=== PATIENT | female | born 1975 | race Hispanic/Latino ===

== ENCOUNTER 2016-11-16 13:58 | Observation (INO) | payer OTHER ==
[2016-11-16] VITALS (7 sets, daily range): BP systolic 92–155; BP diastolic 50–96
[~2016-11-16] VITALS: Ht 160 cm; Wt 98.3 kg
[~2016-11-16 13:58] MED LIST: ALBU8.5H2 IH; ASCO500T20 GT; ASP81TEC PO; ATR20T PO; BENZ200C25 PO; BUTA-234 PO; BUTA1CAP17 PO; BUTA1CAP39 PO; CALC-80 PO; CALC60OI3 TOP; CLCX200C PO; CLN150C PO; CLOB118S3 TOP; CLOB15CR2 TOP; CLOB15CR3 TP; CODE-54 PO; CPR500T PO; DIAZ5TAB PO; DICL75TA2 PO; DOCU100C37 PO; FERR-57 PO; FERR256T PO; FOLI0.4T2 PO; GABA-486 PO; HYDR-3816 PO; IBP600T1 PO; IBUP-1773 PO; IBUP-30 PO; IBUP200C92 PO; L.AC1CAP6 PO; LEVO500T69 PO; MECL-106 PO; MECL25TA56 PO; MELO-170 PO; MELO-198 PO; MELO7.5T PO; METF500T4 PO; METH4TAB PO; METO25TA PO; METR500T PO; MTF500T PO; MTP25TSR PO; NAPR-689 PO; NF-DICLOTA PO; NF-ESOM40C PO; ONDA-42 SL; ONDA8TAB6 PO; ONDA8TAB9 PO; ONDN4T PO; OXYC1TAB5 PO; PNT40TEC PO; PRM25T PO; PSYL1PAC10 PO; PYRI50TA10 PO; SERT100T8 PO; SERT25TA PO; SERT50TA9 PO; SIME80TA16 PO; TRAM-21 PO; TRAM50TA2 PO
[2016-11-16] MEDS ORDERED: FAMOTIDINE 20MG/2ML IV (PEPCID) ONE (13:59)
[2016-11-16] MEDS ORDERED: FAMOTIDINE 20MG/2ML IV (PEPCID) IV STA (14:06)
[2016-11-16] MEDS ORDERED: methylPREDNISolone 125 MG (Solu-MEDROL) VIAL IV STA (14:08)
--- NOTE | 2016-11-16 14:31 | ED General ---
General Chief Complaint: Allergic Reaction Stated Complaint: ALLERGIC REACTION Source of Information: Patient Exam Limitations: No Limitations History of Present Illness Time Seen by Provider: 13:59 Initial Comments Here with report of anaphylaxis. Apparently ate some cake while at work that had peanuts in it unbeknownst to her. She has severe allergic reaction to p.m. it's. 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 EMS was summoned and initiated IV access. They started normal saline 1 L bolus and Benadryl 50 mg IV as well as albuterol neb. Patient was improving after all the meds were given. Transported emergently to the ER. On arrival, patient still having some respiratory distress but states that it is much improved. No vomiting but does have some stomach upset. Does report feeling swelling. No hives noted. Patient does have nausea and did vomit after eating. Timing/Duration: 1/2 Hour Severity: Severe Associated Systoms: CoughNo Fever/Chills, Nausea/Vomiting Shortness of Air Allergies and Home Medications Allergies Coded Allergies: acetaminophen (Verified Allergy, Unknown, NAUSEA, 02/09/16) celecoxib (Verified Allergy, Unknown, DIARRHEA. WEIGHT GAIN, 02/09/16) meloxicam (Verified Allergy, Unknown, DIARRHEA, 02/09/16) methotrexate (Verified Allergy, Unknown, MOUTH BLISTERING, ITCHING, ) morphine (Verified Allergy, Unknown, NAUSEA, 02/09/16) oxycodone (Verified Allergy, Unknown, NAUSEA, 02/09/16) cephalexin (Unverified Adverse Reaction, Mild, SEVERE DIARRHEA, 04/24/14) codeine (Unverified Adverse Reaction, Mild, NAUSEA, 04/24/14) hydrocodone bit (Verified Adverse Reaction, Unknown, RASH, 04/24/14) Home Medications Butalbital/Aspirin/Caffeine 1 Each Capsule 1 CAP PO DAILY PRN PRN MIGRAINE ( Reported) Calcipotriene 60 Gm Oint...g. TOP DAILY PRN PRN PSORIASIS OF NAILS (Reported) Clobetasol Propionate 118 Ml Shampoo TOP DAILY (Reported) Clobetasol Propionate 15 Gm Cream..g. TOP DAILY PRN PRN PSORIASIS (Reported) Diclofenac Sodium 75 Mg Tablet.dr 75 MG PO BID PRN PRN JOINT PAIN (Reported) Docusate Sodium 100 Mg Capsule #40 100 MG PO BID PRN PRN CONSTIPATION Prescribed by: RENITA MUÑOZ on 02/20/16 0808 Esomeprazole Magnesium 40 Mg Cap 40 MG PO DAILY (Reported) Hydrocodone/Acetaminophen 1 Each Tablet #50 1-2 EA PO Q6H PRN PRN PAIN Prescribed by: RENITA MUÑOZ on 02/20/16 0808 Ibuprofen 600 Mg Tablet #60 600 MG PO Q6H PRN PRN PAIN Prescribed by: RENITA MUÑOZ on 02/20/16 0808 L.acidoph & Paracasei,B.lactis 1 Each Capsule 1 EACH PO DAILY (Reported) Metformin HCl 500 Mg Tablet 500 MG PO DAILY WITH SUPPER (Reported) Ondansetron 8 Mg Tab.rapdis #10 8 MG PO Q4H Prescribed by: AVIS SHORT on 05/21/16 1049 Sertraline HCl 50 Mg Tablet 50 MG PO DAILY (Reported) Simethicone 80 Mg Tab.chew #40 40 MG PO TID PRN PRN INDIGESTION Prescribed by: RENITA MUÑOZ on 02/20/16 0808 Constitutional: see HPINo chills, No fever EENTM: no symptoms reported Respiratory: no symptoms reported Cardiovascular: no symptoms reported Gastrointestinal: nausea vomiting Genitourinary: no symptoms reported Musculoskeletal: no symptoms reported Skin: no symptoms reported Psychiatric/Neurological: AnxietyDenies Weakness All Other Systems Reviewed Negative Unless Noted: Yes Past Evnxtdi-Tbqsqq-Qcvvbm Hx Patient Social History Alcohol Use: Denies Use Recreational Drug Use: No Smoking Status: Never a Smoker Recent Hopitalizations: No Immunizations Up To Date Tetanus Booster (TDap): More than 5yrs Date of Pneumonia Vaccine: Dec 18, 2014 Date of Influenza Vaccine: Jun 19, 2015 Seasonal Allergies Seasonal Allergies: No Surgeries HX Surgeries: Yes (BREAST REDUCTION, D & C, BARTHOLIN'S GLAND MARSUPIALIZATION x2) Surgeries: Breast, Gallbladder, Hysterectomy Respiratory Hx Respiratory Disorders: Yes (P.E. 2007--ONLY TOOK MEDS X 3 MONTHS-DC'D DUE TO BRUISING/BLEEDING) Respiratory Disorders: Pneumonia, Pulmonary Embolism Cardiovascular Hx Cardiac Disorders: No Neurological Hx Neurological Disorders: Yes Neurological Disorders: Headaches /Migraines Reproductive System Hx Reproductive Disorders: Yes (FIBROID) Sexually Transmitted Disease: No Female Reproductive Disorders: Menstrual Problems, Endometriosis, Ovarian Cyst Genitourinary Hx Genitourinary Disorders: No Gastrointestinal Hx Gastrointestinal Disorders: Yes Gastrointestinal Disorders: Diverticulosis, Hemorrhoids, Gall Bladder Disease Musculoskeletal Hx Musculoskeletal Disorders: Yes Musculoskeletal Disorders: Arthritis Endocrine Hx Endocrine Disorders: Yes Endocrine Disorders: Diabetes, Non-Insulin dep HEENT HX ENT Disorders: No Cancer Hx Cancer: No Psychosocial Hx Psychiatric Problems: Yes Behavioral Health Disorders: Anxiety, Suicide Attempts, Depression Integumentary HX Skin/Integumentary Disorder: Yes Skin/Integumentary Disorders: Psoriasis Blood Transfusions Hx Blood Disorders: No Adverse Reaction to a Blood Tr: No Family Medical History Significant Family History: Cancer Family Medial History: Cancer GRANDMOTHER Cancer of colon GRANDMOTHER UNCLE Chest pain 03 MOTHER Family history: Arthritis GRANDMOTHER AUNT Family history: Breast disease 03 MOTHER Family history: Hypertension 03 FATHER Headache 03 MOTHER Hypercholesterolemia 03 FATHER 03 MOTHER 09 BROTHER 09 SISTER GRANDMOTHER Malignant neoplasm of lung GRANDMOTHER No Family History of: Abdominal aortic aneurysm [place]'s disease Alcoholism Aphasia Cataract Congenital heart disease Congestive heart failure Cystic fibrosis Dementia Dysphagia Family history: Allergy Family history: Alzheimer's disease Family history: Asthma Family history: Cardiovascular disease Family history: Coronary thrombosis Family history: Diabetes mellitus Family history: Gastrointestinal disease Family history: Glaucoma Family history: Osteoporosis Family history: Thyroid disorder Hearing loss Heart disease Hereditary disease History of - anemia History of - disorder History of - respiratory disease History of drug abuse Human immunodeficiency virus (HIV) seropositivity Infertile Kidney disease Myocardial infarction Parkinson's disease Prostate cancer Psychotic disorder Seizure disorder Stroke Tuberculosis Visual impairment Physical Exam Vital Signs Capillary Refill : General Appearance: Anxious Mild Distress HEENT: PERRL/EOMI Pharynx Normal Neck: Non Tender Supple Respiratory: Lungs Clear Normal Breath Sounds Cardiovascular: Regular Rate, Rhythm No Murmur Gastrointestinal: Non Tender Soft Back: Normal Inspection No CVA Tenderness No Vertebral Tenderness Extremity: Non Tender No Calf Tenderness Neurologic/Psychiatric: Alert Oriented x3 Skin: Normal Color Warm/Dry Progress/Results/Core Measures Results/Orders My Orders Orders-NATALYA GORE MD Famotidine Injection (Pepcid Injection) (11/16/16 14:06) Methylprednisolone Sod Succ (Solu-Medrol (11/16/16 14:08) Cbc With Automated Diff (11/16/16 14:45) Comprehensive Metabolic Panel (11/16/16 14:45) Progress Note : Progress Note Seen and evaluated on arrival by EMS. O2 sat on 100 percent on nasal cannula. Albuterol neb ongoing. Patient did receive Solu-Medrol IM. I will do additional 62.5 mg IV as well as Pepcid 20 mg IV. Monitor patient. 1440: I did discuss the case with Dr. Verdugo. Patient is doing better but due to severity of reaction and the level of treatment required to reverse it, we both agree that observation overnight is indicated. I did discuss this with the patient and she agrees. We will continue Solu-Medrol and Pepcid IV. Benadryl as needed. Epinephrine as needed ordered. Admit to ICU, observation status. Remains improved. Departure Communication Time/Spoke to Admitting Phy: 14:40 Impression Impression: Primary Impression: Anaphylaxis due to peanuts Qualified Code: T78.01XA - Anaphylactic reaction due to peanuts, initial encounter Disposition: ADMITTED INPATIENT Condition: Stable Decision to Admit Reason: Admit from ER (General) Decision to Admit/Date: Nov 16, 2016 Time/Decision to Admit Time: 14:40 Departure-Patient Inst. Referrals: VINOD MITCHELL MD (PCP/Family) Primary Care Physician NATALYA GORE MD Nov 16, 2016 14:31
[2016-11-16 14:51] LABS: BASOPHILS # (AUTO) 0.1 10^3/uL (0.0-0.1); BASOPHILS % (AUTO) 0 % (0-10); EOSINOPHILS # (AUTO) 0.3 10^3/uL (0.0-0.3); EOSINOPHILS % (AUTO) 2 % (0-10); LYMPHOCYTES # (AUTO) 8.4 X 10^3 (1.0-4.0); LYMPHOCYTES % (AUTO) 37 % (12-44); MEAN CORPUSCULAR HEMOGLOBIN 25 PG (25-34); MEAN CORPUSCULAR HGB CONC 33 G/DL (32-36); MEAN CORPUSCULAR VOLUME 78 FL (80-99); MEAN PLATELET VOLUME 9.9 FL (7.4-10.4); MONOCYTES # (AUTO) 1.3 X 10^3 (0.0-1.0); MONOCYTES % (AUTO) 6 % (0-12); NEUTROPHILS # (AUTO) 12.5 X 10^3 (1.8-7.8); NEUTROPHILS % (AUTO) 55 % (42-75); PLATELET COUNT 533 10^3/uL (130-400); RED BLOOD COUNT 5.27 10^6/uL (4.35-5.85); RED CELL DISTRIBUTION WIDTH 14.6 % (10.0-14.5); WHITE BLOOD COUNT 22.6 10^3/uL (4.3-11.0)
[2016-11-16 15:04] LABS: ALANINE AMINOTRANSFERASE 17 U/L (0-55); ALBUMIN 4.2 G/DL (3.2-4.5); ANION GAP 14 MMOL/L (5-14); ASPARTATE AMINO TRANSFERASE 16 U/L (5-34); BILIRUBIN,TOTAL 0.2 MG/DL (0.1-1.0); BLOOD UREA NITROGEN 7 MG/DL (7-18); BUN/CREATININE RATIO 10; CALCIUM 8.7 MG/DL (8.5-10.1); CARBON DIOXIDE 22 MMOL/L (21-32); CHLORIDE 101 MMOL/L (98-107); GFR ESTIMATED > 60; GLUCOSE 112 MG/DL (70-105); POTASSIUM 3.4 MMOL/L (3.6-5.0); SODIUM 137 MMOL/L (135-145); TOTAL PROTEIN 7.2 G/DL (6.4-8.2)
[2016-11-16 15:05] LABS: BAND NEUTROPHILS 0 %; BASOPHILS % (MANUAL) 0 %; EOSINOPHILS % (MANUAL) 1 %; LYMPHOCYTES % (MANUAL) 43 %; NEUTROPHILS % (MANUAL) 54 %
[2016-11-16] MEDS ORDERED: METF500T8 PO (15:52)
[2016-11-16] MEDS ORDERED: ADAL40PE SC (15:52)
[2016-11-16] MEDS ORDERED: PSEU30TA35 PO (15:52)
[2016-11-16] MEDS ORDERED: BUTA1TAB9 PO (15:52)
[2016-11-16] MEDS ORDERED: PANT40TA3 PO (15:52)
--- OUTSIDE RECORDS SUMMARY | 2016-11-16 16:20 | XMS REPORT | Continuity of Care Document ---
Author Author [facility] Organization [facility] Address Unknown Phone Unavailable Care Team Providers Care Patent Law Specialist Name Role Phone PCP Unavailable Source Comments Some departments are not documenting in the electronic medical record. If you do not see the information that you expected, contact Release of Information in the Health Information Management department at [phone] for further assistance in locating additional records.[facility] Active Allergies and Adverse Reactions Allergen Noted Date Severity Reactions Comments Keflex 07/16/2016 Low UNKNOWN Levofloxacin 09/03/2016 Low DIARRHEA Methotrexate 07/16/2016 Low UNKNOWN Mobic 07/16/2016 Low DIARRHEA Morphine 2016 Low VOMITING Vicodin 07/16/2016 Low UNKNOWN Current Medications Prescription Sig. Disp. Refills Start End Date Status Date diclofenac sodium DR Take 75 mg by mouth twice Active (VOLTAREN) 75 mg tablet daily. Clobetasol 0.05 % sham Apply topically to Active affected area daily. traMADol (ULTRAM) 50 mg Take 50 mg by mouth at Active tablet bedtime daily. clobetasol (TEMOVATE) Apply to affected area Active 0.05 % topical cream twice daily. sertraline (ZOLOFT) 100 Take 100 mg by mouth Active mg tablet daily. butalbital/acetaminophen/ Take 1 Tab by mouth every Active caffeine(+) (FIORICET) 4 hours as needed for 50/325/40 mg tablet Headache. metFORMIN-XR(+) Take 500 mg by mouth Active (GLUCOPHAGE XR) 500 mg daily with dinner. tablet pantoprazole DR Take 40 mg by mouth Active (PROTONIX) 40 mg tablet daily. adalimumab(+) (HUMIRA Inject 40 mg under the 2 Each 6 09/22/19 Active PEN) 40 mg/0.8 mL skin every 14 days. 17 injection pen Active Problems Problem Noted Date Headache 09/03/2016 Anxiety 09/03/2016 Psoriatic arthritis 09/03/2016 Prediabetes 09/03/2016 Inflammatory arthritis 2016 Recurrent major depressive disorder, in full remission (HCC) 2016 Psoriasis of scalp 2016 Non morbid obesity due to excess calories 2016 Most Recent Encounters Date Type Specialty Providers Description 11/12/2016 Refill Allergy,Immunology and Tod Su MD Rheumatology 09/16/2016 Telephone Allergy,Immunology and Tod Su MD Prior Authorization Rheumatology 09/03/2016 Office Visit Allergy,Immunology and Tod Su MD Psoriatic arthritis Rheumatology Social History Tobacco Use Types Packs/Day Years Used Date Never Smoker Smokeless Tobacco: Never Used Alcohol Use Drinks/Week oz/Week Comments No Last Filed Vital Signs Vital Sign Reading Time Taken Blood Pressure 126/81 09/03/2016 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 Pulse 94 09/03/2016 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 Temperature 36.4 C (97.5 F) 09/03/2016 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 Respiratory Rate 18 09/03/2016 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 Height 1.524 m (5') 09/03/2016 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 Weight 96.888 kg (213 lb 9.6 oz) 09/03/2016 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 Body Mass Index 41.72 09/03/2016 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 Oxygen Saturation - - Plan of Care Date Type Specialty Providers Description 12/10/2016 Appointment Allergy,Immunology and Tod Su MD Rheumatology [address] [place] [address] [phone] (Fax) Health Maintenance Due Date Last Done Comments Physical (Comprehensive) 1981 Exam Pertussis Vaccine 1985 Tetanus Vaccine 1991 Cervical Cancer Screening 1995 Breast Cancer Screening 2014 Influenza Vaccine 05/20/2016 Results from Last 3 Months Not on file
[2016-11-16] MEDS ORDERED: OMEP40CA36 PO (16:26)
[2016-11-16] MEDS ORDERED: TRAM50TA2 PO (16:26)
[2016-11-16] MEDS ORDERED: ONDA4TAB11 SL (16:26)
[2016-11-16] MEDS ORDERED: EPINEPHrine INJECTION 1 MG/ML AMP IM PRN (16:30)
[2016-11-16] MEDS ORDERED: RT-epiNEPHrine (RACEMIC) 2.25% 0.5 ML VIAL INH PRN (16:30)
[2016-11-16] MEDS ORDERED: CATHETER FLUSH 10 ML SYR IV PRN (16:30)
[2016-11-16] MEDS ORDERED: diphenhydrAMINE 50 MG/ML INJ (BENADRYL) IV PRN (16:30)
[2016-11-16] MEDS ORDERED: RT-ALBUTEROL SULF 2.5 MG/3 ML PRE-MIX VIAL INH PRN (16:30)
[2016-11-16] MEDS: NS IV 1000 ML 1,000 ML IV SCH (17:11)
[2016-11-16] MEDS: methylPREDNISolone 125 MG (Solu-MEDROL) VIAL IV SCH (17:30)
[2016-11-16] MEDS: FAMOTIDINE 20MG/2ML IV (PEPCID) IV SCH (22:08)
[2016-11-17] MEDS: methylPREDNISolone 125 MG (Solu-MEDROL) VIAL IV SCH ×2 (00:33→06:19)
[2016-11-17] MEDS: NS IV 1000 ML 1,000 ML IV SCH (02:44)
[2016-11-17 05:14] LABS: BASOPHILS % (AUTO) 0 % (0-10); EOSINOPHILS % (AUTO) 0 % (0-10); LYMPHOCYTES % (AUTO) 8 % (12-44); MEAN CORPUSCULAR HEMOGLOBIN 25 PG (25-34); MEAN CORPUSCULAR HGB CONC 33 G/DL (32-36); MEAN CORPUSCULAR VOLUME 78 FL (80-99); MEAN PLATELET VOLUME 9.6 FL (7.4-10.4); MONOCYTES # (AUTO) 0.2 X 10^3 (0.0-1.0); MONOCYTES % (AUTO) 1 % (0-12); NEUTROPHILS % (AUTO) 91 % (42-75); PLATELET COUNT 458 10^3/uL (130-400); RED BLOOD COUNT 5.31 10^6/uL (4.35-5.85); RED CELL DISTRIBUTION WIDTH 14.6 % (10.0-14.5); WHITE BLOOD COUNT 24.3 10^3/uL (4.3-11.0)
[2016-11-17 05:32] LABS: ANION GAP 12 MMOL/L (5-14); BLOOD UREA NITROGEN 7 MG/DL (7-18); BUN/CREATININE RATIO 11; CALCIUM 8.9 MG/DL (8.5-10.1); CARBON DIOXIDE 17 MMOL/L (21-32); CHLORIDE 109 MMOL/L (98-107); CREATININE SERUM 0.62 MG/DL (0.60-1.30); GFR ESTIMATED > 60; GLUCOSE 149 MG/DL (70-105); MAGNESIUM 1.9 MG/DL (1.8-2.4); POTASSIUM 3.8 MMOL/L (3.6-5.0); SODIUM 138 MMOL/L (135-145)
[2016-11-17] MEDS ORDERED: KCL 20 MEQ TAB (K-DUR) PO SCH ×2 (06:00)
[2016-11-17] MEDS ORDERED: POTASSIUM CL 10MEQ/50ML IVPB 50 ML IV SCH ×2 (06:00)
[2016-11-17] MEDS ORDERED: MAGNESIUM 1 GM/100 ML IVPB 100 ML IV SCH ×2 (06:00)
[2016-11-17 07:23] VITALS: BP 129/82
[2016-11-17] MEDS: FAMOTIDINE 20MG/2ML IV (PEPCID) IV SCH (07:54)
--- NOTE | 2016-11-17 08:20 | Diagnostic Imaging Report ---
Portable upright radiograph of the chest. INDICATION: Anaphylaxis. FINDINGS: There is minimal atelectasis in the left lung base. The right lung is clear. The heart size is mildly enlarged. There is no effusion or pneumothorax. The mediastinum and caesar appear unremarkable. IMPRESSION: Minimal left basilar atelectasis. The cardiac size appears enlarged, which could be exaggerated by the portable AP technique. Dictated by: Dictated on workstation # [id number]
[2016-11-17 09:00] VITALS: BP 124/77
[2016-11-17 09:13] VITALS: BP 124/77
[2016-11-17] MEDS ORDERED: PRD20T PO (09:26)
--- NOTE | 2016-11-17 09:29 | Discharge Instructions ---
Discharge Inst-[facility] Discharge Medications New, Converted or Re-Newed RX: Transmitted to Pharmacy New Medications: Prednisone (Prednisone) 20 Mg Tab 20 MG PO DAILY #7 TAB Continued Medications: Adalimumab (Humira) 40 Mg/0.8 Ml Pen.ij.kit 40 MG SC EVERY 14 DAYS HAS NOT STARTED YET EA Butalb/Acetaminophen/Caffeine (Jjumtk-Jxdjuksu-Novu 50-325-40) 1 Each Tablet 1-2 TAB PO Q6H PRN MIGRAINE TAB Calcipotriene (Calcipotriene) 60 Gm Oint...g. TOP DAILY PRN PSORIASIS OF NAILS Clobetasol Propionate (Clobetasol Propionate) 118 Ml Shampoo TOP Sa Clobetasol Propionate (Clobetasol Propionate) 15 Gm Cream..g. TOP DAILY PRN PSORIASIS Diclofenac Sodium (Diclofenac Sodium) 75 Mg Tablet.dr 75 MG PO BID PRN JOINT PAIN TAB Omeprazole (Omeprazole) 40 Mg Capsule.dr 40 MG PO DAILY PRN INDIGESTION Ondansetron (Ondansetron Odt) 4 Mg Tab.rapdis 4 MG SL Q8H PRN NAUSEA/VOMITING Sertraline HCl (Sertraline HCl) 50 Mg Tablet 50 MG PO DAILY TAB Tramadol HCl (Tramadol HCl) 50 Mg Tablet 50 MG PO Q6H PRN PAIN Patient Instructions Goal/Follow Up Appt: Geetha will call with follow up appointment Patient Instructions: - Make sure to take your steroid until gone, call if you have any return of symptoms Return to The Hospital For: - Shortness of breath - Wheezing - Return of symptoms Activity & Diet Discharge Diet: Cardiac Diet Activity as Tolerated: Yes Copy Copies To 1: VINOD MITCHELL MD, HOLLY R MD Nov 17, 2016 09:29
--- NOTE | 2016-11-17 09:30 | Short Stay Summary ---
HPI History of Present Illness: 41 yo F was brought to ER from [facility] after eating cookies during lunch that had walnuts present. Patient states that within mins she was feeling her throat get tight and numb. She told a coworker who then notified Dr Anderson. Patient was given epi x2 and IM steroids. EMS was called and they gave her additional steroids in route. Patient states that she was unaware that she had ingested nuts. This AM she is feeling much better. She was able to sleep some over night. She denies any return of symptoms. Denies shortness of breath or chest pain. Source: patient, RN/MD Exam Limitations: no limitations Date seen by provider: Nov 17, 2016 Attending Physician Phuong Verdugo MD PCP Vinod Anderson MD Consult Date of Admission Nov 16, 2016 at 15:10 Home Medications Home Medications Reviewed patient Home Medication Reconciliation Form Allergies Coded Allergies: nut - unspecified (Verified Allergy, Severe, Anaphylaxis, 11/16/16) acetaminophen (Verified Allergy, Unknown, NAUSEA, 02/09/16) celecoxib (Verified Allergy, Unknown, DIARRHEA. WEIGHT GAIN, 02/09/16) meloxicam (Verified Allergy, Unknown, DIARRHEA, 02/09/16) methotrexate (Verified Allergy, Unknown, MOUTH BLISTERING, ITCHING, ) morphine (Verified Allergy, Unknown, NAUSEA, 02/09/16) oxycodone (Verified Allergy, Unknown, NAUSEA, 02/09/16) cephalexin (Unverified Adverse Reaction, Mild, SEVERE DIARRHEA, 04/24/14) codeine (Unverified Adverse Reaction, Mild, NAUSEA, 04/24/14) hydrocodone bit (Verified Adverse Reaction, Unknown, RASH, 04/24/14) WII-Uueorc-Lwhiqx Hx Patient Social History Alcohol Use: Rarely Uses Recreational Drug Use: No Smoking Status: Never a Smoker Recent Foreign Travel: No Contact w/other who traveled: No Recent Hopitalizations: No Recent Infectious Disease Expo: No Physical Abuse Screen: No Sexual Abuse: No Immunizations Up To Date Tetanus Booster (TDap): More than 5yrs Date of Pneumonia Vaccine: Jun 16, 2016 Date of Influenza Vaccine: Jun 16, 2016 Past Medical History PMHx: Depression Hyperlipidemia Fever of unknown origin 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 by one [employer], did not tolerate methotrexate, waiting for second opinion at [facility] Thrombocytosis History of PE thought to be due to OCP use PSurgHx: Cholecystectomy Breast reduction Marsupialization of [place]tholin gland cyst Family Medical History Significant Family History: Cancer Family History: Cancer GRANDMOTHER Cancer of colon GRANDMOTHER UNCLE Chest pain 03 MOTHER Family history: Arthritis GRANDMOTHER AUNT Family history: Breast disease 03 MOTHER Family history: Hypertension 03 FATHER Headache 03 MOTHER Hypercholesterolemia 03 FATHER 03 MOTHER 09 BROTHER 09 SISTER GRANDMOTHER Malignant neoplasm of lung GRANDMOTHER No Family History of: Abdominal aortic aneurysm [place]'s disease Alcoholism Aphasia Cataract Congenital heart disease Congestive heart failure Cystic fibrosis Dementia Dysphagia Family history: Allergy Family history: Alzheimer's disease Family history: Asthma Family history: Cardiovascular disease Family history: Coronary thrombosis Family history: Diabetes mellitus Family history: Gastrointestinal disease Family history: Glaucoma Family history: Osteoporosis Family history: Thyroid disorder Hearing loss Heart disease Hereditary disease History of - anemia History of - disorder History of - respiratory disease History of drug abuse Human immunodeficiency virus (HIV) seropositivity Infertile Kidney disease Myocardial infarction Parkinson's disease Prostate cancer Psychotic disorder Seizure disorder Stroke Tuberculosis Visual impairment Review of Systems ([facility]) Constitutional: no symptoms reportedNo chills, No malaise, No weakness EENTM: no symptoms reportedNo hoarseness, No mouth pain, No mouth swelling, No throat pain, No throat swelling Respiratory: no symptoms reportedNo cough, No dyspnea on exertion, No short of breath, No stridor, No wheezing Cardiovascular: no symptoms reportedNo chest pain, No edema, No palpitations Gastrointestinal: abdominal pain (RUQ, She thinks that it is from vomiting)No heartburn, nauseaNo vomiting Genitourinary: no symptoms reported Musculoskeletal: no symptoms reported Skin: no symptoms reportedNo rash Psychiatric/Neurological: No Symptoms Reported Reviewed Test Results Reviewed Test Results Lab Laboratory Tests Test 11/17/16 05:07 Range/Units Anion Gap 12 5-14 MMOL/L BUN/Creatinine Ratio 11 Basophils # (Auto) 0.0 0.0-0.1 10^3/uL Basophils (%) (Auto) 0 0-10 % Blood Urea Nitrogen 7 7-18 MG/DL Calcium Level 8.9 8.5-10.1 MG/DL Carbon Dioxide Level 17 L 21-32 MMOL/L Chloride Level 109 H 98-107 MMOL/L Creatinine 0.62 0.60-1.30 MG/DL Eosinophils # (Auto) 0.0 0.0-0.3 10^3/uL Eosinophils (%) (Auto) 0 0-10 % Estimat Glomerular Filtration Rate > 60 Glucose Level 149 H 70-105 MG/DL Hematocrit 41 35-52 % Hemoglobin 13.4 11.5-16.0 G/DL Lymphocytes # (Auto) 2.0 1.0-4.0 X 10^3 Lymphocytes (%) (Auto) 8 L 12-44 % Magnesium Level 1.9 1.8-2.4 MG/DL Mean Corpuscular Hemoglobin 25 25-34 PG Mean Corpuscular Hemoglobin Concent 33 32-36 G/DL Mean Corpuscular Volume 78 L 80-99 FL Mean Platelet Volume 9.6 7.4-10.4 FL Monocytes # (Auto) 0.2 0.0-1.0 X 10^3 Monocytes (%) (Auto) 1 0-12 % Neutrophils # (Auto) 22.0 H 1.8-7.8 X 10^3 Neutrophils (%) (Auto) 91 H 42-75 % Phosphorus Level 2.0 L 2.3-4.7 MG/DL Platelet Count 458 H 130-400 10^3/uL Potassium Level 3.8 3.6-5.0 MMOL/L Red Blood Count 5.31 4.35-5.85 10^6/uL Red Cell Distribution Width 14.6 H 10.0-14.5 % Sodium Level 138 135-145 MMOL/L White Blood Count 24.3 H 4.3-11.0 10^3/uL Radiology Date of Exam: 11/17/16 CHEST 1 VIEW, AP/PA ONLY Portable upright radiograph of the chest. INDICATION: Anaphylaxis. FINDINGS: There is minimal atelectasis in the left lung base. The right lung is clear. The heart size is mildly enlarged. There is no effusion or pneumothorax. The mediastinum and caesar appear unremarkable. IMPRESSION: Minimal left basilar atelectasis. The cardiac size appears enlarged, which could be exaggerated by the portable AP technique. Physical Exam-([facility]) Physical Exam Vital Signs VS - Last 72 Hours, by Label 11/16/16 11/16/16 11/16/16 11/16/16 14:13 15:39 15:59 16:00 Temp 98.6 99.9 Pulse 111 110 111 Resp 20 14 30 B/P 159/102 141/92 Pulse Ox 99 97 93 93 O2 Delivery Simple Mask Room Air 11/16/16 11/16/16 11/16/16 11/16/16 16:15 16:25 17:00 18:00 Pulse 108 108 118 Resp 34 32 18 B/P 140/81 122/78 143/85 Pulse Ox 92 95 93 94 O2 Delivery Room Air Room Air Room Air 11/16/16 11/16/16 11/16/16 11/16/16 19:00 19:00 20:00 21:00 Pulse 114 114 121 112 Resp 20 B/P 155/96 Pulse Ox 96 96 93 O2 Delivery Room Air Room Air Room Air 11/16/16 11/16/16 11/17/16 11/17/16 22:00 23:00 00:00 01:00 Pulse 99 97 99 103 B/P 114/67 92/50 Pulse Ox 89 94 93 95 O2 Delivery Room Air Room Air Room Air Room Air 11/17/16 11/17/16 11/17/16 11/17/16 01:00 02:00 02:00 03:00 Temp 99.4 Pulse 97 90 98 B/P Pulse Ox 91 92 O2 Delivery Room Air Room Air 11/17/16 11/17/16 11/17/16 11/17/16 04:00 04:00 05:00 06:00 Temp 99.0 Pulse 99 92 102 93 B/P Pulse Ox 93 92 93 96 O2 Delivery Room Air Room Air Room Air Room Air 11/17/16 11/17/16 11/17/16 11/17/16 07:00 08:00 08:00 09:00 Temp 99.0 98.1 Pulse 105 99 112 B/P 124/77 Pulse Ox 93 92 95 O2 Delivery Room Air Room Air 11/17/16 09:13 Pulse 112 Resp 20 B/P 124/77 Pulse Ox 95 Capillary Refill : Less Than 3 Seconds General Appearance: WD/WN no apparent distress HEENT: PERRL/EOMI pharynx normalNo pharyngeal erythema Neck: non-tender full range of motion supple normal inspection Respiratory: chest non-tender lungs clear normal breath sounds no respiratory distress no accessory muscle useNo stridor, No wheezing Cardiovascular: normal peripheral pulses regular rate, rhythm no edema no gallop no JVD no murmur Gastrointestinal: normal bowel sounds non tender soft no organomegaly no pulsatile mass Extremities: normal range of motion non-tender normal inspection no pedal edema no calf tenderness normal capillary refill 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 nml as tested no motor/sensory deficits alert normal mood/affect oriented x 3 Skin: normal color warm/dryNo rash Lymphatic: no adenopathy Short Stay Diagnosis Discharge Diagnosis-Short Stay Admission Diagnosis Severe Anaphylaxic Reaction to nuts Respiratory Distress Final Discharge Diagnosis See Above Conclusion Plan 41 yo F that was admitted for observation following accidental ingestion of nuts which caused severe anaphylactic reaction with respiratory distress Plan Severe Allergic Reaction with Anaphylactic response - Switch to PO steroids with taper - Discussed the importance of avoidance of allergy - Patient has script for epipen - Discussed delayed reactions that she needs to notify doctor Respiratory Distress - Resolved this AM, on RA F/u with PCP Dr Anderson - Nothing pending at time of discharge Clinical Quality Measures DVT/VTE Risk/Contraindication: Risk Factor Score Per Nursin RFS Level Per Nursing on Admit: 4+=Very High Copy Copies To 1: VINOD ANDERSON MD, HOLLY R MD Nov 17, 2016 09:30
== END 2016-11-17 09:27 | disposition home or self-care (01) ==
LOC: EDUNIT# 13:58 → ER 13:59 → ICU 15:10 → UNDOADMOB 15:10 → ICU 15:55 → UNDODISOB 11-17 09:50
PROVIDERS: ADMIT Family Medicine; ATTEND Family Medicine
DX: T78.01XA Anaphylactic reaction due to peanuts, initial encounter (principal); R06.00 Dyspnea, unspecified; R11.0 Nausea; E11.9 Type 2 diabetes mellitus without complications; E78.5 Hyperlipidemia, unspecified; I25.10 Atherosclerotic heart disease of native coronary artery without angina pectoris; F32.9 Major depressive disorder, single episode, unspecified; Z79.899 Other long term (current) drug therapy; Z86.711 Personal history of pulmonary embolism
CPT/HCPCS: 36415; 71010; 80048; 80053; 83735; 84100; 85007; 85025; 85027; 96374; 96375; G0378

== ENCOUNTER → 2017-01-17 | Outpatient (CLI) | payer OTHER ==
[~2017-01-17] MED LIST changes: +ADAL40PE SC; +BUTA1TAB9 PO; +CATHETER FLUSH 10 ML SYR IV PRN; +IOHEXOL 350 MG/ML 100 ML (OMNIPAQUE 350) VIAL IV ONE; +METF500T8 PO; +NS 100 ML (IVPB) BAG IV ONE; +OMEP40CA36 PO; +ONDA4TAB11 SL; +PANT40TA3 PO; +PRD20T PO; +PSEU30TA35 PO
--- NOTE | 2017-01-17 12:00 | Diagnostic Imaging Report ---
PROCEDURE: CT abdomen and pelvis without contrast. TECHNIQUE: Multiple contiguous axial images were obtained through the abdomen and pelvis without the use of intravenous contrast. INDICATION: Abdominal pain, fever. FINDINGS: The lung bases appear clear. The liver is low in attenuation compatible with steatosis. No focal lesion identified, however, on this unenhanced exam. The spleen, the adrenals, and the pancreas appear unremarkable for an unenhanced study. There is suggestion of prior hysterectomy. Slightly prominent appearance of the right ovary is likely related to underlying dominant follicles. The left ovary is not seen. There is diverticulosis mostly involving the sigmoid colon with no evidence of diverticulitis. The appendix is normal. There is no significant free fluid or fluid collection in the abdomen or pelvis. There is a tiny fat-containing umbilical hernia. The abdominal aorta is normal in caliber. No para-aortic significantly enlarged lymph node is seen. The osseous structures appear grossly unremarkable. IMPRESSION: 1. Diverticulosis, no diverticulitis. 2. Hepatic steatosis. 3. Tiny fat-containing umbilical hernia. Dictated by: Dictated on workstation # [id number]
== END ==
LOC: RAD 09:43
PROVIDERS: ATTEND Obstetrics & Gynecology
DX: K57.30 Diverticulosis of large intestine without perforation or abscess without bleeding (principal); K76.0 Fatty (change of) liver, not elsewhere classified; K42.9 Umbilical hernia without obstruction or gangrene
CPT/HCPCS: 74176

== ENCOUNTER → 2017-09-07 | Outpatient (CLI) | payer OTHER ==
[~2017-09-07] MED LIST changes: -CATHETER FLUSH 10 ML SYR IV PRN; +DICL100T3 PO; -IOHEXOL 350 MG/ML 100 ML (OMNIPAQUE 350) VIAL IV ONE; -NF-DICLOTA PO; -NS 100 ML (IVPB) BAG IV ONE
--- NOTE | 2017-09-07 09:56 | Diagnostic Imaging Report ---
PROCEDURE: US abdomen complete. TECHNIQUE: Multiple real-time grayscale images were obtained over the abdomen in various projections. INDICATION: Left lower quadrant pain. FINDINGS: The pancreas is largely obscured. The liver is fairly homogeneous with no focal lesion. It is however hyperechoic and attenuates the ultrasound beam suggestive of fatty infiltration or hepatitis. It is at the upper limits of normal in size measuring 18.4 CM craniocaudally. Hepatopetal flow in the portal vein is demonstrated. The CBD is obscured. The gallbladder has been removed. The spleen is 9.4 CM in length. The abdominal aorta is mostly obscured. The IVC is also obscured by bowel gas. The right kidney is 11.2 and the left kidney is 11.5 CM in length. No hydronephrosis or focal lesion is seen. No fluid collection or ascites. IMPRESSION: Suggestion of hepatic steatosis or hepatitis. Dictated by: Dictated on workstation # [id number]
== END ==
LOC: RAD 08:40
PROVIDERS: ATTEND Family Medicine
DX: R10.32 Left lower quadrant pain (principal)
CPT/HCPCS: 76700

== ENCOUNTER 2018-05-01 08:00 | Emergency (ER) | payer OTHER ==
[~2018-05-01] VITALS: Ht 157.5 cm; Wt 86.2 kg
[~2018-05-01 08:00] MED LIST changes: +HYDR-34 PO; -HYDR-3816 PO; -METF500T4 PO; +METF500T5 PO
[2018-05-01] MEDS ORDERED: ASPIRIN 81 MG CHEW (CHILDREN'S ASA) PO ONE (08:15)
[2018-05-01] MEDS ORDERED: LORazepam INJ 2 MG/ML (ATIVAN) VIAL IVP ONE (08:15)
[2018-05-01 08:21] LABS: BASOPHILS % (AUTO) 0 % (0-10); EOSINOPHILS # (AUTO) 0.2 10^3/uL (0.0-0.3); EOSINOPHILS % (AUTO) 2 % (0-10); HEMATOCRIT 41 % (35-52); HEMOGLOBIN 13.3 G/DL (11.5-16.0); LYMPHOCYTES % (AUTO) 38 % (12-44); MEAN CORPUSCULAR HEMOGLOBIN 25 PG (25-34); MEAN CORPUSCULAR HGB CONC 32 G/DL (32-36); MEAN CORPUSCULAR VOLUME 78 FL (80-99); MEAN PLATELET VOLUME 9.4 FL (7.4-10.4); MONOCYTES # (AUTO) 0.9 X 10^3 (0.0-1.0); MONOCYTES % (AUTO) 7 % (0-12); NEUTROPHILS # (AUTO) 7.1 X 10^3 (1.8-7.8); NEUTROPHILS % (AUTO) 54 % (42-75); PLATELET COUNT 458 10^3/uL (130-400); RED BLOOD COUNT 5.28 10^6/uL (4.35-5.85); RED CELL DISTRIBUTION WIDTH 14.8 % (10.0-14.5); WHITE BLOOD COUNT 13.3 10^3/uL (4.3-11.0)
[2018-05-01 08:37] LABS: PROTHROMBIN TIME PATIENT 12.8 SEC (12.2-14.7)
[2018-05-01 08:39] LABS: ALANINE AMINOTRANSFERASE 15 U/L (0-55); ALBUMIN 4.1 GM/DL (3.2-4.5); ALKALINE PHOSPHATASE 84 U/L (40-136); BILIRUBIN,TOTAL 0.3 MG/DL (0.1-1.0); BUN/CREATININE RATIO 8; CALCIUM 8.7 MG/DL (8.5-10.1); CARBON DIOXIDE 21 MMOL/L (21-32); CHLORIDE 105 MMOL/L (98-107); CREATININE SERUM 0.65 MG/DL (0.60-1.30); GFR ESTIMATED > 60; GLUCOSE 113 MG/DL (70-105); MAGNESIUM 2.1 MG/DL (1.8-2.4); POTASSIUM 3.9 MMOL/L (3.6-5.0); SODIUM 137 MMOL/L (135-145); TOTAL PROTEIN 7.5 GM/DL (6.4-8.2)
--- OUTSIDE RECORDS SUMMARY | 2018-05-01 08:44 | XMS REPORT | Clinical Summary ---
Author Author [facility] Organization [facility] Address Unknown Phone Unavailable Care Team Providers Care Box Packer Name Role Phone Tod Su MD Unavailable Source Comments Some departments are not documenting in the electronic medical record. If you do not see the information that you expected, contact Release of Information in the Health Information Management department at [phone] for further assistance in locating additional records.[facility] Allergies Active Allergy Reactions Severity Noted Date Comments Cephalexin UNKNOWN Low 07/16/2016 Levofloxacin DIARRHEA Low 09/03/2016 Methotrexate UNKNOWN Low 07/16/2016 Meloxicam DIARRHEA Low 07/16/2016 Morphine VOMITING Low 2016 Hydrocodone-Acetaminophen UNKNOWN Low 07/16/2016 Current Medications Prescription Sig. Disp. Refills Start [...] morbid obesity due to excess calories 2016 Family History Medical History Relation Name Comments Hyperlipidemia Father Hypertension Father Arthritis-rheumatoid Maternal Grandmother Cancer Maternal Grandmother Cancer-Colon Maternal Grandmother Depression Mother Hyperlipidemia Mother Mental Illness Mother Relation Name Status Comments Father Maternal Grandmother Mother Social History Tobacco Use Types Packs/Day Years Used Date Never Smoker Smokeless Tobacco: Never Used Alcohol Use Drinks/Week oz/Week Comments No Sex Assigned at Date Recorded Not on file Last Filed Vital Signs Vital Sign Reading Time Taken Blood Pressure 126/81 09/03/2016 10:31 AM SINKER PULLER Pulse 94 09/03/2016 10:31 AM SINKER PULLER Temperature 36.4 C (97.5 F) 09/03/2016 10:31 AM SINKER PULLER Respiratory Rate 18 09/03/2016 10:31 AM SINKER PULLER Oxygen Saturation - - Inhaled Oxygen - - Concentration Weight 96.9 kg (213 lb 9.6 oz) 09/03/2016 10:31 AM SINKER PULLER Height 152.4 cm (5') 09/03/2016 10:31 AM SINKER PULLER Body Mass Index 41.72 09/03/2016 10:31 AM SINKER PULLER Plan of Treatment Health Maintenance Due Date Last Done Comments PHYSICAL (COMPREHENSIVE) 1981 EXAM PERTUSSIS VACCINE 1985 HIV SCREENING 1989 TETANUS VACCINE 1991 CERVICAL CANCER SCREENING 2004 BREAST CANCER SCREENING 2014 INFLUENZA VACCINE 06/19/2018 Results Not on filefrom Last 3 Months
[2018-05-01 08:45] LABS: MYOGLOBIN SERUM 17.9 NG/ML (10.0-92.0)
--- OUTSIDE RECORDS SUMMARY | 2018-05-01 08:45 | XMS REPORT ---
Author Author RALPH HENDRICKSON [facility] eClinicalWorks Address Unknown Phone Unavailable Care Team Providers Care Adjunct Spanish Instructor Name Role Phone RALPH HENDRICKSON CP Unavailable Allergies No Known Allergies Problems Problem Type Condition ICD-9 Code Onset Dates Condition Status Problem Other nonspecific findings on examination of blood, elevated C- reactive protein (CRP) 790.95 Active Problem Other and unspecified hyperlipidemia 272.4 Active Problem Rash and other nonspecific skin eruption 782.1 Active Problem Thrombocytosis 238.71 Active Problem Fibroid uterus 218.9 Active Problem Psoriatic arthritis 696.0 Active Problem Other and unspecified ovarian cyst 620.2 Active Problem Overweight 278.02 Active Problem Helicobacter pylori (H. pylori) infection 041.86 Active Problem Other abnormal glucose 790.29 Active Problem Insomnia, unspecified 780.52 Active Problem Personal history of pulmonary embolism V12.55 Active Problem Pain in joint, lower leg 719.46 Active Problem Raynaud's syndrome 443.0 Active Problem Cyst of Bartholin's gland 616.2 Active Problem Generalized hyperhidrosis 780.8 Active Problem Fever, unspecified 780.60 Active Problem Lateral epicondylitis of elbow 726.32 Active Problem Diverticulosis of colon (without mention of hemorrhage) 562.10 Active Medications Medication Code System Code Instructions Start Date End Date Status Dosage Diflucan [facility] [address]-73 150 MG Orally Once a day. Repeat dose in three days Jun 09, 2015 1 tablet Results No Known Results Summary Purpose eClinicalWorks Submission
--- OUTSIDE RECORDS SUMMARY | 2018-05-01 08:45 | XMS REPORT ---
Author Author DANIELA LONG [facility] eClinicalWorks Address Unknown Phone Unavailable Care Team Providers Care Turpentiner Name Role Phone DANIELA LONG CP Unavailable Allergies, Adverse Reactions, Alerts Substance Reaction Event Type Vicodin Info Not Available Drug Allergy Prilosec cough Drug Allergy Methotrexate Info Not Available Drug Allergy Keflex Info Not Available Drug Allergy Hormones blood clot Non Drug Allergy Mobic 7.5 Mg Tablet Diarrhea Non Drug Allergy Celebrex 200 Mg Capsule Weight Gain Non Drug Allergy Hydroxychloroquine 200 Mg Tablet Info Not Available Non Drug Allergy Problems Problem Type Condition Code Onset Dates Condition Status Problem Other and unspecified hyperlipidemia 272.4 Active Problem Other and unspecified ovarian cyst 620.2 Active Problem Overweight 278.02 Active Problem Psoriatic arthritis 696.0 Active Problem Pain in joint, lower leg 719.46 Active Problem Thrombocytosis 238.71 Active Assessment Dysuria R30.0 Active Assessment Acute cystitis with hematuria N30.01 Active Problem Acute cystitis with hematuria N30.01 Active Problem Psoriatic arthritis L40.50 Active Problem Other abnormal glucose 790.29 Active Problem Fibroid uterus 218.9 Active Problem Helicobacter pylori (H. pylori) infection 041.86 Active Problem Generalized hyperhidrosis 780.8 Active Problem Lateral epicondylitis of elbow 726.32 Active Problem Insomnia, unspecified 780.52 Active Problem Personal history of pulmonary embolism V12.55 Active Problem Fever, unspecified 780.60 Active Problem Diverticulosis of colon (without mention of hemorrhage) 562.10 Active Problem Raynaud's syndrome 443.0 Active Problem Other nonspecific findings on examination of blood, elevated C- reactive protein (CRP) 790.95 Active Problem Cyst of Bartholin's gland 616.2 Active Problem Rash and other nonspecific skin eruption 782.1 Active Medications Medication Code System Code Instructions Start Date End Date Status Dosage metformin NDC 0 500 mg Oct 31, 2014 take 1 tablet (500 mg) by oral route once daily with the evening meal Diflucan NDC [address]-67 150 MG Orally Once a day Jul 23, 2015 Jul 25, 2015 [address] [facility] [address]-58 100 MG Orally twice per day 1/2 tablet Diclofenac Sodium [facility] [address]-57 75 MG Orally 2 times a day as needed December 09, 2014 1 tablet Clobetasol Propionate [facility] [address]-13 0.05 % Externally Twice a day 1 application to affected area Cipro [facility] [address]-66 250 MG Orally every 12 hrs Jul 23, 2015 Jul 30, 2015 2 tablets Clobetasol Propionate [facility] [address]-45 0.05 % Externally Once a day January apply to dry scalp, leave on x15 min, rinse off. Do not cover. Use only up to 4 weeks. Nexium [facility] [address]-53 40 MG Orally Once a day May 23, 2015 1 capsule Fioricet [facility] [address]-14 50-325-40 mg February 06, 2014 1-2 tablet by Oral route every 6 hours PRN not to exceed 6 tablets/day, 10/week Procedures Procedure Coding System Code Date Office Visit, Est Pt., Level 3 CPT-4 02734 Jul 23, 2015 URINE CULTURE/COLONY COUNT CPT-4 76783 Jul 23, 2015 URINALYSIS, AUTO, W/O SCOPE CPT-4 97741 Jul 23, 2015 Vital Signs Date/Time: Jul 23, 2015 Temperature 99.2 F Weight 200 lbs Height 60 in BMI 39.06 Index Blood Pressure Diastolic 88 mmHg Blood Pressure Systolic 122 mmHg Cardiac Monitoring Heart Rate 84 bpm Results Name Result Date Reference Range Unit Abnormality Flag UA W/CULTURE IF INDICATED (IN HOUSE) Summary Purpose eClinicalWorks Submission
--- OUTSIDE RECORDS SUMMARY | 2018-05-01 08:45 | XMS REPORT ---
Author Author VINOD MITCHELL [facility] eClinicalWorks Address Unknown Phone Unavailable Care Team Providers Care Anti Air Warfare Operations Officer Name Role Phone VINOD MITCHELL Unavailable Allergies No Known Allergies Problems Problem [...] (without mention of hemorrhage) 562.10 Active Medications No Known Medications Results No Known Results Summary Purpose eClinicalWorks Submission
--- OUTSIDE RECORDS SUMMARY | 2018-05-01 08:45 | XMS REPORT ---
Author Author VINOD MITCHELL [facility] eClinicalWorks Address Unknown Phone Unavailable Care Team Providers Care Insurance Sales Professional Name Role Phone VINOD MITCHELL CP Unavailable Allergies No Known Allergies Problems Problem Type Condition Code Onset Dates Condition Status Problem Rash and other nonspecific skin eruption 782.1 Active Problem Overweight 278.02 Active Problem Other and unspecified hyperlipidemia 272.4 Active Problem Thrombocytosis 238.71 Active Assessment Encounter for immunization Z23 Active Problem Fibroid uterus 218.9 Active Problem Psoriatic arthritis 696.0 Active Problem Other abnormal glucose 790.29 Active Problem Other and unspecified ovarian cyst 620.2 Active Problem Helicobacter pylori (H. pylori) infection 041.86 Active Problem Psoriatic arthritis L40.50 Active Problem Personal history of pulmonary embolism V12.55 Active Problem Generalized hyperhidrosis 780.8 Active Problem Pain in joint, lower leg 719.46 Active Problem Insomnia, unspecified 780.52 Active Problem Cyst of Bartholin's gland 616.2 Active Problem Fever, unspecified 780.60 Active Problem Lateral epicondylitis of elbow 726.32 Active Problem Diverticulosis of colon (without mention of hemorrhage) 562.10 Active Problem Raynaud's syndrome 443.0 Active Problem Other nonspecific findings on examination of blood, elevated C- reactive protein (CRP) 790.95 Active Medications No Known Medications Procedures Procedure Coding System Code Date SINGLE IMMUNIZATION ADMIN CPT-4 11365 Jul 14, 2015 TDAP (BOOSTRIX) CPT-4 64008 Jul 14, 2015 Results No Known Results Immunizations Vaccine Administration Date TDAP (BOOSTRIX) Jul 14, 2015 Summary Purpose eClinicalWorks Submission
--- OUTSIDE RECORDS SUMMARY | 2018-05-01 08:45 | XMS REPORT ---
Author Author VINOD MITCHELL [employer]ClinicalWorks Address Unknown Phone Unavailable Care Team Providers Care Manager Transportation Name Role Phone VINOD MITCHELL CP Unavailable Allergies, Adverse Reactions, Alerts Substance Reaction Event Type Vicodin Info Not Available Drug Allergy Methotrexate Info Not Available Drug Allergy Keflex Info Not Available Drug Allergy Hormones blood clot Non Drug Allergy Mobic 7.5 Mg Tablet Diarrhea Non Drug Allergy Celebrex 200 Mg Capsule Weight Gain Non Drug Allergy Hydroxychloroquine 200 Mg Tablet Info Not Available Non Drug Allergy Problems Problem Type Condition ICD-9 Code Onset [...] Personal history of pulmonary embolism V12.55 Active Assessment Back muscle spasm 724.8 Active Problem Pain in joint, lower leg [...] route once daily with the evening meal Clobetasol Propionate [facility] [address]-38 0.05 % Externally Twice a day 1 application to affected area Diclofenac Sodium [facility] [address]-06 75 MG Orally 2 times a day as needed December 09, 2014 1 tablet Tramadol HCl [facility] [address]-94 50 MG Orally every 6 hrs April 15, 2015 1 tablet as needed Fioricet [facility] [address]-31 50-325-40 mg February 06, 2014 1-2 tablet by Oral route every 6 hours PRN not to exceed 6 tablets/day, 10/week Valium [facility] [address]-14 5 MG Orally every 6 hours prn muscle spasm May 1-2 tablets as directed Nexium [facility] [address]-95 40 MG Orally Once a day May 23, 2015 1 capsule Clobetasol Propionate [facility] [address]-58 0.05 % Externally Once a day January apply to dry scalp, leave on x15 min, rinse off. Do not cover. Use only up to 4 weeks. Zoloft [facility] [address]-92 100 MG Orally Once a day at bedtime 1/2 tablet Procedures Procedure Coding System Code Date Office Visit, Est Pt., Level 3 CPT-4 13749 Jun 05, 2015 Vital Signs Date/Time: Jun 05, 2015 Temperature 98.3 F Weight 202 lbs Height 60 in BMI 39.45 Index Blood Pressure Diastolic 86 mmHg Blood Pressure Systolic 128 mmHg Cardiac Monitoring Heart Rate 84 bpm Results No Known Results Summary Purpose eClinicalWorks Submission
--- OUTSIDE RECORDS SUMMARY | 2018-05-01 08:45 | XMS REPORT ---
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 Active Problem Major depressive disorder, recurrent episode, unspecified severity F33.9 Active Problem History of pulmonary embolism Z86.711 Active Problem Thrombocytosis D47.3 Active Assessment Lipoma of lower extremity, unspecified laterality D17.20 Active Assessment Keratosis pilaris L85.8 Active Assessment 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 Active Assessment Genital pruritus L29.3 Active Assessment Pure hypercholesterolemia E78.0 Active Medications Medication Code System Code Instructions Start Date End Date Status Dosage Zoloft [facility] [address]-04 100 MG Orally twice per day 1/2 tablet Nexium [facility] [address]-54 40 MG Orally Once a day May 23, 2015 1 capsule Acetaminophen [facility] [address]-13 325 MG Orally every 6 hrs 1 tablet as needed Tramadol HCl [facility] [address]-68 50 MG Orally every 6 hrs April 15, 2015 1 tablet as needed Clobetasol Propionate [facility] [address]-23 0.05 % Externally Once a day January apply to dry scalp, leave on x15 min, rinse off. Do not cover. Use only up to 4 weeks. Clobetasol Propionate [facility] [address]-62 0.05 % Externally Twice a day 1 application to affected area Diclofenac Sodium [facility] [address]-62 75 MG Orally 2 times a day as needed December 09, 2014 1 tablet Calcipotriene [facility] [address]-64 0.005 % Externally to nails Once a day Jul 31, 2015 Apr 26, 2016 1 application to affected area metformin ND 0 500 mg Oct 31, 2014 take 1 tablet (500 mg) by oral route once daily with the evening meal Cetirizine HCl [facility] [address]-83 10 MG Orally Once a day Jul 31, 2015 Aug 30, 2015 1 tablet as needed for itching Fioricet [facility] [address]-60 50-325-40 mg February 06, 2014 1-2 tablet by Oral route every 6 hours PRN not to exceed 6 tablets/day, 10/week Procedures Procedure Coding System Code Date Office Visit, Est Pt., Level 3 CPT-4 80677 Jul 31, 2015 Vital Signs Date/Time: Jul 31, 2015 Temperature 97.9 F Weight 187.0 lbs Height 60 in BMI 36.52 Index Blood Pressure Diastolic 84 mmHg Blood Pressure Systolic 124 mmHg Cardiac Monitoring Heart Rate 82 bpm Results No Known Results Summary Purpose eClinicalWorks Submission
--- OUTSIDE RECORDS SUMMARY | 2018-05-01 08:45 | XMS REPORT ---
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 Active Problem Major depressive disorder, recurrent episode, unspecified severity F33.9 Active Problem History of pulmonary embolism Z86.711 Active Problem Thrombocytosis D47.3 Active Assessment Vaginal pain R10.2 Active Assessment Vaginal discharge N89.8 Active Assessment Hematuria, unspecified R31.9 Active Medications Medication Code System Code Instructions Start Date End Date Status Dosage Macrobid [facility] [address]-68 100 MG Orally every 12 hrs Sep 24, 2015Sep 1 capsule with food metformin ND 0 500 mg Oct 31, 2014 take 1 tablet (500 mg) by oral route once daily with the evening meal Tramadol HCl [facility] [address]-79 50 MG Orally every 6 hrs April 15, 2015 1 tablet as needed Nexium [facility] [address]-86 40 MG Orally Once a day May 23, 2015 1 capsule Clobetasol Propionate [facility] [address]-66 0.05 % Externally Once a day January apply to dry scalp, leave on x15 min, rinse off. Do not cover. Use only up to 4 weeks. Clobetasol Propionate [facility] [address]-42 0.05 % Externally Twice a day 1 application to affected area Fioricet [facility] [address]-88 50-325-40 mg February 06, 2014 1-2 tablet by Oral route every 6 hours PRN not to exceed 6 tablets/day, 10/week Diclofenac Sodium [facility] 09738044032 75 MG Orally 2 times a day as needed 1 tablet Zoloft [facility] [address]-88 100 MG Orally twice per day 1/2 tablet Procedures Procedure Coding System Code Date URINE CULTURE/COLONY COUNT CPT-4 46394 Sep 24, 2015 Office Visit, Est Pt., Level 3 CPT-4 78536 Sep 24, 2015 URINALYSIS, AUTO, W/O SCOPE CPT-4 72195 Sep 24, 2015 Vital Signs Date/Time: Sep 24, 2015 Temperature 99.3 F Weight 200.0 lbs Height 60 in BMI 39.06 Index Blood Pressure Diastolic 88 mmHg Blood Pressure Systolic 130 mmHg Cardiac Monitoring Heart Rate 84 bpm Results Name Result Date Reference Range Unit Abnormality Flag UA LONG DIP (IN HOUSE) ----SHANIA trace 20150924 ----NIT negative 20150924 ----SG <=1.005 20150924 ----KET negative 20150924 ----SHAY negative 20150924 ----GLU negative 20150924 ----Odor no 20150924 ----pH 6.5 20150924 ----BLO 2+ 20150924 ----URO 0.2 20150924 ----Protein negative 20150924 ----Lot # [id number] ----Exp date 20150924 ----Clarity clear 20150924 ----Color yellow 20150924 Summary Purpose eClinicalWorks Submission
--- OUTSIDE RECORDS SUMMARY | 2018-05-01 08:45 | XMS REPORT ---
Author Author VINOD MITCHELL [facility] eClinicalWorks Address Unknown Phone Unavailable Care Team Providers Care Repairer Wood Furniture Name Role Phone VINOD MITCHELL CP Unavailable [...] history of pulmonary embolism V12.55 Active Assessment Encounter for immunization Z23 Active Problem Pain in joint, lower leg 719.46 Active Problem Raynaud's syndrome 443.0 Active Problem Cyst of Bartholin's gland 616.2 Active Problem Generalized hyperhidrosis 780.8 Active Problem Fever, unspecified 780.60 Active Problem Lateral epicondylitis of elbow 726.32 Active Problem Diverticulosis of colon (without mention of hemorrhage) 562.10 Active Medications No Known Medications Procedures Procedure Coding System Code Date SINGLE IMMUNIZATION ADMIN CPT-4 66377 Jul 04, 2015 FLUARIX QUAD (3 & UP)-GSK-2014 CPT-4 20794 Jul 04, 2015 Results No Known Results Immunizations Vaccine Administration Date FLUARIX QUAD (3 & UP)-GSK-2014Jul 04, 2015 Summary Purpose eClinicalWorks Submission
--- OUTSIDE RECORDS SUMMARY | 2018-05-01 08:46 | XMS REPORT ---
Author Author VINOD MITCHELL [facility] eClinicalWorks Address Unknown Phone Unavailable Care Team Providers Care Owner Operator Name Role Phone VINOD MITCHELL Unavailable Allergies [...] Instructions Start Date End Date Status Dosage Nexium [facility] [address]-98 40 MG Orally Once a day May 23, 2015 1 capsule Results No Known Results Summary Purpose eClinicalWorks Submission
--- OUTSIDE RECORDS SUMMARY | 2018-05-01 08:46 | XMS REPORT ---
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
--- OUTSIDE RECORDS SUMMARY | 2018-05-01 08:46 | XMS REPORT ---
Author Author VINOD MITCHELL [facility] eClinicalWorks Address Unknown Phone Unavailable Care Team Providers Care Hospice Administrator Name Role Phone VINOD MITCHELL CP Unavailable Allergies No Known Allergies Problems Problem Type Condition Code Onset Dates Condition Status Problem Other nonspecific findings on examination of blood, elevated C- reactive protein (CRP) 790.95 Active Problem Other and unspecified hyperlipidemia 272.4 Active Problem Rash and other nonspecific skin eruption 782.1 Active Problem Thrombocytosis 238.71 Active Assessment Rheumatoid arthritis 714.0 Active Problem Fibroid uterus 218.9 Active Problem Psoriatic arthritis 696.0 Active Problem Other and unspecified ovarian cyst 620.2 Active Problem Overweight 278.02 Active Problem Helicobacter pylori (H. pylori) infection 041.86 Active Problem Other abnormal glucose 790.29 Active Problem Insomnia, unspecified 780.52 Active Problem Personal history of pulmonary embolism V12.55 Active Assessment Malaise and fatigue 780.79 Active Problem Pain in joint, lower leg 719.46 Active Problem Raynaud's syndrome 443.0 Active Problem Cyst of Bartholin's gland 616.2 Active Problem Generalized hyperhidrosis 780.8 Active Problem Fever, unspecified 780.60 Active Problem Lateral epicondylitis of elbow 726.32 Active Problem Diverticulosis of colon (without mention of hemorrhage) 562.10 Active Medications No Known Medications Procedures Procedure Coding System Code Date RHEUMATOID FACTOR, QUANT CPT-4 60424 Jun 26, 2015 HEPATIC FUNCTION PANEL CPT-4 41058 Jun 26, 2015 COMPLETE CBC W/AUTO DIFF WBC CPT-4 78486 Jun 26, 2015 VENIPUNCT, ROUTINE* CPT-4 77970 Jun 26, 2015 Results Name Result Date Reference Range Unit Abnormality Flag ROUTINE VENIPUNCTURE Summary Purpose eClinicalWorks Submission
--- OUTSIDE RECORDS SUMMARY | 2018-05-01 08:46 | XMS REPORT ---
Author Author VINOD MITCHELL [employer]ClinicalWorks Address Unknown Phone Unavailable Care Team Providers Care Entry Level Civil Engineer Name Role Phone VINOD MITCHELL Unavailable Allergies [...] Thrombocytosis D47.3 Active Medications No Known Medications Results No Known Results Summary Purpose eClinicalWorks Submission
--- OUTSIDE RECORDS SUMMARY | 2018-05-01 08:46 | XMS REPORT ---
Author Author VINOD MITCHELL eClinical[employer] Address Unknown Phone Unavailable Care Team Providers Care Biostatistician Name Role Phone VINOD MITCHELL CP Unavailable [...] Condition Code Onset Dates Condition Status Assessment Psoriatic arthritis L40.50 Active Problem Major depressive disorder, recurrent episode, unspecified severity F33.9 Active Problem Psoriatic arthritis L40.50 Active Assessment Iron deficiency E61.1 Active Assessment GERD (gastroesophageal reflux disease) K21.9 Active Problem Prediabetes R73.09 Active Problem Pure hypercholesterolemia E78.0 Active Problem GERD (gastroesophageal reflux disease) K21.9 Active Problem Thrombocytosis D47.3 Active Problem 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005 % Externally to nails Once a day Jul 31, 2015 Apr 26, 2016 1 application to affected area Ferrous Sulfate [facility] [address]-21 325 (65 Fe) MG Orally three times per week Oct 16, 2015 1 tablet Clobetasol Propionate [facility] [address]-42 0.05 % Externally Once a day January apply to dry scalp, leave on x15 min, rinse off. Do not cover. Use only up to 4 weeks. Zoloft [facility] [address]-00 100 MG Orally twice per day 1/2 tablet Famotidine [facility] [address]-54 40 MG Orally Once a day Oct 16, 2015 1 tablet metformin [place] 0 500 mg Oct 31, 2014 take 1 tablet (500 mg) by oral route once daily with the evening meal Tramadol HCl [facility] [address]-79 50 MG Orally every 6 hrs April 15, 2015 1 tablet as needed Diclofenac Sodium [facility] 10381662633 75 MG Orally 2 times a day as needed 1 tablet Fioricet [facility] [address]-94 50-325-40 mg February 06, 2014 1-2 tablet by Oral route every 6 hours PRN not to exceed 6 tablets/day, 10/week Procedures Procedure Coding System Code Date Office Visit, Est Pt., Level 3 CPT-4 48956 Oct 16, 2015 Vital Signs Date/Time: Oct 16, 2015 Temperature 97.7 F Weight 200.0 lbs Height 60 in BMI 39.06 Index Blood Pressure Diastolic 84 mmHg Blood Pressure Systolic 132 mmHg Cardiac Monitoring Heart Rate 82 bpm Results No Known Results Summary Purpose eClinicalWorks Submission
--- OUTSIDE RECORDS SUMMARY | 2018-05-01 08:46 | XMS REPORT ---
Author Author VINOD MITCHELL e[employer] Address Unknown Phone Unavailable Care Team Providers Care Floor Finisher Helper Name Role Phone VINOD MITCHELL Unavailable Allergies No Known Allergies Problems Problem Type Condition Code Onset Dates Condition Status Problem Psoriatic arthritis L40.50 Active Problem Pure hypercholesterolemia [...]
--- OUTSIDE RECORDS SUMMARY | 2018-05-01 08:46 | XMS REPORT ---
Author Author VINOD MITCHELL [facility] eClinicalWorks Address Unknown Phone Unavailable Care Team Providers Care Laboratory Aide Name Role Phone VINOD MITCHELL Unavailable Allergies [...] Instructions Start Date End Date Status Dosage Diclofenac Sodium [facility] [address]-77 75 MG Orally 2 times a day as needed December 09, 2014 1 tablet Results No Known Results Summary Purpose eClinicalWorks Submission
--- OUTSIDE RECORDS SUMMARY | 2018-05-01 08:46 | XMS REPORT ---
Author Author VINOD MITCHELL [employer] Address Unknown Phone Unavailable Care Team Providers Care Cabin Equipment Supervisor Name Role Phone VINOD MITCHELL CP Unavailable [...] history of pulmonary embolism V12.55 Active Assessment Shortness of breath 786.05 Active Problem Pain in joint, lower leg 719.46 Active Problem Raynaud's syndrome 443.0 Active Problem Cyst of Bartholin's gland 616.2 Active Problem Generalized hyperhidrosis 780.8 Active Problem Fever, unspecified 780.60 Active Problem Lateral epicondylitis of elbow 726.32 Active Problem Diverticulosis of colon (without mention of hemorrhage) 562.10 Active Medications Medication Code System Code Instructions Start Date End Date Status Dosage Fioricet [facility] [address]-04 50-325-40 mg February 06, 2014 1-2 tablet by Oral route every 6 hours PRN not to exceed 6 tablets/day, 10/week metformin NDC 0 500 mg Oct 31, 2014 take 1 tablet (500 mg) by oral route once daily with the evening [place] [address]-93 75 MG Orally 2 times a day as needed December 09, 2014 1 tablet Tramadol HCl [facility] [address]-45 50 MG Orally every 6 hrs April 15, 2015 1 tablet as needed Zoloft [facility] [address]-51 100 MG Orally Once a day at bedtime 1/2 tablet Clobetasol Propionate [facility] [address]-41 0.05 % Externally Once a day January apply to dry scalp, leave on x15 min, rinse off. Do not cover. Use only up to 4 weeks. Clobetasol Propionate [facility] [address]-64 0.05 % Externally Twice a day 1 application to affected area Procedures Procedure Coding System Code Date MEASURE BLOOD OXYGEN LEVEL CPT-4 97346 May 22, 2015 Office Visit, Est Pt., Level 3 CPT-4 39985 May 22, 2015 ELECTROCARDIOGRAM, TRACING CPT-4 64611 May 22, 2015 Vital Signs Date/Time: May 22, 2015 Cardiac Monitoring Heart Rate 88 bpm Temperature 98.7 F Height 60 in Oximetry 98 % Blood Pressure Diastolic 82 mmHg Blood Pressure Systolic 126 mmHg Results No Known Results Summary Purpose eClinicalWorks Submission
--- OUTSIDE RECORDS SUMMARY | 2018-05-01 08:46 | XMS REPORT ---
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
--- OUTSIDE RECORDS SUMMARY | 2018-05-01 08:46 | XMS REPORT ---
Author Author VINOD MITCHELL eClinical[employer] Address Unknown Phone Unavailable Care Team Providers Care Advertising Vice President Name Role Phone VINOD MITCHELL Unavailable Allergies [...] Medications Procedures Procedure Coding System Code Date MENINGOCOCCAL (MENVEO) CPT-4 25128 Jul 07, 2015 SINGLE IMMUNIZATION ADMIN CPT-4 17133 Jul 07, 2015 HEP A (PED/ADOL-2 DOSE) CPT-4 05403 Jul 07, 2015 IMMUNIZATION ADMIN, EACH ADD (please include units) CPT-4 84967 Jul 07, 2015 Results No Known Results Immunizations Vaccine Administration Date HEP A (PED/ADOL-2 DOSE) Jul 07, 2015 MENINGOCOCCAL (MENVEO) Jul 07, 2015 Summary Purpose eClinicalWorks Submission
--- OUTSIDE RECORDS SUMMARY | 2018-05-01 08:47 | XMS REPORT ---
Author Author VINOD MITCHELL [facility] eClinicalWorks Address Unknown Phone Unavailable Care Team Providers Care Tractor Mechanic Helper Name Role Phone VINOD MITCHELL CP Unavailable Allergies No Known Allergies Problems Problem Type Condition Code Onset Dates Condition Status Problem Other and unspecified hyperlipidemia 272.4 Active Problem Other and unspecified ovarian cyst 620.2 Active Problem Overweight 278.02 Active Problem Psoriatic arthritis 696.0 Active Problem Pain in joint, lower leg 719.46 Active Problem Thrombocytosis 238.71 Active Problem Acute cystitis with hematuria N30.01 [...] other nonspecific skin eruption 782.1 Active Medications No Known Medications Results No Known Results Summary Purpose eClinicalWorks Submission
--- OUTSIDE RECORDS SUMMARY | 2018-05-01 08:47 | XMS REPORT ---
Author Author VINOD MITCHELL [facility] eClinicalWorks Address Unknown Phone Unavailable Care Team Providers Care Hogshead Builder Name Role Phone VINOD MITCHELL CP Unavailable [...]
--- OUTSIDE RECORDS SUMMARY | 2018-05-01 08:47 | XMS REPORT ---
Author Author VINOD MITCHELL [facility] eClinicalWorks Address Unknown Phone Unavailable Care Team Providers Care Extension Edger Name Role Phone VINOD MITCHELL CP Unavailable [...]
--- OUTSIDE RECORDS SUMMARY | 2018-05-01 09:00 | XMS REPORT | Continuity of Care Document ---
Author Author Pending Sale To [facility] Address Unknown Phone Unavailable Allergies Active Description Code Type Severity Reaction Onset Reported/Identified Relationship to Patient Clinical Status Yes Vicodin Drug Allergy 07/25/2012 Yes Vicodin Drug Allergy N/A N/A 07/25/2012 Yes keflex Drug Allergy 08/29/2012 Yes cephalexin [id number] Drug Allergy Mild SEVERE DIARRHEA 04/24/2014 Yes codeine [id number] Drug Allergy Mild NAUSEA 04/24/2014 Yes hydrocodone bit [id number] Drug Allergy Unknown RASH 04/24/2014 Yes acetaminophen [id number] Drug Allergy Unknown NAUSEA 02/09/2016 Yes celecoxib [id number] Drug Allergy Unknown DIARRHEA. WEIGH 02/09/2016 Yes meloxicam [id number] Drug Allergy Unknown DIARRHEA 02/09/2016 Yes methotrexate [id number] Drug Allergy Unknown MOUTH BLISTERIN 02/09/2016 Yes morphine [id number] Drug Allergy Unknown NAUSEA 02/09/2016 Yes oxycodone [id number] Drug Allergy Unknown NAUSEA 02/09/2016 Yes nut - unspecified [id number] Drug Allergy Severe Anaphylaxis 11/16/2016 Medications There is no data. Problems Date Dx Coded Attending Type Code Diagnosis Diagnosed By 07/15/2012 Ot 616.3 BARTHOLIN'S GLND ABSCESS 07/15/2012 Ot 625.9 FEM GENITAL SYMPTOMS NOS 07/25/2012 AFSHAN ERNST DO 719.40 PAIN IN JOINT SITE UNSPECIFIED 07/25/2012 AFSHAN ERNST DO V70.0 ROUTINE GENERAL MEDICAL EXAMINATION AT A HEALTH CARE FACILITY 07/25/2012 AFSHAN ERNST DO 719.40 PAIN IN JOINT SITE UNSPECIFIED 07/25/2012 AFSHAN ERNST DO V70.0 ROUTINE GENERAL MEDICAL EXAMINATION AT A HEALTH CARE FACILITY 07/25/2012 719.40 PAIN IN JOINT SITE UNSPECIFIED 07/25/2012 V70.0 ROUTINE GENERAL MEDICAL EXAMINATION AT A HEALTH CARE FACILITY 07/25/2012 AFSHAN ERNST DO 719.40 PAIN IN JOINT SITE UNSPECIFIED 07/25/2012 AFSHAN ERNST DO V70.0 ROUTINE GENERAL MEDICAL EXAMINATION AT A HEALTH CARE FACILITY 07/25/2012 TARA SOW MD, SENAIT Newman 719.40 PAIN IN JOINT SITE UNSPECIFIED 07/25/2012 SENAIT GONSALEZ MD V70.0 ROUTINE GENERAL MEDICAL EXAMINATION AT A HEALTH CARE FACILITY 07/25/2012 719.40 Pain In Joint Site Unspecified 07/25/2012 V70.0 Routine General Medical Examination At A Health Care Facility 07/25/2012 719.40 Pain In Joint Site Unspecified 07/25/2012 V70.0 Routine General Medical Examination At A Health Care Facility 07/25/2012 719.40 Pain In Joint Site Unspecified 07/25/2012 V70.0 Routine General Medical Examination At A Health Care Facility 07/25/2012 719.40 Pain In Joint Site Unspecified 07/25/2012 V70.0 Routine General Medical Examination At A Health Care Facility 07/25/2012 719.40 Pain In Joint Site Unspecified 07/25/2012 V70.0 Routine General Medical Examination At A Health Care Facility 07/25/2012 719.40 Pain In Joint Site Unspecified 07/25/2012 V70.0 Routine General Medical Examination At A Health Care Facility 07/25/2012 719.40 Pain In Joint Site Unspecified 07/25/2012 V70.0 Routine General Medical Examination At A Health Care Facility 07/25/2012 719.40 Pain In Joint Site Unspecified 07/25/2012 V70.0 Routine General Medical Examination At A Health Care Facility 07/25/2012 719.40 Pain In Joint Site Unspecified 07/25/2012 V70.0 Routine General Medical Examination At A Health Care Facility 07/25/2012 AFSHAN ERNST DO 719.40 Pain In Joint Site Unspecified 07/25/2012 AFSHAN ERNST DO V70.0 Routine General Medical Examination At A Health Care Facility 07/25/2012 AFSHAN ERNST DO 719.40 Pain In Joint Site Unspecified 07/25/2012 AFSHAN ERNST DO V70.0 Routine General Medical Examination At A Health Care Facility 07/25/2012 AFSHAN ERNST DO 719.40 Pain In Joint Site Unspecified 07/25/2012 ERNST DO, AFSHAN K V70.0 Routine General Medical Examination At A Health Care Facility 07/25/2012 ERNST DO, AFSHAN K 719.40 Pain In Joint Site Unspecified 07/25/2012 ERNST DO, AFSHAN K V70.0 Routine General Medical Examination At A Health Care Facility 07/25/2012 CIERRA CORPORATE RECEPTIONIST, NATALI A 719.40 Pain In Joint Site Unspecified 07/25/2012 CIERRA CORPORATE RECEPTIONIST, NATALI A V70.0 Routine General Medical Examination At A Health Care Facility 07/25/2012 ERNST DO, AFSHAN K 719.40 Pain In Joint Site Unspecified 07/25/2012 ERNST DO, AFSHAN K V70.0 Routine General Medical Examination At A Health Care Facility 07/25/2012 ERNST DO, AFSHAN K 719.40 Pain In Joint Site Unspecified 07/25/2012 ERNST DO, AFSHAN K V70.0 Routine General Medical Examination At A Health Care Facility 07/25/2012 ERNST DO, AFSHAN K 719.40 Pain In Joint Site Unspecified 07/25/2012 ERNST DO, AFSHAN K V70.0 Routine General Medical Examination At A Health Care Facility 07/25/2012 ERNST DO, AFSHAN K 719.40 Pain In Joint Site Unspecified 07/25/2012 ERNST DO, AFSHAN K V70.0 Routine General Medical Examination At A Health Care Facility 07/25/2012 ERNST DO, AFSHAN K 719.40 Pain In Joint Site Unspecified 07/25/2012 ERNST DO, AFSHAN K V70.0 Routine General Medical Examination At A Health Care Facility 07/25/2012 ERNST DO, AFSHAN K 719.40 Pain In Joint Site Unspecified 07/25/2012 ERNST DO, AFSHAN K V70.0 Routine General Medical Examination At A Health Care Facility 07/25/2012 NEETA PECK PA-C 719.40 Pain In Joint Site Unspecified 07/25/2012 NEETA PECK PA-C V70.0 Routine General Medical Examination At A Health Care Facility 07/25/2012 ERNST DO, AFSHAN K 719.40 Pain In Joint Site Unspecified 07/25/2012 ERNST DO, AFSHAN K V70.0 Routine General Medical Examination At A Health Care Facility 07/25/2012 ERNST DO, AFSHAN K 719.40 Pain In Joint Site Unspecified 07/25/2012 ERNST DO, AFSHAN K V70.0 Routine General Medical Examination At A Health Care Facility 07/25/2012 ERNST DO, AFSHAN K 719.40 Pain In Joint Site Unspecified 07/25/2012 ERNST DO, AFSHAN K V70.0 Routine General Medical Examination At A Health Care Facility 07/25/2012 CIERRA CORPORATE RECEPTIONIST, NATALI A 719.40 Pain In Joint Site Unspecified 07/25/2012 CIERRA CORPORATE RECEPTIONIST, NATALI A V70.0 Routine General Medical Examination At A Health Care Facility 07/25/2012 CIERRA CORPORATE RECEPTIONIST, NATALI A 719.40 Pain In Joint Site Unspecified 07/25/2012 CIERRA CORPORATE RECEPTIONIST, NATALI A V70.0 Routine General Medical Examination At A Health Care Facility 07/25/2012 MAHSA CORPORATE RECEPTIONIST, AISHA R 719.40 Pain In Joint Site Unspecified 07/25/2012 MAHSA CORPORATE RECEPTIONIST, AISHA R V70.0 Routine General Medical Examination At A Health Care Facility 07/25/2012 ERNST DO, AFSHAN K 719.40 Pain In Joint Site Unspecified 07/25/2012 ERNST DO, AFSHAN K V70.0 Routine General Medical Examination At A Health Care Facility 07/25/2012 ERNST DO, AFSHAN K 719.40 Pain In Joint Site Unspecified 07/25/2012 ERNST DO, AFSHAN K V70.0 Routine General Medical Examination At A Health Care Facility 07/25/2012 ERNST DO, AFSHAN K 719.40 Pain In Joint Site Unspecified 07/25/2012 ERNST DO, AFSHAN K V70.0 Routine General Medical Examination At A Health Care Facility 07/25/2012 ERNST DO, AFSHAN K 719.40 Pain In Joint Site Unspecified 07/25/2012 ERNST DO, AFSHAN K V70.0 Routine General Medical Examination At A Health Care Facility 07/25/2012 ERNST DO, AFSHAN K 719.40 Pain In Joint Site Unspecified 07/25/2012 ERNST DO, AFSHAN K V70.0 Routine General Medical Examination At A Health Care Facility 07/25/2012 ERNST DO, AFSHAN K 719.40 Pain In Joint Site Unspecified 07/25/2012 ERNST DO, AFSHAN K V70.0 Routine General Medical Examination At A Health Care Facility 07/25/2012 ERNST DO, AFSHAN K 719.40 Pain In Joint Site Unspecified 07/25/2012 ERNST DO, AFSHAN K V70.0 Routine General Medical Examination At A Health Care Facility 07/25/2012 ERNST DO, AFSHAN K 719.40 Pain In Joint Site Unspecified 07/25/2012 ERNST DO, AFSHAN K V70.0 Routine General Medical Examination At A Health Care Facility 07/25/2012 CIERRA CORPORATE RECEPTIONIST, NATALI A 719.40 Pain In Joint Site Unspecified 07/25/2012 CIERRA CORPORATE RECEPTIONIST, NATALI A V70.0 Routine General Medical Examination At A Health Care Facility 07/25/2012 ELISA CORPORATE RECEPTIONIST, SARITHA S 719.40 Pain In Joint Site Unspecified 07/25/2012 ELISA CORPORATE RECEPTIONIST, SARITHA S V70.0 Routine General Medical Examination At A Health Care Facility 07/25/2012 ERNST DO, AFSHAN K 719.40 Pain In Joint Site Unspecified 07/25/2012 ERNST DO AFSHAN K V70.0 Routine General Medical Examination At A Health Care Facility 07/25/2012 ELISA CORPORATE RECEPTIONIST SARITHA S 719.40 Pain In Joint Site Unspecified 07/25/2012 ELISA CORPORATE RECEPTIONIST, SARITHA S V70.0 Routine General Medical Examination At A Health Care Facility 07/25/2012 NEETA PECK PA-C 719.40 Pain In Joint Site Unspecified 07/25/2012 NEETA PECK PA-C V70.0 Routine General Medical Examination At A Health Care Facility 07/25/2012 ERNST DO AFSHAN K 719.40 Pain In Joint Site Unspecified 07/25/2012 ERNST DO, AFSHAN K V70.0 Routine General Medical Examination At A Health Care Facility 07/25/2012 ERNST DO, AFSHAN K 719.40 Pain In Joint Site Unspecified 07/25/2012 ERNST DO, AFSHAN K V70.0 Routine General Medical Examination At A Health Care Facility 07/25/2012 MADL CORPORATE RECEPTIONIST, DANIELA L 719.40 Pain In Joint Site Unspecified 07/25/2012 MADL CORPORATE RECEPTIONIST, DANIELA L V70.0 Routine General Medical Examination At A Health Care Facility 07/25/2012 ERNST DO, AFSHAN K 719.40 Pain In Joint Site Unspecified 07/25/2012 AFSHAN ERNST DO V70.0 Routine General Medical Examination At A Health Care Facility 07/25/2012 AFSHAN ERNST DO 719.40 Pain In Joint Site Unspecified 07/25/2012 AFSHAN ERNST DO V70.0 Routine General Medical Examination At A Health Care Facility 07/25/2012 NANCY VELA, FAVIAN Frost 719.40 Pain In Joint Site Unspecified 07/25/2012 NANCY VELA, FAVIAN Frost V70.0 Routine General Medical Examination At A Health Care Facility 07/25/2012 VINOD MITCHELL MD 719.40 Pain In Joint Site Unspecified 07/25/2012 VINOD MITCHELL MD V70.0 Routine General Medical Examination At A Health Care Facility 07/25/2012 NATALI NORTON APRN 719.40 Pain In Joint Site Unspecified 07/25/2012 NATALI NORTON APRN V70.0 Routine General Medical Examination At A Health Care Facility 07/28/2012 AFSHAN ERNST DO 790.95 ELEVATED C-REACTIVE PROTEIN (CRP) 07/28/2012 AFSHAN ERNST DO 790.95 ELEVATED C-REACTIVE PROTEIN (CRP) 07/28/2012 790.95 ELEVATED C- REACTIVE PROTEIN (CRP) 07/28/2012 AFSHAN ERNST DO 790.95 ELEVATED C-REACTIVE PROTEIN (CRP) 07/28/2012 TARA SOW MD, SENAIT Newman 790.95 ELEVATED C-REACTIVE PROTEIN (CRP) 07/28/2012 790.95 ELEVATED C- REACTIVE PROTEIN (CRP) 07/28/2012 790.95 ELEVATED C- REACTIVE PROTEIN (CRP) 07/28/2012 790.95 ELEVATED C- REACTIVE PROTEIN (CRP) 07/28/2012 790.95 ELEVATED C- REACTIVE PROTEIN (CRP) 07/28/2012 790.95 ELEVATED C- REACTIVE PROTEIN (CRP) 07/28/2012 790.95 ELEVATED C- REACTIVE PROTEIN (CRP) 07/28/2012 790.95 ELEVATED C- REACTIVE PROTEIN (CRP) 07/28/2012 790.95 ELEVATED C- REACTIVE PROTEIN (CRP) 07/28/2012 790.95 ELEVATED C- REACTIVE PROTEIN (CRP) 07/28/2012 AFSHAN ERNST DO 790.95 ELEVATED C-REACTIVE PROTEIN (CRP) 07/28/2012 ERNST DO, AFSHAN K 790.95 ELEVATED C-REACTIVE PROTEIN (CRP) 07/28/2012 ERNST DO, AFSHAN K 790.95 ELEVATED C-REACTIVE PROTEIN (CRP) 07/28/2012 ERNST DO, AFSHAN K 790.95 ELEVATED C-REACTIVE PROTEIN (CRP) 07/28/2012 CIERRA CORPORATE RECEPTIONIST, NATALI A 790.95 ELEVATED C-REACTIVE PROTEIN (CRP) 07/28/2012 ERNST DO, AFSHAN K 790.95 ELEVATED C-REACTIVE PROTEIN (CRP) 07/28/2012 ERNST DO, AFSHAN K 790.95 ELEVATED C-REACTIVE PROTEIN (CRP) 07/28/2012 ERNST DO, AFSHAN K 790.95 ELEVATED C-REACTIVE PROTEIN (CRP) 07/28/2012 ERNST DO, AFSHAN K 790.95 ELEVATED C-REACTIVE PROTEIN (CRP) 07/28/2012 ERNST DO, AFSHAN K 790.95 ELEVATED C-REACTIVE PROTEIN (CRP) 07/28/2012 ERNST DO, AFSHAN K 790.95 ELEVATED C-REACTIVE PROTEIN (CRP) 07/28/2012 NEETA PECK PA-C 790.95 ELEVATED C-REACTIVE PROTEIN (CRP) 07/28/2012 ERNST DO, AFSHAN K 790.95 ELEVATED C-REACTIVE PROTEIN (CRP) 07/28/2012 ERNST DO, AFSHAN K 790.95 ELEVATED C-REACTIVE PROTEIN (CRP) 07/28/2012 ERNST DO, AFSHAN K 790.95 ELEVATED C-REACTIVE PROTEIN (CRP) 07/28/2012 CIERRA CORPORATE RECEPTIONIST, NATALI A 790.95 ELEVATED C-REACTIVE PROTEIN (CRP) 07/28/2012 CIERRA CORPORATE RECEPTIONIST, NATALI A 790.95 ELEVATED C-REACTIVE PROTEIN (CRP) 07/28/2012 INDRA BRAGG APRNINA R 790.95 ELEVATED C-REACTIVE PROTEIN (CRP) 07/28/2012 ERNST DO, AFSHAN K 790.95 ELEVATED C-REACTIVE PROTEIN (CRP) 07/28/2012 ERNST DO, AFSHAN K 790.95 ELEVATED C-REACTIVE PROTEIN (CRP) 07/28/2012 ERNST DO, AFSHAN K 790.95 ELEVATED C-REACTIVE PROTEIN (CRP) 07/28/2012 ERNST DO, AFSHAN K 790.95 ELEVATED C-REACTIVE PROTEIN (CRP) 07/28/2012 ERNST DO, AFSHAN K 790.95 ELEVATED C-REACTIVE PROTEIN (CRP) 07/28/2012 ERNST DO, AFSHAN K 790.95 ELEVATED C-REACTIVE PROTEIN (CRP) 07/28/2012 ERNST DO, AFSHAN K 790.95 ELEVATED C-REACTIVE PROTEIN (CRP) 07/28/2012 ERNST DO, AFSHAN K 790.95 ELEVATED C-REACTIVE PROTEIN (CRP) 07/28/2012 CIERRA RICCI NATALI A 790.95 ELEVATED C-REACTIVE PROTEIN (CRP) 07/28/2012 ELISA CORPORATE RECEPTIONIST, SARITHA S 790.95 ELEVATED C-REACTIVE PROTEIN (CRP) 07/28/2012 ERNST DO, AFSHAN K 790.95 ELEVATED C-REACTIVE PROTEIN (CRP) 07/28/2012 ELISA MEJIAN SARITHA S 790.95 ELEVATED C-REACTIVE PROTEIN (CRP) 07/28/2012 NEETA PCEK PA-C 790.95 ELEVATED C-REACTIVE PROTEIN (CRP) 07/28/2012 ERNST DO, AFSHAN K 790.95 ELEVATED C-REACTIVE PROTEIN (CRP) 07/28/2012 ERNST DO, AFSHAN K 790.95 ELEVATED C-REACTIVE PROTEIN (CRP) 07/28/2012 DANIELA LONG APRN 790.95 ELEVATED C-REACTIVE PROTEIN (CRP) 07/28/2012 ERNST DO, AFSHAN K 790.95 ELEVATED C-REACTIVE PROTEIN (CRP) 07/28/2012 ERNST DO, AFSHAN K 790.95 ELEVATED C-REACTIVE PROTEIN (CRP) 07/28/2012 NANCY VELA, FAVIAN Frost 790.95 ELEVATED C-REACTIVE PROTEIN (CRP) 07/28/2012 STEPHEN PAL, VINOD Bear 790.95 ELEVATED C-REACTIVE PROTEIN (CRP) 07/28/2012 CIERRA RICCI, NATALI A 790.95 ELEVATED C-REACTIVE PROTEIN (CRP) 07/31/2012 Ot 218.2 SUBSEROUS LEIOMYOMA 07/31/2012 Ot 562.10 DIVERTICULOSIS COLON (W/O MENT OF HEMORR 07/31/2012 Ot 787.03 VOMITING ALONE 07/31/2012 Ot 787.91 DIARRHEA 07/31/2012 Ot 789.04 ABDOMINAL PAIN, LEFT LOWER QUADRANT 09/07/2012 ALANNAH ERNST DOA K 616.2 CYST OF BARTHOLIN'S GLAND 09/07/2012 616.2 CYST OF BARTHOLIN'S GLAND 09/07/2012 ERNST DO, AFSHAN K 616.2 CYST OF BARTHOLIN[place] 09/07/2012 TARA SOW MD, SENAIT Newman 616.2 CYST OF BARTHOLIN[place] 09/07/2012 616.2 CYST OF BARTHOLIN'[place] GLAND 09/07/2012 616.2 CYST OF BARTHOLIN'S GLAND 09/07/2012 616.2 CYST OF BARTHOLIN'[place] GLAND 09/07/2012 616.2 CYST OF BARTHOLIN'[place] GLAND 09/07/2012 616.2 CYST OF BARTHOLIN'S GLAND 09/07/2012 616.2 CYST OF BARTHOLIN'[place] GLAND 09/07/2012 616.2 CYST OF BARTHOLIN'[place] GLAND 09/07/2012 616.2 CYST OF BARTHOLIN'[place] GLAND 09/07/2012 616.2 CYST OF BARTHOLIN'[place] GLAND 09/07/2012 ERNST DO, AFSHAN K 616.2 CYST OF [place]OLIN[place] 09/07/2012 ERNST DO, AFSHAN K 616.2 CYST OF [place]OLIN[place] 09/07/2012 ERNST DO, AFSHAN K 616.2 CYST OF [place]THOLIN'[place] 09/07/2012 ERNST DO, AFSHAN K 616.2 CYST OF BARTHOLIN'[place] GLAND 09/07/2012 NATALI NORTON APRN 616.2 CYST OF [place]OLIN[place] 09/07/2012 ERNST DO, AFSHAN K 616.2 CYST OF [place]OLIN[place] 09/07/2012 ERNST DO, AFSHAN K 616.2 CYST OF [place]OLIN'[place] 09/07/2012 ERNST DO, AFSHAN K 616.2 CYST OF [place]OLIN'[place] 09/07/2012 ERNST DO, AFSHAN K 616.2 CYST OF [place]THOLIN'[place] 09/07/2012 ERNST DO, AFSHAN K 616.2 CYST OF BARTHOLIN'[place] GLAND 09/07/2012 ERNST DO, AFSHAN K 616.2 CYST OF BARTHOLIN'[place]AND 09/07/2012 LIV NICK, NEETA Foss 616.2 CYST OF BARTHOLIN'[place]AND 09/07/2012 ERNST DO, AFSHAN K 616.2 CYST OF [place]THOLIN'[place] 09/07/2012 ERNST DO, AFSHAN K 616.2 CYST OF [place]OLIN'[place] 09/07/2012 ERNST DO, AFSHAN K 616.2 CYST OF [place]OLIN'[place] 09/07/2012 CIERRA CORPORATE RECEPTIONIST, NATALI A 616.2 CYST OF BARTHOLIN'[place] GLAND 09/07/2012 CIERRA CORPORATE RECEPTIONIST, NATALI A 616.2 CYST OF BARTHOLIN'[place] 09/07/2012 MAHSA CORPORATE RECEPTIONIST, AISHA R 616.2 CYST OF [place]THOLIN'[place] 09/07/2012 ERNST DO, AFSHAN K 616.2 CYST OF [place]THOLIN'[place] 09/07/2012 ERNST DO, AFSHAN K 616.2 CYST OF BARTHOLIN'[place] 09/07/2012 ERNST DO, AFSHAN K 616.2 CYST OF [place]THOLIN'[place] 09/07/2012 ERNST DO, AFSHAN K 616.2 CYST OF BARTHOLIN'[place] GLAND 09/07/2012 ERNST DO, AFSHAN K 616.2 CYST OF BARTHOLIN'[place]AND 09/07/2012 ERNST DO, AFSHAN K 616.2 CYST OF BARTHOLIN'[place] 09/07/2012 ERNST DO, AFSHAN K 616.2 CYST OF [place]THOLIN'[place]AND 09/07/2012 ERNST DO, AFSHAN K 616.2 CYST OF [place]THOLIN'[place] 09/07/2012 CIERRA CORPORATE RECEPTIONIST, NATALI A 616.2 CYST OF [place]THOLIN'[place] 09/07/2012 ELISA CORPORATE RECEPTIONIST, SARITHA S 616.2 CYST OF BARTHOLIN'[place]AND 09/07/2012 ERNST DO, AFSHAN K 616.2 CYST OF [place]THOLIN'[place] 09/07/2012 ELISA CORPORATE RECEPTIONIST, SARITHA S 616.2 CYST OF BARTHOLIN'[place] GLAND 09/07/2012 NEETA PECK PA-C 616.2 CYST OF BARTHOLIN'[place] GLAND 09/07/2012 ERNST DO, AFSHAN K 616.2 CYST OF [place]THOLIN'[place] 09/07/2012 ERNST DO, AFSHAN K 616.2 CYST OF BARTHOLIN'[place] GLAND 09/07/2012 MERCEDES CORPORATE RECEPTIONIST, DANIELA L 616.2 CYST OF BARTHOLIN'[place] GLAND 09/07/2012 ERNST DO, AFSHAN K 616.2 CYST OF [place]THOLIN'[place]AND 09/07/2012 AFSHAN ERNST DO K 616.2 CYST OF BARTHOLIN'[place] GLAND 09/07/2012 NANCY VELA, FAVIAN Frost 616.2 CYST OF BARTHOLIN'[place] GLAND 09/07/2012 STEPHEN PAL, VINOD Bear 616.2 CYST OF BARTHOLIN'[place]AND 09/07/2012 ANTALI NORTON APRN A 616.2 CYST OF BARTHOLIN'S GLAND 10/18/2012 008.8 GASTROENTERITIS, VIRAL 10/18/2012 787.01 NAUSEA WITH VOMITING 10/18/2012 787.91 DIARRHEA 10/18/2012 ALANNAH ERNST DOA K 008.8 GASTROENTERITIS, VIRAL 10/18/2012 AFSHAN ERNST DO K 787.01 NAUSEA WITH VOMITING 10/18/2012 AFSHAN ERNST DO K 787.91 DIARRHEA 10/18/2012 TARA SOW MD, SENAIT A 008.8 GASTROENTERITIS, VIRAL 10/18/2012 TARA SOW MD, SENAIT A 787.01 NAUSEA WITH VOMITING 10/18/2012 TARA SOW MD, SENAIT A 787.91 DIARRHEA 10/18/2012 008.8 Gastroenteritis, Viral 10/18/2012 787.01 Nausea With Vomiting 10/18/2012 787.91 Diarrhea 10/18/2012 008.8 Gastroenteritis, Viral 10/18/2012 787.01 Nausea With Vomiting 10/18/2012 787.91 Diarrhea 10/18/2012 008.8 Gastroenteritis, Viral 10/18/2012 787.01 Nausea With Vomiting 10/18/2012 787.91 Diarrhea 10/18/2012 008.8 Gastroenteritis, Viral 10/18/2012 787.01 Nausea With Vomiting 10/18/2012 787.91 Diarrhea 10/18/2012 008.8 Gastroenteritis, Viral 10/18/2012 787.01 Nausea With Vomiting 10/18/2012 787.91 Diarrhea 10/18/2012 008.8 Gastroenteritis, Viral 10/18/2012 787.01 Nausea With Vomiting 10/18/2012 787.91 Diarrhea 10/18/2012 008.8 Gastroenteritis, Viral 10/18/2012 787.01 Nausea With Vomiting 10/18/2012 787.91 Diarrhea 10/18/2012 008.8 Gastroenteritis, Viral 10/18/2012 787.01 Nausea With Vomiting 10/18/2012 787.91 Diarrhea 10/18/2012 008.8 Gastroenteritis, Viral 10/18/2012 787.01 Nausea With Vomiting 10/18/2012 787.91 Diarrhea 10/18/2012 ERNST DO, AFSHAN K 008.8 Gastroenteritis, Viral 10/18/2012 ERNST DO, AFSHAN K 787.01 Nausea With Vomiting 10/18/2012 ERNST DO, AFSHAN K 787.91 Diarrhea 10/18/2012 ERNST DO, AFSHAN K 008.8 Gastroenteritis, Viral 10/18/2012 ERNST DO, AFSHAN K 787.01 Nausea With Vomiting 10/18/2012 ERNST DO, AFSHAN K 787.91 Diarrhea 10/18/2012 ERNST DO, AFSHAN K 008.8 Gastroenteritis, Viral 10/18/2012 ERNST DO, AFSHAN K 787.01 Nausea With Vomiting 10/18/2012 ERNST DO, AFSHAN K 787.91 Diarrhea 10/18/2012 ERNST DO, AFSHAN K 008.8 Gastroenteritis, Viral 10/18/2012 ERNST DO, AFSHAN K 787.01 Nausea With Vomiting 10/18/2012 ERNST DO, AFSHAN K 787.91 Diarrhea 10/18/2012 CIERRA CORPORATE RECEPTIONIST, NATALI A 008.8 Gastroenteritis, Viral 10/18/2012 CIERRA CORPORATE RECEPTIONIST, NATALI A 787.01 Nausea With Vomiting 10/18/2012 CIERRA CORPORATE RECEPTIONIST, NATALI A 787.91 Diarrhea 10/18/2012 ERNST DO, AFSHAN K 008.8 Gastroenteritis, Viral 10/18/2012 ERNST DO, AFSHAN K 787.01 Nausea With Vomiting 10/18/2012 ERNST DO, AFSHAN K 787.91 Diarrhea 10/18/2012 ERNST DO, AFSHAN K 008.8 Gastroenteritis, Viral 10/18/2012 ERNST DO, AFSHAN K 787.01 Nausea With Vomiting 10/18/2012 ERNST DO, AFSHAN K 787.91 Diarrhea 10/18/2012 ERNST DO, AFSHAN K 008.8 Gastroenteritis, Viral 10/18/2012 ERNST DO, AFSHAN K 787.01 Nausea With Vomiting 10/18/2012 ERNST DO, AFSHAN K 787.91 Diarrhea 10/18/2012 ERNST DO, AFSHAN K 008.8 Gastroenteritis, Viral 10/18/2012 ERNST DO, AFSHAN K 787.01 Nausea With Vomiting 10/18/2012 ERNST DO, AFSHAN K 787.91 Diarrhea 10/18/2012 ERNST DO, AFSHAN K 008.8 Gastroenteritis, Viral 10/18/2012 ERNST DO, AFSHAN K 787.01 Nausea With Vomiting 10/18/2012 ERNST DO, AFSHAN K 787.91 Diarrhea 10/18/2012 ERNST DO, AFSHAN K 008.8 Gastroenteritis, Viral 10/18/2012 ERNST DO, AFSHAN K 787.01 Nausea With Vomiting 10/18/2012 ERNST DO, AFSHAN K 787.91 Diarrhea 10/18/2012 NEETA PECK PA-C 008.8 Gastroenteritis, Viral 10/18/2012 LIV NICK, NEETA Foss 787.01 Nausea With Vomiting 10/18/2012 NEETA PECK PA-C 787.91 Diarrhea 10/18/2012 ERNST DO, AFSHAN K 008.8 Gastroenteritis, Viral 10/18/2012 ERNST DO, AFSHAN K 787.01 Nausea With Vomiting 10/18/2012 ERNST DO, AFSHAN K 787.91 Diarrhea 10/18/2012 ERNST DO, AFSHAN K 008.8 Gastroenteritis, Viral 10/18/2012 ERNST DO, AFSHAN K 787.01 Nausea With Vomiting 10/18/2012 ERNST DO, AFSHAN K 787.91 Diarrhea 10/18/2012 ERNST DO, AFSHAN K 008.8 Gastroenteritis, Viral 10/18/2012 ERNST DO, AFSHAN K 787.01 Nausea With Vomiting 10/18/2012 ERNST DO, AFSHAN K 787.91 Diarrhea 10/18/2012 CIERRA CORPORATE RECEPTIONIST, NATALI A 008.8 Gastroenteritis, Viral 10/18/2012 CIERRA CORPORATE RECEPTIONIST, NATALI A 787.01 Nausea With Vomiting 10/18/2012 CIERRA CORPORATE RECEPTIONIST, NATALI A 787.91 Diarrhea 10/18/2012 CIERRA CORPORATE RECEPTIONIST, NATALI A 008.8 Gastroenteritis, Viral 10/18/2012 CIERRA CORPORATE RECEPTIONIST, NATALI A 787.01 Nausea With Vomiting 10/18/2012 [employer]PORATE RECEPTIONIST, NATALI A 787.91 Diarrhea 10/18/2012 [employer] CORPORATE RECEPTIONIST, AISHA R 008.8 Gastroenteritis, Viral 10/18/2012 [employer] CORPORATE RECEPTIONIST, AISHA R 787.01 Nausea With Vomiting 10/18/2012 MAH[employer] CORPORATE RECEPTIONIST, AISHA R 787.91 Diarrhea 10/18/2012 ERNST DO, AFSHAN K 008.8 Gastroenteritis, Viral 10/18/2012 ERNST DO, AFSHAN K 787.01 Nausea With Vomiting 10/18/2012 ERNST DO, AFSHAN K 787.91 Diarrhea 10/18/2012 ERNST DO, AFSHAN K 008.8 Gastroenteritis, Viral 10/18/2012 ERNST DO, AFSHAN K 787.01 Nausea With Vomiting 10/18/2012 ERNST DO, AFSHAN K 787.91 Diarrhea 10/18/2012 ERNST DO, AFSHAN K 008.8 Gastroenteritis, Viral 10/18/2012 ERNST DO, AFSHAN K 787.01 Nausea With Vomiting 10/18/2012 ERNST DO, AFSHAN K 787.91 Diarrhea 10/18/2012 ERNST DO, AFSHAN K 008.8 Gastroenteritis, Viral 10/18/2012 ERNST DO, AFSHAN K 787.01 Nausea With Vomiting 10/18/2012 ERNST DO, AFSHAN K 787.91 Diarrhea 10/18/2012 ERNST DO, AFSHAN K 008.8 Gastroenteritis, Viral 10/18/2012 ERNST DO, AFSHAN K 787.01 Nausea With Vomiting 10/18/2012 ERNST DO, AFSHAN K 787.91 Diarrhea 10/18/2012 ERNST DO, AFSHAN K 008.8 Gastroenteritis, Viral 10/18/2012 ERNST DO, AFSHAN K 787.01 Nausea With Vomiting 10/18/2012 ERNST DO, AFSHAN K 787.91 Diarrhea 10/18/2012 ERNST DO, AFSHAN K 008.8 Gastroenteritis, Viral 10/18/2012 ERNST DO, AFSHAN K 787.01 Nausea With Vomiting 10/18/2012 ERNST DO, AFSHAN K 787.91 Diarrhea 10/18/2012 ERNST DO, AFSHAN K 008.8 Gastroenteritis, Viral 10/18/2012 ERNST DO, AFSHAN K 787.01 Nausea With Vomiting 10/18/2012 ERNST DO, AFSHAN K 787.91 Diarrhea 10/18/2012 [employer] RECEPTIONIST, NATALI A 008.8 Gastroenteritis, Viral 10/18/2012 [employer]ATE RECEPTIONIST, NATALI A 787.01 Nausea With Vomiting 10/18/2012 [employer]ATE RECEPTIONIST, NATALI A 787.91 Diarrhea 10/18/2012 ELISA CORPORATE RECEPTIONIST SARITHA S 008.8 Gastroenteritis, Viral 10/18/2012 ELISA CORPORATE RECEPTIONIST, SARITHA S 787.01 Nausea With Vomiting 10/18/2012 ELISA CORPORATE RECEPTIONIST, SARITHA S 787.91 Diarrhea 10/18/2012 ERNST DO, AFSHAN K 008.8 Gastroenteritis, Viral 10/18/2012 ERNST DO, AFSHAN K 787.01 Nausea With Vomiting 10/18/2012 ERNST DO, AFSHAN K 787.91 Diarrhea 10/18/2012 ELISA CORPORATE RECEPTIONIST, SARITHA S 008.8 Gastroenteritis, Viral 10/18/2012 ELISA CORPORATE RECEPTIONIST, SARITHA S 787.01 Nausea With Vomiting 10/18/2012 ELISA CORPORATE RECEPTIONIST, SARITHA S 787.91 Diarrhea 10/18/2012 NEETA PECK PA-C 008.8 Gastroenteritis, Viral 10/18/2012 LIV NICK, NEETA M 787.01 Nausea With Vomiting 10/18/2012 LIV NICK, NEETA M 787.91 Diarrhea 10/18/2012 ERNST DO, AFSHAN K 008.8 Gastroenteritis, Viral 10/18/2012 ERNST DO, AFSHAN K 787.01 Nausea With Vomiting 10/18/2012 ERNST DO, AFSHAN K 787.91 Diarrhea 10/18/2012 ERNST DO, AFSHAN K 008.8 Gastroenteritis, Viral 10/18/2012 ERNST DO, AFSHAN K 787.01 Nausea With Vomiting 10/18/2012 ERNST DO, AFSHAN K 787.91 Diarrhea 10/18/2012 MADL CORPORATE RECEPTIONIST, DANIELA L 008.8 Gastroenteritis, Viral 10/18/2012 MADL CORPORATE RECEPTIONIST, DANIELA L 787.01 Nausea With Vomiting 10/18/2012 MADL CORPORATE RECEPTIONIST, DANIELA L 787.91 Diarrhea 10/18/2012 ERNST DO, AFSHAN K 008.8 Gastroenteritis, Viral 10/18/2012 ERNST DO, AFSHAN K 787.01 Nausea With Vomiting 10/18/2012 ERNST DO, AFSHAN K 787.91 Diarrhea 10/18/2012 ERNST DO, AFSHAN K 008.8 Gastroenteritis, Viral 10/18/2012 ERNST DO, AFSHAN K 787.01 Nausea With Vomiting 10/18/2012 ERNST DO, AFSHAN K 787.91 Diarrhea 10/18/2012 NANCY PHD, FAVIAN Frost 008.8 Gastroenteritis, Viral 10/18/2012 NANCY VELA, FAVIAN Frost 787.01 Nausea With Vomiting 10/18/2012 NANCY PHD, FAVIAN Frost 787.91 Diarrhea 10/18/2012 VINOD MITCHELL MD 008.8 Gastroenteritis, Viral 10/18/2012 VINOD MITCHELL MD N 787.01 Nausea With Vomiting 10/18/2012 VINOD MITCHELL MD 787.91 Diarrhea 10/18/2012 CIERRA CORPORATE RECEPTIONISTNATALI Bear A 008.8 Gastroenteritis, Viral 10/18/2012 CIERRAChema RICCI NATALI A 787.01 Nausea With Vomiting 10/18/2012 CIERRA RADHAMES NATALI A 787.91 Diarrhea 10/31/2012 AFSHAN ERNST DO 562.10 DIVERTICULOSIS OF COLON (WITHOUT HEMORRHAGE) 10/31/2012 AFSHAN ERNST DO 789.00 ABDOMINAL PAIN UNSPECIFIED SITE 10/31/2012 SENAIT GONSALEZ MD 562.10 DIVERTICULOSIS OF COLON (WITHOUT HEMORRHAGE) 10/31/2012 SENAIT GONSAELZ MD 789.00 ABDOMINAL PAIN UNSPECIFIED SITE 10/31/2012 562.10 DIVERTICULOSIS OF COLON (WITHOUT HEMORRHAGE) 10/31/2012 789.00 Abdominal Pain Unspecified Site 10/31/2012 562.10 DIVERTICULOSIS OF COLON (WITHOUT HEMORRHAGE) 10/31/2012 789.00 Abdominal Pain Unspecified Site 10/31/2012 562.10 DIVERTICULOSIS OF COLON (WITHOUT HEMORRHAGE) 10/31/2012 789.00 Abdominal Pain Unspecified Site 10/31/2012 562.10 DIVERTICULOSIS OF COLON (WITHOUT HEMORRHAGE) 10/31/2012 789.00 Abdominal Pain Unspecified Site 10/31/2012 562.10 DIVERTICULOSIS OF COLON (WITHOUT HEMORRHAGE) 10/31/2012 789.00 Abdominal Pain Unspecified Site 10/31/2012 562.10 DIVERTICULOSIS OF COLON (WITHOUT HEMORRHAGE) 10/31/2012 789.00 Abdominal Pain Unspecified Site 10/31/2012 562.10 DIVERTICULOSIS OF COLON (WITHOUT HEMORRHAGE) 10/31/2012 789.00 Abdominal Pain Unspecified Site 10/31/2012 562.10 DIVERTICULOSIS OF COLON (WITHOUT HEMORRHAGE) 10/31/2012 789.00 abdominal pain 10/31/2012 562.10 DIVERTICULOSIS OF COLON (WITHOUT HEMORRHAGE) 10/31/2012 789.00 abdominal pain 10/31/2012 ERNST DO, AFSHAN K 562.10 DIVERTICULOSIS OF COLON (WITHOUT HEMORRHAGE) 10/31/2012 ERNST DO, AFSHAN K 789.00 abdominal pain 10/31/2012 ERNST DO, AFSHAN K 562.10 DIVERTICULOSIS OF COLON (WITHOUT HEMORRHAGE) 10/31/2012 ERNST DO, AFSHAN K 789.00 abdominal pain 10/31/2012 ERNST DO, AFSHAN K 562.10 DIVERTICULOSIS OF COLON (WITHOUT HEMORRHAGE) 10/31/2012 ERNST DO, AFSHAN K 789.00 abdominal pain 10/31/2012 ERNST DO, AFSHAN K 562.10 DIVERTICULOSIS OF COLON (WITHOUT HEMORRHAGE) 10/31/2012 ERNST DO, AFSHAN K 789.00 abdominal pain 10/31/2012 CIERRA CORPORATE RECEPTIONIST, NATALI A 562.10 DIVERTICULOSIS OF COLON (WITHOUT HEMORRHAGE) 10/31/2012 CIERRA CORPORATE RECEPTIONIST, NATALI A 789.00 abdominal pain 10/31/2012 ERNST DO, AFSHAN K 562.10 DIVERTICULOSIS OF COLON (WITHOUT HEMORRHAGE) 10/31/2012 ERNST DO, AFSHAN K 789.00 ABDOMINAL PAIN 10/31/2012 ERNST DO, AFSHAN K 562.10 DIVERTICULOSIS OF COLON (WITHOUT HEMORRHAGE) 10/31/2012 ERNST DO, AFSHAN K 789.00 ABDOMINAL PAIN 10/31/2012 ERNST DO, AFSHAN K 562.10 DIVERTICULOSIS OF COLON (WITHOUT HEMORRHAGE) 10/31/2012 ERNST DO, AFSHAN K 789.00 ABDOMINAL PAIN 10/31/2012 ERNST DO, AFSHAN K 562.10 DIVERTICULOSIS OF COLON (WITHOUT HEMORRHAGE) 10/31/2012 ERNST DO, AFSHAN K 789.00 ABDOMINAL PAIN 10/31/2012 ERNST DO, AFSHAN K 562.10 DIVERTICULOSIS OF COLON (WITHOUT HEMORRHAGE) 10/31/2012 ERNST DO, AFSHAN K 789.00 ABDOMINAL PAIN 10/31/2012 ERNST DO, AFSHAN K 562.10 DIVERTICULOSIS OF COLON (WITHOUT HEMORRHAGE) 10/31/2012 ERNST DO, AFSHAN K 789.00 ABDOMINAL PAIN 10/31/2012 NEETA PECK PA-C 562.10 DIVERTICULOSIS OF COLON (WITHOUT HEMORRHAGE) 10/31/2012 NEETA PECK PA-C 789.00 ABDOMINAL PAIN 10/31/2012 ERNST DO, AFSHAN K 562.10 DIVERTICULOSIS OF COLON (WITHOUT HEMORRHAGE) 10/31/2012 ERNST DO, AFSHAN K 789.00 ABDOMINAL PAIN 10/31/2012 ERNST DO, AFSHAN K 562.10 DIVERTICULOSIS OF COLON (WITHOUT HEMORRHAGE) 10/31/2012 ERNST DO, AFSHAN K 789.00 ABDOMINAL PAIN 10/31/2012 ERNST DO, AFSHAN K 562.10 DIVERTICULOSIS OF COLON (WITHOUT HEMORRHAGE) 10/31/2012 ERNST DO, AFSHAN K 789.00 ABDOMINAL PAIN 10/31/2012 CIERRA CORPORATE RECEPTIONIST, NATALI A 562.10 DIVERTICULOSIS OF COLON (WITHOUT HEMORRHAGE) 10/31/2012 CIERRA CORPORATE RECEPTIONIST, NATALI A 789.00 ABDOMINAL PAIN 10/31/2012 CIERRA CORPORATE RECEPTIONIST, NATALI A 562.10 DIVERTICULOSIS OF COLON (WITHOUT HEMORRHAGE) 10/31/2012 CIERRA CORPORATE RECEPTIONIST, NATALI A 789.00 ABDOMINAL PAIN 10/31/2012 MAHSA CORPORATE RECEPTIONIST, AISHA R 562.10 DIVERTICULOSIS OF COLON (WITHOUT HEMORRHAGE) 10/31/2012 MAHSA CORPORATE RECEPTIONIST, AISHA R 789.00 ABDOMINAL PAIN 10/31/2012 ERNST DO, AFSHAN K 562.10 DIVERTICULOSIS OF COLON (WITHOUT HEMORRHAGE) 10/31/2012 ERNST DO, AFSHAN K 789.00 ABDOMINAL PAIN 10/31/2012 ERNST DO, AFSHAN K 562.10 DIVERTICULOSIS OF COLON (WITHOUT HEMORRHAGE) 10/31/2012 ERNST DO, AFSHAN K 789.00 ABDOMINAL PAIN 10/31/2012 ERNST DO, AFSHAN K 562.10 DIVERTICULOSIS OF COLON (WITHOUT HEMORRHAGE) 10/31/2012 ERNST DO, AFSHAN K 789.00 ABDOMINAL PAIN 10/31/2012 ERNST DO, AFSHAN K 562.10 DIVERTICULOSIS OF COLON (WITHOUT HEMORRHAGE) 10/31/2012 ERNST DO, AFSHAN K 789.00 ABDOMINAL PAIN 10/31/2012 ERNST DO, AFSHAN K 562.10 DIVERTICULOSIS OF COLON (WITHOUT HEMORRHAGE) 10/31/2012 ERNST DO, AFSHAN K 789.00 ABDOMINAL PAIN 10/31/2012 ERNST DO, AFSHAN K 562.10 DIVERTICULOSIS OF COLON (WITHOUT HEMORRHAGE) 10/31/2012 ERNST DO, AFSHAN K 789.00 ABDOMINAL PAIN 10/31/2012 ERNST DO, AFSHAN K 562.10 DIVERTICULOSIS OF COLON (WITHOUT HEMORRHAGE) 10/31/2012 ERNST DO, AFSHAN K 789.00 ABDOMINAL PAIN 10/31/2012 ERNST DO, AFSHAN K 562.10 DIVERTICULOSIS OF COLON (WITHOUT HEMORRHAGE) 10/31/2012 ERNST DO, AFSHAN K 789.00 ABDOMINAL PAIN 10/31/2012 CIERRA CORPORATE RECEPTIONIST, NATALI A 562.10 DIVERTICULOSIS OF COLON (WITHOUT HEMORRHAGE) 10/31/2012 CIERRA CORPORATE RECEPTIONIST, NATALI A 789.00 ABDOMINAL PAIN 10/31/2012 ELISA CORPORATE RECEPTIONIST, SARITHA S 562.10 DIVERTICULOSIS OF COLON (WITHOUT HEMORRHAGE) 10/31/2012 ELISA CORPORATE RECEPTIONIST, SARITHA S 789.00 ABDOMINAL PAIN 10/31/2012 ERNST DO, AFSHAN K 562.10 DIVERTICULOSIS OF COLON (WITHOUT HEMORRHAGE) 10/31/2012 ERNST DO, AFSHAN K 789.00 ABDOMINAL PAIN 10/31/2012 ELISA CORPORATE RECEPTIONIST, SARITHA S 562.10 DIVERTICULOSIS OF COLON (WITHOUT HEMORRHAGE) 10/31/2012 ELISA CORPORATE RECEPTIONIST, SARITHA S 789.00 ABDOMINAL PAIN 10/31/2012 NEETA PECK PA-C 562.10 DIVERTICULOSIS OF COLON (WITHOUT HEMORRHAGE) 10/31/2012 NEETA PECK PA-C 789.00 ABDOMINAL PAIN 10/31/2012 ERNST DO, AFSHAN K 562.10 DIVERTICULOSIS OF COLON (WITHOUT HEMORRHAGE) 10/31/2012 ERNST DO, AFSHAN K 789.00 ABDOMINAL PAIN 10/31/2012 ERNST DO, AFSHAN K 562.10 DIVERTICULOSIS OF COLON (WITHOUT HEMORRHAGE) 10/31/2012 ERNST DO, AFSHAN K 789.00 ABDOMINAL PAIN 10/31/2012 MADL CORPORATE RECEPTIONIST, DANIELA L 562.10 DIVERTICULOSIS OF COLON (WITHOUT HEMORRHAGE) 10/31/2012 MADL CORPORATE RECEPTIONIST, DANIELA L 789.00 ABDOMINAL PAIN 10/31/2012 ERNST DO, AFSHAN K 562.10 DIVERTICULOSIS OF COLON (WITHOUT HEMORRHAGE) 10/31/2012 ERNST DO, AFSHAN K 789.00 ABDOMINAL PAIN 10/31/2012 ERNST DO, AFSHAN K 562.10 DIVERTICULOSIS OF COLON (WITHOUT HEMORRHAGE) 10/31/2012 ERNST DO, AFSHAN K 789.00 ABDOMINAL PAIN 10/31/2012 NANCY PHD, FAVIAN Frost 562.10 DIVERTICULOSIS OF COLON (WITHOUT HEMORRHAGE) 10/31/2012 NANCY PHD, FAVIAN Frost 789.00 ABDOMINAL PAIN 10/31/2012 STEPHEN PAL, VINOD Bear 562.10 DIVERTICULOSIS OF COLON (WITHOUT HEMORRHAGE) 10/31/2012 VINOD MITCHELL MD 789.00 ABDOMINAL PAIN 10/31/2012 NATALI NORTON APRN 562.10 DIVERTICULOSIS OF COLON (WITHOUT HEMORRHAGE) 10/31/2012 NATALI NORTON APRN 789.00 ABDOMINAL PAIN 11/25/2012 TARA SOW MD, SENAIT Newman 696.1 PSORIASIS 11/25/2012 TARA SOW MD, SENAIT Newman V72.31 ADJUNCT ENGLISH INSTRUCTOR EXAM, ROUTINE 11/25/2012 TARA SOW MD, SENAIT Newman V74.5 STD SCREEN 11/25/2012 696.1 PSORIASIS 11/25/2012 V72.31 Automobile Body Repair Supervisor Exam, Routine 11/25/2012 V74.5 Std Screen 11/25/2012 696.1 PSORIASIS 11/25/2012 V72.31 Automobile Body Repair Supervisor Exam, Routine 11/25/2012 V74.5 Std Screen 11/25/2012 696.1 PSORIASIS 11/25/2012 V72.31 Automobile Body Repair Supervisor Exam, Routine 11/25/2012 V74.5 Std Screen 11/25/2012 696.1 PSORIASIS 11/25/2012 V72.31 Automobile Body Repair Supervisor Exam, Routine 11/25/2012 V74.5 Std Screen 11/25/2012 696.1 PSORIASIS 11/25/2012 V72.31 Automobile Body Repair Supervisor Exam, Routine 11/25/2012 V74.5 Std Screen 11/25/2012 696.1 PSORIASIS 11/25/2012 V72.31 Automobile Body Repair Supervisor Exam, Routine 11/25/2012 V74.5 Std Screen 11/25/2012 696.1 PSORIASIS 11/25/2012 V72.31 Automobile Body Repair Supervisor Exam, Routine 11/25/2012 V74.5 Std Screen 11/25/2012 696.1 PSORIASIS 11/25/2012 V72.31 Automobile Body Repair Supervisor Exam, Routine 11/25/2012 V74.5 Std Screen 11/25/2012 696.1 PSORIASIS 11/25/2012 V72.31 Automobile Body Repair Supervisor Exam, Routine 11/25/2012 V74.5 Std Screen 11/25/2012 ERNST DO, AFSHAN K 696.1 PSORIASIS 11/25/2012 ERNST DO, AFSHAN K V72.31 Automobile Body Repair Supervisor Exam, Routine 11/25/2012 ERNST DO, AFSHAN K V74.5 Std Screen 11/25/2012 ERNST DO, AFSHAN K 696.1 PSORIASIS 11/25/2012 ERNST DO, AFSHAN K V72.31 Automobile Body Repair Supervisor Exam, Routine 11/25/2012 ERNST DO, AFSHAN K V74.5 Std Screen 11/25/2012 ERNST DO, AFSHAN K 696.1 PSORIASIS 11/25/2012 ERNST DO, AFSHAN K V72.31 Automobile Body Repair Supervisor Exam, Routine 11/25/2012 ERNST DO, AFSHAN K V74.5 Std Screen 11/25/2012 ERNST DO, AFSHAN K 696.1 PSORIASIS 11/25/2012 ERNST DO, AFSHAN K V72.31 Automobile Body Repair Supervisor Exam, Routine 11/25/2012 ERNST DO, AFSHAN K V74.5 Std Screen 11/25/2012 CIERRAChema RICCI NATALI A 696.1 PSORIASIS 11/25/2012 CIERRAChema RICCI NATALI A V72.31 Automobile Body Repair Supervisor Exam, Routine 11/25/2012 CIERRA CORPORATE RECEPTIONIST NATALI A V74.5 Std Screen 11/25/2012 ERNST DO, AFSHAN K 696.1 PSORIASIS 11/25/2012 ERNST DO, AFSHAN K V72.31 Automobile Body Repair Supervisor Exam, Routine 11/25/2012 ERNST DO, AFSHAN K V74.5 Std Screen 11/25/2012 ERNST DO, AFSHAN K 696.1 PSORIASIS 11/25/2012 ERNST DO, AFSHAN K V72.31 Automobile Body Repair Supervisor Exam, Routine 11/25/2012 ERNST DO, AFSHAN K V74.5 Std Screen 11/25/2012 ERNST DO, AFSHAN K 696.1 PSORIASIS 11/25/2012 ERNST DO, AFSHAN K V72.31 Automobile Body Repair Supervisor Exam, Routine 11/25/2012 ERNST DO, AFSHAN K V74.5 Std Screen 11/25/2012 ERNST DO, AFSHAN K 696.1 PSORIASIS 11/25/2012 ERNST DO, AFSHAN K V72.31 Automobile Body Repair Supervisor Exam, Routine 11/25/2012 ERNST DO, AFSHAN K V74.5 Std Screen 11/25/2012 ERNST DO, AFSHAN K 696.1 PSORIASIS 11/25/2012 ERNST DO, AFSHAN K V72.31 Automobile Body Repair Supervisor Exam, Routine 11/25/2012 ERNST DO, AFSHAN K V74.5 Std Screen 11/25/2012 ERNST DO, AFSHAN K 696.1 PSORIASIS 11/25/2012 ERNST DO, AFSHAN K V72.31 Automobile Body Repair Supervisor Exam, Routine 11/25/2012 ERNST DO, AFSHAN K V74.5 Std Screen 11/25/2012 LIV NICK, NEETA Foss 696.1 PSORIASIS 11/25/2012 LIV NICK, NEETA Foss V72.31 Automobile Body Repair Supervisor Exam, Routine 11/25/2012 NEETA PECK PA-C V74.5 Std Screen 11/25/2012 ERNST DO, AFSHAN K 696.1 PSORIASIS 11/25/2012 ERNST DO, AFSHAN K V72.31 Automobile Body Repair Supervisor Exam, Routine 11/25/2012 ERNST DO, AFSHAN K V74.5 Std Screen 11/25/2012 ERNST DO, AFSHAN K 696.1 PSORIASIS 11/25/2012 ERNST DO, AFSHAN K V72.31 Automobile Body Repair Supervisor Exam, Routine 11/25/2012 ERNST DO, AFSHAN K V74.5 Std Screen 11/25/2012 ERNST DO, AFSHAN K 696.1 PSORIASIS 11/25/2012 ERNST DO, AFSHAN K V72.31 Automobile Body Repair Supervisor Exam, Routine 11/25/2012 ERNST DO, AFSHAN K V74.5 Std Screen 11/25/2012 CIERRA CORPORATE RECEPTIONIST, NATALI A 696.1 PSORIASIS 11/25/2012 CIERRA CORPORATE RECEPTIONIST, NATALI A V72.31 Automobile Body Repair Supervisor Exam, Routine 11/25/2012 CIERRA CORPORATE RECEPTIONIST, NATALI A V74.5 Std Screen 11/25/2012 CIERRA CORPORATE RECEPTIONIST, NATALI A 696.1 PSORIASIS 11/25/2012 CIERRA CORPORATE RECEPTIONIST, NATALI A V72.31 Automobile Body Repair Supervisor Exam, Routine 11/25/2012 CIERRA CORPORATE RECEPTIONIST, NATALI A V74.5 Std Screen 11/25/2012 MAHSA RICCI, AISHA R 696.1 PSORIASIS 11/25/2012 MAHSA CORPORATE RECEPTIONIST, AISHA R V72.31 Automobile Body Repair Supervisor Exam, Routine 11/25/2012 MAHSA RICCI AISHA R V74.5 Std Screen 11/25/2012 ERNST DO AFSHAN K 696.1 PSORIASIS 11/25/2012 ERNST DO, AFSHAN K V72.31 Automobile Body Repair Supervisor Exam, Routine 11/25/2012 ERNST DO, AFSHAN K V74.5 Std Screen 11/25/2012 ERNST DO, AFSHAN K 696.1 PSORIASIS 11/25/2012 ERNST DO, AFSHAN K V72.31 Automobile Body Repair Supervisor Exam, Routine 11/25/2012 ERNST DO, AFSHAN K V74.5 Std Screen 11/25/2012 ERNST DO, AFSHAN K 696.1 PSORIASIS 11/25/2012 ERNST DO, AFSHAN K V72.31 Automobile Body Repair Supervisor Exam, Routine 11/25/2012 ERNST DO, AFSHAN K V74.5 Std Screen 11/25/2012 ERNST DO, AFSHAN K 696.1 PSORIASIS 11/25/2012 ERNST DO, AFSHAN K V72.31 Automobile Body Repair Supervisor Exam, Routine 11/25/2012 ERNST DO, AFSHAN K V74.5 Std Screen 11/25/2012 ERNST DO, AFSHAN K 696.1 PSORIASIS 11/25/2012 ERNST DO, AFSHAN K V72.31 Automobile Body Repair Supervisor Exam, Routine 11/25/2012 ERNST DO, AFSHAN K V74.5 Std Screen 11/25/2012 ERNST DO, AFSHAN K 696.1 PSORIASIS 11/25/2012 ERNST DO, AFSHAN K V72.31 Automobile Body Repair Supervisor Exam, Routine 11/25/2012 ERNST DO, AFSHAN K V74.5 Std Screen 11/25/2012 ERNST DO, AFSHAN K 696.1 PSORIASIS 11/25/2012 ERNST DO, AFSHAN K V72.31 Automobile Body Repair Supervisor Exam, Routine 11/25/2012 ERNST DO, AFSHAN K V74.5 Std Screen 11/25/2012 ERNTS DO, AFSHAN K 696.1 PSORIASIS 11/25/2012 ERNST DO, AFSHAN K V72.31 Automobile Body Repair Supervisor Exam, Routine 11/25/2012 ERNST DO, AFSHAN K V74.5 Std Screen 11/25/2012 CIERRA CORPORATE RECEPTIONIST, NATALI A 696.1 PSORIASIS 11/25/2012 CIERRA CORPORATE RECEPTIONIST, NATALI A V72.31 Automobile Body Repair Supervisor Exam, Routine 11/25/2012 CIERRA CORPORATE RECEPTIONIST, NATALI A V74.5 Std Screen 11/25/2012 ELISA CORPORATE RECEPTIONISTSARITHA Bear S 696.1 PSORIASIS 11/25/2012 ELISA CORPORATE RECEPTIONISTSARITHA Bear S V72.31 Automobile Body Repair Supervisor Exam, Routine 11/25/2012 ELISA CORPORATE RECEPTIONIST, SARITHA S V74.5 Std Screen 11/25/2012 ERNST DO, AFSHAN K 696.1 PSORIASIS 11/25/2012 ERNST DO, AFSHAN K V72.31 Automobile Body Repair Supervisor Exam, Routine 11/25/2012 ERNST DO, AFSHAN K V74.5 Std Screen 11/25/2012 ELISA CORPORATE RECEPTIONIST, SARITHA S 696.1 PSORIASIS 11/25/2012 ELISA MEJIAN, SARITHA S V72.31 Automobile Body Repair Supervisor Exam, Routine 11/25/2012 ELISA CORPORATE RECEPTIONIST, SARITHA S V74.5 Std Screen 11/25/2012 LIV NICK, NEETA Foss 696.1 PSORIASIS 11/25/2012 LIV NICK, NEETA Foss V72.31 Automobile Body Repair Supervisor Exam, Routine 11/25/2012 LIV NICK, NETEA Foss V74.5 Std Screen 11/25/2012 ERNST DO AFSHAN K 696.1 PSORIASIS 11/25/2012 ERNST DO AFSHAN K V72.31 Automobile Body Repair Supervisor Exam, Routine 11/25/2012 ERNST DO AFSHAN K V74.5 Std Screen 11/25/2012 ERNST DO AFSHAN K 696.1 PSORIASIS 11/25/2012 ERNST DO, AFSHAN K V72.31 Automobile Body Repair Supervisor Exam, Routine 11/25/2012 ERNST DO AFSHAN K V74.5 Std Screen 11/25/2012 MERCEDES RICCI DANIELA L 696.1 PSORIASIS 11/25/2012 MADKenneth CORPORATE RECEPTIONIST, DANIELA L V72.31 Automobile Body Repair Supervisor Exam, Routine 11/25/2012 MARKL CORPORATE RECEPTIONIST, DANIELA L V74.5 Std Screen 11/25/2012 ENRST DO, AFSHAN K 696.1 PSORIASIS 11/25/2012 ERNST DO, AFSHAN K V72.31 Automobile Body Repair Supervisor Exam, Routine 11/25/2012 ERNST DO, AFSHAN K V74.5 Std Screen 11/25/2012 ERNST DO, AFSHAN K 696.1 PSORIASIS 11/25/2012 ERNST DO, AFSHAN K V72.31 Automobile Body Repair Supervisor Exam, Routine 11/25/2012 ERNST DO, AFSHAN K V74.5 Std Screen 11/25/2012 NANCY VELA, FAVIAN Frost 696.1 PSORIASIS 11/25/2012 NANCY PHD, FAVIAN Frost V72.31 Automobile Body Repair Supervisor Exam, Routine 11/25/2012 NANCY PHD, FAVIAN Frost V74.5 Std Screen 11/25/2012 VINOD MITCHELL MD 696.1 PSORIASIS 11/25/2012 VINOD MITCHELL MD V72.31 Automobile Body Repair Supervisor Exam, Routine 11/25/2012 VINOD MITCHELL MD V74.5 Std Screen 11/25/2012 NATALI NORTON APRN A 696.1 PSORIASIS 11/25/2012 NATALI NORTON APRN A V72.31 Automobile Body Repair Supervisor Exam, Routine 11/25/2012 CIERRANATALI ANDRADE APRN A V74.5 Std Screen 12/13/2012 626.2 MENORRHAGIA 12/13/2012 626.2 MENORRHAGIA 12/13/2012 626.2 MENORRHAGIA 12/13/2012 626.2 MENORRHAGIA 12/13/2012 626.2 MENORRHAGIA 12/13/2012 626.2 MENORRHAGIA 12/13/2012 626.2 MENORRHAGIA 12/13/2012 626.2 MENORRHAGIA 12/13/2012 626.2 MENORRHAGIA 12/13/2012 ERNST DO, AFSHAN K 626.2 MENORRHAGIA 12/13/2012 ERNST DO, AFSHAN K 626.2 MENORRHAGIA 12/13/2012 ERNST DO, AFSHAN K 626.2 MENORRHAGIA 12/13/2012 ERNST DO, AFSHAN K 626.2 MENORRHAGIA 12/13/2012 CIERRA RICCI NATALI A 626.2 MENORRHAGIA 12/13/2012 ERNST DO, AFSHAN K 626.2 MENORRHAGIA 12/13/2012 ERNST DO, AFSHAN K 626.2 MENORRHAGIA 12/13/2012 ERNST DO, AFSHAN K 626.2 MENORRHAGIA 12/13/2012 ERNST DO, AFSHAN K 626.2 MENORRHAGIA 12/13/2012 ERNST DO, AFSHAN K 626.2 MENORRHAGIA 12/13/2012 ERNST DO, AFSHAN K 626.2 MENORRHAGIA 12/13/2012 LIV NICK, NEETA Foss 626.2 MENORRHAGIA 12/13/2012 ERNST DO, AFSHAN K 626.2 MENORRHAGIA 12/13/2012 ERNST DO, AFSHAN K 626.2 MENORRHAGIA 12/13/2012 ERNST DO, AFSHAN K 626.2 MENORRHAGIA 12/13/2012 CIERRA CORPORATE RECEPTIONIST, NATALI A 626.2 MENORRHAGIA 12/13/2012 CIERRA CORPORATE RECEPTIONIST, NATALI A 626.2 MENORRHAGIA 12/13/2012 AISHA BRAGG APRN 626.2 MENORRHAGIA 12/13/2012 ERNST DO, AFSHAN K 626.2 MENORRHAGIA 12/13/2012 ERNST DO, AFSHAN K 626.2 MENORRHAGIA 12/13/2012 ERNST DO, AFSHAN K 626.2 MENORRHAGIA 12/13/2012 ERNST DO, AFSHAN K 626.2 MENORRHAGIA 12/13/2012 ERNST DO, AFSHAN K 626.2 MENORRHAGIA 12/13/2012 ERNST DO, AFSHAN K 626.2 MENORRHAGIA 12/13/2012 ERNST DO, AFSHAN K 626.2 MENORRHAGIA 12/13/2012 ERNST DO, AFSHAN K 626.2 MENORRHAGIA 12/13/2012 CIERRA CORPORATE RECEPTIONIST, NATALI A 626.2 MENORRHAGIA 12/13/2012 ELISA CORPORATE RECEPTIONIST, SARITHA S 626.2 MENORRHAGIA 12/13/2012 RENST DO, AFSHAN K 626.2 MENORRHAGIA 12/13/2012 ELISA CORPORATE RECEPTIONIST, SARITHA S 626.2 MENORRHAGIA 12/13/2012 LIV NICK, NEETA Foss 626.2 MENORRHAGIA 12/13/2012 ERNST DO, AFSHAN K 626.2 MENORRHAGIA 12/13/2012 ERNST DO, AFSHAN K 626.2 MENORRHAGIA 12/13/2012 DANIELA LONG APRN 626.2 MENORRHAGIA 12/13/2012 ERNST DO, AFSHAN K 626.2 MENORRHAGIA 12/13/2012 ERNST DO, AFSHAN K 626.2 MENORRHAGIA 12/13/2012 NANCY VELA, FAVIAN Frost 626.2 MENORRHAGIA 12/13/2012 VINOD MITCHELL MD 626.2 MENORRHAGIA 12/13/2012 CIRERA RICCI, NATALI A 626.2 MENORRHAGIA 01/02/2013 Ot 272.4 HYPERLIPIDEMIA NEC/NOS 01/02/2013 Ot 278.00 OBESITY, NOS 01/02/2013 Ot 786.50 CHEST PAIN NOS 01/02/2013 Ot V12.55 PERSONAL HISTORY OF PULMONARY EMBOLISM 01/02/2013 Ot V85.36 BODY MASS INDEX 36.0-36.9, ADULT 01/15/2013 780.52 INSOMNIA UNSPECIFIED 01/15/2013 V58.69 LONG-TERM ( CURRENT) USE OF OTHER MEDICATIONS 01/15/2013 780.52 INSOMNIA UNSPECIFIED 01/15/2013 V58.69 LONG-TERM ( CURRENT) USE OF OTHER MEDICATIONS 01/15/2013 780.52 INSOMNIA UNSPECIFIED 01/15/2013 V58.69 LONG-TERM ( CURRENT) USE OF OTHER MEDICATIONS 01/15/2013 780.52 INSOMNIA UNSPECIFIED 01/15/2013 V58.69 LONG-TERM ( CURRENT) USE OF OTHER MEDICATIONS 01/15/2013 780.52 INSOMNIA UNSPECIFIED 01/15/2013 V58.69 LONG-TERM ( CURRENT) USE OF OTHER MEDICATIONS 01/15/2013 780.52 INSOMNIA UNSPECIFIED 01/15/2013 V58.69 LONG-TERM ( CURRENT) USE OF OTHER MEDICATIONS 01/15/2013 780.52 INSOMNIA UNSPECIFIED 01/15/2013 V58.69 LONG-TERM ( CURRENT) USE OF OTHER MEDICATIONS 01/15/2013 780.52 INSOMNIA UNSPECIFIED 01/15/2013 V58.69 LONG-TERM ( CURRENT) USE OF OTHER MEDICATIONS 01/15/2013 ALANNAH ERNST DOA K 780.52 INSOMNIA UNSPECIFIED 01/15/2013 SUJATA MCKEON AFSHAN K V58.69 LONG-TERM (CURRENT) USE OF OTHER MEDICATIONS 01/15/2013 ALANNAH ERNST DOA K 780.52 INSOMNIA UNSPECIFIED 01/15/2013 ERNST DO AFSHAN K V58.69 LONG-TERM (CURRENT) USE OF OTHER MEDICATIONS 01/15/2013 ERNST DO AFSHAN K 780.52 INSOMNIA UNSPECIFIED 01/15/2013 ERNST DO AFSHAN K V58.69 LONG-TERM (CURRENT) USE OF OTHER MEDICATIONS 01/15/2013 ERNST DO AFSHAN K 780.52 INSOMNIA UNSPECIFIED 01/15/2013 ERNST DO AFSHAN K V58.69 LONG-TERM (CURRENT) USE OF OTHER MEDICATIONS 01/15/2013 NATALI NORTON APRN A 780.52 INSOMNIA UNSPECIFIED 01/15/2013 [employer] RECEPTIONIST, NATALI A V58.69 LONG-TERM (CURRENT) USE OF OTHER MEDICATIONS 01/15/2013 ERNST DO AFSHAN K 780.52 INSOMNIA UNSPECIFIED 01/15/2013 ERNST DO, AFSHAN K V58.69 LONG-TERM (CURRENT) USE OF OTHER MEDICATIONS 01/15/2013 ERNST DO, AFSHAN K 780.52 INSOMNIA UNSPECIFIED 01/15/2013 ERNST DO, AFSHAN K V58.69 LONG-TERM (CURRENT) USE OF OTHER MEDICATIONS 01/15/2013 ERNST DO AFSHAN K 780.52 INSOMNIA UNSPECIFIED 01/15/2013 ERNST DO, AFSHAN K V58.69 LONG-TERM (CURRENT) USE OF OTHER MEDICATIONS 01/15/2013 ERNST DO, AFSHAN K 780.52 INSOMNIA UNSPECIFIED 01/15/2013 ERNST DO, AFSHAN K V58.69 LONG-TERM (CURRENT) USE OF OTHER MEDICATIONS 01/15/2013 ERNST DO AFSHAN K 780.52 INSOMNIA UNSPECIFIED 01/15/2013 ERNST DO, AFSHAN K V58.69 LONG-TERM (CURRENT) USE OF OTHER MEDICATIONS 01/15/2013 ERNST DO AFSHAN K 780.52 INSOMNIA UNSPECIFIED 01/15/2013 ERNST DO, AFSHAN K V58.69 LONG-TERM (CURRENT) USE OF OTHER MEDICATIONS 01/15/2013 NEETA PECK PA-C 780.52 INSOMNIA UNSPECIFIED 01/15/2013 NEETA PECK PA-C V58.69 LONG-TERM (CURRENT) USE OF OTHER MEDICATIONS 01/15/2013 ERNST DO AFSHAN K 780.52 INSOMNIA UNSPECIFIED 01/15/2013 ERNST DO AFSHAN K V58.69 LONG-TERM (CURRENT) USE OF OTHER MEDICATIONS 01/15/2013 ERNST DO AFSHAN K 780.52 INSOMNIA UNSPECIFIED 01/15/2013 ERNST DO, AFSHAN K V58.69 LONG-TERM (CURRENT) USE OF OTHER MEDICATIONS 01/15/2013 ERNST DO, AFSHAN K 780.52 INSOMNIA UNSPECIFIED 01/15/2013 ERNST DO, AFSHAN K V58.69 LONG-TERM (CURRENT) USE OF OTHER MEDICATIONS 01/15/2013 [employer] RECEPTIONIST, NATALI A 780.52 INSOMNIA UNSPECIFIED 01/15/2013 [employer] RECEPTIONIST, NATALI A V58.69 LONG-TERM (CURRENT) USE OF OTHER MEDICATIONS 01/15/2013 [employer] RECEPTIONIST, NATALI A 780.52 INSOMNIA UNSPECIFIED 01/15/2013 [employer] RECEPTIONIST, NATALI A V58.69 LONG-TERM (CURRENT) USE OF OTHER MEDICATIONS 01/15/2013 [employer]PORATE RECEPTIONIST, AISHA R 780.52 INSOMNIA UNSPECIFIED 01/15/2013 [employer]PORATE RECEPTIONIST, AISHA R V58.69 LONG-TERM (CURRENT) USE OF OTHER MEDICATIONS 01/15/2013 ERNST DO, AFSHAN K 780.52 INSOMNIA UNSPECIFIED 01/15/2013 ERNST DO, AFSHAN K V58.69 LONG-TERM (CURRENT) USE OF OTHER MEDICATIONS 01/15/2013 ERNST DO, AFSHAN K 780.52 INSOMNIA UNSPECIFIED 01/15/2013 ERNST DO, AFSHAN K V58.69 LONG-TERM (CURRENT) USE OF OTHER MEDICATIONS 01/15/2013 ERNST DO, AFSHAN K 780.52 INSOMNIA UNSPECIFIED 01/15/2013 ERNST DO, AFSHAN K V58.69 LONG-TERM (CURRENT) USE OF OTHER MEDICATIONS 01/15/2013 ERNST DO, AFSHAN K 780.52 INSOMNIA UNSPECIFIED 01/15/2013 ERNST DO, AFSHAN K V58.69 LONG-TERM (CURRENT) USE OF OTHER MEDICATIONS 01/15/2013 ERNST DO, AFSHAN K 780.52 INSOMNIA UNSPECIFIED 01/15/2013 ERNST DO, AFSHAN K V58.69 LONG-TERM (CURRENT) USE OF OTHER MEDICATIONS 01/15/2013 ERNST DO, AFSHAN K 780.52 INSOMNIA UNSPECIFIED 01/15/2013 ERNST DO, AFSHAN K V58.69 LONG-TERM (CURRENT) USE OF OTHER MEDICATIONS 01/15/2013 ERNST DO, AFSHAN K 780.52 INSOMNIA UNSPECIFIED 01/15/2013 ERNST DO, AFSHAN K V58.69 LONG-TERM (CURRENT) USE OF OTHER MEDICATIONS 01/15/2013 ERNST DO, AFSHAN K 780.52 INSOMNIA UNSPECIFIED 01/15/2013 ERNST DO, AFSHAN K V58.69 LONG-TERM (CURRENT) USE OF OTHER MEDICATIONS 01/15/2013 [employer]PORATE RECEPTIONIST, NATALI A 780.52 INSOMNIA UNSPECIFIED 01/15/2013 [employer]ATE RECEPTIONIST, NATALI A V58.69 LONG-TERM (CURRENT) USE OF OTHER MEDICATIONS 01/15/2013 ELISA CORPORATE RECEPTIONIST, SARITHA S 780.52 INSOMNIA UNSPECIFIED 01/15/2013 ELISA CORPORATE RECEPTIONIST, SARITHA S V58.69 LONG-TERM (CURRENT) USE OF OTHER MEDICATIONS 01/15/2013 ERNST DOALANNAHA K 780.52 INSOMNIA UNSPECIFIED 01/15/2013 ERNST DO AFSHAN K V58.69 LONG-TERM (CURRENT) USE OF OTHER MEDICATIONS 01/15/2013 ELISA CORPORATE RECEPTIONIST SARITHA S 780.52 INSOMNIA UNSPECIFIED 01/15/2013 ELISA CORPORATE RECEPTIONIST, SARITHA S V58.69 LONG-TERM (CURRENT) USE OF OTHER MEDICATIONS 01/15/2013 NEETA PECK PA-C 780.52 INSOMNIA UNSPECIFIED 01/15/2013 NEETA PECK PA-C V58.69 LONG-TERM (CURRENT) USE OF OTHER MEDICATIONS 01/15/2013 ERNST ALANNAH MCKEONA K 780.52 INSOMNIA UNSPECIFIED 01/15/2013 SUJATA MCKEON AFSHAN K V58.69 LONG-TERM (CURRENT) USE OF OTHER MEDICATIONS 01/15/2013 ALANNAH ERNST DOA K 780.52 INSOMNIA UNSPECIFIED 01/15/2013 SUJATA MCKEON AFSHAN K V58.69 LONG-TERM (CURRENT) USE OF OTHER MEDICATIONS 01/15/2013 [employer]PORATE RECEPTIONIST, DANIELA L 780.52 INSOMNIA UNSPECIFIED 01/15/2013 [employer] CORPORATE RECEPTIONIST, DANIELA L V58.69 LONG-TERM (CURRENT) USE OF OTHER MEDICATIONS 01/15/2013 SUJATA MCKEON AFSHAN K 780.52 INSOMNIA UNSPECIFIED 01/15/2013 SUJATA MCKEON AFSHAN K V58.69 LONG-TERM (CURRENT) USE OF OTHER MEDICATIONS 01/15/2013 ALANNAH ERNTS DOA K 780.52 INSOMNIA UNSPECIFIED 01/15/2013 SUJATA MCKEON AFSHAN K V58.69 LONG-TERM (CURRENT) USE OF OTHER MEDICATIONS 01/15/2013 FAVIAN CRUZ PHD 780.52 INSOMNIA UNSPECIFIED 01/15/2013 FAVIAN CRUZ PHD V58.69 LONG-TERM (CURRENT) USE OF OTHER MEDICATIONS 01/15/2013 VINOD MITCHELL MD 780.52 INSOMNIA UNSPECIFIED 01/15/2013 VINOD MITCHELL MD V58.69 LONG-TERM (CURRENT) USE OF OTHER MEDICATIONS 01/15/2013 NATALI NORTON APRN A 780.52 INSOMNIA UNSPECIFIED 01/15/2013 NATALI NORTON APRN V58.69 LONG-TERM (CURRENT) USE OF OTHER MEDICATIONS 02/22/2013 278.02 OVERWEIGHT 02/22/2013 620.2 OVARIAN CYST 02/22/2013 278.02 OVERWEIGHT 02/22/2013 620.2 OVARIAN CYST 02/22/2013 278.02 OVERWEIGHT 02/22/2013 620.2 OVARIAN CYST 02/22/2013 278.02 OVERWEIGHT 02/22/2013 620.2 OVARIAN CYST 02/22/2013 278.02 OVERWEIGHT 02/22/2013 620.2 OVARIAN CYST 02/22/2013 278.02 OVERWEIGHT 02/22/2013 620.2 OVARIAN CYST 02/22/2013 ERNST DO, AFSHAN K 278.02 OVERWEIGHT 02/22/2013 ERNST DO, AFSHAN K 620.2 OVARIAN CYST 02/22/2013 ERNST DO, AFSHAN K 278.02 OVERWEIGHT 02/22/2013 ERNST DO, AFSHAN K 620.2 OVARIAN CYST 02/22/2013 ERNST DO, AFSHAN K 278.02 OVERWEIGHT 02/22/2013 ERNST DO, AFSHAN K 620.2 OVARIAN CYST 02/22/2013 ERNST DO, AFSHAN K 278.02 OVERWEIGHT 02/22/2013 ERNST DO, AFSHAN K 620.2 OVARIAN CYST 02/22/2013 [employer] RECEPTIONIST, NATALI A 278.02 OVERWEIGHT 02/22/2013 [employer]ATE RECEPTIONIST, NATALI A 620.2 OVARIAN CYST 02/22/2013 ERNTS DO, AFSHAN K 278.02 OVERWEIGHT 02/22/2013 ERNST DO, AFSHAN K 620.2 OVARIAN CYST 02/22/2013 ERNST DO, AFSHAN K 278.02 OVERWEIGHT 02/22/2013 ERNST DO, AFSHAN K 620.2 OVARIAN CYST 02/22/2013 ERNST DO, AFSHAN K 278.02 OVERWEIGHT 02/22/2013 ERNST DO, AFSHAN K 620.2 OVARIAN CYST 02/22/2013 ERNST DO, AFSHAN K 278.02 OVERWEIGHT 02/22/2013 ERNST DO, AFSHAN K 620.2 OVARIAN CYST 02/22/2013 ERNST DO, AFSHAN K 278.02 OVERWEIGHT 02/22/2013 ERNST DO, AFSHAN K 620.2 OVARIAN CYST 02/22/2013 ERNST DO, AFSHAN K 278.02 OVERWEIGHT 02/22/2013 ERNST DO, AFSHAN K 620.2 OVARIAN CYST 02/22/2013 NEETA PECK PA-C 278.02 OVERWEIGHT 02/22/2013 LIV NICK, NEETA M 620.2 OVARIAN CYST 02/22/2013 ERNST DO, AFSHAN K 278.02 OVERWEIGHT 02/22/2013 ERNST DO, AFSHAN K 620.2 OVARIAN CYST 02/22/2013 ERNST DO, AFSHAN K 278.02 OVERWEIGHT 02/22/2013 ERNST DO, AFSHAN K 620.2 OVARIAN CYST 02/22/2013 ERNST DO, AFSHAN K 278.02 OVERWEIGHT 02/22/2013 ERNST DO, AFSHAN K 620.2 OVARIAN CYST 02/22/2013 [employer]ATE RECEPTIONIST, NATALI A 278.02 OVERWEIGHT 02/22/2013 [employer]ATE RECEPTIONIST, NATALI A 620.2 OVARIAN CYST 02/22/2013 [employer]ATE RECEPTIONIST, NATALI A 278.02 OVERWEIGHT 02/22/2013 [employer]ATE RECEPTIONIST, NATALI A 620.2 OVARIAN CYST 02/22/2013 MAHSA CORPORATE RECEPTIONIST, AISHA R 278.02 OVERWEIGHT 02/22/2013 MAHSA CORPORATE RECEPTIONIST, AISHA R 620.2 OVARIAN CYST 02/22/2013 ENRST DO, AFSHAN K 278.02 OVERWEIGHT 02/22/2013 ERNST DO, AFSHAN K 620.2 OVARIAN CYST 02/22/2013 ERNST DO, AFSHAN K 278.02 OVERWEIGHT 02/22/2013 ERNST DO, AFSHAN K 620.2 OVARIAN CYST 02/22/2013 ERNST DO, AFSHAN K 278.02 OVERWEIGHT 02/22/2013 ERNST DO, AFSHAN K 620.2 OVARIAN CYST 02/22/2013 ERNST DO, AFSHAN K 278.02 OVERWEIGHT 02/22/2013 ERNST DO, AFSHAN K 620.2 OVARIAN CYST 02/22/2013 ERNST DO, AFSHAN K 278.02 OVERWEIGHT 02/22/2013 ERNST DO, AFSHAN K 620.2 OVARIAN CYST 02/22/2013 ERNST DO, AFSHAN K 278.02 OVERWEIGHT 02/22/2013 ERNST DO, AFSHAN K 620.2 OVARIAN CYST 02/22/2013 ERNST DO, AFSHAN K 278.02 OVERWEIGHT 02/22/2013 ERNST DO, AFSHAN K 620.2 OVARIAN CYST 02/22/2013 ERNST DO, AFSHAN K 278.02 OVERWEIGHT 02/22/2013 ERNST DO, AFSHAN K 620.2 OVARIAN CYST 02/22/2013 [employer]ATE RECEPTIONIST, NATALI A 278.02 OVERWEIGHT 02/22/2013 [employer]ATE RECEPTIONIST, NATALI A 620.2 OVARIAN CYST 02/22/2013 ELISA CORPORATE RECEPTIONIST, SARITHA S 278.02 OVERWEIGHT 02/22/2013 ELISA CORPORATE RECEPTIONIST, SARITHA S 620.2 OVARIAN CYST 02/22/2013 ERNST DO, AFSHAN K 278.02 OVERWEIGHT 02/22/2013 ERNST DO, AFSHAN K 620.2 OVARIAN CYST 02/22/2013 ELISA CORPORATE RECEPTIONIST, SARITHA S 278.02 OVERWEIGHT 02/22/2013 ELISA CORPORATE RECEPTIONIST, SARITHA S 620.2 OVARIAN CYST 02/22/2013 LIV NICK, NEETA M 278.02 OVERWEIGHT 02/22/2013 LIV NICK, NEETA M 620.2 OVARIAN CYST 02/22/2013 ERNST DO, AFSHAN K 278.02 OVERWEIGHT 02/22/2013 ERNST DO, AFSHAN K 620.2 OVARIAN CYST 02/22/2013 ERNST DO, AFSHAN K 278.02 OVERWEIGHT 02/22/2013 ERNST DO, AFSHAN K 620.2 OVARIAN CYST 02/22/2013 MADL CORPORATE RECEPTIONIST, DANIELA L 278.02 OVERWEIGHT 02/22/2013 MADL CORPORATE RECEPTIONIST, DANIELA L 620.2 OVARIAN CYST 02/22/2013 ERNST DO, AFSHAN K 278.02 OVERWEIGHT 02/22/2013 ERNST DO, AFSHAN K 620.2 OVARIAN CYST 02/22/2013 ERNST DO, AFSHAN K 278.02 OVERWEIGHT 02/22/2013 ERNST DO, AFSHAN K 620.2 OVARIAN CYST 02/22/2013 NANCY VELA, FAVIAN Frost 278.02 OVERWEIGHT 02/22/2013 NANCY VELA, FAVIAN Frost 620.2 OVARIAN CYST 02/22/2013 VINOD MITCHELL MD 278.02 OVERWEIGHT 02/22/2013 VINOD MITCHELL MD 620.2 OVARIAN CYST 02/22/2013 CIERRA MEJIAN, NATALI A 278.02 OVERWEIGHT 02/22/2013 [employer]ATE RECEPTIONIST, NATALI A 620.2 OVARIAN CYST 03/06/2013 709.9 UNSPECIFIED DISORDER OF SKIN AND SUBCUTANEOUS TISSUE 03/06/2013 782.1 RASH AND OTHER NONSPECIFIC SKIN ERUPTION 03/06/2013 709.9 UNSPECIFIED DISORDER OF SKIN AND SUBCUTANEOUS TISSUE 03/06/2013 782.1 RASH AND OTHER NONSPECIFIC SKIN ERUPTION 03/06/2013 709.9 UNSPECIFIED DISORDER OF SKIN AND SUBCUTANEOUS TISSUE 03/06/2013 782.1 RASH AND OTHER NONSPECIFIC SKIN ERUPTION 03/06/2013 709.9 UNSPECIFIED DISORDER OF SKIN AND SUBCUTANEOUS TISSUE 03/06/2013 782.1 RASH AND OTHER NONSPECIFIC SKIN ERUPTION 03/06/2013 709.9 UNSPECIFIED DISORDER OF SKIN AND SUBCUTANEOUS TISSUE 03/06/2013 782.1 RASH AND OTHER NONSPECIFIC SKIN ERUPTION 03/06/2013 ERNST DO, AFSHAN K 709.9 UNSPECIFIED DISORDER OF SKIN AND SUBCUTANEOUS TISSUE 03/06/2013 ERNST DO, AFSHAN K 782.1 RASH AND OTHER NONSPECIFIC SKIN ERUPTION 03/06/2013 ERNST DO, AFSHAN K 709.9 UNSPECIFIED DISORDER OF SKIN AND SUBCUTANEOUS TISSUE 03/06/2013 ERNST DO, AFSHAN K 782.1 RASH AND OTHER NONSPECIFIC SKIN ERUPTION 03/06/2013 ERNST DO, AFSHAN K 709.9 UNSPECIFIED DISORDER OF SKIN AND SUBCUTANEOUS TISSUE 03/06/2013 ERNST DO, AFSHAN K 782.1 RASH AND OTHER NONSPECIFIC SKIN ERUPTION 03/06/2013 ERNST DO, AFSHAN K 709.9 UNSPECIFIED DISORDER OF SKIN AND SUBCUTANEOUS TISSUE 03/06/2013 ERNST DO, AFSHAN K 782.1 RASH AND OTHER NONSPECIFIC SKIN ERUPTION 03/06/2013 [employer]PORATE RECEPTIONIST, NATALI A 709.9 UNSPECIFIED DISORDER OF SKIN AND SUBCUTANEOUS TISSUE 03/06/2013 [employer]PORATE RECEPTIONIST, NATALI A 782.1 RASH AND OTHER NONSPECIFIC SKIN ERUPTION 03/06/2013 ERNST DO, AFSHAN K 709.9 UNSPECIFIED DISORDER OF SKIN AND SUBCUTANEOUS TISSUE 03/06/2013 ERNST DO, AFSHAN K 782.1 RASH AND OTHER NONSPECIFIC SKIN ERUPTION 03/06/2013 ERNST DO, AFSHAN K 709.9 UNSPECIFIED DISORDER OF SKIN AND SUBCUTANEOUS TISSUE 03/06/2013 ERNST DO, AFSHAN K 782.1 RASH AND OTHER NONSPECIFIC SKIN ERUPTION 03/06/2013 ERNST DO, AFSHAN K 709.9 UNSPECIFIED DISORDER OF SKIN AND SUBCUTANEOUS TISSUE 03/06/2013 RENST DO, AFSHAN K 782.1 RASH AND OTHER NONSPECIFIC SKIN ERUPTION 03/06/2013 ERNST DO, AFSHAN K 709.9 UNSPECIFIED DISORDER OF SKIN AND SUBCUTANEOUS TISSUE 03/06/2013 ERNST DO, AFSHAN K 782.1 RASH AND OTHER NONSPECIFIC SKIN ERUPTION 03/06/2013 ERNST DO, AFSHAN K 709.9 UNSPECIFIED DISORDER OF SKIN AND SUBCUTANEOUS TISSUE 03/06/2013 ERNST DO, AFSHAN K 782.1 RASH AND OTHER NONSPECIFIC SKIN ERUPTION 03/06/2013 ERNST DO, AFSHAN K 709.9 UNSPECIFIED DISORDER OF SKIN AND SUBCUTANEOUS TISSUE 03/06/2013 ERNST DO, AFSHAN K 782.1 RASH AND OTHER NONSPECIFIC SKIN ERUPTION 03/06/2013 NEETA PECK PA-C 709.9 UNSPECIFIED DISORDER OF SKIN AND SUBCUTANEOUS TISSUE 03/06/2013 NEETA PECK PA-C 782.1 RASH AND OTHER NONSPECIFIC SKIN ERUPTION 03/06/2013 ERNST DO, AFSHAN K 709.9 UNSPECIFIED DISORDER OF SKIN AND SUBCUTANEOUS TISSUE 03/06/2013 ERNST DO, AFSHAN K 782.1 RASH AND OTHER NONSPECIFIC SKIN ERUPTION 03/06/2013 ERNST DO, AFSHAN K 709.9 UNSPECIFIED DISORDER OF SKIN AND SUBCUTANEOUS TISSUE 03/06/2013 ERNST DO, AFSHAN K 782.1 RASH AND OTHER NONSPECIFIC SKIN ERUPTION 03/06/2013 ERNST DO, AFSHAN K 709.9 UNSPECIFIED DISORDER OF SKIN AND SUBCUTANEOUS TISSUE 03/06/2013 ERNST DO, AFSHAN K 782.1 RASH AND OTHER NONSPECIFIC SKIN ERUPTION 03/06/2013 [employer]PORATE RECEPTIONIST, NATALI A 709.9 UNSPECIFIED DISORDER OF SKIN AND SUBCUTANEOUS TISSUE 03/06/2013 [employer]ATE RECEPTIONIST, NATALI A 782.1 RASH AND OTHER NONSPECIFIC SKIN ERUPTION 03/06/2013 [employer]ATE RECEPTIONIST, NATALI A 709.9 UNSPECIFIED DISORDER OF SKIN AND SUBCUTANEOUS TISSUE 03/06/2013 [employer]ATE RECEPTIONIST, NATALI A 782.1 RASH AND OTHER NONSPECIFIC SKIN ERUPTION 03/06/2013 MAHSA CORPORATE RECEPTIONIST, AISHA R 709.9 UNSPECIFIED DISORDER OF SKIN AND SUBCUTANEOUS TISSUE 03/06/2013 MAHSA CORPORATE RECEPTIONIST, AISHA R 782.1 RASH AND OTHER NONSPECIFIC SKIN ERUPTION 03/06/2013 ERNST DO, AFSHAN K 709.9 UNSPECIFIED DISORDER OF SKIN AND SUBCUTANEOUS TISSUE 03/06/2013 ERNST DO, AFSHAN K 782.1 RASH AND OTHER NONSPECIFIC SKIN ERUPTION 03/06/2013 ERNST DO, AFSHAN K 709.9 UNSPECIFIED DISORDER OF SKIN AND SUBCUTANEOUS TISSUE 03/06/2013 ERNST DO, AFSHAN K 782.1 RASH AND OTHER NONSPECIFIC SKIN ERUPTION 03/06/2013 ERNST DO, AFSHAN K 709.9 UNSPECIFIED DISORDER OF SKIN AND SUBCUTANEOUS TISSUE 03/06/2013 ERNST DO, AFSHAN K 782.1 RASH AND OTHER NONSPECIFIC SKIN ERUPTION 03/06/2013 ERNST DO, AFSHNA K 709.9 UNSPECIFIED DISORDER OF SKIN AND SUBCUTANEOUS TISSUE 03/06/2013 ERNST DO, AFSHAN K 782.1 RASH AND OTHER NONSPECIFIC SKIN ERUPTION 03/06/2013 ERNST DO, AFSHAN K 709.9 UNSPECIFIED DISORDER OF SKIN AND SUBCUTANEOUS TISSUE 03/06/2013 ERNST DO, AFSHAN K 782.1 RASH AND OTHER NONSPECIFIC SKIN ERUPTION 03/06/2013 ERNST DO, AFSHAN K 709.9 UNSPECIFIED DISORDER OF SKIN AND SUBCUTANEOUS TISSUE 03/06/2013 ERNST DO, AFSHAN K 782.1 RASH AND OTHER NONSPECIFIC SKIN ERUPTION 03/06/2013 ERNST DO, AFSHAN K 709.9 UNSPECIFIED DISORDER OF SKIN AND SUBCUTANEOUS TISSUE 03/06/2013 ERNST DO, AFSHAN K 782.1 RASH AND OTHER NONSPECIFIC SKIN ERUPTION 03/06/2013 ERNST DO, AFSHAN K 709.9 UNSPECIFIED DISORDER OF SKIN AND SUBCUTANEOUS TISSUE 03/06/2013 ERNST DO, AFSHAN K 782.1 RASH AND OTHER NONSPECIFIC SKIN ERUPTION 03/06/2013 [employer]PORATE RECEPTIONIST, NATALI A 709.9 UNSPECIFIED DISORDER OF SKIN AND SUBCUTANEOUS TISSUE 03/06/2013 [employer]PORATE RECEPTIONIST, NATALI A 782.1 RASH AND OTHER NONSPECIFIC SKIN ERUPTION 03/06/2013 ELISA CORPORATE RECEPTIONIST, SARITHA S 709.9 UNSPECIFIED DISORDER OF SKIN AND SUBCUTANEOUS TISSUE 03/06/2013 ELISA CORPORATE RECEPTIONIST, SARITHA S 782.1 RASH AND OTHER NONSPECIFIC SKIN ERUPTION 03/06/2013 ERNST DO, AFSHAN K 709.9 UNSPECIFIED DISORDER OF SKIN AND SUBCUTANEOUS TISSUE 03/06/2013 RENST DO, AFSHAN K 782.1 RASH AND OTHER NONSPECIFIC SKIN ERUPTION 03/06/2013 ELISA CORPORATE RECEPTIONIST, SARITHA S 709.9 UNSPECIFIED DISORDER OF SKIN AND SUBCUTANEOUS TISSUE 03/06/2013 ELISA CORPORATE RECEPTIONIST, SARITHA S 782.1 RASH AND OTHER NONSPECIFIC SKIN ERUPTION 03/06/2013 NEETA PECK PA-C 709.9 UNSPECIFIED DISORDER OF SKIN AND SUBCUTANEOUS TISSUE 03/06/2013 NEETA PECK PA-C 782.1 RASH AND OTHER NONSPECIFIC SKIN ERUPTION 03/06/2013 ERNST DO, AFSHAN K 709.9 UNSPECIFIED DISORDER OF SKIN AND SUBCUTANEOUS TISSUE 03/06/2013 ALANNAH ERNST DOA K 782.1 RASH AND OTHER NONSPECIFIC SKIN ERUPTION 03/06/2013 SUJATA MCKEON AFSHAN K 709.9 UNSPECIFIED DISORDER OF SKIN AND SUBCUTANEOUS TISSUE 03/06/2013 ERNST DO AFSHAN K 782.1 RASH AND OTHER NONSPECIFIC SKIN ERUPTION 03/06/2013 MADL CORPORATE RECEPTIONISTOSCARDANIELA L 709.9 UNSPECIFIED DISORDER OF SKIN AND SUBCUTANEOUS TISSUE 03/06/2013 MADL CORPORATE RECEPTIONIST, DANIELA L 782.1 RASH AND OTHER NONSPECIFIC SKIN ERUPTION 03/06/2013 ALANNAH ERNST DOA K 709.9 UNSPECIFIED DISORDER OF SKIN AND SUBCUTANEOUS TISSUE 03/06/2013 ERNST DO AFSHAN K 782.1 RASH AND OTHER NONSPECIFIC SKIN ERUPTION 03/06/2013 ALANNAH ERNST DOA K 709.9 UNSPECIFIED DISORDER OF SKIN AND SUBCUTANEOUS TISSUE 03/06/2013 ALANNAH ERNST DOA K 782.1 RASH AND OTHER NONSPECIFIC SKIN ERUPTION 03/06/2013 FAVIAN CRUZ PHD 709.9 UNSPECIFIED DISORDER OF SKIN AND SUBCUTANEOUS TISSUE 03/06/2013 FAVIAN CRUZ PHD 782.1 RASH AND OTHER NONSPECIFIC SKIN ERUPTION 03/06/2013 STEPHEN PAL, VINOD Bear 709.9 UNSPECIFIED DISORDER OF SKIN AND SUBCUTANEOUS TISSUE 03/06/2013 VINOD MITCHELL MD 782.1 RASH AND OTHER NONSPECIFIC SKIN ERUPTION 03/06/2013 NATALI NORTON APRN 709.9 UNSPECIFIED DISORDER OF SKIN AND SUBCUTANEOUS TISSUE 03/06/2013 NATALI NORTON APRN A 782.1 RASH AND OTHER NONSPECIFIC SKIN ERUPTION 03/28/2013 CHRISTINE ROSA DO Ot 623.5 NONINFECT VAG LEUKORRHEA 03/28/2013 CHRISTINE ROSA DO Ot 626.8 MENSTRUAL DISORDER NEC 03/30/2013 626.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 03/30/2013 626.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 03/30/2013 626.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 03/30/2013 626.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 03/30/2013 AFSHAN ERNST DO 626.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 03/30/2013 ERNST DO, AFSHAN K 626.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 03/30/2013 ERNST DO, AFSHAN K 626.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 03/30/2013 ERNST DO, AFSHAN K 626.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 03/30/2013 [employer]ATE RECEPTIONIST, NATALI A 626.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 03/30/2013 ERNST DO, AFSHAN K 626.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 03/30/2013 ERNST DO, AFSHAN K 626.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 03/30/2013 ERNST DO, AFSHAN K 626.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 03/30/2013 ERNST DO, AFSHAN K 626.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 03/30/2013 ERNST DO, AFSHAN K 626.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 03/30/2013 ERNST DO, AFSHAN K 626.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 03/30/2013 NEETA PECK PA-C 626.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 03/30/2013 ERNST DO, AFSHAN K 626.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 03/30/2013 ERNST DO, AFSHAN K 626.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 03/30/2013 ERNST DO, AFSHAN K 626.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 03/30/2013 [employer] COR[employer]ATE RECEPTIONIST, NATALI A 626.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 03/30/2013 [employer]RA CORPORATE RECEPTIONIST, NATALI A 626.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 03/30/2013 AISHA BRAGG APRN 626.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 03/30/2013 ERNST DO, AFSHAN K 626.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 03/30/2013 ERNST DO, AFSHAN K 626.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 03/30/2013 ERNST DO, AFSHAN K 626.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 03/30/2013 ERNST DO, AFSHAN K 626.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 03/30/2013 ERNST DO, AFSHAN K 626.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 03/30/2013 ERNST DO, AFSHAN K 626.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 03/30/2013 ERNST DO, AFSHAN K 626.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 03/30/2013 ERNST DO, AFSHAN K 626.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 03/30/2013 NATALI NORTON APRN 626.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 03/30/2013 SARITHA PÉREZ APRN S 626.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 03/30/2013 ERNST DO, AFSHAN K 626.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 03/30/2013 AMBROSIO PÉREZ APRNA S 626.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 03/30/2013 NEETA PECK PA-C 626.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 03/30/2013 ERNST DO, AFSHAN K 626.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 03/30/2013 ERNST DO, AFSHAN K 626.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 03/30/2013 DANIELA LONG APRN 626.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 03/30/2013 ERNST DO, AFSHAN K 626.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 03/30/2013 ERNST DO, AFSHAN K 626.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 03/30/2013 NANCY PHD, FAVIAN Frost 626.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 03/30/2013 STEPHEN PAL, VINOD eBar 626.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 03/30/2013 CIERRA RICCI, NATALI A 626.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 04/03/2013 RANJITH PAL, NEETA Arroyo Ot 218.9 UTERINE LEIOMYOMA NOS 04/03/2013 RANJITH PAL, NEETA Arroyo Ot 626.8 MENSTRUAL DISORDER NEC 04/03/2013 RANJITH PAL, NEETA Arroyo Ot 789.09 ABDOMINAL PAIN, OTHER SPECIFIED SITE 04/19/2013 RENITA MUÑOZ DO S Ot 218.0 SUBMUCOUS LEIOMYOMA 04/19/2013 RENITA MUÑOZ DO S Ot 616.3 BARTHOLIN'S GLND ABSCESS 04/19/2013 RENITA MUÑOZ DO S Ot 624.8 NONINFLAM DIS VULVA NEC 04/19/2013 RENITA MUÑOZ DO S Ot 625.0 DYSPAREUNIA 04/19/2013 TONI MCKEON RENITA S Ot 626.2 EXCESSIVE MENSTRUATION 05/05/2013 562.11 DIVERTICULITIS OF COLON (WITHOUT HEMORRHAGE) 05/05/2013 789.04 ABDOMINAL PAIN LEFT LOWER QUADRANT 05/05/2013 562.11 DIVERTICULITIS OF COLON (WITHOUT HEMORRHAGE) 05/05/2013 789.04 ABDOMINAL PAIN LEFT LOWER QUADRANT 05/05/2013 AFSHAN ERNST DO 562.11 DIVERTICULITIS OF COLON (WITHOUT HEMORRHAGE) 05/05/2013 AFSHAN ERNST DO 789.04 ABDOMINAL PAIN LEFT LOWER QUADRANT 05/05/2013 AFSHAN ERNST DO 562.11 DIVERTICULITIS OF COLON (WITHOUT HEMORRHAGE) 05/05/2013 AFSHAN ERNST DO 789.04 ABDOMINAL PAIN LEFT LOWER QUADRANT 05/05/2013 AFSHAN ERNST DO 562.11 DIVERTICULITIS OF COLON (WITHOUT HEMORRHAGE) 05/05/2013 AFSHAN ERNST DO 789.04 ABDOMINAL PAIN LEFT LOWER QUADRANT 05/05/2013 AFSHAN ERNST DO 562.11 DIVERTICULITIS OF COLON (WITHOUT HEMORRHAGE) 05/05/2013 ERNST DO, AFSHAN K 789.04 ABDOMINAL PAIN LEFT LOWER QUADRANT 05/05/2013 CIERRA CORPORATE RECEPTIONISTGISELENATALI A 562.11 DIVERTICULITIS OF COLON (WITHOUT HEMORRHAGE) 05/05/2013 CIERRA CORPORATE RECEPTIONIST, NATALI A 789.04 ABDOMINAL PAIN LEFT LOWER QUADRANT 05/05/2013 ERNST DO, AFSHAN K 562.11 DIVERTICULITIS OF COLON (WITHOUT HEMORRHAGE) 05/05/2013 ERNST DO, AFSHAN K 789.04 ABDOMINAL PAIN LEFT LOWER QUADRANT 05/05/2013 ERNST DO, AFSHAN K 562.11 DIVERTICULITIS OF COLON (WITHOUT HEMORRHAGE) 05/05/2013 ERNST DO, AFSHAN K 789.04 ABDOMINAL PAIN LEFT LOWER QUADRANT 05/05/2013 ERNST DO, AFSHAN K 562.11 DIVERTICULITIS OF COLON (WITHOUT HEMORRHAGE) 05/05/2013 ERNST DO, AFSHAN K 789.04 ABDOMINAL PAIN LEFT LOWER QUADRANT 05/05/2013 ERNST DO, AFSHAN K 562.11 DIVERTICULITIS OF COLON (WITHOUT HEMORRHAGE) 05/05/2013 ERNST DO, AFSHAN K 789.04 ABDOMINAL PAIN LEFT LOWER QUADRANT 05/05/2013 ERNST DO, AFSHAN K 562.11 DIVERTICULITIS OF COLON (WITHOUT HEMORRHAGE) 05/05/2013 ERNST DO, AFSHAN K 789.04 ABDOMINAL PAIN LEFT LOWER QUADRANT 05/05/2013 ERNST DO, AFSHAN K 562.11 DIVERTICULITIS OF COLON (WITHOUT HEMORRHAGE) 05/05/2013 ERNST DO, AFSHAN K 789.04 ABDOMINAL PAIN LEFT LOWER QUADRANT 05/05/2013 NEETA PECK PA-C 562.11 DIVERTICULITIS OF COLON (WITHOUT HEMORRHAGE) 05/05/2013 NEETA PECK PA-C 789.04 ABDOMINAL PAIN LEFT LOWER QUADRANT 05/05/2013 ERNST DO, AFSHAN K 562.11 DIVERTICULITIS OF COLON (WITHOUT HEMORRHAGE) 05/05/2013 ERNST DO, AFSHAN K 789.04 ABDOMINAL PAIN LEFT LOWER QUADRANT 05/05/2013 ERNST DO, AFSHAN K 562.11 DIVERTICULITIS OF COLON (WITHOUT HEMORRHAGE) 05/05/2013 ERNST DO, AFSHAN K 789.04 ABDOMINAL PAIN LEFT LOWER QUADRANT 05/05/2013 ERNST DO, AFSHAN K 562.11 DIVERTICULITIS OF COLON (WITHOUT HEMORRHAGE) 05/05/2013 ERNST DO, AFSHAN K 789.04 ABDOMINAL PAIN LEFT LOWER QUADRANT 05/05/2013 CIERRA CORPORATE RECEPTIONIST, NATALI A 562.11 DIVERTICULITIS OF COLON (WITHOUT HEMORRHAGE) 05/05/2013 CIERRA CORPORATE RECEPTIONIST, NATALI A 789.04 ABDOMINAL PAIN LEFT LOWER QUADRANT 05/05/2013 CIERRA CORPORATE RECEPTIONIST, NATALI A 562.11 DIVERTICULITIS OF COLON (WITHOUT HEMORRHAGE) 05/05/2013 CIERRA CORPORATE RECEPTIONIST, NATALI A 789.04 ABDOMINAL PAIN LEFT LOWER QUADRANT 05/05/2013 MAHSA CORPORATE RECEPTIONIST, AISHA R 562.11 DIVERTICULITIS OF COLON (WITHOUT HEMORRHAGE) 05/05/2013 MAHSA CORPORATE RECEPTIONIST, AISHA R 789.04 ABDOMINAL PAIN LEFT LOWER QUADRANT 05/05/2013 ERNST DO, AFSHAN K 562.11 DIVERTICULITIS OF COLON (WITHOUT HEMORRHAGE) 05/05/2013 ERNST DO, AFSHAN K 789.04 ABDOMINAL PAIN LEFT LOWER QUADRANT 05/05/2013 ERNST DO, AFSHAN K 562.11 DIVERTICULITIS OF COLON (WITHOUT HEMORRHAGE) 05/05/2013 ERNST DO, AFSHAN K 789.04 ABDOMINAL PAIN LEFT LOWER QUADRANT 05/05/2013 ERNST DO, AFSHAN K 562.11 DIVERTICULITIS OF COLON (WITHOUT HEMORRHAGE) 05/05/2013 ERNST DO, AFSHAN K 789.04 ABDOMINAL PAIN LEFT LOWER QUADRANT 05/05/2013 ERNST DO, AFSHAN K 562.11 DIVERTICULITIS OF COLON (WITHOUT HEMORRHAGE) 05/05/2013 ERNST DO, AFSHAN K 789.04 ABDOMINAL PAIN LEFT LOWER QUADRANT 05/05/2013 ERNST DO, AFSHAN K 562.11 DIVERTICULITIS OF COLON (WITHOUT HEMORRHAGE) 05/05/2013 ERNST DO, AFSHAN K 789.04 ABDOMINAL PAIN LEFT LOWER QUADRANT 05/05/2013 ERNST DO, AFSHAN K 562.11 DIVERTICULITIS OF COLON (WITHOUT HEMORRHAGE) 05/05/2013 ERNST DO, AFSHAN K 789.04 ABDOMINAL PAIN LEFT LOWER QUADRANT 05/05/2013 ERNST DO, AFSHAN K 562.11 DIVERTICULITIS OF COLON (WITHOUT HEMORRHAGE) 05/05/2013 ERNST DO, AFSHAN K 789.04 ABDOMINAL PAIN LEFT LOWER QUADRANT 05/05/2013 ERNST DO, AFSHAN K 562.11 DIVERTICULITIS OF COLON (WITHOUT HEMORRHAGE) 05/05/2013 ERNST DO, AFSHAN K 789.04 ABDOMINAL PAIN LEFT LOWER QUADRANT 05/05/2013 [employer] CORPORATE RECEPTIONIST, NATALI A 562.11 DIVERTICULITIS OF COLON (WITHOUT HEMORRHAGE) 05/05/2013 CIERRA CORPORATE RECEPTIONIST, NATALI A 789.04 ABDOMINAL PAIN LEFT LOWER QUADRANT 05/05/2013 ELISA CORPORATE RECEPTIONIST SARITHA S 562.11 DIVERTICULITIS OF COLON (WITHOUT HEMORRHAGE) 05/05/2013 ELISA CORPORATE RECEPTIONIST, SARITHA S 789.04 ABDOMINAL PAIN LEFT LOWER QUADRANT 05/05/2013 ERNST DO, AFSHAN K 562.11 DIVERTICULITIS OF COLON (WITHOUT HEMORRHAGE) 05/05/2013 ERNST DO, AFSHAN K 789.04 ABDOMINAL PAIN LEFT LOWER QUADRANT 05/05/2013 ELISA CORPORATE RECEPTIONIST, SARITHA S 562.11 DIVERTICULITIS OF COLON (WITHOUT HEMORRHAGE) 05/05/2013 ELISA CORPORATE RECEPTIONIST, SARITHA S 789.04 ABDOMINAL PAIN LEFT LOWER QUADRANT 05/05/2013 NEETA PECK PA-C 562.11 DIVERTICULITIS OF COLON (WITHOUT HEMORRHAGE) 05/05/2013 NEETA PECK PA-C 789.04 ABDOMINAL PAIN LEFT LOWER QUADRANT 05/05/2013 ERNST DO AFSHAN K 562.11 DIVERTICULITIS OF COLON (WITHOUT HEMORRHAGE) 05/05/2013 ERNST DO, AFSHAN K 789.04 ABDOMINAL PAIN LEFT LOWER QUADRANT 05/05/2013 ERNST DO, AFSHAN K 562.11 DIVERTICULITIS OF COLON (WITHOUT HEMORRHAGE) 05/05/2013 ERNST DO AFSHAN K 789.04 ABDOMINAL PAIN LEFT LOWER QUADRANT 05/05/2013 MADL CORPORATE RECEPTIONIST, DANIELA L 562.11 DIVERTICULITIS OF COLON (WITHOUT HEMORRHAGE) 05/05/2013 MADL CORPORATE RECEPTIONIST, DANIELA L 789.04 ABDOMINAL PAIN LEFT LOWER QUADRANT 05/05/2013 ERNST DO, AFSHAN K 562.11 DIVERTICULITIS OF COLON (WITHOUT HEMORRHAGE) 05/05/2013 ERNST DO, AFSHAN K 789.04 ABDOMINAL PAIN LEFT LOWER QUADRANT 05/05/2013 ERNST DO, AFSHAN K 562.11 DIVERTICULITIS OF COLON (WITHOUT HEMORRHAGE) 05/05/2013 ERNST DO AFSHAN K 789.04 ABDOMINAL PAIN LEFT LOWER QUADRANT 05/05/2013 NANCY FAVIAN VELA 562.11 DIVERTICULITIS OF COLON (WITHOUT HEMORRHAGE) 05/05/2013 NANCY VELA, FAVIAN Frost 789.04 ABDOMINAL PAIN LEFT LOWER QUADRANT 05/05/2013 VINOD MITCHELL MD 562.11 DIVERTICULITIS OF COLON (WITHOUT HEMORRHAGE) 05/05/2013 VINOD MITCHELL MD 789.04 ABDOMINAL PAIN LEFT LOWER QUADRANT 05/05/2013 CIERRA CORPORATE RECEPTIONIST, NATALI A 562.11 DIVERTICULITIS OF COLON (WITHOUT HEMORRHAGE) 05/05/2013 CIERRA CORPORATE RECEPTIONIST, NATALI A 789.04 ABDOMINAL PAIN LEFT LOWER QUADRANT 05/29/2013 465.9 UPPER RESPIRATORY INFECTION 05/29/2013 ERNST DO, AFSHAN K 465.9 UPPER RESPIRATORY INFECTION 05/29/2013 ERNST DO, AFSHAN K 465.9 UPPER RESPIRATORY INFECTION 05/29/2013 ERNST DO, AFSHAN K 465.9 UPPER RESPIRATORY INFECTION 05/29/2013 ERNST DO, AFSHAN K 465.9 UPPER RESPIRATORY INFECTION 05/29/2013 CIERRA CORPORATE RECEPTIONIST, NATALI A 465.9 UPPER RESPIRATORY INFECTION 05/29/2013 ERNST DO, AFSHAN K 465.9 UPPER RESPIRATORY INFECTION 05/29/2013 ERNST DO, AFSHAN K 465.9 UPPER RESPIRATORY INFECTION 05/29/2013 ERNST DO, AFSHAN K 465.9 UPPER RESPIRATORY INFECTION 05/29/2013 ERNST DO, AFSHAN K 465.9 UPPER RESPIRATORY INFECTION 05/29/2013 ERNST DO, AFSHAN K 465.9 UPPER RESPIRATORY INFECTION 05/29/2013 ERNST DO, AFSHAN K 465.9 UPPER RESPIRATORY INFECTION 05/29/2013 NEETA PECK PA-C 465.9 UPPER RESPIRATORY INFECTION 05/29/2013 ERNST DO, AFSHAN K 465.9 UPPER RESPIRATORY INFECTION 05/29/2013 ERNST DO, AFSHAN K 465.9 UPPER RESPIRATORY INFECTION 05/29/2013 ERNST DO, AFSHAN K 465.9 UPPER RESPIRATORY INFECTION 05/29/2013 CIERRA CORPORATE RECEPTIONIST, NATALI A 465.9 UPPER RESPIRATORY INFECTION 05/29/2013 CIERRA CORPORATE RECEPTIONIST, NATALI A 465.9 UPPER RESPIRATORY INFECTION 05/29/2013 AISHA BRAGG APRN 465.9 UPPER RESPIRATORY INFECTION 05/29/2013 ERNST DO, AFSHAN K 465.9 UPPER RESPIRATORY INFECTION 05/29/2013 ERNST DO, AFSHAN K 465.9 UPPER RESPIRATORY INFECTION 05/29/2013 ERNST DO, AFSHAN K 465.9 UPPER RESPIRATORY INFECTION 05/29/2013 ERNST DO, AFSHAN K 465.9 UPPER RESPIRATORY INFECTION 05/29/2013 ERNST DO, AFSHAN K 465.9 UPPER RESPIRATORY INFECTION 05/29/2013 ERNST DO, AFSHAN K 465.9 UPPER RESPIRATORY INFECTION 05/29/2013 ERNST DO, AFSHAN K 465.9 UPPER RESPIRATORY INFECTION 05/29/2013 ERNST DO, AFSHAN K 465.9 UPPER RESPIRATORY INFECTION 05/29/2013 CIERRA CORPORATE RECEPTIONIST, NATALI A 465.9 UPPER RESPIRATORY INFECTION 05/29/2013 ELISA CORPORATE RECEPTIONIST, SARITHA S 465.9 UPPER RESPIRATORY INFECTION 05/29/2013 ERNST DO, AFSHAN K 465.9 UPPER RESPIRATORY INFECTION 05/29/2013 ELISA CORPORATE RECEPTIONIST, SARITHA S 465.9 UPPER RESPIRATORY INFECTION 05/29/2013 NEETA PECK PA-C 465.9 UPPER RESPIRATORY INFECTION 05/29/2013 ERNST DO, AFSHAN K 465.9 UPPER RESPIRATORY INFECTION 05/29/2013 ERNST DO, AFSHAN K 465.9 UPPER RESPIRATORY INFECTION 05/29/2013 DANIELA LONG APRN 465.9 UPPER RESPIRATORY INFECTION 05/29/2013 ERNST DO, AFSHAN K 465.9 UPPER RESPIRATORY INFECTION 05/29/2013 ERNST DO, AFSHAN K 465.9 UPPER RESPIRATORY INFECTION 05/29/2013 NANCY PHD, FAVIAN Frost 465.9 UPPER RESPIRATORY INFECTION 05/29/2013 STEPHEN PAL, VINOD Bear 465.9 UPPER RESPIRATORY INFECTION 05/29/2013 CIERRA CORPORATE RECEPTIONIST, NATALI A 465.9 UPPER RESPIRATORY INFECTION 06/26/2013 ERNST DO, AFSHAN K V04.81 FLU SHOT 06/26/2013 ERNST DO, AFSHAN K V04.81 FLU SHOT 06/26/2013 ERNST DO, AFSHAN K V04.81 FLU SHOT 06/26/2013 ERNST DO, AFSHAN K V04.81 FLU SHOT 06/26/2013 CIERRA MEJIAN, NATALI A V04.81 FLU SHOT 06/26/2013 ERNST DO, AFSHAN K V04.81 FLU SHOT 06/26/2013 ERNST DO, AFSHAN K V04.81 FLU SHOT 06/26/2013 ERNST DO, AFSHAN K V04.81 FLU SHOT 06/26/2013 ERNST DO, AFSHAN K V04.81 FLU SHOT 06/26/2013 ERNST DO, AFSHAN K V04.81 FLU SHOT 06/26/2013 ERNST DO, AFSHAN K V04.81 FLU SHOT 06/26/2013 LIV NICK, NEETA Foss V04.81 FLU SHOT 06/26/2013 ERNST DO, AFSHAN K V04.81 FLU SHOT 06/26/2013 ERNST DO, AFSHAN K V04.81 FLU SHOT 06/26/2013 ERNST DO, AFSHAN K V04.81 FLU SHOT 06/26/2013 CIERRA CORPORATE RECEPTIONIST, NATALI A V04.81 FLU SHOT 06/26/2013 CIERRA CORPORATE RECEPTIONIST, NATALI A V04.81 FLU SHOT 06/26/2013 MAHSA CORPORATE RECEPTIONIST, AISHA R V04.81 FLU SHOT 06/26/2013 ERNST DO, AFSHAN K V04.81 FLU SHOT 06/26/2013 ERNST DO, AFSHAN K V04.81 FLU SHOT 06/26/2013 ERNST DO, AFSHAN K V04.81 FLU SHOT 06/26/2013 ERNST DO, AFSHAN K V04.81 FLU SHOT 06/26/2013 ERNST DO, AFSHAN K V04.81 FLU SHOT 06/26/2013 ERNST DO, AFSHAN K V04.81 FLU SHOT 06/26/2013 ERNST DO, AFSHAN K V04.81 FLU SHOT 06/26/2013 ERNST DO, AFSHAN K V04.81 FLU SHOT 06/26/2013 CIERRA CORPORATE RECEPTIONIST, NATALI A V04.81 FLU SHOT 06/26/2013 ELISA CORPORATE RECEPTIONIST, SARITHA S V04.81 FLU SHOT 06/26/2013 ERNST DO, AFSHAN K V04.81 FLU SHOT 06/26/2013 ELISA CORPORATE RECEPTIONIST, SARITHA S V04.81 FLU SHOT 06/26/2013 LIV NICK, NEETA Foss V04.81 FLU SHOT 06/26/2013 ERNST DO, AFSHAN K V04.81 FLU SHOT 06/26/2013 ERNST DO, AFSHAN K V04.81 FLU SHOT 06/26/2013 MADL CORPORATE RECEPTIONIST, DANIELA L V04.81 FLU SHOT 06/26/2013 ERNST DO, AFSHAN K V04.81 FLU SHOT 06/26/2013 ERNST DO, AFSHAN K V04.81 FLU SHOT 06/26/2013 NANCY VELA, FAVIAN Frost V04.81 FLU SHOT 06/26/2013 VINOD MITCHELL MD V04.81 FLU SHOT 06/26/2013 CIERRA CORPORATE RECEPTIONIST, NATALI A V04.81 FLU SHOT 06/29/2013 ERNST DO, AFSHAN K 462 ACUTE PHARYNGITIS 06/29/2013 ERNST DO, AFSHAN K 462 ACUTE PHARYNGITIS 06/29/2013 CIERRA CORPORATE RECEPTIONIST, NATALI A 462 ACUTE PHARYNGITIS 06/29/2013 ERNST DO, AFSHAN K 462 ACUTE PHARYNGITIS 06/29/2013 ERNST DO, AFSHAN K 462 ACUTE PHARYNGITIS 06/29/2013 ERNST DO, AFSHAN K 462 ACUTE PHARYNGITIS 06/29/2013 ERNST DO, AFSHAN K 462 ACUTE PHARYNGITIS 06/29/2013 ERNST DO, AFSHAN K 462 ACUTE PHARYNGITIS 06/29/2013 ERNST DO, AFSHAN K 462 ACUTE PHARYNGITIS 06/29/2013 NEETA PECK PA-C 462 ACUTE PHARYNGITIS 06/29/2013 ERNST DO, AFSHAN K 462 ACUTE PHARYNGITIS 06/29/2013 ERNST DO, AFSHAN K 462 ACUTE PHARYNGITIS 06/29/2013 ERNST DO, AFSHAN K 462 ACUTE PHARYNGITIS 06/29/2013 CIERRA CORPORATE RECEPTIONIST, NATALI A 462 ACUTE PHARYNGITIS 06/29/2013 CIERRA CORPORATE RECEPTIONIST, NATALI A 462 ACUTE PHARYNGITIS 06/29/2013 AISHA BRAGG APRN 462 ACUTE PHARYNGITIS 06/29/2013 ERNST DO, AFSHAN K 462 ACUTE PHARYNGITIS 06/29/2013 ERNST DO, AFSHAN K 462 ACUTE PHARYNGITIS 06/29/2013 ERNST DO, AFSHAN K 462 ACUTE PHARYNGITIS 06/29/2013 ERNST DO, AFSHAN K 462 ACUTE PHARYNGITIS 06/29/2013 ERNST DO, AFSHAN K 462 ACUTE PHARYNGITIS 06/29/2013 ERNST DO, AFSHAN K 462 ACUTE PHARYNGITIS 06/29/2013 ERNST DO, AFSHAN K 462 ACUTE PHARYNGITIS 06/29/2013 ERNST DO, AFSHAN K 462 ACUTE PHARYNGITIS 06/29/2013 CIERRA CORPORATE RECEPTIONIST, NATALI A 462 ACUTE PHARYNGITIS 06/29/2013 ELISA RICCI, SARITHA S 462 ACUTE PHARYNGITIS 06/29/2013 ERNST DO, AFSHAN K 462 ACUTE PHARYNGITIS 06/29/2013 ELISA RICCI, SARITHA S 462 ACUTE PHARYNGITIS 06/29/2013 NEETA PECK PA-C 462 ACUTE PHARYNGITIS 06/29/2013 ERNST DO AFSHAN K 462 ACUTE PHARYNGITIS 06/29/2013 ERNST DO, AFSHAN K 462 ACUTE PHARYNGITIS 06/29/2013 MERCEDES RICCI, DANIELA L 462 ACUTE PHARYNGITIS 06/29/2013 ERNST DO, AFSHAN K 462 ACUTE PHARYNGITIS 06/29/2013 ERNST DO, AFSHAN K 462 ACUTE PHARYNGITIS 06/29/2013 NANCY PHD, FAVIAN Frost 462 ACUTE PHARYNGITIS 06/29/2013 STEPHEN PAL, VINOD Bear 462 ACUTE PHARYNGITIS 06/29/2013 NATALI NORTON APRN A 462 ACUTE PHARYNGITIS 07/06/2013 HAN PAL, AVIS Garcia Ot 346.90 MIGRAINE UNSPECIFIED W/O INTRACT MGRN W/ 08/30/2013 CIERRA RICCI NATALI A 112.1 CANDIDIASIS VAGINAL 08/30/2013 ERNST DO, AFSHAN K 112.1 CANDIDIASIS VAGINAL 08/30/2013 ERNST DO, AFSHAN K 112.1 CANDIDIASIS VAGINAL 08/30/2013 ERNST DO, AFSHAN K 112.1 CANDIDIASIS VAGINAL 08/30/2013 ERNST DO, AFSHAN K 112.1 CANDIDIASIS VAGINAL 08/30/2013 ERNST DO, AFSHAN K 112.1 CANDIDIASIS VAGINAL 08/30/2013 ERNST DO, AFSHAN K 112.1 CANDIDIASIS VAGINAL 08/30/2013 NEETA PECK PA-C 112.1 CANDIDIASIS VAGINAL 08/30/2013 ERSNT DO, AFSHAN K 112.1 CANDIDIASIS VAGINAL 08/30/2013 ERNST DO, AFSHAN K 112.1 CANDIDIASIS VAGINAL 08/30/2013 ERNST DO, AFSHAN K 112.1 CANDIDIASIS VAGINAL 08/30/2013 CIERRA RICCI NATALI A 112.1 CANDIDIASIS VAGINAL 08/30/2013 CIERRA RICCI NATALI A 112.1 CANDIDIASIS VAGINAL 08/30/2013 MAHSA CORPORATE RECEPTIONIST, AISHA R 112.1 CANDIDIASIS VAGINAL 08/30/2013 ERNST DO, AFSHAN K 112.1 CANDIDIASIS VAGINAL 08/30/2013 ERNST DO, AFSHAN K 112.1 CANDIDIASIS VAGINAL 08/30/2013 ERNST DO, AFSHAN K 112.1 CANDIDIASIS VAGINAL 08/30/2013 ERNST DO, AFSHAN K 112.1 CANDIDIASIS VAGINAL 08/30/2013 ERNST DO, AFSHAN K 112.1 CANDIDIASIS VAGINAL 08/30/2013 ERNST DO, AFSHAN K 112.1 CANDIDIASIS VAGINAL 08/30/2013 ERNST DO, AFSHAN K 112.1 CANDIDIASIS VAGINAL 08/30/2013 ERNST DO, AFSHAN K 112.1 CANDIDIASIS VAGINAL 08/30/2013 CIERRA RICCI, NATALI A 112.1 CANDIDIASIS VAGINAL 08/30/2013 ELSIA RICCI, SARITHA S 112.1 CANDIDIASIS VAGINAL 08/30/2013 ERNST DO, AFSHAN K 112.1 CANDIDIASIS VAGINAL 08/30/2013 ELISA RICCI, SARITHA S 112.1 CANDIDIASIS VAGINAL 08/30/2013 LIV NICK, NEETA Foss 112.1 CANDIDIASIS VAGINAL 08/30/2013 ERNST DO, AFSHAN K 112.1 CANDIDIASIS VAGINAL 08/30/2013 ERNST DO, AFSHAN K 112.1 CANDIDIASIS VAGINAL 08/30/2013 MERCEDES RICCI, DANIELA Cooper 112.1 CANDIDIASIS VAGINAL 08/30/2013 ERNST DO, AFSHAN K 112.1 CANDIDIASIS VAGINAL 08/30/2013 ERNST DO, AFSHAN K 112.1 CANDIDIASIS VAGINAL 08/30/2013 NANCY PHD, FAVIAN Frost 112.1 CANDIDIASIS VAGINAL 08/30/2013 STEPHEN PAL, VINOD Bear 112.1 CANDIDIASIS VAGINAL 08/30/2013 CIERRA RICCI, NATALI A 112.1 CANDIDIASIS VAGINAL 09/17/2013 ERNST DO, AFSHAN K 461.9 SINUSITIS ACUTE 09/17/2013 ERNST DO, AFSHAN K 719.46 PAIN IN JOINT INVOLVING LOWER LEG 09/17/2013 ERNST DO, AFSHAN K 461.9 SINUSITIS ACUTE 09/17/2013 ERNST DO, AFSHAN K 719.46 PAIN IN JOINT INVOLVING LOWER LEG 09/17/2013 ERNST DO, AFSHAN K 461.9 SINUSITIS ACUTE 09/17/2013 ERNST DO, AFSHAN K 719.46 PAIN IN JOINT INVOLVING LOWER LEG 09/17/2013 ERNST DO, AFSHAN K 461.9 SINUSITIS ACUTE 09/17/2013 ERNST DO, AFSHAN K 719.46 PAIN IN JOINT INVOLVING LOWER LEG 09/17/2013 ERNST DO, AFSHAN K 461.9 SINUSITIS ACUTE 09/17/2013 ERNST DO, AFSHAN K 719.46 PAIN IN JOINT INVOLVING LOWER LEG 09/17/2013 ERNST DO, AFSHAN K 461.9 SINUSITIS ACUTE 09/17/2013 ERNST DO, AFSHAN K 719.46 PAIN IN JOINT INVOLVING LOWER LEG 09/17/2013 NEETA PECK PA-C 461.9 SINUSITIS ACUTE 09/17/2013 LIV NICK, NEETA Foss 719.46 PAIN IN JOINT INVOLVING LOWER LEG 09/17/2013 ERNST DO, AFSHAN K 461.9 SINUSITIS ACUTE 09/17/2013 ERNST DO, AFSHAN K 719.46 PAIN IN JOINT INVOLVING LOWER LEG 09/17/2013 ERNST DO, AFSHAN K 461.9 SINUSITIS ACUTE 09/17/2013 ERNST DO, AFSHAN K 719.46 PAIN IN JOINT INVOLVING LOWER LEG 09/17/2013 ERNST DO, AFSHAN K 461.9 SINUSITIS ACUTE 09/17/2013 ERNST DO, AFSHAN K 719.46 PAIN IN JOINT INVOLVING LOWER LEG 09/17/2013 CIERRA CORPORATE RECEPTIONIST, NATALI A 461.9 SINUSITIS ACUTE 09/17/2013 CIERRA CORPORATE RECEPTIONIST, NATALI A 719.46 PAIN IN JOINT INVOLVING LOWER LEG 09/17/2013 CIERRA CORPORATE RECEPTIONIST, NATALI A 461.9 SINUSITIS ACUTE 09/17/2013 CIERRA CORPORATE RECEPTIONIST, NATALI A 719.46 PAIN IN JOINT INVOLVING LOWER LEG 09/17/2013 MAHSA CORPORATE RECEPTIONIST, AISHA R 461.9 SINUSITIS ACUTE 09/17/2013 MAHSA CORPORATE RECEPTIONIST, AISHA R 719.46 PAIN IN JOINT INVOLVING LOWER LEG 09/17/2013 ERNST DO, AFSHAN K 461.9 SINUSITIS ACUTE 09/17/2013 ERNST DO, AFSHAN K 719.46 PAIN IN JOINT INVOLVING LOWER LEG 09/17/2013 ERNST DO, AFSHAN K 461.9 SINUSITIS ACUTE 09/17/2013 ERNST DO, AFSHAN K 719.46 PAIN IN JOINT INVOLVING LOWER LEG 09/17/2013 ERNST DO, AFSHAN K 461.9 SINUSITIS ACUTE 09/17/2013 ERNST DO, AFSHAN K 719.46 PAIN IN JOINT INVOLVING LOWER LEG 09/17/2013 ERNST DO, AFSHAN K 461.9 SINUSITIS ACUTE 09/17/2013 ERNST DO, AFSHAN K 719.46 PAIN IN JOINT INVOLVING LOWER LEG 09/17/2013 ERNST DO, AFSHAN K 461.9 SINUSITIS ACUTE 09/17/2013 ERNST DO, AFSHAN K 719.46 PAIN IN JOINT INVOLVING LOWER LEG 09/17/2013 ERNST DO, AFSHAN K 461.9 SINUSITIS ACUTE 09/17/2013 ERNST DO, AFSHAN K 719.46 PAIN IN JOINT INVOLVING LOWER LEG 09/17/2013 ERNST DO, AFSHAN K 461.9 SINUSITIS ACUTE 09/17/2013 ERNST DO, AFSHAN K 719.46 PAIN IN JOINT INVOLVING LOWER LEG 09/17/2013 ERNST DO, AFSHAN K 461.9 SINUSITIS ACUTE 09/17/2013 ERNST DO, AFSHAN K 719.46 PAIN IN JOINT INVOLVING LOWER LEG 09/17/2013 CIERRA CORPORATE RECEPTIONIST, NATALI A 461.9 SINUSITIS ACUTE 09/17/2013 CIERRA CORPORATE RECEPTIONIST, NATALI A 719.46 PAIN IN JOINT INVOLVING LOWER LEG 09/17/2013 ELISA CORPORATE RECEPTIONIST, SARITHA S 461.9 SINUSITIS ACUTE 09/17/2013 ELISA CORPORATE RECEPTIONIST, SARITHA S 719.46 PAIN IN JOINT INVOLVING LOWER LEG 09/17/2013 ERNST DO, AFSHAN K 461.9 SINUSITIS ACUTE 09/17/2013 ERNST DO, AFSHAN K 719.46 PAIN IN JOINT INVOLVING LOWER LEG 09/17/2013 ELISA CORPORATE RECEPTIONIST, SARITHA S 461.9 SINUSITIS ACUTE 09/17/2013 ELISA CORPORATE RECEPTIONIST, SARITHA S 719.46 PAIN IN JOINT INVOLVING LOWER LEG 09/17/2013 NEETA PECK PA-C 461.9 SINUSITIS ACUTE 09/17/2013 NEETA PECK PA-C 719.46 PAIN IN JOINT INVOLVING LOWER LEG 09/17/2013 ERNST DO, AFSHAN K 461.9 SINUSITIS ACUTE 09/17/2013 ERNST DO, AFSHAN K 719.46 PAIN IN JOINT INVOLVING LOWER LEG 09/17/2013 ERNST DO, AFSHAN K 461.9 SINUSITIS ACUTE 09/17/2013 ERNTS DO, AFSHAN K 719.46 PAIN IN JOINT INVOLVING LOWER LEG 09/17/2013 MADL CORPORATE RECEPTIONIST, DANIELA L 461.9 SINUSITIS ACUTE 09/17/2013 MADL CORPORATE RECEPTIONIST, DANIELA L 719.46 PAIN IN JOINT INVOLVING LOWER LEG 09/17/2013 ERNST DO, AFSHAN K 461.9 SINUSITIS ACUTE 09/17/2013 ERNST DO, AFSHAN K 719.46 PAIN IN JOINT INVOLVING LOWER LEG 09/17/2013 ERNST DO, AFSHAN K 461.9 SINUSITIS ACUTE 09/17/2013 ERNST DO, AFSHAN K 719.46 PAIN IN JOINT INVOLVING LOWER LEG 09/17/2013 NANCY VELA, FAVIAN Frost 461.9 SINUSITIS ACUTE 09/17/2013 NANCY VELA, FAVIAN Frost 719.46 PAIN IN JOINT INVOLVING LOWER LEG 09/17/2013 STEPHEN PAL, VINOD Bear 461.9 SINUSITIS ACUTE 09/17/2013 STEPHEN PAL, VINOD Bear 719.46 PAIN IN JOINT INVOLVING LOWER LEG 09/17/2013 CIERRA CORPORATE RECEPTIONIST, NATALI A 461.9 SINUSITIS ACUTE 09/17/2013 CIERRA CORPORATE RECEPTIONIST, NATALI A 719.46 PAIN IN JOINT INVOLVING LOWER LEG 10/02/2013 ERNST DO, AFSHAN K 780.60 FEVER, UNSPECIFIED 10/02/2013 ERNST DO, AFSHAN K 780.60 FEVER, UNSPECIFIED 10/02/2013 ERNST DO, AFSHAN K 780.60 FEVER, UNSPECIFIED 10/02/2013 ERNST DO, AFSHAN K 780.60 FEVER, UNSPECIFIED 10/02/2013 NEETA PECK PA-C 780.60 FEVER, UNSPECIFIED 10/02/2013 ERNST DO, AFSHAN K 780.60 FEVER, UNSPECIFIED 10/02/2013 ERNST DO, AFSHAN K 780.60 FEVER, UNSPECIFIED 10/02/2013 ERNST DO, AFSHAN K 780.60 FEVER, UNSPECIFIED 10/02/2013 CIERRA CORPORATE RECEPTIONIST, NATALI A 780.60 FEVER, UNSPECIFIED 10/02/2013 CIERRA CORPORATE RECEPTIONIST, NATALI A 780.60 FEVER, UNSPECIFIED 10/02/2013 AISHA BRAGG APRN 780.60 FEVER, UNSPECIFIED 10/02/2013 ERNST DO, AFSHAN K 780.60 FEVER, UNSPECIFIED 10/02/2013 ERNST DO, AFSHAN K 780.60 FEVER, UNSPECIFIED 10/02/2013 ERNST DO, AFSHAN K 780.60 FEVER, UNSPECIFIED 10/02/2013 ERNST DO, AFSHAN K 780.60 FEVER, UNSPECIFIED 10/02/2013 ERNST DO, AFSHAN K 780.60 FEVER, UNSPECIFIED 10/02/2013 ERNST DO, AFSHAN K 780.60 FEVER, UNSPECIFIED 10/02/2013 ERNST DO, AFSHAN K 780.60 FEVER, UNSPECIFIED 10/02/2013 ERNST DO, AFSHAN K 780.60 FEVER, UNSPECIFIED 10/02/2013 CIERRA CORPORATE RECEPTIONIST, NATALI A 780.60 FEVER, UNSPECIFIED 10/02/2013 ELISA CORPORATE RECEPTIONIST, SARITHA S 780.60 FEVER, UNSPECIFIED 10/02/2013 ERNST DO, AFSHAN K 780.60 FEVER, UNSPECIFIED 10/02/2013 ELISA CORPORATE RECEPTIONIST, SARITHA S 780.60 FEVER, UNSPECIFIED 10/02/2013 LIV NICK, NEETA Foss 780.60 FEVER, UNSPECIFIED 10/02/2013 ERNST DO, AFSHAN K 780.60 FEVER, UNSPECIFIED 10/02/2013 ERNST DO, AFSHAN K 780.60 FEVER, UNSPECIFIED 10/02/2013 DANIELA LONG APRN 780.60 FEVER, UNSPECIFIED 10/02/2013 ERNST DO, AFSHAN K 780.60 FEVER, UNSPECIFIED 10/02/2013 ERNST DO, AFSHAN K 780.60 FEVER, UNSPECIFIED 10/02/2013 NANCY PHD, FAVIAN Frost 780.60 FEVER, UNSPECIFIED 10/02/2013 STEPHEN PAL, VINOD Bear 780.60 FEVER, UNSPECIFIED 10/02/2013 CIERRA RICCI, NATALI A 780.60 FEVER, UNSPECIFIED 10/08/2013 ERNST DO, AFSHAN K 443.0 RAYNAUD'S SYNDROME 10/08/2013 ERNST DO, AFSHAN K 780.4 DIZZINESS AND GIDDINESS 10/08/2013 ERNST DO, AFSHAN K 790.95 ELEVATED C-REACTIVE PROTEIN (CRP) 10/08/2013 ERNST DO, AFSHAN K 443.0 RAYNAUD'S SYNDROME 10/08/2013 ERNST DO, AFSHAN K 780.4 DIZZINESS AND GIDDINESS 10/08/2013 ERNST DO, AFSHAN K 790.95 ELEVATED C-REACTIVE PROTEIN (CRP) 10/08/2013 ERNST DO, AFSHAN K 443.0 RAYNAUD'S SYNDROME 10/08/2013 ERNST DO, AFSHAN K 780.4 DIZZINESS AND GIDDINESS 10/08/2013 ERNST DO, AFSHAN K 790.95 ELEVATED C-REACTIVE PROTEIN (CRP) 10/08/2013 LIV PA-C, NEETA M 443.0 RAYNAUD'S SYNDROME 10/08/2013 LIV PA-C, NEETA M 780.4 DIZZINESS AND GIDDINESS 10/08/2013 LIV PA-C, NEETA M 790.95 ELEVATED C-REACTIVE PROTEIN (CRP) 10/08/2013 ERNST DO, AFSHAN K 443.0 RAYNAUD'S SYNDROME 10/08/2013 ERNST DO, AFSHAN K 780.4 DIZZINESS AND GIDDINESS 10/08/2013 ERNST DO, AFSHAN K 790.95 ELEVATED C-REACTIVE PROTEIN (CRP) 10/08/2013 ERNST DO, AFSHAN K 443.0 RAYNAUD'S SYNDROME 10/08/2013 ERNST DO, AFSHAN K 780.4 DIZZINESS AND GIDDINESS 10/08/2013 ERNST DO, AFSHAN K 790.95 ELEVATED C-REACTIVE PROTEIN (CRP) 10/08/2013 ERNST DO, AFSHAN K 443.0 RAYNAUD'S SYNDROME 10/08/2013 ERNST DO, AFSHAN K 780.4 DIZZINESS AND GIDDINESS 10/08/2013 ERNST DO, AFSHAN K 790.95 ELEVATED C-REACTIVE PROTEIN (CRP) 10/08/2013 [employer]PORATE RECEPTIONIST, NATALI A 443.0 RAYNAUD'S SYNDROME 10/08/2013 [employer]RA CORPORATE RECEPTIONIST, NATALI A 780.4 DIZZINESS AND GIDDINESS 10/08/2013 [employer]ATE RECEPTIONIST, NATALI A 790.95 ELEVATED C-REACTIVE PROTEIN (CRP) 10/08/2013 [employer]PORATE RECEPTIONIST, NATALI A 443.0 RAYNAUD'S SYNDROME 10/08/2013 [employer] CORPORATE RECEPTIONIST, NATALI A 780.4 DIZZINESS AND GIDDINESS 10/08/2013 [employer]ATE RECEPTIONIST, NATALI A 790.95 ELEVATED C-REACTIVE PROTEIN (CRP) 10/08/2013 INDRA BRAGG APRNINA R 443.0 RAYNAUD'S SYNDROME 10/08/2013 MAHSA RICCI AISHA R 780.4 DIZZINESS AND GIDDINESS 10/08/2013 MAHSA CORPORATE RECEPTIONISTAISHA Bear R 790.95 ELEVATED C-REACTIVE PROTEIN (CRP) 10/08/2013 ERNST DO, AFSHAN K 443.0 RAYNAUD'S SYNDROME 10/08/2013 ERNST DO, AFSHAN K 780.4 DIZZINESS AND GIDDINESS 10/08/2013 ERNST DO, AFSHAN K 790.95 ELEVATED C-REACTIVE PROTEIN (CRP) 10/08/2013 ERNST DO, AFSHAN K 443.0 RAYNAUD'S SYNDROME 10/08/2013 ERNST DO, AFSHAN K 780.4 DIZZINESS AND GIDDINESS 10/08/2013 ERNST DO, AFSHAN K 790.95 ELEVATED C-REACTIVE PROTEIN (CRP) 10/08/2013 ERNST DO, AFSHAN K 443.0 RAYNAUD'S SYNDROME 10/08/2013 ERNST DO, AFSHAN K 780.4 DIZZINESS AND GIDDINESS 10/08/2013 ERNST DO, AFSHAN K 790.95 ELEVATED C-REACTIVE PROTEIN (CRP) 10/08/2013 ERNST DO, AFSHAN K 443.0 RAYNAUD'S SYNDROME 10/08/2013 ERNST DO, AFSHAN K 780.4 DIZZINESS AND GIDDINESS 10/08/2013 ERNST DO, AFSHAN K 790.95 ELEVATED C-REACTIVE PROTEIN (CRP) 10/08/2013 ERNST DO, AFSHAN K 443.0 RAYNAUD'S SYNDROME 10/08/2013 ERNST DO, AFSHAN K 780.4 DIZZINESS AND GIDDINESS 10/08/2013 ERNST DO, AFSHAN K 790.95 ELEVATED C-REACTIVE PROTEIN (CRP) 10/08/2013 ERNST DO, AFSHAN K 443.0 RAYNAUD'S SYNDROME 10/08/2013 ERNST DO, AFSHAN K 780.4 DIZZINESS AND GIDDINESS 10/08/2013 ERNST DO, AFSHAN K 790.95 ELEVATED C-REACTIVE PROTEIN (CRP) 10/08/2013 ERNST DO, AFSHAN K 443.0 RAYNAUD'S SYNDROME 10/08/2013 ERNST DO, AFSHAN K 780.4 DIZZINESS AND GIDDINESS 10/08/2013 ERNST DO, AFSHAN K 790.95 ELEVATED C-REACTIVE PROTEIN (CRP) 10/08/2013 ERNST DO, AFSHAN K 443.0 RAYNAUD'S SYNDROME 10/08/2013 ERNST DO, AFSHAN K 780.4 DIZZINESS AND GIDDINESS 10/08/2013 ERNST DO, AFSHAN K 790.95 ELEVATED C-REACTIVE PROTEIN (CRP) 10/08/2013 [employer]ATE RECEPTIONIST, NATALI A 443.0 RAYNAUD'S SYNDROME 10/08/2013 [employer]ATE RECEPTIONIST, NATALI A 780.4 DIZZINESS AND GIDDINESS 10/08/2013 [employer]ATE RECEPTIONIST, NATALI A 790.95 ELEVATED C-REACTIVE PROTEIN (CRP) 10/08/2013 ELISA CORPORATE RECEPTIONIST, SARITHA S 443.0 RAYNAUD'S SYNDROME 10/08/2013 ELISA CORPORATE RECEPTIONIST, SARITHA S 780.4 DIZZINESS AND GIDDINESS 10/08/2013 ELISA CORPORATE RECEPTIONIST, SARITHA S 790.95 ELEVATED C-REACTIVE PROTEIN (CRP) 10/08/2013 ERNST DO, AFSHAN K 443.0 RAYNAUD'S SYNDROME 10/08/2013 ERNST DO, AFSHAN K 780.4 DIZZINESS AND GIDDINESS 10/08/2013 ERNST DO, AFSHAN K 790.95 ELEVATED C-REACTIVE PROTEIN (CRP) 10/08/2013 ELISA CORPORATE RECEPTIONIST, SARITHA S 443.0 RAYNAUD'S SYNDROME 10/08/2013 ELISA CORPORATE RECEPTIONIST, SARITHA S 780.4 DIZZINESS AND GIDDINESS 10/08/2013 ELISA CORPORATE RECEPTIONIST, SARITHA S 790.95 ELEVATED C-REACTIVE PROTEIN (CRP) 10/08/2013 NEETA PECK PA-C 443.0 RAYNAUD'S SYNDROME 10/08/2013 NEETA PECK PA-C 780.4 DIZZINESS AND GIDDINESS 10/08/2013 NEETA PECK PA-C M 790.95 ELEVATED C-REACTIVE PROTEIN (CRP) 10/08/2013 ERNST DO, AFSHAN K 443.0 RAYNAUD'S SYNDROME 10/08/2013 ERNST DO, AFSHAN K 780.4 DIZZINESS AND GIDDINESS 10/08/2013 ERNST DO, AFSHAN K 790.95 ELEVATED C-REACTIVE PROTEIN (CRP) 10/08/2013 ERNST DO, AFSHAN K 443.0 RAYNAUD'S SYNDROME 10/08/2013 ERNST DO, AFSHAN K 780.4 DIZZINESS AND GIDDINESS 10/08/2013 ERNST DO, AFSHAN K 790.95 ELEVATED C-REACTIVE PROTEIN (CRP) 10/08/2013 MADL CORPORATE RECEPTIONIST, DANIELA L 443.0 RAYNAUD'S SYNDROME 10/08/2013 MAD[employer] CORPORATE RECEPTIONIST, DANIELA L 780.4 DIZZINESS AND GIDDINESS 10/08/2013 MAD[employer] CORPORATE RECEPTIONIST, DANIELA L 790.95 ELEVATED C-REACTIVE PROTEIN (CRP) 10/08/2013 ERNST DO, AFSHAN K 443.0 RAYNAUD'S SYNDROME 10/08/2013 ERNST DO, AFSHAN K 780.4 DIZZINESS AND GIDDINESS 10/08/2013 ERNST DO, AFSHAN K 790.95 ELEVATED C-REACTIVE PROTEIN (CRP) 10/08/2013 ERNST DO, AFSHAN K 443.0 RAYNAUD'S SYNDROME 10/08/2013 ERNST DO, AFSHAN K 780.4 DIZZINESS AND GIDDINESS 10/08/2013 ERNST DO, AFSHAN K 790.95 ELEVATED C-REACTIVE PROTEIN (CRP) 10/08/2013 FAVIAN CRUZ PHD 443.0 RAYNAUD'S SYNDROME 10/08/2013 FAVIAN CRUZ PHD 780.4 DIZZINESS AND GIDDINESS 10/08/2013 NANCY VELA, FAVIAN Frost 790.95 ELEVATED C-REACTIVE PROTEIN (CRP) 10/08/2013 VINOD MITCHELL MD 443.0 RAYNAUD'S SYNDROME 10/08/2013 VINOD MITCHELL MD 780.4 DIZZINESS AND GIDDINESS 10/08/2013 VINOD MITCHELL MD 790.95 ELEVATED C-REACTIVE PROTEIN (CRP) 10/08/2013 [employer]ATE RECEPTIONIST NATALI A 443.0 RAYNAUD'S SYNDROME 10/08/2013 [employer]PORATE RECEPTIONIST, NATALI A 780.4 DIZZINESS AND GIDDINESS 10/08/2013 [employer]ATE RECEPTIONIST, NATALI A 790.95 ELEVATED C-REACTIVE PROTEIN (CRP) 10/15/2013 ERNST DO AFSHAN K 287.5 THROMBOCYTOPENIA 10/15/2013 ERNST DO, AFSHAN K 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 10/15/2013 ERNST DO, AFSHAN K 288.60 LEUKOCYTOSIS 10/15/2013 SUJATA MCKEON AFSHAN K 719.40 ARTHRAIGIA UNSPEC 10/15/2013 ERNST DO, AFSHAN K 790.09 OTHER ABNORMALITY OF RED BLOOD CELLS 10/15/2013 ERNST DO, AFSHAN K 287.5 THROMBOCYTOPENIA 10/15/2013 ERNST DO, AFSHAN K 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 10/15/2013 ERNST DO, AFSHAN K 288.60 LEUKOCYTOSIS 10/15/2013 ERNST DO, AFSHAN K 719.40 ARTHRAIGIA UNSPEC 10/15/2013 ERNST DO, AFSHAN K 790.09 OTHER ABNORMALITY OF RED BLOOD CELLS 10/15/2013 ERNST DO, AFSHAN K 287.5 THROMBOCYTOPENIA 10/15/2013 ERNST DO, AFSHAN K 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 10/15/2013 ERNST DO, AFSHAN K 288.60 LEUKOCYTOSIS 10/15/2013 ERNST DO, AFSHAN K 719.40 ARTHRAIGIA UNSPEC 10/15/2013 ERNST DO, AFSHAN K 790.09 OTHER ABNORMALITY OF RED BLOOD CELLS 10/15/2013 NEETA PECK PA-C 287.5 THROMBOCYTOPENIA 10/15/2013 NEETA PECK PA-C 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 10/15/2013 NEETA PECK PA-C 288.60 LEUKOCYTOSIS 10/15/2013 NEETA PECK PA-C 719.40 ARTHRAIGIA UNSPEC 10/15/2013 NEETA PECK PA-C 790.09 OTHER ABNORMALITY OF RED BLOOD CELLS 10/15/2013 ERNST DO, AFSHAN K 287.5 THROMBOCYTOPENIA 10/15/2013 ERNST DO, AFSHAN K 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 10/15/2013 ERNST DO, AFSHAN K 288.60 LEUKOCYTOSIS 10/15/2013 ERNST DO, AFSHAN K 719.40 ARTHRAIGIA UNSPEC 10/15/2013 ERNST DO, AFSHAN K 790.09 OTHER ABNORMALITY OF RED BLOOD CELLS 10/15/2013 ERNST DO, AFSHAN K 287.5 THROMBOCYTOPENIA 10/15/2013 ERNST DO, AFSHAN K 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 10/15/2013 ERNST DO, AFSHAN K 288.60 LEUKOCYTOSIS 10/15/2013 ERNST DO, AFSHAN K 719.40 ARTHRAIGIA UNSPEC 10/15/2013 ERNST DO, AFSHAN K 790.09 OTHER ABNORMALITY OF RED BLOOD CELLS 10/15/2013 ERNST DO, AFSHAN K 287.5 THROMBOCYTOPENIA 10/15/2013 ERNST DO, AFSHAN K 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 10/15/2013 ERNST DO, AFSHAN K 288.60 LEUKOCYTOSIS 10/15/2013 ERNST DO, AFSHAN K 719.40 ARTHRAIGIA UNSPEC 10/15/2013 ERNST DO, AFSHAN K 790.09 OTHER ABNORMALITY OF RED BLOOD CELLS 10/15/2013 [employer]ATE RECEPTIONIST, NATALI A 287.5 THROMBOCYTOPENIA 10/15/2013 [employer]ATE RECEPTIONIST, NATALI A 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 10/15/2013 [employer]ATE RECEPTIONIST, NATALI A 288.60 LEUKOCYTOSIS 10/15/2013 CI[employer] COR[employer]ATE RECEPTIONIST, NATALI A 719.40 ARTHRAIGIA UNSPEC 10/15/2013 [employer]ATE RECEPTIONIST, NATALI A 790.09 OTHER ABNORMALITY OF RED BLOOD CELLS 10/15/2013 [employer]ATE RECEPTIONIST, NATALI A 287.5 THROMBOCYTOPENIA 10/15/2013 [employer]ATE RECEPTIONIST, NATALI A 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 10/15/2013 [employer]ATE RECEPTIONIST, NATALI A 288.60 LEUKOCYTOSIS 10/15/2013 [employer]ATE RECEPTIONIST, NATALI A 719.40 ARTHRAIGIA UNSPEC 10/15/2013 [employer] COR[employer]ATE RECEPTIONIST, NATALI A 790.09 OTHER ABNORMALITY OF RED BLOOD CELLS 10/15/2013 MAHSA CORPORATE RECEPTIONIST, AISHA R 287.5 THROMBOCYTOPENIA 10/15/2013 MAHSA CORPORATE RECEPTIONIST, AISHA R 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 10/15/2013 MAHSA CORPORATE RECEPTIONIST, AISHA R 288.60 LEUKOCYTOSIS 10/15/2013 MAHSA CORPORATE RECEPTIONIST, AISHA R 719.40 ARTHRAIGIA UNSPEC 10/15/2013 MAHSA CORPORATE RECEPTIONIST, AISHA R 790.09 OTHER ABNORMALITY OF RED BLOOD CELLS 10/15/2013 ERNST DO, AFSHAN K 287.5 THROMBOCYTOPENIA 10/15/2013 ERNST DO, AFSHAN K 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 10/15/2013 ERNST DO, AFSHAN K 288.60 LEUKOCYTOSIS 10/15/2013 ERNST DO, AFSHAN K 719.40 ARTHRAIGIA UNSPEC 10/15/2013 ERNST DO, AFSHAN K 790.09 OTHER ABNORMALITY OF RED BLOOD CELLS 10/15/2013 ERNST DO, AFSHAN K 287.5 THROMBOCYTOPENIA 10/15/2013 ERNST DO, AFSHAN K 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 10/15/2013 ERNST DO, AFSHAN K 288.60 LEUKOCYTOSIS 10/15/2013 ERNST DO, AFSHAN K 719.40 ARTHRAIGIA UNSPEC 10/15/2013 ERNST DO, AFSHAN K 790.09 OTHER ABNORMALITY OF RED BLOOD CELLS 10/15/2013 ERNST DO, AFSHAN K 287.5 THROMBOCYTOPENIA 10/15/2013 ERNST DO, AFSHAN K 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 10/15/2013 ERNST DO, AFSHAN K 288.60 LEUKOCYTOSIS 10/15/2013 ERNST DO, AFSHAN K 719.40 ARTHRAIGIA UNSPEC 10/15/2013 ERNST DO, AFSHAN K 790.09 OTHER ABNORMALITY OF RED BLOOD CELLS 10/15/2013 ERNST DO, AFSHAN K 287.5 THROMBOCYTOPENIA 10/15/2013 ERNST DO, AFSHAN K 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 10/15/2013 ERNST DO, AFSHAN K 288.60 LEUKOCYTOSIS 10/15/2013 ERNST DO, AFSHAN K 719.40 ARTHRAIGIA UNSPEC 10/15/2013 ERNST DO, AFSHAN K 790.09 OTHER ABNORMALITY OF RED BLOOD CELLS 10/15/2013 ERNST DO, AFSHAN K 287.5 THROMBOCYTOPENIA 10/15/2013 ERNST DO, AFSHAN K 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 10/15/2013 ERNST DO, AFSHAN K 288.60 LEUKOCYTOSIS 10/15/2013 ERNST DO, AFSHAN K 719.40 ARTHRAIGIA UNSPEC 10/15/2013 ERNST DO, AFSHAN K 790.09 OTHER ABNORMALITY OF RED BLOOD CELLS 10/15/2013 ERNST DO, AFSHAN K 287.5 THROMBOCYTOPENIA 10/15/2013 ERNST DO, AFSHAN K 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 10/15/2013 ERNST DO, AFSHAN K 288.60 LEUKOCYTOSIS 10/15/2013 ERNST DO, AFSHAN K 719.40 ARTHRAIGIA UNSPEC 10/15/2013 ERNST DO, AFSHAN K 790.09 OTHER ABNORMALITY OF RED BLOOD CELLS 10/15/2013 ERNST DO, AFSHAN K 287.5 THROMBOCYTOPENIA 10/15/2013 ERNST DO, AFSHAN K 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 10/15/2013 ERNST DO, AFSHAN K 288.60 LEUKOCYTOSIS 10/15/2013 ERNST DO, AFSHAN K 719.40 ARTHRAIGIA UNSPEC 10/15/2013 ERNST DO, AFSHAN K 790.09 OTHER ABNORMALITY OF RED BLOOD CELLS 10/15/2013 ERNST DO, AFSHAN K 287.5 THROMBOCYTOPENIA 10/15/2013 ERNST DO, AFSHAN K 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 10/15/2013 ERNST DO, AFSHAN K 288.60 LEUKOCYTOSIS 10/15/2013 ERNST DO, AFSHAN K 719.40 ARTHRAIGIA UNSPEC 10/15/2013 ERNST DO, AFSHAN K 790.09 OTHER ABNORMALITY OF RED BLOOD CELLS 10/15/2013 [employer]ATE RECEPTIONIST, NATALI A 287.5 THROMBOCYTOPENIA 10/15/2013 [employer]ATE RECEPTIONIST, NATALI A 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 10/15/2013 [employer] CORPORATE RECEPTIONIST, NATALI A 288.60 LEUKOCYTOSIS 10/15/2013 [employer] CORPORATE RECEPTIONIST, NATALI A 719.40 ARTHRAIGIA UNSPEC 10/15/2013 [employer]PORATE RECEPTIONIST, NATALI A 790.09 OTHER ABNORMALITY OF RED BLOOD CELLS 10/15/2013 ELISA CORPORATE RECEPTIONIST, SARITHA S 287.5 THROMBOCYTOPENIA 10/15/2013 ELISA CORPORATE RECEPTIONIST, SARITHA S 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 10/15/2013 ELISA CORPORATE RECEPTIONIST, SARITHA S 288.60 LEUKOCYTOSIS 10/15/2013 ELISA CORPORATE RECEPTIONIST, SARITHA S 719.40 ARTHRAIGIA UNSPEC 10/15/2013 ELISA CORPORATE RECEPTIONIST, SARITHA S 790.09 OTHER ABNORMALITY OF RED BLOOD CELLS 10/15/2013 ERNST DO, AFSHAN K 287.5 THROMBOCYTOPENIA 10/15/2013 ERNST DO, AFSHAN K 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 10/15/2013 ERNST DO, AFSHAN K 288.60 LEUKOCYTOSIS 10/15/2013 ERNST DO, AFSHAN K 719.40 ARTHRAIGIA UNSPEC 10/15/2013 ERNST DO, AFSHAN K 790.09 OTHER ABNORMALITY OF RED BLOOD CELLS 10/15/2013 ELISA CORPORATE RECEPTIONIST, SARITHA S 287.5 THROMBOCYTOPENIA 10/15/2013 ELISA CORPORATE RECEPTIONIST, SARITHA S 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 10/15/2013 ELISA CORPORATE RECEPTIONIST, SARITHA S 288.60 LEUKOCYTOSIS 10/15/2013 ELISA CORPORATE RECEPTIONIST, SARITHA S 719.40 ARTHRAIGIA UNSPEC 10/15/2013 ELISA CORPORATE RECEPTIONIST SARITHA S 790.09 OTHER ABNORMALITY OF RED BLOOD CELLS 10/15/2013 NEETA PECK PA-C 287.5 THROMBOCYTOPENIA 10/15/2013 NEETA PECK PA-C 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 10/15/2013 NEETA PECK PA-C 288.60 LEUKOCYTOSIS 10/15/2013 NEETA PECK PA-C 719.40 ARTHRAIGIA UNSPEC 10/15/2013 NEETA PECK PA-C 790.09 OTHER ABNORMALITY OF RED BLOOD CELLS 10/15/2013 ERNST DO, AFSHAN K 287.5 THROMBOCYTOPENIA 10/15/2013 ERNST DO, AFSHAN K 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 10/15/2013 ERNST DO, AFSHAN K 288.60 LEUKOCYTOSIS 10/15/2013 ERNST DO, AFSHAN K 719.40 ARTHRAIGIA UNSPEC 10/15/2013 ERNST DO, AFSHAN K 790.09 OTHER ABNORMALITY OF RED BLOOD CELLS 10/15/2013 ERNST DO, AFSHAN K 287.5 THROMBOCYTOPENIA 10/15/2013 ERNST DO, AFSHAN K 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 10/15/2013 ERNST DO, AFSHAN K 288.60 LEUKOCYTOSIS 10/15/2013 ERNST DO, AFSHAN K 719.40 ARTHRAIGIA UNSPEC 10/15/2013 ERNST DO, AFSHAN K 790.09 OTHER ABNORMALITY OF RED BLOOD CELLS 10/15/2013 M[employer] CORPORATE RECEPTIONIST, DANIELA L 287.5 THROMBOCYTOPENIA 10/15/2013 MAD[employer] CORPORATE RECEPTIONIST, DANIELA L 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 10/15/2013 MAD[employer] CORPORATE RECEPTIONIST, DANIELA L 288.60 LEUKOCYTOSIS 10/15/2013 MAD[employer] CORPORATE RECEPTIONIST, DANIELA L 719.40 ARTHRAIGIA UNSPEC 10/15/2013 MADL CORPORATE RECEPTIONIST, DANIELA L 790.09 OTHER ABNORMALITY OF RED BLOOD CELLS 10/15/2013 ERNST DO, AFSHAN K 287.5 THROMBOCYTOPENIA 10/15/2013 ERNST DO, AFSHAN K 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 10/15/2013 ERNST DO, AFSHAN K 288.60 LEUKOCYTOSIS 10/15/2013 ERNST DO, AFSHAN K 719.40 ARTHRAIGIA UNSPEC 10/15/2013 ERNST DO, AFSHAN K 790.09 OTHER ABNORMALITY OF RED BLOOD CELLS 10/15/2013 ERNST DO, AFSHAN K 287.5 THROMBOCYTOPENIA 10/15/2013 ERNST DO, AFSHAN K 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 10/15/2013 ERNST DO, AFSHAN K 288.60 LEUKOCYTOSIS 10/15/2013 ERNST DO, AFSHAN K 719.40 ARTHRAIGIA UNSPEC 10/15/2013 ERNST DO, AFSHAN K 790.09 OTHER ABNORMALITY OF RED BLOOD CELLS 10/15/2013 FAVIAN CRUZ PHD 287.5 THROMBOCYTOPENIA 10/15/2013 FAVIAN CRUZ PHD 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 10/15/2013 FAVIAN CRUZ PHD 288.60 LEUKOCYTOSIS 10/15/2013 FAVIAN CRUZ PHD 719.40 ARTHRAIGIA UNSPEC 10/15/2013 FAVIAN CRUZ PHD 790.09 OTHER ABNORMALITY OF RED BLOOD CELLS 10/15/2013 VINOD MITCHELL MD N 287.5 THROMBOCYTOPENIA 10/15/2013 VINOD MITCHELL MD N 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 10/15/2013 VINOD MITCHELL MD N 288.60 LEUKOCYTOSIS 10/15/2013 VINOD MITCHELL MD N 719.40 ARTHRAIGIA UNSPEC 10/15/2013 VINOD MITCHELL MD N 790.09 OTHER ABNORMALITY OF RED BLOOD CELLS 10/15/2013 NATALI NORTON APRN A 287.5 THROMBOCYTOPENIA 10/15/2013 GISELE NORTON APRNIDI A 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 10/15/2013 NATALI NORTON APRN A 288.60 LEUKOCYTOSIS 10/15/2013 NATALI NORTON APRN A 719.40 ARTHRAIGIA UNSPEC 10/15/2013 NATALI NORTON APRN A 790.09 OTHER ABNORMALITY OF RED BLOOD CELLS 11/12/2013 ERNST DO, AFSHAN K 780.2 SYNCOPE 11/12/2013 ERNST DO, AFSHAN K 780.8 GENERALIZED HYPERHIDROSIS 11/12/2013 ERNST DO, AFSHAN K 782.0 DISTURBANCE OF SKIN SENSATION 11/12/2013 ERNST DO, AFSHAN K 785.1 PALPITATIONS 11/12/2013 ERNST DO, AFSHAN K 780.2 SYNCOPE 11/12/2013 ERNST DO, AFSHAN K 780.8 GENERALIZED HYPERHIDROSIS 11/12/2013 ERNST DO, AFSHAN K 782.0 DISTURBANCE OF SKIN SENSATION 11/12/2013 ERNST DO, AFSHAN K 785.1 PALPITATIONS 11/12/2013 NEETA PECK PA-C M 780.2 SYNCOPE 11/12/2013 NEETA PECK PA-C M 780.8 GENERALIZED HYPERHIDROSIS 11/12/2013 NEETA PECK PA-C 782.0 DISTURBANCE OF SKIN SENSATION 11/12/2013 NEETA PECK PA-C M 785.1 PALPITATIONS 11/12/2013 ERNST DO, AFSHAN K 780.2 SYNCOPE 11/12/2013 ERNST DO, AFSHAN K 780.8 GENERALIZED HYPERHIDROSIS 11/12/2013 ERSNT DO, AFSHAN K 782.0 DISTURBANCE OF SKIN SENSATION 11/12/2013 ERNST DO, AFSHAN K 785.1 PALPITATIONS 11/12/2013 ERNST DO, AFSHAN K 780.2 SYNCOPE 11/12/2013 ERNST DO, AFSHAN K 780.8 GENERALIZED HYPERHIDROSIS 11/12/2013 ERNST DO, AFSHAN K 782.0 DISTURBANCE OF SKIN SENSATION 11/12/2013 ERNST DO, AFSHAN K 785.1 PALPITATIONS 11/12/2013 ERNST DO, AFSHAN K 780.2 SYNCOPE 11/12/2013 ERNST DO, AFSHAN K 780.8 GENERALIZED HYPERHIDROSIS 11/12/2013 ERNST DO, AFSHAN K 782.0 DISTURBANCE OF SKIN SENSATION 11/12/2013 ERNST DO, AFSHAN K 785.1 PALPITATIONS 11/12/2013 [employer]ATE RECEPTIONIST, NATALI A 780.2 SYNCOPE 11/12/2013 [employer]ATE RECEPTIONIST, NATALI A 780.8 GENERALIZED HYPERHIDROSIS 11/12/2013 [employer]ATE RECEPTIONIST, NATALI A 782.0 DISTURBANCE OF SKIN SENSATION 11/12/2013 [employer]ATE RECEPTIONIST, NATALI A 785.1 PALPITATIONS 11/12/2013 [employer]ATE RECEPTIONIST, NATALI A 780.2 SYNCOPE 11/12/2013 [employer]ATE RECEPTIONIST, NATALI A 780.8 GENERALIZED HYPERHIDROSIS 11/12/2013 [employer]ATE RECEPTIONIST, NATALI A 782.0 DISTURBANCE OF SKIN SENSATION 11/12/2013 [employer]ATE RECEPTIONIST, NATALI A 785.1 PALPITATIONS 11/12/2013 MAHSA RICCI AISHA R 780.2 SYNCOPE 11/12/2013 MAHSA MEJIAN, AISHA R 780.8 GENERALIZED HYPERHIDROSIS 11/12/2013 [employer] CORPORATE RECEPTIONIST, AISHA R 782.0 DISTURBANCE OF SKIN SENSATION 11/12/2013 MAHSA CORPORATE RECEPTIONIST, AISHA R 785.1 PALPITATIONS 11/12/2013 ERNST DO, AFSHAN K 780.2 SYNCOPE 11/12/2013 ERNST DO, AFSHAN K 780.8 GENERALIZED HYPERHIDROSIS 11/12/2013 ERNST DO, AFSHAN K 782.0 DISTURBANCE OF SKIN SENSATION 11/12/2013 ERNST DO, AFSHAN K 785.1 PALPITATIONS 11/12/2013 ERNST DO, AFSHAN K 780.2 SYNCOPE 11/12/2013 ERNST DO, AFSHAN K 780.8 GENERALIZED HYPERHIDROSIS 11/12/2013 ERNST DO, AFSHAN K 782.0 DISTURBANCE OF SKIN SENSATION 11/12/2013 ERNST DO, AFSHAN K 785.1 PALPITATIONS 11/12/2013 ERNST DO, AFSHAN K 780.2 SYNCOPE 11/12/2013 ERNST DO, AFSHAN K 780.8 GENERALIZED HYPERHIDROSIS 11/12/2013 ERNST DO, AFSHAN K 782.0 DISTURBANCE OF SKIN SENSATION 11/12/2013 ERNST DO, AFSHAN K 785.1 PALPITATIONS 11/12/2013 ERNST DO, AFSHAN K 780.2 SYNCOPE 11/12/2013 ERNST DO, AFSHAN K 780.8 GENERALIZED HYPERHIDROSIS 11/12/2013 ERNST DO, AFSHAN K 782.0 DISTURBANCE OF SKIN SENSATION 11/12/2013 ERNST DO, AFSHAN K 785.1 PALPITATIONS 11/12/2013 ERNST DO, AFSHAN K 780.2 SYNCOPE 11/12/2013 ERNST DO, AFSHAN K 780.8 GENERALIZED HYPERHIDROSIS 11/12/2013 ERNST DO, AFSHAN K 782.0 DISTURBANCE OF SKIN SENSATION 11/12/2013 ERNST DO, AFSHAN K 785.1 PALPITATIONS 11/12/2013 ERNST DO, AFSHAN K 780.2 SYNCOPE 11/12/2013 ERNST DO, AFSHAN K 780.8 GENERALIZED HYPERHIDROSIS 11/12/2013 ERNST DO, AFSHAN K 782.0 DISTURBANCE OF SKIN SENSATION 11/12/2013 ERNST DO, AFSHAN K 785.1 PALPITATIONS 11/12/2013 ERNST DO, AFSHAN K 780.2 SYNCOPE 11/12/2013 ERNST DO, AFSHAN K 780.8 GENERALIZED HYPERHIDROSIS 11/12/2013 ERNST DO, AFSHAN K 782.0 DISTURBANCE OF SKIN SENSATION 11/12/2013 ERNST DO, AFSHAN K 785.1 PALPITATIONS 11/12/2013 ERNST DO, AFSHAN K 780.2 SYNCOPE 11/12/2013 ERNST DO, AFSHAN K 780.8 GENERALIZED HYPERHIDROSIS 11/12/2013 ERNST DO, AFSHAN K 782.0 DISTURBANCE OF SKIN SENSATION 11/12/2013 ERNST DO, AFSHAN K 785.1 PALPITATIONS 11/12/2013 [employer]ATE RECEPTIONIST, NATALI A 780.2 SYNCOPE 11/12/2013 [employer]ATE RECEPTIONIST, NATALI A 780.8 GENERALIZED HYPERHIDROSIS 11/12/2013 [employer]ATE RECEPTIONIST, NATALI A 782.0 DISTURBANCE OF SKIN SENSATION 11/12/2013 [employer]ATE RECEPTIONIST, NATALI A 785.1 PALPITATIONS 11/12/2013 ELISA CORPORATE RECEPTIONIST, SARITHA S 780.2 SYNCOPE 11/12/2013 ELISA CORPORATE RECEPTIONIST, SARITHA S 780.8 GENERALIZED HYPERHIDROSIS 11/12/2013 ELISA CORPORATE RECEPTIONIST, SARITHA S 782.0 DISTURBANCE OF SKIN SENSATION 11/12/2013 ELISA CORPORATE RECEPTIONIST, SARITHA S 785.1 PALPITATIONS 11/12/2013 ERNST DO, AFSHAN K 780.2 SYNCOPE 11/12/2013 ERNST DO, AFSHAN K 780.8 GENERALIZED HYPERHIDROSIS 11/12/2013 ERNST DO, AFSHAN K 782.0 DISTURBANCE OF SKIN SENSATION 11/12/2013 ERNST DO, AFSHAN K 785.1 PALPITATIONS 11/12/2013 ELISA CORPORATE RECEPTIONIST, SARITHA S 780.2 SYNCOPE 11/12/2013 ELISA CORPORATE RECEPTIONIST, SARITHA S 780.8 GENERALIZED HYPERHIDROSIS 11/12/2013 ELISA CORPORATE RECEPTIONIST, SARITHA S 782.0 DISTURBANCE OF SKIN SENSATION 11/12/2013 ELISA CORPORATE RECEPTIONIST, SARITHA S 785.1 PALPITATIONS 11/12/2013 NEETA PECK PA-C 780.2 SYNCOPE 11/12/2013 NEETA PECK PA-C 780.8 GENERALIZED HYPERHIDROSIS 11/12/2013 NEETA PECK PA-C 782.0 DISTURBANCE OF SKIN SENSATION 11/12/2013 NEETA PECK PA-C 785.1 PALPITATIONS 11/12/2013 ERNST DO, AFSHAN K 780.2 SYNCOPE 11/12/2013 ERNST DO, AFSHAN K 780.8 GENERALIZED HYPERHIDROSIS 11/12/2013 ERNST DO, AFSHAN K 782.0 DISTURBANCE OF SKIN SENSATION 11/12/2013 ERNST DO, AFSHAN K 785.1 PALPITATIONS 11/12/2013 ERNST DO, AFSHAN K 780.2 SYNCOPE 11/12/2013 ERNST DO, AFSHAN K 780.8 GENERALIZED HYPERHIDROSIS 11/12/2013 ERNST DO, AFSHAN K 782.0 DISTURBANCE OF SKIN SENSATION 11/12/2013 ERNST DO, AFSHAN K 785.1 PALPITATIONS 11/12/2013 M[employer] CORPORATE RECEPTIONIST, DANIELA L 780.2 SYNCOPE 11/12/2013 [employer] CORPORATE RECEPTIONIST, DANIELA L 780.8 GENERALIZED HYPERHIDROSIS 11/12/2013 M[employer] CORPORATE RECEPTIONIST, DANIELA L 782.0 DISTURBANCE OF SKIN SENSATION 11/12/2013 M[employer] CORPORATE RECEPTIONIST, DANIELA L 785.1 PALPITATIONS 11/12/2013 ERNST DO, AFSHAN K 780.2 SYNCOPE 11/12/2013 ERNST DO, AFSHAN K 780.8 GENERALIZED HYPERHIDROSIS 11/12/2013 ERNST DO, AFSHAN K 782.0 DISTURBANCE OF SKIN SENSATION 11/12/2013 ERNST DO, AFSHAN K 785.1 PALPITATIONS 11/12/2013 ERNST DO, AFSHAN K 780.2 SYNCOPE 11/12/2013 ERNST DO, AFSHAN K 780.8 GENERALIZED HYPERHIDROSIS 11/12/2013 ERNST DO, AFSHAN K 782.0 DISTURBANCE OF SKIN SENSATION 11/12/2013 ERNST DO, AFSHAN K 785.1 PALPITATIONS 11/12/2013 FAVIAN CRUZ PHD 780.2 SYNCOPE 11/12/2013 FAVIAN CRUZ PHD 780.8 GENERALIZED HYPERHIDROSIS 11/12/2013 FAVIAN CRUZ PHD 782.0 DISTURBANCE OF SKIN SENSATION 11/12/2013 FAVIAN CRUZ PHD 785.1 PALPITATIONS 11/12/2013 VINOD MITCHELL MD 780.2 SYNCOPE 11/12/2013 VINOD MITCHELL MD 780.8 GENERALIZED HYPERHIDROSIS 11/12/2013 STEPHEN MD, VINOD N 782.0 DISTURBANCE OF SKIN SENSATION 11/12/2013 STEPHEN PAL, VINOD N 785.1 PALPITATIONS 11/12/2013 CIERRARAYMOND RICCI, NATALI A 780.2 SYNCOPE 11/12/2013 CIERRA RICCI, NATALI A 780.8 GENERALIZED HYPERHIDROSIS 11/12/2013 CIERRARAYMOND RICCI, NATALI A 782.0 DISTURBANCE OF SKIN SENSATION 11/12/2013 CIERRARAYMOND RICCI, NATALI A 785.1 PALPITATIONS 11/17/2013 JOY PAL, URIEL Davila Ot 238.71 ESSENTIAL THROMBOCYTHEMIA 11/17/2013 JOY PAL, URIEL Davila Ot 278.00 OBESITY, NOS 11/17/2013 JOY PAL, URIEL Davila Ot 288.60 LEUKOCYTOSIS, UNSPECIFIED 11/17/2013 JOY PAL, URIEL Davila Ot 558.9 NONINF GASTROENTERIT NEC 11/17/2013 URIEL HAMILTON MD Ot 620.2 OVARIAN CYST NEC/NOS 11/17/2013 URIEL HAMILTON MD Ot 780.2 SYNCOPE AND COLLAPSE 11/17/2013 JOY PAL, URIEL Davila Ot 780.60 FEVER, UNSPECIFIED 11/17/2013 JOY PAL, URIEL Davila Ot 785.1 PALPITATIONS 11/17/2013 URIEL HAMILTON MD Ot 786.09 RESPIRATORY ABNORM NEC 11/17/2013 URIEL HAMILTON MD Ot 786.59 CHEST PAIN NEC 11/17/2013 URIEL HAMILTON MD Ot 789.04 ABDOMINAL PAIN, LEFT LOWER QUADRANT 11/17/2013 URIEL HAMILTON MD Ot 790.29 OTHER ABNORMAL GLUCOSE 11/17/2013 JOY PAL, URIEL Davila Ot V85.39 BODY MASS INDEX 39.0-39.9, ADULT 11/19/2013 AFSHAN ERNST DO 010.90 PRIMARY TUBERCULOUS INFECTION UNSPECIFIED TYPE CONFIRMATION UNSPECIFIED 11/19/2013 AFSHAN ERNST DO 790.29 OTHER ABNORMAL GLUCOSE 11/19/2013 NEETA PECK PA-C 010.90 PRIMARY TUBERCULOUS INFECTION UNSPECIFIED TYPE CONFIRMATION UNSPECIFIED 11/19/2013 NEETA PECK PA-C 790.29 OTHER ABNORMAL GLUCOSE 11/19/2013 AFSHAN ERNST DO 010.90 PRIMARY TUBERCULOUS INFECTION UNSPECIFIED TYPE CONFIRMATION UNSPECIFIED 11/19/2013 ERNST DO, AFSHAN K 790.29 OTHER ABNORMAL GLUCOSE 11/19/2013 ERNST DO, AFSHAN K 010.90 PRIMARY TUBERCULOUS INFECTION UNSPECIFIED TYPE CONFIRMATION UNSPECIFIED 11/19/2013 ERNST DO, AFSHAN K 790.29 OTHER ABNORMAL GLUCOSE 11/19/2013 ERNST DO, AFSHAN K 010.90 PRIMARY TUBERCULOUS INFECTION UNSPECIFIED TYPE CONFIRMATION UNSPECIFIED 11/19/2013 ERNST DO, AFSHAN K 790.29 OTHER ABNORMAL GLUCOSE 11/19/2013 CI[employer]RA CORPORATE RECEPTIONIST, NATALI A 010.90 PRIMARY TUBERCULOUS INFECTION UNSPECIFIED TYPE CONFIRMATION UNSPECIFIED 11/19/2013 CIERRA CORPORATE RECEPTIONIST, NATALI A 790.29 OTHER ABNORMAL GLUCOSE 11/19/2013 CIERRA CORPORATE RECEPTIONIST, NATALI A 010.90 PRIMARY TUBERCULOUS INFECTION UNSPECIFIED TYPE CONFIRMATION UNSPECIFIED 11/19/2013 CIERRA CORPORATE RECEPTIONIST, NATALI A 790.29 OTHER ABNORMAL GLUCOSE 11/19/2013 MAHSA CORPORATE RECEPTIONIST, AISHA R 010.90 PRIMARY TUBERCULOUS INFECTION UNSPECIFIED TYPE CONFIRMATION UNSPECIFIED 11/19/2013 MAHSA CORPORATE RECEPTIONIST, AISHA R 790.29 OTHER ABNORMAL GLUCOSE 11/19/2013 ERNST DO, AFSHAN K 010.90 PRIMARY TUBERCULOUS INFECTION UNSPECIFIED TYPE CONFIRMATION UNSPECIFIED 11/19/2013 ERNST DO, AFSHAN K 790.29 OTHER ABNORMAL GLUCOSE 11/19/2013 ERNST DO, AFSHAN K 010.90 PRIMARY TUBERCULOUS INFECTION UNSPECIFIED TYPE CONFIRMATION UNSPECIFIED 11/19/2013 ERNST DO, AFSHAN K 790.29 OTHER ABNORMAL GLUCOSE 11/19/2013 ERNST DO, AFSHAN K 010.90 PRIMARY TUBERCULOUS INFECTION UNSPECIFIED TYPE CONFIRMATION UNSPECIFIED 11/19/2013 ERNST DO, AFSHAN K 790.29 OTHER ABNORMAL GLUCOSE 11/19/2013 ERNST DO, AFSHAN K 010.90 PRIMARY TUBERCULOUS INFECTION UNSPECIFIED TYPE CONFIRMATION UNSPECIFIED 11/19/2013 ERNST DO, AFSHAN K 790.29 OTHER ABNORMAL GLUCOSE 11/19/2013 ERNST DO, AFSHAN K 010.90 PRIMARY TUBERCULOUS INFECTION UNSPECIFIED TYPE CONFIRMATION UNSPECIFIED 11/19/2013 ERNST DO, AFSHAN K 790.29 OTHER ABNORMAL GLUCOSE 11/19/2013 ERNST DO, AFSHAN K 010.90 PRIMARY TUBERCULOUS INFECTION UNSPECIFIED TYPE CONFIRMATION UNSPECIFIED 11/19/2013 ERNST DO, AFSHAN K 790.29 OTHER ABNORMAL GLUCOSE 11/19/2013 ERNST DO, AFSHAN K 010.90 PRIMARY TUBERCULOUS INFECTION UNSPECIFIED TYPE CONFIRMATION UNSPECIFIED 11/19/2013 ERNST DO, AFSHAN K 790.29 OTHER ABNORMAL GLUCOSE 11/19/2013 ERNST DO, AFSHAN K 010.90 PRIMARY TUBERCULOUS INFECTION UNSPECIFIED TYPE CONFIRMATION UNSPECIFIED 11/19/2013 ERNST DO, AFSHAN K 790.29 OTHER ABNORMAL GLUCOSE 11/19/2013 CI[employer]RA CORPORATE RECEPTIONIST, NATALI A 010.90 PRIMARY TUBERCULOUS INFECTION UNSPECIFIED TYPE CONFIRMATION UNSPECIFIED 11/19/2013 CIERRA CORPORATE RECEPTIONIST, NATALI A 790.29 OTHER ABNORMAL GLUCOSE 11/19/2013 ELISA CORPORATE RECEPTIONIST, SARITHA S 010.90 PRIMARY TUBERCULOUS INFECTION UNSPECIFIED TYPE CONFIRMATION UNSPECIFIED 11/19/2013 ELISA CORPORATE RECEPTIONIST, SARITHA S 790.29 OTHER ABNORMAL GLUCOSE 11/19/2013 ERNST DO, AFSHAN K 010.90 PRIMARY TUBERCULOUS INFECTION UNSPECIFIED TYPE CONFIRMATION UNSPECIFIED 11/19/2013 ERNST DO, AFSHAN K 790.29 OTHER ABNORMAL GLUCOSE 11/19/2013 ELISA CORPORATE RECEPTIONIST SARITHA S 010.90 PRIMARY TUBERCULOUS INFECTION UNSPECIFIED TYPE CONFIRMATION UNSPECIFIED 11/19/2013 ELISA CORPORATE RECEPTIONIST, SARITHA S 790.29 OTHER ABNORMAL GLUCOSE 11/19/2013 NEETA PECK PA-C 010.90 PRIMARY TUBERCULOUS INFECTION UNSPECIFIED TYPE CONFIRMATION UNSPECIFIED 11/19/2013 NEETA PECK PA-C 790.29 OTHER ABNORMAL GLUCOSE 11/19/2013 ERNST DO, AFSHAN K 010.90 PRIMARY TUBERCULOUS INFECTION UNSPECIFIED TYPE CONFIRMATION UNSPECIFIED 11/19/2013 ERNST DO, AFSHAN K 790.29 OTHER ABNORMAL GLUCOSE 11/19/2013 ERNST DO, AFSHAN K 010.90 PRIMARY TUBERCULOUS INFECTION UNSPECIFIED TYPE CONFIRMATION UNSPECIFIED 11/19/2013 ERNST DO, AFSHAN K 790.29 OTHER ABNORMAL GLUCOSE 11/19/2013 MADL CORPORATE RECEPTIONIST, DANIELA L 010.90 PRIMARY TUBERCULOUS INFECTION UNSPECIFIED TYPE CONFIRMATION UNSPECIFIED 11/19/2013 MADL CORPORATE RECEPTIONIST, DANIELA L 790.29 OTHER ABNORMAL GLUCOSE 11/19/2013 ERNST DO, AFSHAN K 010.90 PRIMARY TUBERCULOUS INFECTION UNSPECIFIED TYPE CONFIRMATION UNSPECIFIED 11/19/2013 ERNST DO, AFSHAN K 790.29 OTHER ABNORMAL GLUCOSE 11/19/2013 ERNST DO, AFSHAN K 010.90 PRIMARY TUBERCULOUS INFECTION UNSPECIFIED TYPE CONFIRMATION UNSPECIFIED 11/19/2013 ERNST DO, AFSHAN K 790.29 OTHER ABNORMAL GLUCOSE 11/19/2013 NANCY PHD, FAVIAN Frost 010.90 PRIMARY TUBERCULOUS INFECTION UNSPECIFIED TYPE CONFIRMATION UNSPECIFIED 11/19/2013 NANCY PHD, FAVIAN Frost 790.29 OTHER ABNORMAL GLUCOSE 11/19/2013 STEPHEN PAL, VINOD Bear 010.90 PRIMARY TUBERCULOUS INFECTION UNSPECIFIED TYPE CONFIRMATION UNSPECIFIED 11/19/2013 STEPHEN PAL, VINOD N 790.29 OTHER ABNORMAL GLUCOSE 11/19/2013 [employer]RA CORPORATE RECEPTIONIST, NATALI A 010.90 PRIMARY TUBERCULOUS INFECTION UNSPECIFIED TYPE CONFIRMATION UNSPECIFIED 11/19/2013 CIERRA CORPORATE RECEPTIONIST, NATALI A 790.29 OTHER ABNORMAL GLUCOSE 12/06/2013 CIERRA CORPORATE RECEPTIONIST, NATALI A 788.63 URINARY URGENCY 12/06/2013 CIERRA CORPORATE RECEPTIONIST, NATALI A 788.63 URINARY URGENCY 12/06/2013 AISHA BRAGG APRN 788.63 URINARY URGENCY 12/06/2013 ERNST DO, AFSHAN K 788.63 URINARY URGENCY 12/06/2013 ERNST DO, AFSHAN K 788.63 URINARY URGENCY 12/06/2013 ERNST DO, AFSHAN K 788.63 URINARY URGENCY 12/06/2013 ERNST DO, AFSHAN K 788.63 URINARY URGENCY 12/06/2013 ERNST DO, AFSHAN K 788.63 URINARY URGENCY 12/06/2013 ERNST DO, AFSHAN K 788.63 URINARY URGENCY 12/06/2013 ERNST DO, AFSHAN K 788.63 URINARY URGENCY 12/06/2013 ERNST DO, AFSHAN K 788.63 URINARY URGENCY 12/06/2013 CIERRA CORPORATE RECEPTIONIST, NATALI A 788.63 URINARY URGENCY 12/06/2013 ELISA CORPORATE RECEPTIONIST, SARITHA S 788.63 URINARY URGENCY 12/06/2013 ERNST DO, AFSHAN K 788.63 URINARY URGENCY 12/06/2013 ELISA CORPORATE RECEPTIONIST, SARITHA S 788.63 URINARY URGENCY 12/06/2013 NEETA PECK PA-C 788.63 URINARY URGENCY 12/06/2013 ERNST DO, AFSHAN K 788.63 URINARY URGENCY 12/06/2013 ERNST DO, AFSHAN K 788.63 URINARY URGENCY 12/06/2013 DANIELA LONG APRN 788.63 URINARY URGENCY 12/06/2013 ERNST DO, AFSHAN K 788.63 URINARY URGENCY 12/06/2013 ERNST DO, AFSHAN K 788.63 URINARY URGENCY 12/06/2013 NANCY VELA, FAVIAN Frost 788.63 URINARY URGENCY 12/06/2013 STEPHEN PAL, VINOD Bear 788.63 URINARY URGENCY 12/06/2013 CIERRA CORPORATE RECEPTIONIST, NATALI A 788.63 URINARY URGENCY 12/25/2013 CIERRA CORPORATE RECEPTIONIST, NATALI A 795.51 NONSPECIFIC REACTION TO TUBERCULIN SKIN TEST WITHOUT ACTIVE TUBERCULOSIS 12/25/2013 CIERRA CORPORATE RECEPTIONIST, NATALI A 795.51 NONSPECIFIC REACTION TO TUBERCULIN SKIN TEST WITHOUT ACTIVE TUBERCULOSIS 12/25/2013 AISHA BRAGG APRN 795.51 NONSPECIFIC REACTION TO TUBERCULIN SKIN TEST WITHOUT ACTIVE TUBERCULOSIS 12/25/2013 ERNST DO, AFSHAN K 795.51 NONSPECIFIC REACTION TO TUBERCULIN SKIN TEST WITHOUT ACTIVE TUBERCULOSIS 12/25/2013 ERNST DO, AFSHAN K 795.51 NONSPECIFIC REACTION TO TUBERCULIN SKIN TEST WITHOUT ACTIVE TUBERCULOSIS 12/25/2013 ERNST DO, AFSHAN K 795.51 NONSPECIFIC REACTION TO TUBERCULIN SKIN TEST WITHOUT ACTIVE TUBERCULOSIS 12/25/2013 ERNST DO, AFSHAN K 795.51 NONSPECIFIC REACTION TO TUBERCULIN SKIN TEST WITHOUT ACTIVE TUBERCULOSIS 12/25/2013 ERNST DO, AFSHAN K 795.51 NONSPECIFIC REACTION TO TUBERCULIN SKIN TEST WITHOUT ACTIVE TUBERCULOSIS 12/25/2013 ERNST DO, AFSHAN K 795.51 NONSPECIFIC REACTION TO TUBERCULIN SKIN TEST WITHOUT ACTIVE TUBERCULOSIS 12/25/2013 ERNST DO, AFSHAN K 795.51 NONSPECIFIC REACTION TO TUBERCULIN SKIN TEST WITHOUT ACTIVE TUBERCULOSIS 12/25/2013 ERNST DO, AFSHAN K 795.51 NONSPECIFIC REACTION TO TUBERCULIN SKIN TEST WITHOUT ACTIVE TUBERCULOSIS 12/25/2013 CIERRA CORPORATE RECEPTIONIST, NATALI A 795.51 NONSPECIFIC REACTION TO TUBERCULIN SKIN TEST WITHOUT ACTIVE TUBERCULOSIS 12/25/2013 SARITHA PÉREZ APRN S 795.51 NONSPECIFIC REACTION TO TUBERCULIN SKIN TEST WITHOUT ACTIVE TUBERCULOSIS 12/25/2013 ERNST DO, AFSHAN K 795.51 NONSPECIFIC REACTION TO TUBERCULIN SKIN TEST WITHOUT ACTIVE TUBERCULOSIS 12/25/2013 SARITHA PÉREZ APRN S 795.51 NONSPECIFIC REACTION TO TUBERCULIN SKIN TEST WITHOUT ACTIVE TUBERCULOSIS 12/25/2013 NEETA PECK PA-C 795.51 NONSPECIFIC REACTION TO TUBERCULIN SKIN TEST WITHOUT ACTIVE TUBERCULOSIS 12/25/2013 ERNST DO, AFSHAN K 795.51 NONSPECIFIC REACTION TO TUBERCULIN SKIN TEST WITHOUT ACTIVE TUBERCULOSIS 12/25/2013 ERNST DO, AFSHAN K 795.51 NONSPECIFIC REACTION TO TUBERCULIN SKIN TEST WITHOUT ACTIVE TUBERCULOSIS 12/25/2013 DANIELA LONG APRN 795.51 NONSPECIFIC REACTION TO TUBERCULIN SKIN TEST WITHOUT ACTIVE TUBERCULOSIS 12/25/2013 ERNST DO, AFSHAN K 795.51 NONSPECIFIC REACTION TO TUBERCULIN SKIN TEST WITHOUT ACTIVE TUBERCULOSIS 12/25/2013 ERNST DO, AFSHAN K 795.51 NONSPECIFIC REACTION TO TUBERCULIN SKIN TEST WITHOUT ACTIVE TUBERCULOSIS 12/25/2013 NANCY PHD, FAVIAN Frost 795.51 NONSPECIFIC REACTION TO TUBERCULIN SKIN TEST WITHOUT ACTIVE TUBERCULOSIS 12/25/2013 STEPHEN PAL, VINOD Bear 795.51 NONSPECIFIC REACTION TO TUBERCULIN SKIN TEST WITHOUT ACTIVE TUBERCULOSIS 12/25/2013 NATALI NORTON APRN A 795.51 NONSPECIFIC REACTION TO TUBERCULIN SKIN TEST WITHOUT ACTIVE TUBERCULOSIS 01/08/2014 NATALI NORTON APRN A V25.09 CONTRACEPTIVE COUNSELING - GENERAL 01/08/2014 AISHA BRAGG APRN V25.09 CONTRACEPTIVE COUNSELING - GENERAL 01/08/2014 ERNST DO, AFSHAN K V25.09 CONTRACEPTIVE COUNSELING - GENERAL 01/08/2014 ERNST DO, AFSHAN K V25.09 CONTRACEPTIVE COUNSELING - GENERAL 01/08/2014 ERNST DO, AFSHAN K V25.09 CONTRACEPTIVE COUNSELING - GENERAL 01/08/2014 ERNST DO, AFSHAN K V25.09 CONTRACEPTIVE COUNSELING - GENERAL 01/08/2014 ERNST DO, AFSHAN K V25.09 CONTRACEPTIVE COUNSELING - GENERAL 01/08/2014 ERNST DO, AFSHAN K V25.09 CONTRACEPTIVE COUNSELING - GENERAL 01/08/2014 ERNST DO, AFSHAN K V25.09 CONTRACEPTIVE COUNSELING - GENERAL 01/08/2014 ERNST DO, AFSHAN K V25.09 CONTRACEPTIVE COUNSELING - GENERAL 01/08/2014 NATALI NORTON APRN A V25.09 CONTRACEPTIVE COUNSELING - GENERAL 01/08/2014 SARITHA PÉREZ APRN S V25.09 CONTRACEPTIVE COUNSELING - GENERAL 01/08/2014 ERNST DO, AFSHAN K V25.09 CONTRACEPTIVE COUNSELING - GENERAL 01/08/2014 SARITHA PÉREZ APRN S V25.09 CONTRACEPTIVE COUNSELING - GENERAL 01/08/2014 LIV NICK, NEETA Foss V25.09 CONTRACEPTIVE COUNSELING - GENERAL 01/08/2014 ERNST DO, AFSHAN K V25.09 CONTRACEPTIVE COUNSELING - GENERAL 01/08/2014 ERNST DO, AFSHAN K V25.09 CONTRACEPTIVE COUNSELING - GENERAL 01/08/2014 MERCEDES RICCI, DANIELA Cooper V25.09 CONTRACEPTIVE COUNSELING - GENERAL 01/08/2014 ERNST DO, AFSHAN K V25.09 CONTRACEPTIVE COUNSELING - GENERAL 01/08/2014 ERNST DO, AFSHAN K V25.09 CONTRACEPTIVE COUNSELING - GENERAL 01/08/2014 NANCY PHD, FAVIAN Frost V25.09 CONTRACEPTIVE COUNSELING - GENERAL 01/08/2014 STEPHEN PAL, VINOD Bear V25.09 CONTRACEPTIVE COUNSELING - GENERAL 01/08/2014 CIERRA RICCI, NATALI Newman V25.09 CONTRACEPTIVE COUNSELING - GENERAL 01/24/2014 MAHSA RICCI AISHA R 388.70 OTALGIA UNSPECIFIED 01/24/2014 INDRA BRAGG APRNINA R 462 ACUTE PHARYNGITIS 01/24/2014 MAHSA RICCI AISHA R V76.12 MAMMOGRAM SCREENING 01/24/2014 ERNST DO, AFSHAN K 388.70 OTALGIA UNSPECIFIED 01/24/2014 ERNST DO, AFSHAN K 462 ACUTE PHARYNGITIS 01/24/2014 ERNST DO, AFSHAN K V76.12 MAMMOGRAM SCREENING 01/24/2014 ERNST DO, AFSHAN K 388.70 OTALGIA UNSPECIFIED 01/24/2014 ERNST DO, AFSHAN K 462 ACUTE PHARYNGITIS 01/24/2014 ERNST DO, AFSHAN K V76.12 MAMMOGRAM SCREENING 01/24/2014 ERNST DO, AFSHAN K 388.70 OTALGIA UNSPECIFIED 01/24/2014 ERNST DO, AFSHAN K 462 ACUTE PHARYNGITIS 01/24/2014 ERNST DO, AFSHAN K V76.12 MAMMOGRAM SCREENING 01/24/2014 ERNST DO, AFSHAN K 388.70 OTALGIA UNSPECIFIED 01/24/2014 ERNST DO, AFSHAN K 462 ACUTE PHARYNGITIS 01/24/2014 ERNST DO, AFSHAN K V76.12 MAMMOGRAM SCREENING 01/24/2014 ERNST DO, AFSHAN K 388.70 OTALGIA UNSPECIFIED 01/24/2014 ERNST DO, AFSHAN K 462 ACUTE PHARYNGITIS 01/24/2014 RENST DO, AFSHAN K V76.12 MAMMOGRAM SCREENING 01/24/2014 ERNTS DO, AFSHAN K 388.70 OTALGIA UNSPECIFIED 01/24/2014 ERNST DO, AFSHAN K 462 ACUTE PHARYNGITIS 01/24/2014 ERNST DO, AFSHAN K V76.12 MAMMOGRAM SCREENING 01/24/2014 ERNST DO, AFSHAN K 388.70 OTALGIA UNSPECIFIED 01/24/2014 ERNST DO, AFSHAN K 462 ACUTE PHARYNGITIS 01/24/2014 ERNST DO, AFSHAN K V76.12 MAMMOGRAM SCREENING 01/24/2014 ERNST DO, AFSHAN K 388.70 OTALGIA UNSPECIFIED 01/24/2014 ERNST DO, AFSHAN K 462 ACUTE PHARYNGITIS 01/24/2014 ERNST DO, AFSHAN K V76.12 MAMMOGRAM SCREENING 01/24/2014 CIERRA CORPORATE RECEPTIONIST, NATALI A 388.70 OTALGIA UNSPECIFIED 01/24/2014 CIERRA CORPORATE RECEPTIONIST, NATALI A 462 ACUTE PHARYNGITIS 01/24/2014 CIERRA CORPORATE RECEPTIONIST, NATALI A V76.12 MAMMOGRAM SCREENING 01/24/2014 ELISA CORPORATE RECEPTIONIST, SARITHA S 388.70 OTALGIA UNSPECIFIED 01/24/2014 ELISA RICCI SARITHA S 462 ACUTE PHARYNGITIS 01/24/2014 ELISA CORPORATE RECEPTIONIST, SARITHA S V76.12 MAMMOGRAM SCREENING 01/24/2014 ERNST DO, AFSHAN K 388.70 OTALGIA UNSPECIFIED 01/24/2014 ERNST DO, AFSHAN K 462 ACUTE PHARYNGITIS 01/24/2014 ERNST DO, FASHAN K V76.12 MAMMOGRAM SCREENING 01/24/2014 ELISA CORPORATE RECEPTIONIST SARITHA S 388.70 OTALGIA UNSPECIFIED 01/24/2014 ELISA CORPORATE RECEPTIONIST, SARITHA S 462 ACUTE PHARYNGITIS 01/24/2014 ELISA CORPORATE RECEPTIONIST, SARITHA S V76.12 MAMMOGRAM SCREENING 01/24/2014 NEETA PECK PA-C 388.70 OTALGIA UNSPECIFIED 01/24/2014 NEETA PEKC PA-C 462 ACUTE PHARYNGITIS 01/24/2014 NEETA PECK PA-C V76.12 MAMMOGRAM SCREENING 01/24/2014 ERNST DO, AFSHAN K 388.70 OTALGIA UNSPECIFIED 01/24/2014 ERNST DO, AFSHAN K 462 ACUTE PHARYNGITIS 01/24/2014 ERNST DO, AFSHAN K V76.12 MAMMOGRAM SCREENING 01/24/2014 ERNST DO, AFSHAN K 388.70 OTALGIA UNSPECIFIED 01/24/2014 ERNST DO, AFSHAN K 462 ACUTE PHARYNGITIS 01/24/2014 ERNST DO, AFSHAN K V76.12 MAMMOGRAM SCREENING 01/24/2014 MADL CORPORATE RECEPTIONIST, DANIELA L 388.70 OTALGIA UNSPECIFIED 01/24/2014 MADL CORPORATE RECEPTIONIST, DANIELA L 462 ACUTE PHARYNGITIS 01/24/2014 MADL CORPORATE RECEPTIONIST, DANIELA L V76.12 MAMMOGRAM SCREENING 01/24/2014 ERNST DO, AFSHAN K 388.70 OTALGIA UNSPECIFIED 01/24/2014 ERNST DO, AFSHAN K 462 ACUTE PHARYNGITIS 01/24/2014 ERNST DO, AFSHAN K V76.12 MAMMOGRAM SCREENING 01/24/2014 ERNST DO, AFSHAN K 388.70 OTALGIA UNSPECIFIED 01/24/2014 ERNST DO, AFSHAN K 462 ACUTE PHARYNGITIS 01/24/2014 ERNST DO, AFSHAN K V76.12 MAMMOGRAM SCREENING 01/24/2014 NANCY VELA, FAVIAN Frost 388.70 OTALGIA UNSPECIFIED 01/24/2014 NANCY VELA, FAVIAN Frost 462 ACUTE PHARYNGITIS 01/24/2014 NANCY VELA, FAVIAN Frost V76.12 MAMMOGRAM SCREENING 01/24/2014 VINOD MITCHELL MD 388.70 OTALGIA UNSPECIFIED 01/24/2014 VINOD MITCHELL MD 462 ACUTE PHARYNGITIS 01/24/2014 VINOD MITCHELL MD V76.12 MAMMOGRAM SCREENING 01/24/2014 NATALI NORTON APRN A 388.70 OTALGIA UNSPECIFIED 01/24/2014 NATALI NORTON APRN A 462 ACUTE PHARYNGITIS 01/24/2014 NATALI NORTON APRN A V76.12 MAMMOGRAM SCREENING 01/30/2014 ERNST DO, AFSHAN K V05.4 VARICELLA DX 01/30/2014 ERNST DO, AFSHAN K V05.4 VARICELLA DX 01/30/2014 ERNST DO, AFSHAN K V05.4 VARICELLA DX 01/30/2014 ERNST DO, AFSHAN K V05.4 VARICELLA DX 01/30/2014 ERNST DO, AFSHAN K V05.4 VARICELLA DX 01/30/2014 ERNST DO, AFSHAN K V05.4 VARICELLA DX 01/30/2014 ERNST DO, AFSHAN K V05.4 VARICELLA DX 01/30/2014 ERNST DO, AFSHAN K V05.4 VARICELLA DX 01/30/2014 CIERRA CORPORATE RECEPTIONIST, NATALI A V05.4 VARICELLA DX 01/30/2014 ELISA CORPORATE RECEPTIONIST, SARITHA S V05.4 VARICELLA DX 01/30/2014 ERNST DO, AFSHAN K V05.4 VARICELLA DX 01/30/2014 ELISA CORPORATE RECEPTIONIST, SARITHA S V05.4 VARICELLA DX 01/30/2014 NEETA PECK PA-C V05.4 VARICELLA DX 01/30/2014 ERNST DO, AFSHAN K V05.4 VARICELLA DX 01/30/2014 ERNST DO, AFSHAN K V05.4 VARICELLA DX 01/30/2014 MERCEDES CORPORATE RECEPTIONIST, DANIELA L V05.4 VARICELLA DX 01/30/2014 ERNST DO, AFSHAN K V05.4 VARICELLA DX 01/30/2014 ERNST DO, AFSHAN K V05.4 VARICELLA DX 01/30/2014 NANCY PHD, FAVIAN Frost V05.4 VARICELLA DX 01/30/2014 STEPHEN PAL, VINOD Bear V05.4 VARICELLA DX 01/30/2014 CIERRA MEJIAN, NATALI A V05.4 VARICELLA DX 02/13/2014 DEMETRICE PAL, DENNIS Garcia Ot 238.71 ESSENTIAL THROMBOCYTHEMIA 02/13/2014 DENNIS SURESH MD Ot 288.60 LEUKOCYTOSIS, UNSPECIFIED 02/13/2014 DENNIS SURESH MD Ot 780.2 SYNCOPE AND COLLAPSE 02/13/2014 DENNIS SURESH MD Ot 780.60 FEVER, UNSPECIFIED 02/13/2014 DENNIS SURESH MD Ot 789.00 ABDOMINAL PAIN, UNSPECIFIED SITE 02/13/2014 DENNIS SURESH MD Ot V58.69 OT MED,LT,CURRENT USE 02/13/2014 NEETA JUARES Ot 780.2 SYNCOPE AND COLLAPSE 02/13/2014 PECK PA, NEETA M Ot 780.4 DIZZINESS AND GIDDINESS 02/13/2014 NEETA JUARES Ot 782.0 SKIN SENSATION DISTURB 02/13/2014 NEETA JUARES Ot 785.1 PALPITATIONS 02/25/2014 ERNST DO, AFSHAN K 401.1 HYPERTENSION, BENIGN ESSENTIAL 02/25/2014 ERNST DO, AFSHAN K 401.1 HYPERTENSION, BENIGN ESSENTIAL 02/25/2014 ERNST DO, AFSHAN K 401.1 HYPERTENSION, BENIGN ESSENTIAL 02/25/2014 ERNST DO, AFSHAN K 401.1 HYPERTENSION, BENIGN ESSENTIAL 02/25/2014 ERNST DO, AFSHAN K 401.1 HYPERTENSION, BENIGN ESSENTIAL 02/25/2014 ERNST DO, AFSHAN K 401.1 HYPERTENSION, BENIGN ESSENTIAL 02/25/2014 ERNST DO, AFSHAN K 401.1 HYPERTENSION, BENIGN ESSENTIAL 02/25/2014 NATALI NORTON APRN A 401.1 HYPERTENSION, BENIGN ESSENTIAL 02/25/2014 SARITHA PÉREZ APRN S 401.1 HYPERTENSION, BENIGN ESSENTIAL 02/25/2014 ERNST DO, AFSHAN K 401.1 HYPERTENSION, BENIGN ESSENTIAL 02/25/2014 SARITHA PÉREZ APRN S 401.1 HYPERTENSION, BENIGN ESSENTIAL 02/25/2014 NEETA PECK PA-C 401.1 HYPERTENSION, BENIGN ESSENTIAL 02/25/2014 ERNST DO, AFSHAN K 401.1 HYPERTENSION, BENIGN ESSENTIAL 02/25/2014 ERNST DO, AFSHAN K 401.1 HYPERTENSION, BENIGN ESSENTIAL 02/25/2014 DANIELA LONG APRN L 401.1 HYPERTENSION, BENIGN ESSENTIAL 02/25/2014 ERNST DO, AFSHAN K 401.1 HYPERTENSION, BENIGN ESSENTIAL 02/25/2014 ERNST DO, AFSHAN K 401.1 HYPERTENSION, BENIGN ESSENTIAL 02/25/2014 NANCY PHD, FAVIAN Frost 401.1 HYPERTENSION, BENIGN ESSENTIAL 02/25/2014 STEPHEN PAL, VINOD Bear 401.1 HYPERTENSION, BENIGN ESSENTIAL 02/25/2014 NATALI NORTON APRN A 401.1 HYPERTENSION, BENIGN ESSENTIAL 03/14/2014 ERNST DO, AFSHAN K V12.55 PERSONAL HISTORY OF PULMONARY EMBOLISM 03/14/2014 ERNST DO, AFSHAN K V12.55 PERSONAL HISTORY OF PULMONARY EMBOLISM 03/14/2014 ERNST DO, AFSHAN K V12.55 PERSONAL HISTORY OF PULMONARY EMBOLISM 03/14/2014 ERNST DO, AFSHAN K V12.55 PERSONAL HISTORY OF PULMONARY EMBOLISM 03/14/2014 ERNST DO, AFSHAN K V12.55 PERSONAL HISTORY OF PULMONARY EMBOLISM 03/14/2014 NATALI NORTON APRN A V12.55 PERSONAL HISTORY OF PULMONARY EMBOLISM 03/14/2014 SARITHA PÉREZ APRN S V12.55 PERSONAL HISTORY OF PULMONARY EMBOLISM 03/14/2014 ERNST DO AFSHAN K V12.55 PERSONAL HISTORY OF PULMONARY EMBOLISM 03/14/2014 SARITHA PÉREZ APRN S V12.55 PERSONAL HISTORY OF PULMONARY EMBOLISM 03/14/2014 LIV NICK, NEETA M V12.55 PERSONAL HISTORY OF PULMONARY EMBOLISM 03/14/2014 ERNST DO, AFSHAN K V12.55 PERSONAL HISTORY OF PULMONARY EMBOLISM 03/14/2014 ERNST DO, AFSHAN K V12.55 PERSONAL HISTORY OF PULMONARY EMBOLISM 03/14/2014 DANIELA LONG APRN V12.55 PERSONAL HISTORY OF PULMONARY EMBOLISM 03/14/2014 ERNST DO AFSHAN K V12.55 PERSONAL HISTORY OF PULMONARY EMBOLISM 03/14/2014 ERNST DO, AFSHAN K V12.55 PERSONAL HISTORY OF PULMONARY EMBOLISM 03/14/2014 NANCY PHD, FAVIAN Frost V12.55 PERSONAL HISTORY OF PULMONARY EMBOLISM 03/14/2014 STEPHEN PAL, VINOD Bear V12.55 PERSONAL HISTORY OF PULMONARY EMBOLISM 03/14/2014 NATALI NORTON APRN A V12.55 PERSONAL HISTORY OF PULMONARY EMBOLISM 03/28/2014 ERNST DO, AFSHAN K 625.8 OTHER SPECIFIED SYMPTOMS ASSOCIATED WITH FEMALE GENITAL ORGANS 03/28/2014 ERNST DO, AFSHAN K 626.4 IRREGULAR MENSTRUAL CYCLE 03/28/2014 ERNST DO, AFSHAN K 788.41 URINARY FREQUENCY 03/28/2014 ERNST DO, AFSHAN K 625.8 OTHER SPECIFIED SYMPTOMS ASSOCIATED WITH FEMALE GENITAL ORGANS 03/28/2014 ERNST DO, AFSHAN K 626.4 IRREGULAR MENSTRUAL CYCLE 03/28/2014 ERNST DO, AFSHAN K 788.41 URINARY FREQUENCY 03/28/2014 ERNST DO, AFSHAN K 625.8 OTHER SPECIFIED SYMPTOMS ASSOCIATED WITH FEMALE GENITAL ORGANS 03/28/2014 ERNST DO, AFSHAN K 626.4 IRREGULAR MENSTRUAL CYCLE 03/28/2014 ERNST DO, AFSHAN K 788.41 URINARY FREQUENCY 03/28/2014 ERNST DO, AFSHAN K 625.8 OTHER SPECIFIED SYMPTOMS ASSOCIATED WITH FEMALE GENITAL ORGANS 03/28/2014 ERNST DO, AFSHAN K 626.4 IRREGULAR MENSTRUAL CYCLE 03/28/2014 ERNST DO, AFSHAN K 788.41 URINARY FREQUENCY 03/28/2014 CIERRA CORPORATE RECEPTIONIST, NATALI A 625.8 OTHER SPECIFIED SYMPTOMS ASSOCIATED WITH FEMALE GENITAL ORGANS 03/28/2014 CIERRA CORPORATE RECEPTIONIST, NATALI A 626.4 IRREGULAR MENSTRUAL CYCLE 03/28/2014 CIERRA CORPORATE RECEPTIONIST, NATALI A 788.41 URINARY FREQUENCY 03/28/2014 ELISA CORPORATE RECEPTIONIST, SARITHA S 625.8 OTHER SPECIFIED SYMPTOMS ASSOCIATED WITH FEMALE GENITAL ORGANS 03/28/2014 ELISA CORPORATE RECEPTIONIST, SARITHA S 626.4 IRREGULAR MENSTRUAL CYCLE 03/28/2014 ELISA CORPORATE RECEPTIONIST, SARITHA S 788.41 URINARY FREQUENCY 03/28/2014 ERNST DO, AFSHAN K 625.8 OTHER SPECIFIED SYMPTOMS ASSOCIATED WITH FEMALE GENITAL ORGANS 03/28/2014 ERNST DO, AFSHAN K 626.4 IRREGULAR MENSTRUAL CYCLE 03/28/2014 ERNST DO, AFSHAN K 788.41 URINARY FREQUENCY 03/28/2014 ELISA CORPORATE RECEPTIONIST, SARITHA S 625.8 OTHER SPECIFIED SYMPTOMS ASSOCIATED WITH FEMALE GENITAL ORGANS 03/28/2014 ELISA CORPORATE RECEPTIONIST SARITHA S 626.4 IRREGULAR MENSTRUAL CYCLE 03/28/2014 ELISA CORPORATE RECEPTIONIST, SARITHA S 788.41 URINARY FREQUENCY 03/28/2014 NEETA PECK PA-C 625.8 OTHER SPECIFIED SYMPTOMS ASSOCIATED WITH FEMALE GENITAL ORGANS 03/28/2014 NEETA PECK PA-C 626.4 IRREGULAR MENSTRUAL CYCLE 03/28/2014 NEETA PECK PA-C 788.41 URINARY FREQUENCY 03/28/2014 ERNST DO, AFSHAN K 625.8 OTHER SPECIFIED SYMPTOMS ASSOCIATED WITH FEMALE GENITAL ORGANS 03/28/2014 ERNST DO, AFSHAN K 626.4 IRREGULAR MENSTRUAL CYCLE 03/28/2014 ERNST DO, AFSHAN K 788.41 URINARY FREQUENCY 03/28/2014 ERNST DO, AFSHAN K 625.8 OTHER SPECIFIED SYMPTOMS ASSOCIATED WITH FEMALE GENITAL ORGANS 03/28/2014 ERNST DO, AFSHAN K 626.4 IRREGULAR MENSTRUAL CYCLE 03/28/2014 ERNST DO, AFSHAN K 788.41 URINARY FREQUENCY 03/28/2014 MADL CORPORATE RECEPTIONIST, DANIELA L 625.8 OTHER SPECIFIED SYMPTOMS ASSOCIATED WITH FEMALE GENITAL ORGANS 03/28/2014 MADL CORPORATE RECEPTIONIST, DANIELA L 626.4 IRREGULAR MENSTRUAL CYCLE 03/28/2014 MARKL CORPORATE RECEPTIONISTOSCARDANIELA L 788.41 URINARY FREQUENCY 03/28/2014 ERNST DO, AFSHAN K 625.8 OTHER SPECIFIED SYMPTOMS ASSOCIATED WITH FEMALE GENITAL ORGANS 03/28/2014 ERNST DO, AFSHAN K 626.4 IRREGULAR MENSTRUAL CYCLE 03/28/2014 ERNST DO, AFSHAN K 788.41 URINARY FREQUENCY 03/28/2014 ERNST DO, AFSHAN K 625.8 OTHER SPECIFIED SYMPTOMS ASSOCIATED WITH FEMALE GENITAL ORGANS 03/28/2014 ERNST DO, AFSHAN K 626.4 IRREGULAR MENSTRUAL CYCLE 03/28/2014 ERNST DO, AFSHAN K 788.41 URINARY FREQUENCY 03/28/2014 FAVIAN CRUZ PHD 625.8 OTHER SPECIFIED SYMPTOMS ASSOCIATED WITH FEMALE GENITAL ORGANS 03/28/2014 FAVIAN CRUZ PHD 626.4 IRREGULAR MENSTRUAL CYCLE 03/28/2014 FAVIAN CRUZ PHD 788.41 URINARY FREQUENCY 03/28/2014 VINOD MITCHELL MD 625.8 OTHER SPECIFIED SYMPTOMS ASSOCIATED WITH FEMALE GENITAL ORGANS 03/28/2014 VINOD MITCHELL MD N 626.4 IRREGULAR MENSTRUAL CYCLE 03/28/2014 VINOD MITCHELL MD N 788.41 URINARY FREQUENCY 03/28/2014 NATALI NORTON APRN A 625.8 OTHER SPECIFIED SYMPTOMS ASSOCIATED WITH FEMALE GENITAL ORGANS 03/28/2014 NATALI NORTON APRN A 626.4 IRREGULAR MENSTRUAL CYCLE 03/28/2014 NATALI NORTON APRN A 788.41 URINARY FREQUENCY 04/15/2014 ERNST DO AFSHAN K 782.7 SPONTANEOUS ECCHYMOSES 04/15/2014 ERNST DO, AFSHAN K 782.7 SPONTANEOUS ECCHYMOSES 04/15/2014 ERNST DO, AFSHAN K 782.7 SPONTANEOUS ECCHYMOSES 04/15/2014 NATALI NORTON APRN A 782.7 SPONTANEOUS ECCHYMOSES 04/15/2014 SARITHA PÉREZ APRN 782.7 SPONTANEOUS ECCHYMOSES 04/15/2014 ERNST DO, AFSHAN K 782.7 SPONTANEOUS ECCHYMOSES 04/15/2014 ELISA CORPORATE RECEPTIONIST, SARITHA S 782.7 SPONTANEOUS ECCHYMOSES 04/15/2014 LIV NICK, NEETA Foss 782.7 SPONTANEOUS ECCHYMOSES 04/15/2014 ERNST DO, AFSHAN K 782.7 SPONTANEOUS ECCHYMOSES 04/15/2014 ERNST DO, AFSHAN K 782.7 SPONTANEOUS ECCHYMOSES 04/15/2014 MERCEDES RICCI, DANIELA Cooper 782.7 SPONTANEOUS ECCHYMOSES 04/15/2014 ERNST DO, AFSHAN K 782.7 SPONTANEOUS ECCHYMOSES 04/15/2014 ERNST DO, AFSHAN K 782.7 SPONTANEOUS ECCHYMOSES 04/15/2014 NANCY PHD, FAVIAN Frost 782.7 SPONTANEOUS ECCHYMOSES 04/15/2014 STEPHEN PAL, VINOD Bear 782.7 SPONTANEOUS ECCHYMOSES 04/15/2014 CIERRA RICCI, NATALI A 782.7 SPONTANEOUS ECCHYMOSES 04/24/2014 ESTEPHANIA GONSALVES MD Ot 238.71 ESSENTIAL THROMBOCYTHEMIA 04/24/2014 ESTEPHANIA GONSALVES MD Ot 285.9 ANEMIA NOS 04/24/2014 ESTEPHANIA GONSALVES MD Ot 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 04/24/2014 ESTEPHANIA GONSALVES MD Ot 455.0 INT HEMORRHOID W/O COMPL 04/24/2014 ESTEPHANIA GONSALVES MD Ot 455.3 EXT HEMORRHOID W/O COMPL 04/24/2014 ESTEPHANIA GONSALVES MD Ot 530.11 REFLUX ESOPHAGITIS 04/24/2014 ESTEPHANIA GONSALVES MD Ot 535.50 UNSP GASTRITIS GASTRODUODENITIS W/O ME 04/24/2014 ESTEPHANIA GONSALVES MD Ot 553.3 DIAPHRAGMATIC HERNIA 04/24/2014 ESTEPHANIA GONSALVES MD Ot 562.10 DIVERTICULOSIS COLON (W/O MENT OF HEMORR 06/12/2014 DENNIS SURESH MD Ot 238.71 ESSENTIAL THROMBOCYTHEMIA 06/12/2014 DENNIS SURESH MD Ot 288.60 LEUKOCYTOSIS, UNSPECIFIED 06/12/2014 DENNIS SURESH MD Ot 780.2 SYNCOPE AND COLLAPSE 06/12/2014 DENNIS SURESH MD Ot 780.60 FEVER, UNSPECIFIED 06/12/2014 DENNIS SURESH MD Ot 789.00 ABDOMINAL PAIN, UNSPECIFIED SITE 06/12/2014 DEMETRICE PAL, DENNIS Radha Ot V58.69 OT MED,LT,CURRENT USE 06/17/2014 ERNST AFSHAN MCKEON K 709.9 UNSPECIFIED DISORDER OF SKIN AND SUBCUTANEOUS TISSUE 06/17/2014 ERNST AFSHAN MCKEON K 729.0 RHEUMATISM UNSPECIFIED AND FIBROSITIS 06/17/2014 ERNST AFSHAN MCKEON K 784.91 POSTNASAL DRIP 06/17/2014 ERNST AFSHAN MCKEON K 709.9 UNSPECIFIED DISORDER OF SKIN AND SUBCUTANEOUS TISSUE 06/17/2014 AFSHAN ERNST DO K 729.0 RHEUMATISM UNSPECIFIED AND FIBROSITIS 06/17/2014 ERNST ALANNAH MCKEONA K 784.91 POSTNASAL DRIP 06/17/2014 CIERRA CORPORATE RECEPTIONIST, NATALI A 709.9 UNSPECIFIED DISORDER OF SKIN AND SUBCUTANEOUS TISSUE 06/17/2014 CIERRA CORPORATE RECEPTIONIST, NATALI A 729.0 RHEUMATISM UNSPECIFIED AND FIBROSITIS 06/17/2014 CIERRA CORPORATE RECEPTIONIST, NATALI A 784.91 POSTNASAL DRIP 06/17/2014 ELISA CORPORATE RECEPTIONIST SARITHA S 709.9 UNSPECIFIED DISORDER OF SKIN AND SUBCUTANEOUS TISSUE 06/17/2014 ELISA CORPORATE RECEPTIONIST, SARITHA S 729.0 RHEUMATISM UNSPECIFIED AND FIBROSITIS 06/17/2014 ELISA CORPORATE RECEPTIONIST, SARITHA S 784.91 POSTNASAL DRIP 06/17/2014 AFSHAN ERNST DO K 709.9 UNSPECIFIED DISORDER OF SKIN AND SUBCUTANEOUS TISSUE 06/17/2014 AFSHAN ERNST DO K 729.0 RHEUMATISM UNSPECIFIED AND FIBROSITIS 06/17/2014 AFSHAN ERNST DO K 784.91 POSTNASAL DRIP 06/17/2014 ELISA CORPORATE RECEPTIONIST, SARITHA S 709.9 UNSPECIFIED DISORDER OF SKIN AND SUBCUTANEOUS TISSUE 06/17/2014 ELISA CORPORATE RECEPTIONIST SARITHA S 729.0 RHEUMATISM UNSPECIFIED AND FIBROSITIS 06/17/2014 ELISA CORPORATE RECEPTIONIST, SARITHA S 784.91 POSTNASAL DRIP 06/17/2014 NEETA PECK PA-C 709.9 UNSPECIFIED DISORDER OF SKIN AND SUBCUTANEOUS TISSUE 06/17/2014 NEETA PECK PA-C 729.0 RHEUMATISM UNSPECIFIED AND FIBROSITIS 06/17/2014 LIV NICK, NEETA Foss 784.91 POSTNASAL DRIP 06/17/2014 ERNST ALANNAH MCKEONA K 709.9 UNSPECIFIED DISORDER OF SKIN AND SUBCUTANEOUS TISSUE 06/17/2014 ERNST DO AFSHAN K 729.0 RHEUMATISM UNSPECIFIED AND FIBROSITIS 06/17/2014 ERNST DO AFSHAN K 784.91 POSTNASAL DRIP 06/17/2014 ERNST DO AFSHAN K 709.9 UNSPECIFIED DISORDER OF SKIN AND SUBCUTANEOUS TISSUE 06/17/2014 ERNST DO AFSHAN K 729.0 RHEUMATISM UNSPECIFIED AND FIBROSITIS 06/17/2014 ERNST DO AFSHAN K 784.91 POSTNASAL DRIP 06/17/2014 MADL CORPORATE RECEPTIONIST DANIELA L 709.9 UNSPECIFIED DISORDER OF SKIN AND SUBCUTANEOUS TISSUE 06/17/2014 MADL CORPORATE RECEPTIONIST DANIELA L 729.0 RHEUMATISM UNSPECIFIED AND FIBROSITIS 06/17/2014 MADL CORPORATE RECEPTIONIST, DANIELA L 784.91 POSTNASAL DRIP 06/17/2014 ALANNAH ERNST DOA K 709.9 UNSPECIFIED DISORDER OF SKIN AND SUBCUTANEOUS TISSUE 06/17/2014 ERNST DO AFSHAN K 729.0 RHEUMATISM UNSPECIFIED AND FIBROSITIS 06/17/2014 ERNST DO AFSHAN K 784.91 POSTNASAL DRIP 06/17/2014 ALANNAH ERNST DOA K 709.9 UNSPECIFIED DISORDER OF SKIN AND SUBCUTANEOUS TISSUE 06/17/2014 ERNST ALANNAH MCKEONA K 729.0 RHEUMATISM UNSPECIFIED AND FIBROSITIS 06/17/2014 ERNST ALANNAH MCKEONA K 784.91 POSTNASAL DRIP 06/17/2014 FAVIAN CRUZ PHD 709.9 UNSPECIFIED DISORDER OF SKIN AND SUBCUTANEOUS TISSUE 06/17/2014 FAVIAN CRUZ PHD 729.0 RHEUMATISM UNSPECIFIED AND FIBROSITIS 06/17/2014 FAVIAN CRUZ PHD 784.91 POSTNASAL DRIP 06/17/2014 VINOD MITCHELL MD 709.9 UNSPECIFIED DISORDER OF SKIN AND SUBCUTANEOUS TISSUE 06/17/2014 VINOD MITCHELL MD 729.0 RHEUMATISM UNSPECIFIED AND FIBROSITIS 06/17/2014 VINOD MITCHELL MD 784.91 POSTNASAL DRIP 06/17/2014 CIERRA CORPORATE RECEPTIONIST, NATALI A 709.9 UNSPECIFIED DISORDER OF SKIN AND SUBCUTANEOUS TISSUE 06/17/2014 NATALI NORTON APRN A 729.0 RHEUMATISM UNSPECIFIED AND FIBROSITIS 06/17/2014 NATALI NORTON APRN A 784.91 POSTNASAL DRIP 06/21/2014 ERNST DO, AFSHAN K V04.81 FLU SHOT 06/21/2014 GISELE NORTON APRNIDI A V04.81 FLU SHOT 06/21/2014 ELISA CORPORATE RECEPTIONIST, SARITHA S V04.81 FLU SHOT 06/21/2014 ERNST DO, AFSHAN K V04.81 FLU SHOT 06/21/2014 ELISA CORPORATE RECEPTIONIST, SARITHA S V04.81 FLU SHOT 06/21/2014 NEETA PECK PA-C V04.81 FLU SHOT 06/21/2014 ERNST DO, AFSHAN K V04.81 FLU SHOT 06/21/2014 ERNST DO, AFSHAN K V04.81 FLU SHOT 06/21/2014 MADL CORPORATE RECEPTIONIST, DANIELA L V04.81 FLU SHOT 06/21/2014 ERNST DO, AFSHAN K V04.81 FLU SHOT 06/21/2014 ERNST DO, AFSHAN K V04.81 FLU SHOT 06/21/2014 NANCY PHD, FAVIAN Frost V04.81 FLU SHOT 06/21/2014 VINOD MITCHELL MD V04.81 FLU SHOT 06/21/2014 GISELE NORTON APRNIDI A V04.81 FLU SHOT 07/11/2014 ELISA RICCI, SARITHA S 465.9 UPPER RESPIRATORY INFECTION 07/11/2014 ERNST DO, AFSHAN K 465.9 UPPER RESPIRATORY INFECTION 07/11/2014 ELISA RICCI, SARITHA S 465.9 UPPER RESPIRATORY INFECTION 07/11/2014 NEETA PECK PA-C 465.9 UPPER RESPIRATORY INFECTION 07/11/2014 ERNST DO, AFSHAN K 465.9 UPPER RESPIRATORY INFECTION 07/11/2014 ERNST DO, AFSHAN K 465.9 UPPER RESPIRATORY INFECTION 07/11/2014 MADL CORPORATE RECEPTIONIST DANIELA L 465.9 UPPER RESPIRATORY INFECTION 07/11/2014 ERNST DO, AFSHAN K 465.9 UPPER RESPIRATORY INFECTION 07/11/2014 ERNST DO, AFSHAN K 465.9 UPPER RESPIRATORY INFECTION 07/11/2014 NANCY VELA, FAVIAN Frost 465.9 UPPER RESPIRATORY INFECTION 07/11/2014 VINOD MITCHELL MD 465.9 UPPER RESPIRATORY INFECTION 07/11/2014 NATALI NORTON APRN A 465.9 UPPER RESPIRATORY INFECTION 08/02/2014 ERNST DO, AFSHAN K 461.9 SINUSITIS ACUTE 08/02/2014 ERNST DO, AFSHAN K 787.01 NAUSEA WITH VOMITING 08/02/2014 LYNDSAY PÉREZ APRNNDA S 461.9 SINUSITIS ACUTE 08/02/2014 ELISA RICCI SARITHA S 787.01 NAUSEA WITH VOMITING 08/02/2014 LIV NICK, NEETA Foss 461.9 SINUSITIS ACUTE 08/02/2014 NEETA PECK PA-C M 787.01 NAUSEA WITH VOMITING 08/02/2014 ERNST DO, AFSHAN K 461.9 SINUSITIS ACUTE 08/02/2014 ERNST DO, AFSHAN K 787.01 NAUSEA WITH VOMITING 08/02/2014 ERNST DO, AFSHAN K 461.9 SINUSITIS ACUTE 08/02/2014 ERNST DO, AFSHAN K 787.01 NAUSEA WITH VOMITING 08/02/2014 MADL RADHAMES, DANIELA L 461.9 SINUSITIS ACUTE 08/02/2014 MADL CORPORATE RECEPTIONIST, DANIELA L 787.01 NAUSEA WITH VOMITING 08/02/2014 ERNST DO, AFSHAN K 461.9 SINUSITIS ACUTE 08/02/2014 ERNST DO, AFSHAN K 787.01 NAUSEA WITH VOMITING 08/02/2014 ERNST DO, AFSHAN K 461.9 SINUSITIS ACUTE 08/02/2014 ERNST DO, AFSHAN K 787.01 NAUSEA WITH VOMITING 08/02/2014 FAVIAN CRUZ PHD 461.9 SINUSITIS ACUTE 08/02/2014 FAVIAN CRUZ PHD 787.01 NAUSEA WITH VOMITING 08/02/2014 VINOD MITCHELL MD 461.9 SINUSITIS ACUTE 08/02/2014 VINOD MITCHELL MD 787.01 NAUSEA WITH VOMITING 08/02/2014 NATALI NORTON APRN A 461.9 SINUSITIS ACUTE 08/02/2014 GISELE NORTON APRNIDI A 787.01 NAUSEA WITH VOMITING 08/02/2014 Ot 218.9 08/02/2014 ANGELES OLSEN MD Ot 218.9 08/02/2014 ANGELES OLSEN MD Ot 620.2 08/02/2014 ANGELES OLSEN MD Ot 218.9 08/02/2014 FENRENITA MARQUEZ DO S Ot 616.2 08/02/2014 FENECH DO, RENITA S Ot 625.0 08/02/2014 FENECH DO, RENITA S Ot 626.8 08/02/2014 FENECH DO, RENITA S Ot V72.63 08/02/2014 FENECH DO, RENITA S Ot V74.8 08/02/2014 MK MONTAGUE PA-C Ot 218.9 08/02/2014 MK [place] PA-C Ot 562.10 08/02/2014 [facility] S Ot 218.9 08/02/2014 [facility] DO, RENITA S Ot 620.2 08/02/2014 NEETA JUARES M Ot 719.06 08/02/2014 NEETA JUARES M Ot 719.46 08/02/2014 [facility] RENITA MCKEON S Ot 611.71 08/02/2014 [facility] DO, RENITA S Ot 611.72 08/02/2014 JEAN BAPTISTE ALLISON MCKEON Ot 611.71 08/02/2014 LIV CARIAS, NEETA M Ot 719.40 08/02/2014 LIV CARIAS, NEETA M Ot 780.2 08/02/2014 LIV CARIAS, NEETA M Ot 780.4 08/02/2014 LIV CARIAS, NEETA M Ot 780.60 08/02/2014 LIV CARIAS, NEETA M Ot 780.8 08/02/2014 LIV CARIAS, NEETA M Ot 782.0 08/02/2014 LIV CARIAS, NEETA M Ot 785.1 08/02/2014 JEAN BAPTISTEALLISON MCKEON DO D Ot 218.9 08/02/2014 [facility] ALLISON MCKEON Ot 620.2 08/02/2014 Ot 780.2 08/02/2014 Ot 780.4 08/02/2014 Ot 782.0 08/02/2014 Ot 785.1 08/02/2014 MAJOR PAL, ESTEPHANIA Ot V72.84 08/02/2014 FENALMA MCKEON, RENITA S Ot 218.9 08/02/2014 [facility] DO, RENITA S Ot 620.2 08/02/2014 DEMETRICE PAL, DENNIS Garcia Ot 238.71 08/02/2014 DEMETRICE PAL, DENNIS Radha Ot 288.60 08/02/2014 DEMETRICE PAL, DENNIS Radha Ot 780.2 08/02/2014 DEMETRICE PAL, DENNIS Radha Ot 780.60 08/02/2014 DEMETRICE PAL, DENNIS Radha Ot 789.00 08/02/2014 DEMETRICE PAL, DENNIS Radha Ot V58.69 08/02/2014 ITA MCKEON ALLISON D Ot 611.71 08/21/2014 NEETA KASPER MD Ot 465.9 ACUTE URI NOS 08/21/2014 NEETA KASPER MD Ot 466.0 ACUTE BRONCHITIS 08/21/2014 NEETA KASPER MD Ot 786.2 COUGH 08/29/2014 DEMETRICE PAL, DENNIS Garcia Ot 238.71 08/29/2014 DEMETRICE PAL, DENNIS Radha Ot 288.60 08/29/2014 DEMETRICE PAL, DENNIS Radha Ot 780.2 08/29/2014 DEMETRICE PAL, DENNIS Garcia Ot 780.60 08/29/2014 DEMETRICE PAL, DENNIS Radha Ot 789.00 08/29/2014 DEMETRICE PAL, DENNIS Garcia Ot V58.69 09/05/2014 FENECH DO, RENITA S Ot 616.2 BARTHOLIN'S GLAND CYST 09/18/2014 Ot 218.9 09/18/2014 ANGELES OLSEN MD Ot 218.9 09/18/2014 ANGELES OLSEN MD Ot 620.2 09/18/2014 ANGELES OLSEN MD Ot 218.9 09/18/2014 FENECH DO, RENITA S Ot 616.2 09/18/2014 FENECH DO, RENITA S Ot 625.0 09/18/2014 FENECH DO, RENITA S Ot 626.8 09/18/2014 FENECH DO, RENITA S Ot V72.63 09/18/2014 FENECH DO, RENITA S Ot V74.8 09/18/2014 MK M[place]AG[place] PA-C Ot 218.9 09/18/2014 MK MONTAGUE PA-C Ot 562.10 09/18/2014 FENECH DO, RENITA S Ot 218.9 09/18/2014 FENECH DO, RENITA S Ot 620.2 09/18/2014 NEETA JUARES Ot 719.06 09/18/2014 LIV CARIAS NEETA M Ot 719.46 09/18/2014 [facility], [facility] S Ot 611.71 09/18/2014 FENECH DO, RENITA S Ot 611.72 09/18/2014 ALLISON JEAN BAPTISTE DO Ot 611.71 09/18/2014 LIV PA, NEETA M Ot 719.40 09/18/2014 PECK PA, NEETA M Ot 780.2 09/18/2014 PECK PA, NEETA M Ot 780.4 09/18/2014 PECK PA, NEETA M Ot 780.60 09/18/2014 LIV PA, NEETA M Ot 780.8 09/18/2014 LIV PA, NEETA M Ot 782.0 09/18/2014 LIV PA, NEETA M Ot 785.1 09/18/2014 ALLISON JEAN BAPTISTE DO Ot 218.9 09/18/2014 ALLISON JEAN BAPTISTE DO Ot 620.2 09/18/2014 Ot 780.2 09/18/2014 Ot 780.4 09/18/2014 Ot 782.0 09/18/2014 Ot 785.1 09/18/2014 ESTEPHANIA GONSALVES MD Ot V72.84 09/18/2014 [facility] DO, RENITA S Ot 218.9 09/18/2014 [facility] DO, R[facility]ITA S Ot 620.2 09/18/2014 DEMETRICE PAL, DENNIS Radha Ot 238.71 09/18/2014 DEMETRICE PAL, DENNIS Radha Ot 288.60 09/18/2014 DEMETRICE PAL, DENNIS Radha Ot 780.2 09/18/2014 DEMETRICE PAL, DENNIS Radha Ot 780.60 09/18/2014 DEMETRICE PAL, DENNIS Radha Ot 789.00 09/18/2014 DEMETRICE PAL, DENNIS Radha Ot V58.69 09/18/2014 FENECH DO, RENITA S Ot 616.2 09/18/2014 FENECH DO, RENITA S Ot V72.63 09/18/2014 FENECH DO, RENITA S Ot V74.8 09/18/2014 ALLISON JEAN BAPTISTE DO Ot 611.71 09/23/2014 FENECH DO, RENITA S Ot 616.2 09/23/2014 FENECH DO, RENITA S Ot V72.63 09/23/2014 FENECH DO, RENITA S Ot V74.8 09/26/2014 DONAL PECK PA-CSHUA M 272.4 DYSLIPIDEMIA 09/26/2014 ERNST DO, AFSHAN K 272.4 DYSLIPIDEMIA 09/26/2014 ERNST DO, AFSHAN K 272.4 DYSLIPIDEMIA 09/26/2014 DANIELA LONG APRN 272.4 DYSLIPIDEMIA 09/26/2014 ERNST DO, AFSHAN K 272.4 DYSLIPIDEMIA 09/26/2014 ERNST DO, AFSHAN K 272.4 DYSLIPIDEMIA 09/26/2014 NANCY PHD, FAVIAN Frost 272.4 DYSLIPIDEMIA 09/26/2014 STEPHEN PAL, VINOD Bear 272.4 DYSLIPIDEMIA 09/26/2014 NATALI NORTON APRN 272.4 DYSLIPIDEMIA 10/03/2014 DEMETRICE PAL, DENNIS Garcia Ot 238.71 10/03/2014 DEMETRICE PAL, DENNIS Garcia Ot 288.60 10/03/2014 DEMETRICE PAL, DENNIS Garcia Ot 780.2 10/03/2014 DEMETRICE PAL, DENNIS Garcia Ot 780.60 10/03/2014 DEMETRICE PAL, DENNIS Garcia Ot 789.00 10/03/2014 DEMETRICE PAL, DENNIS Garcia Ot V58.69 10/04/2014 [facility] ALLISON MCKEON Ot 611.71 10/04/2014 [facility] RENITA MCKEON Ot 218.9 10/04/[facility] Ot 620.2 10/10/2014 DEMETRICE PAL, DENNIS Garcia Ot 238.71 10/10/2014 DEMETRICE PAL, DENNIS Garcia Ot 288.60 10/10/2014 DEMETRICE PAL, DENNIS Garcia Ot 780.2 10/10/2014 DEMETRICE PAL, DENNIS Garcia Ot 780.60 10/10/2014 DEMETRICE PAL, DENNIS Garcia Ot 789.00 10/10/2014 DEMETRICE PAL, DENNIS Garcia Ot V58.69 10/11/2014 DEMETRICE PAL, DENNIS Garcia Ot 238.71 10/11/2014 DEMETRICE PAL, DENNIS Garcia Ot 288.60 10/11/2014 DEMETRICE PAL, DENNIS Garcia Ot 780.2 10/11/2014 DEMETRICE PAL, DENNIS Garcia Ot 780.60 10/11/2014 DEMETRICE PAL, DENNIS Garcia Ot 789.00 10/11/2014 DEMETRICE PAL, DENNIS Garcia Ot V58.69 10/28/2014 SUJATA DO AFSHAN K 710.0 SYSTEMIC LUPUS ERYTHEMATOSUS 10/28/2014 ERNST DO AFSHAN K 782.1 RASH AND OTHER NONSPECIFIC SKIN ERUPTION 10/28/2014 MADL CORPORATE RECEPTIONIST, DANIELA L 710.0 SYSTEMIC LUPUS ERYTHEMATOSUS 10/28/2014 MERCEDES RICCI, DANIELA L 782.1 RASH AND OTHER NONSPECIFIC SKIN ERUPTION 10/28/2014 ERNST DO, AFSHAN K 710.0 SYSTEMIC LUPUS ERYTHEMATOSUS 10/28/2014 ERNST DO, AFSHAN K 782.1 RASH AND OTHER NONSPECIFIC SKIN ERUPTION 10/28/2014 ERNST DO, AFSHAN K 710.0 SYSTEMIC LUPUS ERYTHEMATOSUS 10/28/2014 ERNST DO AFSHAN K 782.1 RASH AND OTHER NONSPECIFIC SKIN ERUPTION 10/28/2014 FAVIAN CRUZ PHD 710.0 SYSTEMIC LUPUS ERYTHEMATOSUS 10/28/2014 FAVIAN CRUZ PHD 782.1 RASH AND OTHER NONSPECIFIC SKIN ERUPTION 10/28/2014 VINOD MITCHELL MD 710.0 SYSTEMIC LUPUS ERYTHEMATOSUS 10/28/2014 VINOD MITCHELL MD 782.1 RASH AND OTHER NONSPECIFIC SKIN ERUPTION 10/28/2014 CIERRA RICCI NATALI A 710.0 SYSTEMIC LUPUS ERYTHEMATOSUS 10/28/2014 CIERRA RICCI NATALI A 782.1 RASH AND OTHER NONSPECIFIC SKIN ERUPTION 11/14/2014 DEMETRICE PAL, DENNIS Radha Ot 238.71 11/14/2014 DEMETRICE PAL, DENNIS Garcia Ot 288.60 11/14/2014 DEMETRICE PAL, DENNIS Garcia Ot 780.2 11/14/2014 DEMETRICE PAL, DENNIS Garcia Ot 780.60 11/14/2014 DEMETRICE PAL, DENNIS Radha Ot 789.00 11/14/2014 DEMETRICE PAL, DENNIS Garcia Ot V58.69 11/27/2014 Ot 599.0 URIN TRACT INFECTION NOS 11/27/2014 Ot 789.09 ABDOMINAL PAIN, OTHER SPECIFIED SITE 12/09/2014 ALANNAH ERNST DOA K 599.0 URINARY TRACT INFECTION 12/09/2014 SUJATA MCKEON AFSHAN K 726.32 LATERAL EPICONDYLITIS ELBOW REGION 12/09/2014 SUJATA MCKEON AFSHAN K 599.0 URINARY TRACT INFECTION 12/09/2014 ALANNAH ERNST DOA K 726.32 LATERAL EPICONDYLITIS ELBOW REGION 12/09/2014 FAVIAN CRUZ PHD 599.0 URINARY TRACT INFECTION 12/09/2014 FAVIAN CRUZ PHD 726.32 LATERAL EPICONDYLITIS ELBOW REGION 12/09/2014 VINOD MITCHELL MD 599.0 URINARY TRACT INFECTION 12/09/2014 STEPHEN MD, VINOD N 726.32 LATERAL EPICONDYLITIS ELBOW REGION 12/09/2014 CIERRANATALI ANDRADE APRN A 599.0 URINARY TRACT INFECTION 12/09/2014 CIERRARAYMOND RICCI NATALI A 726.32 LATERAL EPICONDYLITIS ELBOW REGION 12/18/2014 ERNST AFSHAN MCKEON V03.82 PCV-13 (PREVNAR) DX 12/18/2014 NANCY VELA, FAVIAN Frost V03.82 PCV-13 (PREVNAR) DX 12/18/2014 VINOD MITCHELL MD V03.82 PCV-13 (PREVNAR) DX 12/18/2014 NATALI NORTON APRN V03.82 PCV-13 (PREVNAR) DX 12/30/2014 NANCY PHD, FAVIAN Frost 296.33 MO DEPRESSIVE RECURRENT SEVERE W/O PSYCHOTIC BEHAVIOR 12/30/2014 VINOD MITCHELL MD 296.33 MO DEPRESSIVE RECURRENT SEVERE W/O PSYCHOTIC BEHAVIOR 12/30/2014 NATALI NORTON APRN 296.33 MO DEPRESSIVE RECURRENT SEVERE W/O PSYCHOTIC BEHAVIOR 01/08/2015 DEMETRICE PAL, DENNIS Garcia Ot 238.71 ESSENTIAL THROMBOCYTHEMIA 01/08/2015 DEMETRICE PAL, DENNIS Garcia Ot 288.60 LEUKOCYTOSIS, UNSPECIFIED 01/08/2015 DEMETRICE PAL, DENNIS Garcia Ot 780.2 SYNCOPE AND COLLAPSE 01/08/2015 DEMETRICE PAL, DENNIS Garcia Ot 780.60 FEVER, UNSPECIFIED 01/08/2015 DEMETRICE PAL, DENNIS Garcia Ot 789.00 ABDOMINAL PAIN, UNSPECIFIED SITE 01/08/2015 DEMETRICE PAL, DENNIS Garcia Ot V58.69 OTH MED,LT,CURRENT USE 01/09/2015 NATALI NORTON APRN A 788.41 URINARY FREQUENCY 01/13/2015 NEETA JUARES Ot 272.4 01/13/2015 NEETA JUARES Ot 696.1 01/13/2015 NEETA JUARES M Ot 729.0 01/14/2015 NATALI NORTON APRN 788.1 DYSURIA 01/23/2015 Ot 218.9 01/23/2015 ANGELES OLSEN MD Ot 218.9 01/23/2015 ANGELES OLSEN MD Ot 620.2 01/23/2015 ANGELES OLSEN MD Ot 218.9 01/23/2015 RENITA MUÑOZ DO Ot 616.2 01/23/2015 FENECH DO, RENITA S Ot 625.0 01/23/2015 FENECH DO, RENITA S Ot 626.8 01/23/2015 FENECH DO, RENITA S Ot V72.63 01/23/2015 FENECH DO, RENITA S Ot V74.8 01/23/2015 MK MONTAGUE PA-C Ot 218.9 01/23/2015 MK M[place]AG[place] PA-C Ot 562.10 01/23/2015 FENECH DO, RENITA S Ot 218.9 01/23/2015 FENECH DO, RENITA S Ot 620.2 01/23/2015 PECK PA, NEETA M Ot 719.06 01/23/2015 PECK PA, NEETA M Ot 719.46 01/23/2015 FENECH DO, RENITA S Ot 611.71 01/23/2015 FENECH DO, RENITA S Ot 611.72 01/23/2015 ALLISON JEAN BAPTISTE DO Ot 611.71 01/23/2015 PECK PA, NEETA M Ot 719.40 01/23/2015 PECK PA, NEETA M Ot 780.2 01/23/2015 PECK PA, NEETA M Ot 780.4 01/23/2015 PECK PA, NEETA M Ot 780.60 01/23/2015 PECK PA, NEETA M Ot 780.8 01/23/2015 PECK PA, NEETA M Ot 782.0 01/23/2015 PECK PA, NEETA M Ot 785.1 01/23/2015 ALLISON JEAN BAPTISTE DO Ot 218.9 01/23/2015 [facility] ALLISON MCKEON Ot 620.2 01/23/2015 Ot 780.2 01/23/2015 Ot 780.4 01/23/2015 Ot 782.0 01/23/2015 Ot 785.1 01/23/2015 ESTEPHANIA GONSALVES MD Ot V72.84 01/23/2015 FENECH DO, RENITA S Ot 218.9 01/23/2015 FENECH DO, RENITA S Ot 620.2 01/23/2015 FENECH DO, RENITA S Ot 616.2 01/23/2015 FENECH DO, RENITA S Ot V72.63 01/23/2015 FENECH DO, RENITA S Ot V74.8 01/23/2015 LIV PA, NEETA M Ot 272.4 01/23/2015 LIV PA, NEETA M Ot 696.1 01/23/2015 LIV CARIAS, NEETA M Ot 729.0 01/23/2015 DEMETRICE PAL, DENNIS Garcia Ot 238.71 01/23/2015 DEMETRICE PAL, DENNIS Garcia Ot 288.60 01/23/2015 DEMETRICE PAL, DENNIS Garcia Ot 780.2 01/23/2015 DEMETRICE PAL, DENNIS Garcia Ot 780.60 01/23/2015 DEMETRICE PAL, DENNIS Garcia Ot 789.00 01/23/2015 DEMETRICE PAL, DENNIS Garcia Ot V58.69 02/20/2015 ROSEMARY MCKEON, MIRELLA Garcia Ot 300.00 ANXIETY STATE NOS 02/20/2015 ROSEMARY MCKEON, MIRELLA Garcia Ot 782.0 SKIN SENSATION DISTURB 02/20/2015 ROSEMARY MCKEON, MIRELLA K Ot 784.0 HEADACHE 02/20/2015 ROSEMARY , MIRELLA Garcia Ot 786.50 CHEST PAIN NOS 03/10/2015 RENITA MUÑOZ DO S Ot 218.0 03/10/2015 RENITA MUÑOZ DO S Ot 620.2 03/27/2015 DEMETRICE PAL, DENNIS Garcia Ot 238.71 03/27/2015 DEMETRICE PAL, DENNIS Garcia Ot 288.60 03/27/2015 DEMETRICE PAL, DENNIS Garcia Ot 780.2 03/27/2015 DEMETRICE PAL, DENNIS Garcia Ot 780.60 03/27/2015 DEMETRICE PAL, DENNIS Garcia Ot 789.00 03/27/2015 DEMETRICE PAL, DENNIS Garcia Ot V58.69 03/27/2015 DEMETRICE PAL, DENNIS Garcia Ot 238.71 03/27/2015 DEMETRICE PAL, DENNIS Garcia Ot 288.60 03/27/2015 DEMETRICE PAL, DENNIS Garcia Ot 780.2 03/27/2015 DEMETRICE PAL, DENNIS Garcia Ot 780.60 03/27/2015 DEMETRICE PAL, DENNIS Garcia Ot 789.00 03/27/2015 DEMETRICE PAL, DENNIS Garcia Ot V58.69 04/03/2015 DEMETRICE PAL, DENNIS Garcia Ot 238.71 04/03/2015 DEMETRICE PAL, DENNIS Garcia Ot 288.60 04/03/2015 DEMETRICE PAL, DENNIS Garcia Ot 780.2 04/03/2015 DEMETRICE PAL, DENNIS Garcia Ot 780.60 04/03/2015 DEMETRICE PAL, DENNIS Garcia Ot 789.00 04/03/2015 DEMETRICE PAL, DENNIS Garcia Ot V58.69 04/03/2015 FENECH DO, RENITA S Ot 218.0 04/03/2015 FENECH DO, RENITA S Ot 620.2 04/04/2015 DEMETRICE PAL, DENNIS Garcia Ot 238.71 04/04/2015 DEMETRICE PAL, DENNIS Garcia Ot 288.60 04/04/2015 DEMETRICE PAL, DENNIS Garcia Ot 780.2 04/04/2015 DEMETRICE PAL, DENNIS Garcia Ot 780.60 04/04/2015 DEMETRICE PAL, DENNIS Garcia Ot 789.00 04/04/2015 DEMETRICE PAL, DENNIS Garcia Ot V58.69 04/10/2015 FENECH DO, RENITA S Ot 218.0 04/10/2015 FENECH DO, RENITA S Ot 620.2 05/07/2015 FENECH DO, RENITA S Ot 218.9 05/07/2015 FENECH DO, RENITA S Ot 620.2 05/27/2015 STEPHEN PAL, VINOD Bear Ot 571.8 05/27/2015 STEPHEN PAL, VINOD Bear Ot 786.05 06/03/2015 Ot 218.9 06/03/2015 PRETTY PAL, ANGELES Newman Ot 218.9 06/03/2015 ANGELES OLSEN MD Ot 620.2 06/03/2015 ANGELES OLSEN MD Ot 218.9 06/03/2015 FENECH DO, RENITA S Ot 616.2 06/03/2015 FENECH DO, RENITA S Ot 625.0 06/03/2015 FENECH DO, RENITA S Ot 626.8 06/03/2015 FENECH DO, RENITA S Ot V72.63 06/03/2015 FENECH DO, RENITA S Ot V74.8 06/03/2015 MK MONTAGUE PA-C Ot 218.9 06/03/2015 MK M[place]AG[place] PA-C Ot 562.10 06/03/2015 FENECH DO, RENITA S Ot 218.9 06/03/2015 FENECH DO, RENITA S Ot 620.2 06/03/2015 NEETA JUARES Ot 719.06 06/03/2015 NEETA JUARES Ot 719.46 06/03/2015 FENECH DO, RENITA S Ot 611.71 06/03/2015 FENECH DO, RENITA S Ot 611.72 06/03/2015 ALLISON JEAN BAPTISTE DO Ot 611.71 06/03/2015 PECK PA, NEETA M Ot 719.40 06/03/2015 PECK PA, NEETA M Ot 780.2 06/03/2015 PECK PA, NEETA M Ot 780.4 06/03/2015 PECK PA, NEETA M Ot 780.60 06/03/2015 PECK PA, NEETA M Ot 780.8 06/03/2015 PECK PA, NEETA M Ot 782.0 06/03/2015 PECK PA, NEETA M Ot 785.1 06/03/2015 [facility] ALLISON MCKEON D Ot 218.9 06/03/2015 [facility] ALLISON MCKEON D Ot 620.2 06/03/2015 Ot 780.2 06/03/2015 Ot 780.4 06/03/2015 Ot 782.0 06/03/2015 Ot 785.1 06/03/2015 ESTEPHANIA GONSALVES MD Ot V72.84 06/03/2015 FENECH DO, RENITA S Ot 218.9 06/03/2015 FENECH DO, RENITA S Ot 620.2 06/03/2015 FENECH DO, RENITA S Ot 616.2 06/03/2015 FENECH DO, RENITA S Ot V72.63 06/03/2015 FENECH DO, RENITA S Ot V74.8 06/03/2015 LIV PA, NEETA M Ot 272.4 06/03/2015 PECK PA, NEETA M Ot 696.1 06/03/2015 LIV PA, NEETA M Ot 729.0 06/03/2015 DEMETRICE PAL, DENNIS Garcia Ot 238.71 06/03/2015 DEMETRICE PAL, DENNIS Garcia Ot 288.60 06/03/2015 DEMETRICE PAL, DENNIS Garcia Ot V58.69 06/03/2015 FENECH DO, RENITA S Ot 218.0 06/03/2015 FENECH DO, RENITA S Ot 620.2 06/03/2015 FENECH DO, RENITA S Ot 611.72 06/03/2015 FENECH DO, RENITA S Ot 218.9 06/03/2015 FENECH DO, RENITA S Ot 620.2 06/03/2015 VINOD MITCHELL MD Ot 571.8 06/03/2015 VINOD MITCHELL MD Ot 786.05 06/03/2015 DALILA POWELL DO Ot 724.2 LUMBAGO 06/03/2015 DALILA POWELL DO Ot 724.8 OTHER BACK SYMPTOMS 06/03/2015 Ot 218.9 06/03/2015 PRETTY PAL, ANGELES Newman Ot 218.9 06/03/2015 PRETTY PAL, ANGELES Newman Ot 620.2 06/03/2015 PRETTY PAL, ANGELES Newman Ot 218.9 06/03/2015 FENECH DO, RENITA S Ot 616.2 06/03/2015 FENECH DO, RENITA S Ot 625.0 06/03/2015 FENECH DO, RENITA S Ot 626.8 06/03/2015 FENECH DO, RENITA S Ot V72.63 06/03/2015 FENECH DO, RENITA S Ot V74.8 06/03/2015 MK MONTAGUE PA-C Ot 218.9 06/03/2015 MK MONTAGUE PA-C Ot 562.10 06/03/2015 [facility], [facility] S Ot 218.9 06/03/2015 FENECH DO, RENITA S Ot 620.2 06/03/2015 LIV PA, NEETA M Ot 719.06 06/03/2015 LIV PA, NEETA M Ot 719.46 06/03/2015 [facility], [facility] S Ot 611.71 06/03/2015 FENECH DO, RENITA S Ot 611.72 06/03/2015 [facility] ALLISON MCKEON Ot 611.71 06/03/2015 PECK PA, NEETA M Ot 719.40 06/03/2015 PECK PA, NEETA M Ot 780.2 06/03/2015 PECK PA, NEETA M Ot 780.4 06/03/2015 PECK PA, NEETA M Ot 780.60 06/03/2015 PECK PA, NEETA M Ot 780.8 06/03/2015 PECK PA, NEETA M Ot 782.0 06/03/2015 PECK PA, NEETA M Ot 785.1 06/03/2015 ALLISON JEAN BAPTISTE DO Ot 218.9 06/03/2015 ALLISON JEAN BAPTISTE DO Ot 620.2 06/03/2015 Ot 780.2 06/03/2015 Ot 780.4 06/03/2015 Ot 782.0 06/03/2015 Ot 785.1 06/03/2015 MAJOR PAL, NICOLASALEX Ot V72.84 06/03/2015 FENECH DO, RENITA S Ot 218.9 06/03/2015 FENECH DO, RENITA S Ot 620.2 06/03/2015 FENECH DO, RENITA S Ot 616.2 06/03/2015 FENECH DO, RENITA S Ot V72.63 06/03/2015 FENECH DO, RENITA S Ot V74.8 06/03/2015 LIV PA, NEETA M Ot 272.4 06/03/2015 LIV PA, NEETA M Ot 696.1 06/03/2015 LIV PA, NEETA M Ot 729.0 06/03/2015 DEMETRICE PAL, DENNIS Garcia Ot 238.71 06/03/2015 DEMETRICE PAL, DENNIS Garcia Ot 288.60 06/03/2015 DENNIS SURESH MD Ot V58.69 06/03/2015 FENECH DO, RENITA S Ot 218.0 06/03/2015 FENECH DO, RENITA S Ot 620.2 06/03/2015 FENECH DO, RENITA S Ot 611.72 06/03/2015 FENECH DO, RENITA S Ot 218.9 06/03/2015 FENECH DO, RENITA S Ot 620.2 06/03/2015 STEPHEN PAL, VINOD Bear Ot 571.8 06/03/2015 STEPHEN PAL, VINOD Bear Ot 786.05 06/10/2015 VINOD MITCHELL MD Ot 571.8 06/10/2015 VINOD MITCHELL MD Ot 786.05 06/18/2015 DEMETRICE PAL, DENNIS Garcia Ot 238.71 ESSENTIAL THROMBOCYTHEMIA 06/18/2015 DEMETRICE PAL, DENNIS Garcia Ot 288.60 LEUKOCYTOSIS, UNSPECIFIED 06/18/2015 DENNIS SURESH MD Ot V58.69 OT MED,LT,CURRENT USE 08/20/2015 Ot 218.9 08/20/2015 ANGELES OLSEN MD Ot 218.9 08/20/2015 ANGELES OLSEN MD Ot 620.2 08/20/2015 ANGELES OLSEN MD Ot 218.9 08/20/2015 FENECH DO, RENITA S Ot 616.2 08/20/2015 FENECH DO, RENITA S Ot 625.0 08/20/2015 FENECH DO, RENITA S Ot 626.8 08/20/2015 FENECH DO, RENITA S Ot V72.63 08/20/2015 FENECH DO, RENITA S Ot V74.8 08/20/2015 MK MONTAGUE PA-C Ot 218.9 08/20/2015 MK MONTAGUE PA-C Ot 562.10 08/20/2015 FENECH DO, RENITA S Ot 218.9 08/20/2015 FENECH DO, RENITA S Ot 620.2 08/20/2015 LIV CARIAS, NEETA M Ot 719.06 08/20/2015 LIV CARIAS, NEETA M Ot 719.46 08/20/2015 FENECH DO, RENITA S Ot 611.71 08/20/2015 FENECH DO, RENITA S Ot 611.72 08/20/2015 ALLISON JEAN BAPTITSE DO Ot 611.71 08/20/2015 LIV CARIAS, NEETA M Ot 719.40 08/20/2015 LIV CARIAS, NEETA M Ot 780.2 08/20/2015 LIV CARIAS, NEETA M Ot 780.4 08/20/2015 LIV CARIAS, NEETA M Ot 780.60 08/20/2015 LIV CARIAS, NEETA M Ot 780.8 08/20/2015 LIV CARIAS, NEETA M Ot 782.0 08/20/2015 NEETA JUARES M Ot 785.1 08/20/2015 ALLISON JEAN BAPTISTE DO Ot 218.9 08/20/2015 JEAN BAPTISTE ALLISON MCKEON Ot 620.2 08/20/2015 Ot 780.2 08/20/2015 Ot 780.4 08/20/2015 Ot 782.0 08/20/2015 Ot 785.1 08/20/2015 ESTEPHANIA GONSALVES MD Ot V72.84 08/20/2015 FENECH DO, RENITA S Ot 218.9 08/20/2015 FENECH DO, RENITA S Ot 620.2 08/20/2015 FENECH DO, RENITA S Ot 616.2 08/20/2015 FENECH DO, RENITA S Ot V72.63 08/20/2015 FENECH DO, RENITA S Ot V74.8 08/20/2015 NEETA JUARES M Ot 272.4 08/20/2015 NEETA JUARES M Ot 696.1 08/20/2015 NEETA JUARES Ot 729.0 08/20/2015 FENECH DO, RENITA S Ot 218.0 08/20/2015 FENECH DO, RENITA S Ot 620.2 08/20/2015 FENECH DO, RENITA S Ot 611.72 08/20/2015 FENECH DO, RENITA S Ot 218.9 08/20/2015 FENECH DO, RENITA S Ot 620.2 08/20/2015 VINOD MITCHELL MD Ot 571.8 08/20/2015 VINOD MITCHELL MD Ot 786.05 08/21/2015 VINOD MITCHELL MD Ot D47.3 ESSENTIAL (HEMORRHAGIC) THROMBOCYTHEMIA 08/21/2015 VINOD MITCHELL MD Ot F32.9 MAJOR DEPRESSIVE DISORDER, SINGLE EPISOD 08/21/2015 VINOD MITCHELL MD Ot L40.50 ARTHROPATHIC PSORIASIS, UNSPECIFIED 08/21/2015 VINOD MITCHELL MD Ot R00.1 BRADYCARDIA, UNSPECIFIED 08/21/2015 VINOD MITCHELL MD Ot R42 DIZZINESS AND GIDDINESS 08/21/2015 VINOD MITCHELL MD Ot R51 HEADACHE 08/21/2015 VINOD MITCHELL MD Ot R55 SYNCOPE AND COLLAPSE 08/21/2015 VINOD MITCHELL MD Ot S06.9X9A [facility] INTRACRANIAL INJURY W LOC OF [facility] D 08/21/2015 VINOD MITCHELL MD Ot S16.1XXA STRAIN OF MUSCLE, FASCIA AND TENDON AT N 08/21/2015 VINOD MITCHELL MD Ot W19.XXXA UNSPECIFIED FALL, INITIAL ENCOUNTER 08/21/2015 VINOD MITCHELL MD Ot Y92.002 BATHRM OF [facility] NON-INSTITUT RESDNCE SNGL 08/21/2015 VINOD MITCHELL MD Ot Y93.E1 ACTIVITY, PERSONAL BATHING AND SHOWERING 08/21/2015 Ot 218.9 08/21/2015 ANGELES OLSEN MD Ot 218.9 08/21/2015 ANGELES OLSEN MD Ot 620.2 08/21/2015 ANGELES OLSEN MD Ot 218.9 08/21/2015 FENECH DO, RENITA S Ot 616.2 08/21/2015 FENECH DO, RENITA S Ot 625.0 08/21/2015 FENECH DO, RENITA S Ot 626.8 08/21/2015 FENECH DO, RENITA S Ot V72.63 08/21/2015 FENECH DO, RENITA S Ot V74.8 08/21/2015 MK MONTAGUE PA-C Ot 218.9 08/21/2015 MK MONTAGUE PA-C Ot 562.10 08/21/2015 FENECH DO, RENITA S Ot 218.9 08/21/2015 FENECH DO, RENITA S Ot 620.2 08/21/2015 LIV CARIAS, NEETA M Ot 719.06 08/21/2015 LIV CARIAS, NEETA M Ot 719.46 08/21/2015 FENECH DO, RENITA S Ot 611.71 08/21/2015 FENECH DO, RENITA S Ot 611.72 08/21/2015 ALLISON JEAN BAPTISTE DO Ot 611.71 08/21/2015 LIV CARIAS, NEETA M Ot 719.40 08/21/2015 PECK PA, NEETA M Ot 780.2 08/21/2015 PECK PA, NEETA M Ot 780.4 08/21/2015 PECK PA, NEETA M Ot 780.60 08/21/2015 PECK PA, NEETA M Ot 780.8 08/21/2015 PECK PA, NEETA M Ot 782.0 08/21/2015 LIV CARIAS, NEETA M Ot 785.1 08/21/2015 ALLISON JEAN BAPTISTE DO Ot 218.9 08/21/2015 JEAN BAPTISTEALLISON MCKEON DO Ot 620.2 08/21/2015 Ot 780.2 08/21/2015 Ot 780.4 08/21/2015 Ot 782.0 08/21/2015 Ot 785.1 08/21/2015 ESTEPHANIA GONSALVES MD Ot V72.84 08/21/2015 FENECH DO, RENITA S Ot 218.9 08/21/2015 FENECH DO, RENITA S Ot 620.2 08/21/2015 FENECH DO, RENITA S Ot 616.2 08/21/2015 FENECH DO, RENITA S Ot V72.63 08/21/2015 FENECH DO, RENITA S Ot V74.8 08/21/2015 NEETA JUARES Ot 272.4 08/21/2015 NEETA JUARES Ot 696.1 08/21/2015 NEETA JUARES Ot 729.0 08/21/2015 FENECH DO, RENITA S Ot 218.0 08/21/2015 FENECH DO, RENITA S Ot 620.2 08/21/2015 FENECH DO, RENITA S Ot 611.72 08/21/2015 FENECH DO, RENITA S Ot 218.9 08/21/2015 FENECH DO, RENITA S Ot 620.2 08/21/2015 STEPHEN PAL, VINOD Bear Ot 571.8 08/21/2015 VINOD MITCHELL MD Ot 786.05 08/25/2015 NORMA GARVEY [employer] ADMINISTRATOR Ot R00.1 08/25/2015 NORMA GARVEY [employer] ADMINISTRATOR Ot R55 10/02/2015 Ot 218.9 10/02/2015 PRETTY PAL, ANGELES Newman Ot 218.9 10/02/2015 ANGELES OLSEN MD Ot 620.2 10/02/2015 ANGELES OLSEN MD Ot 218.9 10/02/2015 FENECH DO, RENITA S Ot 616.2 10/02/2015 FENECH DO, RENITA S Ot 625.0 10/02/2015 FENECH DO, RENITA S Ot 626.8 10/02/2015 FENECH DO, RENITA S Ot V72.63 10/02/2015 FENECH DO, RENITA S Ot V74.8 10/02/2015 MK MONTAGUE PA-C Ot 218.9 10/02/2015 MK MONTAGUE PA-C Ot 562.10 10/02/2015 FENECH DO, RENITA S Ot 218.9 10/02/2015 FENECH DO, RENITA S Ot 620.2 10/02/2015 NEETA JUARES Ot 719.06 10/02/2015 NEETA JUARES Ot 719.46 10/02/2015 FENECH DO, RENITA S Ot 611.71 10/02/2015 FENECH DO, RENITA S Ot 611.72 10/02/2015 ALLISON JEAN BAPTISTE DO Ot 611.71 10/02/2015 NEETA JUARES Ot 719.40 10/02/2015 LIV PA, NEETA M Ot 780.2 10/02/2015 LIV PA, NEETA M Ot 780.4 10/02/2015 LIV PA, NEETA M Ot 780.60 10/02/2015 PECK PA, NEETA M Ot 780.8 10/02/2015 LIV PA, NEETA M Ot 782.0 10/02/2015 LIV PA, NEETA M Ot 785.1 10/02/2015 JEAN BAPTISTE DO, ALLISON D Ot 218.9 10/02/2015 JEAN BAPTISTE DO, ALLISON D Ot 620.2 10/02/2015 Ot 780.2 10/02/2015 Ot 780.4 10/02/2015 Ot 782.0 10/02/2015 Ot 785.1 10/02/2015 MAJOR PAL, ESTEPHANIA Ot V72.84 10/02/2015 FENECH DO, RENITA S Ot 218.9 10/02/2015 FENECH DO, RENITA S Ot 620.2 10/02/2015 FENECH DO, RENITA S Ot 616.2 10/02/2015 FENECH DO, RENITA S Ot V72.63 10/02/2015 FENECH DO, RENITA S Ot V74.8 10/02/2015 LIV PA, NEETA M Ot 272.4 10/02/2015 LIV PA, NEETA M Ot 696.1 10/02/2015 LIV PA, NEETA M Ot 729.0 10/02/2015 FENECH DO, RENITA S Ot 218.0 10/02/2015 FENECH DO, RENITA S Ot 620.2 10/02/2015 FENECH DO, RENITA S Ot 611.72 10/02/2015 FENECH DO, RENITA S Ot 218.9 10/02/2015 FENECH DO, RENITA S Ot 620.2 10/02/2015 VINOD MITCHELL MD Ot 571.8 10/02/2015 VINOD MITCHELL MD Ot 786.05 10/02/2015 NORMA GARVEY CYBER SYSTEMS ADMINISTRATOR Ot R00.1 10/02/2015 NORMA GARVEY CYBER SYSTEMS ADMINISTRATOR Ot R55 10/02/2015 NORMA GARVEY CYBER SYSTEMS ADMINISTRATOR Ot R00.1 10/02/2015 NORMA GARVEY CYBER SYSTEMS ADMINISTRATOR Ot R55 11/19/2015 NORMA GARVEY CYBER SYSTEMS ADMINISTRATOR Ot R00.1 BRADYCARDIA, UNSPECIFIED 11/19/2015 NORMA GARVEY CYBER SYSTEMS ADMINISTRATOR Ot R55 SYNCOPE AND COLLAPSE 12/09/2015 Ot D25.1 12/09/2015 Ot N92.5 12/09/2015 Ot R10.2 12/31/2015 DENNIS SURESH MD Ot D50.8 OTHER IRON DEFICIENCY ANEMIAS 12/31/2015 DENNIS SURESH MD Ot D72.828 OTHER ELEVATED WHITE BLOOD CELL COUNT 12/31/2015 DENNIS SURESH MD Ot E11.9 TYPE 2 DIABETES MELLITUS WITHOUT COMPLIC 12/31/2015 DENNIS SURESH MD Ot R79.89 OTHER SPECIFIED ABNORMAL FINDINGS OF BLO 12/31/2015 DENNIS SURESH MD Ot Z79.899 OTHER CARE HOME (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 02/09/2016 RENITA MUÑOZ DO Ot D25.9 LEIOMYOMA OF UTERUS, UNSPECIFIED 02/09/2016 RENITA MUÑOZ DO Ot N93.9 ABNORMAL UTERINE AND VAGINAL BLEEDING, U 02/09/2016 RENITA MUÑOZ DO Ot R10.2 PELVIC AND PERINEAL PAIN 02/09/2016 RENITA MUÑOZ DO Ot Z01.812 ENCOUNTER FOR PREPROCEDURAL LABORATORY E 02/09/2016 RENITA MUÑOZ DO Ot Z11.2 ENCOUNTER FOR SCREENING FOR OTHER BACTER 02/09/2016 Ot 780.2 SYNCOPE AND COLLAPSE 02/09/2016 Ot 780.4 DIZZINESS AND GIDDINESS 02/09/2016 Ot 782.0 SKIN SENSATION DISTURB 02/09/2016 Ot 785.1 PALPITATIONS 02/09/2016 NORMA GARVEYP Ot R00.1 BRADYCARDIA, UNSPECIFIED 02/09/2016 NORMA GARVEY CYBER SYSTEMS ADMINISTRATOR Ot R55 SYNCOPE AND COLLAPSE 02/09/2016 DENNIS SURESH MD Ot D50.8 OTHER IRON DEFICIENCY ANEMIAS 02/09/2016 DENNIS SURESH MD Ot D72.828 OTHER ELEVATED WHITE BLOOD CELL COUNT 02/09/2016 DENNIS SURESH MD Ot E11.9 TYPE 2 DIABETES MELLITUS WITHOUT COMPLIC 02/09/2016 DENNIS SURESH MD Ot R79.89 OTHER SPECIFIED ABNORMAL FINDINGS OF BLO 02/09/2016 DENNIS SURESH MD Ot 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 02/20/2016 RENITA MUÑOZ DO Ot D25.1 INTRAMURAL LEIOMYOMA OF UTERUS 02/20/2016 RENITA MUÑOZ DO Ot D25.2 SUBSEROSAL LEIOMYOMA OF UTERUS 02/20/2016 RENITA MUOÑZ DO Ot N83.8 OTH NONINFLAMMATORY DISORD OF OVARY, FAL 02/20/2016 RENITA MUÑOZ DO Ot Z86.711 PERSONAL HISTORY OF PULMONARY EMBOLISM 02/26/2016 RENITA MUÑOZ DO Ot D25.1 INTRAMURAL LEIOMYOMA OF UTERUS 02/26/2016 RENITA MUÑOZ DO Ot D25.2 SUBSEROSAL LEIOMYOMA OF UTERUS 02/26/2016 RENITA MUÑOZ DO Ot N83.8 OTH NONINFLAMMATORY DISORD OF OVARY, FAL 02/26/2016 RENITA MUÑOZ DO Ot Z86.711 PERSONAL HISTORY OF PULMONARY EMBOLISM 04/01/2016 Ot 218.9 UTERINE LEIOMYOMA NOS 04/01/2016 ANGELES OLSEN MD Ot 218.9 UTERINE LEIOMYOMA NOS 04/01/2016 ANGELES OLSEN MD Ot 620.2 OVARIAN CYST NEC/NOS 04/01/2016 ANGELES OLSEN MD Ot 218.9 UTERINE LEIOMYOMA NOS 04/01/2016 RENITA MUÑOZ DO Ot 616.2 BARTHOLIN'S GLAND CYST 04/01/2016 TONI MCKEON RENITA S Ot 625.0 DYSPAREUNIA 04/01/2016 TONI MCKEON RENITA Ga Ot 626.8 MENSTRUAL DISORDER NEC 04/01/2016 TONI MCKEON RENITA Ga Ot V72.63 PRE-PROCEDURAL LABORATORY EXAMINATION 04/01/2016 TONI MCKEON RENITA Ga Ot V74.8 SCREEN-BACTERIAL DIS NEC 04/01/2016 MK MONTAGUE PA-C Ot 218.9 UTERINE LEIOMYOMA NOS 04/01/2016 MK MONTAGUE PA-C Ot 562.10 DIVERTICULOSIS COLON (W/O MENT OF HEMORR 04/01/2016 TONI MCKEON RENITA S Ot 218.9 UTERINE LEIOMYOMA NOS 04/01/2016 TONI MCKEON RENITA S Ot 620.2 OVARIAN CYST NEC/NOS 04/01/2016 NEETA JUARES Ot 719.06 JOINT EFFUSION-L/LEG 04/01/2016 NEETA JUARES Ot 719.46 JOINT PAIN-L/LEG 04/01/2016 RENITA MUÑOZ DO S Ot 611.71 MASTODYNIA 04/01/2016 TONI RENITA MCKEON S Ot 611.72 LUMP OR MASS IN BREAST 04/01/2016 ALLISON JEAN BAPTISTE DO Ot 611.71 MASTODYNIA 04/01/2016 NEETA JUARES Ot 719.40 JOINT PAIN-UNSPEC 04/01/2016 NEETA JUARES Ot 780.2 SYNCOPE AND COLLAPSE 04/01/2016 NEETA JUARES Ot 780.4 DIZZINESS AND GIDDINESS 04/01/2016 NEETA JUARES Ot 780.60 FEVER, UNSPECIFIED 04/01/2016 NEETA JUARES Ot 780.8 GENERALIZED HYPERHIDROSIS 04/01/2016 NEETA JUARES Ot 782.0 SKIN SENSATION DISTURB 04/01/2016 NEETA JUARES Ot 785.1 PALPITATIONS 04/01/2016 ALLISON JEAN BAPTISTE DO Ot 218.9 UTERINE LEIOMYOMA NOS 04/01/2016 ALLISON JEAN BAPTISTE DO Ot 620.2 OVARIAN CYST NEC/NOS 04/01/2016 Ot 780.2 SYNCOPE AND COLLAPSE 04/01/2016 Ot 780.4 DIZZINESS AND GIDDINESS 04/01/2016 Ot 782.0 SKIN SENSATION DISTURB 04/01/2016 Ot 785.1 PALPITATIONS 04/01/2016 MAJOR PAL, ESTEPHANIA Ot V72.84 EXAM PRE-OPERATIVE NOS 04/01/2016 MAYELARENITA MARQUEZ DO S Ot 218.9 UTERINE LEIOMYOMA NOS 04/01/2016 RENITA MUÑOZ DO S Ot 620.2 OVARIAN CYST NEC/NOS 04/01/2016 RENITA MUÑOZ DO S Ot 616.2 BARTHOLIN'S GLAND CYST 04/01/2016 RENITA MUÑOZ DO S Ot V72.63 PRE-PROCEDURAL LABORATORY EXAMINATION 04/01/2016 RENITA MUÑOZ DO S Ot V74.8 SCREEN-BACTERIAL DIS NEC 04/01/2016 NEETA JUARES Ot 272.4 HYPERLIPIDEMIA NEC/NOS 04/01/2016 NEETA JUARES Ot 696.1 OTHER PSORIASIS 04/01/2016 NEETA JUARES Ot 729.0 RHEUMATISM NOS 04/01/2016 RENITA MUÑOZ DO S Ot 218.0 SUBMUCOUS LEIOMYOMA 04/01/2016 RENITA MUÑOZ DO S Ot 620.2 OVARIAN CYST NEC/NOS 04/01/2016 MAYELAECH DO, RENITA S Ot 611.72 LUMP OR MASS IN BREAST 04/01/2016 TONI MCKEON, RENITA S Ot 218.9 UTERINE LEIOMYOMA NOS 04/01/2016 MAYELAECH DO, RENITA S Ot 620.2 OVARIAN CYST NEC/NOS 04/01/2016 VINOD MITCHELL MD Ot 571.8 CHRONIC LIVER DIS NEC 04/01/2016 VINOD MITCHELL MD Ot 786.05 SHORTNESS OF BREATH 04/01/2016 Ot D25.1 INTRAMURAL LEIOMYOMA OF UTERUS 04/01/2016 Ot N92.5 OTHER SPECIFIED IRREGULAR MENSTRUATION 04/01/2016 Ot R10.2 PELVIC AND PERINEAL PAIN 04/01/2016 GARVEYNORMA DUARTE CYBER SYSTEMS ADMINISTRATOR Ot R00.1 BRADYCARDIA, UNSPECIFIED 04/01/2016 GARVEYNORMA DUARTE CYBER SYSTEMS ADMINISTRATOR Ot R55 SYNCOPE AND COLLAPSE 04/01/2016 DENNIS SURESH MD Ot D50.8 OTHER IRON DEFICIENCY ANEMIAS 04/01/2016 DENNIS SURESH MD Ot D72.828 OTHER ELEVATED WHITE BLOOD CELL COUNT 04/01/2016 DENNIS SURESH MD Ot E11.9 TYPE 2 DIABETES MELLITUS WITHOUT COMPLIC 04/01/2016 DENNIS SURESH MD Ot R79.89 OTHER SPECIFIED ABNORMAL FINDINGS OF BLO 04/01/2016 DENNIS SURESH MD Ot 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 04/05/2016 Ot 218.9 UTERINE LEIOMYOMA NOS 04/05/2016 ANGELES OLSEN MD Ot 218.9 UTERINE LEIOMYOMA NOS 04/05/2016 ANGELES OLSEN MD Ot 620.2 OVARIAN CYST NEC/NOS 04/05/2016 ANGELES OLSEN MD Ot 218.9 UTERINE LEIOMYOMA NOS 04/05/2016 TONI MCKEON RENITA S Ot 616.2 BARTHOLIN'S GLAND CYST 04/05/2016 TONI MCKEON RENITA S Ot 625.0 DYSPAREUNIA 04/05/2016 MAYELAECH RENITA S Ot 626.8 MENSTRUAL DISORDER NEC 04/05/2016 TONI MCKEON RENITA S Ot V72.63 PRE-PROCEDURAL LABORATORY EXAMINATION 04/05/2016 TONI MCKEON RENITA S Ot V74.8 SCREEN-BACTERIAL DIS NEC 04/05/2016 MK MONTAGUE PA-C Ot 218.9 UTERINE LEIOMYOMA NOS 04/05/2016 MK MONTAGUE PA-C Ot 562.10 DIVERTICULOSIS COLON (W/O MENT OF HEMORR 04/05/2016 RENITA MUÑOZ DO Ot 218.9 UTERINE LEIOMYOMA NOS 04/05/2016 RENITA MUÑOZ DO Ot 620.2 OVARIAN CYST NEC/NOS 04/05/2016 NEETA JUARES Ot 719.06 JOINT EFFUSION-L/LEG 04/05/2016 NEETA JUARES Ot 719.46 JOINT PAIN-L/LEG 04/05/2016 RENITA MUÑOZ DO Ot 611.71 MASTODYNIA 04/05/2016 RENITA MUÑOZ DO Ot 611.72 LUMP OR MASS IN BREAST 04/05/2016 ALLISON JEAN BAPTISTE DO Ot 611.71 MASTODYNIA 04/05/2016 NEETA JUARES Ot 719.40 JOINT PAIN-UNSPEC 04/05/2016 NEETA JUARES Ot 780.2 SYNCOPE AND COLLAPSE 04/05/2016 NEETA JUARES Ot 780.4 DIZZINESS AND GIDDINESS 04/05/2016 NEETA JUARES Ot 780.60 FEVER, UNSPECIFIED 04/05/2016 NEETA JUARES Ot 780.8 GENERALIZED HYPERHIDROSIS 04/05/2016 NEETA JUARES Ot 782.0 SKIN SENSATION DISTURB 04/05/2016 NEETA JUARES Ot 785.1 PALPITATIONS 04/05/2016 ALLISON JEAN BAPTISTE DO Ot 218.9 UTERINE LEIOMYOMA NOS 04/05/2016 ALLISON JEAN BAPTISTE DO Ot 620.2 OVARIAN CYST NEC/NOS 04/05/2016 Ot 780.2 SYNCOPE AND COLLAPSE 04/05/2016 Ot 780.4 DIZZINESS AND GIDDINESS 04/05/2016 Ot 782.0 SKIN SENSATION DISTURB 04/05/2016 Ot 785.1 PALPITATIONS 04/05/2016 ESTEPHANIA GONSALVES MD Ot V72.84 EXAM PRE-OPERATIVE NOS 04/05/2016 RENITA MUÑOZ DO Ot 218.9 UTERINE LEIOMYOMA NOS 04/05/2016 RENITA MUÑOZ DO Ot 620.2 OVARIAN CYST NEC/NOS 04/05/2016 RENITA MUÑOZ DO Ot 616.2 BARTHOLIN'S GLAND CYST 04/05/2016 RENITA MUÑOZ DO S Ot V72.63 PRE-PROCEDURAL LABORATORY EXAMINATION 04/05/2016 RENITA MUÑOZ DO S Ot V74.8 SCREEN-BACTERIAL DIS NEC 04/05/2016 NEETA JUARES Ot 272.4 HYPERLIPIDEMIA NEC/NOS 04/05/2016 NEETA JUARES Ot 696.1 OTHER PSORIASIS 04/05/2016 NEETA JUARES Ot 729.0 RHEUMATISM NOS 04/05/2016 RENITA MUÑOZ DO S Ot 218.0 SUBMUCOUS LEIOMYOMA 04/05/2016 RENITA MUÑOZ DO S Ot 620.2 OVARIAN CYST NEC/NOS 04/05/2016 RENITA MUÑOZ DO S Ot 611.72 LUMP OR MASS IN BREAST 04/05/2016 RENITA MUÑOZ DO S Ot 218.9 UTERINE LEIOMYOMA NOS 04/05/2016 RENITA MUÑOZ DO S Ot 620.2 OVARIAN CYST NEC/NOS 04/05/2016 STEPHEN PAL, VINOD Bear Ot 571.8 CHRONIC LIVER DIS NEC 04/05/2016 VINOD MITCHELL MD Ot 786.05 SHORTNESS OF BREATH 04/05/2016 Ot D25.1 INTRAMURAL LEIOMYOMA OF UTERUS 04/05/2016 Ot N92.5 OTHER SPECIFIED IRREGULAR MENSTRUATION 04/05/2016 Ot R10.2 PELVIC AND PERINEAL PAIN 04/05/2016 GARVEYNORMA DUARTE CYBER SYSTEMS ADMINISTRATOR Ot R00.1 BRADYCARDIA, UNSPECIFIED 04/05/2016 GARVEYNORMA DUARTE CYBER SYSTEMS ADMINISTRATOR Ot R55 SYNCOPE AND COLLAPSE 04/05/2016 DENNIS SURESH MD Ot D50.8 OTHER IRON DEFICIENCY ANEMIAS 04/05/2016 DENNIS SURESH MD Ot D72.828 OTHER ELEVATED WHITE BLOOD CELL COUNT 04/05/2016 DENNIS SURESH MD Ot E11.9 TYPE 2 DIABETES MELLITUS WITHOUT COMPLIC 04/05/2016 DENNIS SURESH MD Ot R79.89 OTHER SPECIFIED ABNORMAL FINDINGS OF BLO 04/05/2016 DENNIS SURESH MD Ot Z79.899 OTHER CARE HOME (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 04/05/2016 VINOD MITCHELL MD Ot M25.531 PAIN IN RIGHT WRIST 05/21/2016 AVIS SHORT MD Ot K57.30 DVRTCLOS OF LG INT W/O PERFORATION OR AB 05/21/2016 AVIS SHORT MD Ot N94.9 UNSP COND 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 05/21/2016 AVIS SHORT MD Ot R10.33 PERIUMBILICAL PAIN 05/21/2016 AVIS SHORT MD Ot R11.2 NAUSEA WITH VOMITING, UNSPECIFIED 05/25/2016 AVIS SHORT MD Ot K57.30 DVRTCLOS OF LG INT W/O PERFORATION OR AB 05/25/2016 AVIS SHORT MD Ot N94.9 UNSP COND 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 05/25/2016 AVIS SHORT MD, Ot R10.33 PERIUMBILICAL PAIN 05/25/2016 AVIS SHORT MD, Ot R11.2 NAUSEA WITH VOMITING, UNSPECIFIED 07/02/2016 STEPHEN PAL, VINOD Bear Ot M25.531 PAIN IN RIGHT WRIST 07/26/2016 RHETT PAL, ASYA Ha Ot M19.90 UNSPECIFIED OSTEOARTHRITIS, UNSPECIFIED 07/29/2016 RHETT PAL, ASYA Ha Ot M19.90 UNSPECIFIED OSTEOARTHRITIS, UNSPECIFIED 10/04/2016 RHETT PAL, ASYA Ha Ot M19.90 UNSPECIFIED OSTEOARTHRITIS, UNSPECIFIED 10/04/2016 STEPHEN PAL, VINOD Bear Ot E78.00 PURE HYPERCHOLESTEROLEMIA, UNSPECIFIED 10/04/2016 VINOD MITCHELL MD Ot L40.50 ARTHROPATHIC PSORIASIS, UNSPECIFIED 11/16/2016 Ot 780.2 SYNCOPE AND COLLAPSE 11/16/2016 Ot 780.4 DIZZINESS AND GIDDINESS 11/16/2016 Ot 782.0 SKIN SENSATION DISTURB 11/16/2016 Ot 785.1 PALPITATIONS 11/16/2016 NORMA GARVEY CYBER SYSTEMS ADMINISTRATOR Ot R00.1 BRADYCARDIA, UNSPECIFIED 11/16/2016 NORMA GARVEY CYBER SYSTEMS ADMINISTRATOR Ot R55 SYNCOPE AND COLLAPSE 11/16/2016 DENNIS SURESH MD Ot D50.8 OTHER IRON DEFICIENCY ANEMIAS 11/16/2016 DENNIS SURESH MD Ot D72.828 OTHER ELEVATED WHITE BLOOD CELL COUNT 11/16/2016 DENNIS SURESH MD Ot E11.9 TYPE 2 DIABETES MELLITUS WITHOUT COMPLIC 11/16/2016 DENNIS SURESH MD Ot R79.89 OTHER SPECIFIED ABNORMAL FINDINGS OF BLO 11/16/2016 DENNIS SURESH MD Ot 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 12/06/2016 RHETT PAL, ASYA Ha Ot M19.90 UNSPECIFIED OSTEOARTHRITIS, UNSPECIFIED 12/06/2016 STEPHEN PAL, VINOD Bear Ot E78.00 PURE HYPERCHOLESTEROLEMIA, UNSPECIFIED 12/06/2016 STEPHEN PAL, VINOD Bear Ot L40.50 ARTHROPATHIC PSORIASIS, UNSPECIFIED 01/18/2017 FENECH DO, RENITA S Ot K42.9 UMBILICAL HERNIA WITHOUT OBSTRUCTION OR 01/18/2017 FENECH DO, RENITA S Ot K57.30 DVRTCLOS OF LG INT W/O PERFORATION OR AB 01/18/2017 FENECH DO, RENITA S Ot K76.0 FATTY (CHANGE OF) LIVER, NOT ELSEWHERE C 02/14/2017 FENECH DO, RENITA S Ot K42.9 UMBILICAL HERNIA WITHOUT OBSTRUCTION OR 02/14/2017 FENECH DO, RENITA S Ot K57.30 DVRTCLOS OF LG INT W/O PERFORATION OR AB 02/14/2017 FENECH DO, RENITA S Ot K76.0 FATTY (CHANGE OF) LIVER, NOT ELSEWHERE C 05/30/2017 FENECH DO, RENITA S Ot K42.9 UMBILICAL HERNIA WITHOUT OBSTRUCTION OR 05/30/2017 FENECH DO, RENITA S Ot K57.30 DVRTCLOS OF LG INT W/O PERFORATION OR AB 05/30/2017 FENECH DO, RENITA S Ot K76.0 FATTY (CHANGE OF) LIVER, NOT ELSEWHERE C 05/30/2017 FENECH DO, RENITA S Ot K42.9 UMBILICAL HERNIA WITHOUT OBSTRUCTION OR 05/30/2017 FENECH DO, RENITA S Ot K57.30 DVRTCLOS OF LG INT W/O PERFORATION OR AB 05/30/2017 FENECH DO, RENITA S Ot K76.0 FATTY (CHANGE OF) LIVER, NOT ELSEWHERE C 07/01/2017 FENECH DO, RENITA S Ot K42.9 UMBILICAL HERNIA WITHOUT OBSTRUCTION OR 07/01/2017 FENECH DO, RENITA S Ot K57.30 DVRTCLOS OF LG INT W/O PERFORATION OR AB 07/01/2017 FENECH DO, RENITA S Ot K76.0 FATTY (CHANGE OF) LIVER, NOT ELSEWHERE C 09/13/2017 STEPHEN PAL, VINOD Bear Ot R10.32 LEFT LOWER QUADRANT PAIN 10/10/2017 STEPHEN PAL, VINOD Bear Ot R10.32 LEFT LOWER QUADRANT PAIN 10/10/2017 VINOD MITCHELL MD Ot R10.32 LEFT LOWER QUADRANT PAIN 10/27/2017 VINOD MITCHELL MD Ot R10.32 LEFT LOWER QUADRANT PAIN 12/23/2017 FENECH RENITA Ga Ot K42.9 UMBILICAL HERNIA WITHOUT OBSTRUCTION OR 12/23/2017 FENECH RENITA Ot K57.30 DVRTCLOS OF LG INT W/O PERFORATION OR AB 12/23/2017 MAYELARENITA MARQUEZ DO Ot K76.0 FATTY (CHANGE OF) LIVER, NOT ELSEWHERE C 04/06/2018 VINOD MITCHELL MD Ot R10.32 LEFT LOWER QUADRANT PAIN Procedures Code Description [place] [address] ROUTINE VENIPUNCTURE 07/25/2012 36879 ESR/SED RATE 07/25/2012 81770 CBC 07/25/2012 39385 LIPID PANEL 07/25/2012 29309 CMP 07/25/2012 [id number] GFR CALC (RESULT ONLY) 07/25/2012 69238 CRP 07/26/2012 04555 TSH 07/26/2012 77370 RA FACTOR 07/26/2012 ANAANA ASHLIE ANALYZER (SCREEN) 07/26/2012 87255 URINE TEST (IN- HOUSE) 10/31/2012 GASTR URIEL MARIE 11/01/2012 19612 UA W/ CULTURE IF INDICATED 11/25/2012 41292 GC/CHLAM PROBE (STATE) 11/25/2012 07011 PAP SMEAR 11/25/2012 31532 US PELVIC COMPL (REFLEX CPT - 57245) 12/14/2012 OBSTE Hawkins, Stephania 12/14/2012 27529 US PELVIC ULTRASOUND, F/U ( NON-OB) 01/17/2013 81481 HEMOGLOBIN (IN-HOUSE) 04/02/2013 90475 HEMOGLOBIN (IN-HOUSE) 04/05/2013 69820 UA W/ CULTURE IF INDICATED 05/05/[address] ABDOMEN & PELVIS W/ & W/ O CONTRAST 05/05/2013 35106 ROUTINE VENIPUNCTURE 06/27/2013 54194 CBC 06/27/2013 47962 CRP 06/27/2013 82162 STREP A (IN-HOUSE) 06/29/2013 59178 UA W/ CULTURE IF INDICATED 08/30/2013 10442 INFLUENZA A & B (IN-HOUSE) 09/17/2013 55201 MRI EXTREMITY JOINT, UPPER RIGHT, W/O CONTRAST 09/17/2013 49149 THERAPUTIC INJ SQ/IM 09/20/2013 J0696 ROCEPHIN INJ 1 g 09/20/2013 J1040 DEPO MEDROL 80 MG INJ 09/20/2013 55919 ROUTINE VENIPUNCTURE 10/03/2013 17763 ESR/SED RATE 10/03/2013 93841 XRAY CHEST 2 VIEW 10/03/2013 72260 PERIPHERAL BLOOD SMEAR W/ PATH REPORT 10/03/2013 53916 CRP 10/03/2013 MEDICAL O LILIBETHMARIAELENA 10/15/[address] [facility] 10/17/2013 92541 EXERCISE STRESS TEST 11/12/2013 49453 HOLTER MONITOR (OUTPATIENT) 11/12/2013 43744 TUBERCULOSIS - STATE LAB 11/22/2013 84067 TUBERCULOSIS - STATE LAB 11/23/2013 94339 TUBERCULOSIS - STATE LAB 11/26/2013 33956 A1C (IN-HOUSE) 12/03/2013 53166 UA W/ CULTURE IF INDICATED 12/06/2013 72168 TB TEST CELL IMMUN MEASURE 12/06/2013 GENERAL S ALLISON JEAN BAPTISTE 01/08/2014 37856 MAMMOGRAM DX, LEFT 01/24/2014 11585 ROUTINE VENIPUNCTURE 02/26/2014 GENERAL S ALLISON JEAN BAPTISTE 02/26/2014 51405 UA W/ CULTURE IF INDICATED 02/26/2014 94237 SED/ESR RATE (IN HOUSE) 02/26/2014 [id number] GFR CALC (RESULT ONLY) 02/26/2014 13922 CMP 02/26/2014 21214 RA FACTOR 02/27/2014 [id number] TOTAL PROTEIN FOR PEP ( RESULT ONLY) 02/27/2014 64809 PERIPHERIAL BLOOD SMEAR 02/27/2014 ANAANA ASHLIE ANALYZER (SCREEN) 02/27/2014 [id number] FREE KAPPA/LAMBDA LIGHT CHAINS 02/27/2014 [id number] HEMATOLOGY OTHER REPORT 02/27/2014 [id number] CLINICAL PATHOLOGY REPORT 02/27/2014 [id number] PROTEIN ELECTROPHORESIS 02/28/2014 36184 XRAY ELBOW L 2 VIEWS 02/28/2014 52560 XRAY ELBOW R COMP MIN 3 VIEWS 02/28/2014 43754 PROTEIN E-PHORESIS, SERUM 02/28/2014 GENERAL S ISMAEL GONSALVES 03/11/2014 22032 TEST, URINE (IN- HOUSE) 03/28/2014 95026 UA LONG DIP 03/28/2014 33293 TRICHOMONAS (IN-HOUSE) 03/28/2014 27318 GC/CHLAM PROBE (STATE) 03/29/2014 31042 CULTURE UROGENITAL 04/01/2014 04087 UA W/ CULTURE IF INDICATED 07/01/2014 35968 TEST, URINE (IN- HOUSE) 07/01/2014 51610 THERAPUTIC INJ SQ/IM 08/02/2014 J0696 ROCEPHIN INJ 1 g 08/02/2014 73850 ROUTINE VENIPUNCTURE 09/24/2014 72540 A1C (IN-HOUSE) 09/24/2014 49075 CMP 09/24/2014 75489 LIPID PANEL 09/24/2014 42022 CBC 09/24/2014 66361 SED/ESR RATE (IN HOUSE) 09/24/2014 OPHTHALMМарина LENARDANAMARIA Ha 09/30/2014 74850 THERAPUTIC INJ SQ/IM 11/01/2014 J1885 TORADOL INJ 11/01/2014 94301 ROUTINE VENIPUNCTURE 11/20/2014 41975 ASHLIE SCREEN 11/21/2014 01953 SM ANTIBODY (ANTI STRINGER) 11/21/2014 87335 DNA ANTIBODY (DOUBLE STRAND ) 11/21/2014 80989 CARDIOLIPIN ANTIBODY 11/22/2014 [id number] CLINICAL PATHOLOGY REPORT 11/25/2014 56522 UA W/ CULTURE IF INDICATED 12/09/2014 70468 CULTURE URINE 12/10/2014 72595 CBC 12/18/2014 67642 H PYLORI (RML) 12/18/2014 02593 PSYTX CRISIS INITIAL 60 MIN 12/30/2014 60313 PSYTX CRISIS EA ADDL 30 MIN 12/30/2014 LUPUS LUPUS ANTICOAGULANT ANALYZER 12/30/2014 49415 OXIMETRY 01/07/2015 51962 CULTURE URINE 01/09/2015 57230 UA LONG DIP 01/09/2015 Results Test Result Range Complete urinalysis with reflex to culture - 05/21/16 06:52 Urine color determination YELLOW NRG Urine clarity determination CLEAR NRG Urine pH measurement by test strip 6 5-9 Specific gravity of urine by test strip 1.020 1.016- 1.022 Urine protein assay by test strip, semi-quantitative NEGATIVE NEGATIVE Urine glucose detection by automated test strip NEGATIVE NEGATIVE Erythrocytes detection in urine sediment by light microscopy NEGATIVE NEGATIVE Urine ketones detection by automated test strip NEGATIVE NEGATIVE Urine nitrite detection by test strip NEGATIVE NEGATIVE Urine total bilirubin detection by test strip NEGATIVE NEGATIVE Urine urobilinogen measurement by automated test strip (mass/volume) NORMAL NORMAL Urine leukocyte esterase detection by dipstick NEGATIVE NEGATIVE Automated urine sediment erythrocyte count by microscopy (number/high power field) NONE NRG Automated urine sediment leukocyte count by microscopy (number/high power field ) NONE NRG Bacteria detection in urine sediment by light microscopy TRACE NRG Squamous epithelial cells detection in urine sediment by light microscopy 2-5 NRG Crystals detection in urine sediment by light microscopy NONE NRG Casts detection in urine sediment by light microscopy NONE NRG Mucus detection in urine sediment by light microscopy MODERATE NRG Complete urinalysis with reflex to culture NO NRG Complete blood count (CBC) with automated white blood cell (WBC) differential - 05/21/16 08:00 Blood leukocytes automated count (number/volume) 10.7 10*3/uL 4.3-11.0 Blood erythrocytes automated count (number/volume) 5.21 10*6/uL 4.35-5.85 Venous blood hemoglobin measurement (mass/volume) 13.2 g/dL 11.5-16.0 Blood hematocrit (volume fraction) 41 % 35-52 Automated erythrocyte mean corpuscular volume 79 [foz_us] 80-99 Automated erythrocyte mean corpuscular hemoglobin (mass per erythrocyte) 25 pg 25-34 Automated erythrocyte mean corpuscular hemoglobin concentration measurement ( mass/volume) 32 g/dL 32-36 Automated erythrocyte distribution width ratio 14.5 % 10.0-14.5 Automated blood platelet count (count/volume) 400 10*3/uL 130-400 Automated blood platelet mean volume measurement 9.3 [foz_us] 7.4-10.4 Automated blood neutrophils/100 leukocytes 56 % 42-75 Automated blood lymphocytes/100 leukocytes 33 % 12-44 Blood monocytes/100 leukocytes 7 % 0-12 Automated blood eosinophils/100 leukocytes 3 % 0-10 Automated blood basophils/100 leukocytes 1 % 0-10 Blood neutrophils automated count (number/volume) 6.0 10*3 1.8-7.8 Blood lymphocytes automated count (number/volume) 3.5 10*3 1.0-4.0 Blood monocytes automated count (number/volume) 0.8 10*3 0.0-1.0 Automated eosinophil count 0.4 10*3/uL 0.0-0.3 Automated blood basophil count (count/volume) 0.1 10*3/uL 0.0-0.1 Comprehensive metabolic panel - 05/21/16 08:00 Serum or plasma sodium measurement (moles/volume) 137 mmol/L 135-145 Serum or plasma potassium measurement (moles/volume) 4.1 mmol/L 3.6-5.0 Serum or plasma chloride measurement (moles/volume) 105 mmol/L 98-107 Carbon dioxide 21 mmol/L 21-32 Serum or plasma anion gap determination (moles/volume) 11 mmol/L 5-14 Serum or plasma urea nitrogen measurement (mass/volume) 7 mg/dL 7-18 Serum or plasma creatinine measurement (mass/volume) 0.68 mg/dL 0.60-1.30 Serum or plasma urea nitrogen/creatinine mass ratio 10 NRG Serum or plasma creatinine measurement with calculation of estimated glomerular filtration rate > NRG Serum or plasma glucose measurement (mass/volume) 94 mg/dL 70-105 Serum or plasma calcium measurement (mass/volume) 8.7 mg/dL 8.5-10.1 Serum or plasma total bilirubin measurement (mass/volume) 0.3 mg/dL 0.1-1.0 Serum or plasma alkaline phosphatase measurement (enzymatic activity/volume) 75 U/L 40-136 Serum or plasma aspartate aminotransferase measurement (enzymatic activity/ volume) 13 U/L 5-34 Serum or plasma alanine aminotransferase measurement (enzymatic activity/volume ) 19 U/L 0-55 Serum or plasma protein measurement (mass/volume) 6.9 g/dL 6.4-8.2 Serum or plasma albumin measurement (mass/volume) 3.9 g/dL 3.2-4.5 Lipase - 05/21/16 08:00 Lipase 6 U/L 8-78 Comprehensive metabolic panel - 06/19/16 09:50 Serum or plasma sodium measurement (moles/volume) 138 mmol/L 135-145 Serum or plasma potassium measurement (moles/volume) 3.8 mmol/L 3.6-5.0 Serum or plasma chloride measurement (moles/volume) 105 mmol/L 98-107 Carbon dioxide 20 mmol/L 21-32 Serum or plasma anion gap determination (moles/volume) 13 mmol/L 5-14 Serum or plasma urea nitrogen measurement (mass/volume) 6 mg/dL 7-18 Serum or plasma creatinine measurement (mass/volume) 0.60 mg/dL 0.60-1.30 Serum or plasma urea nitrogen/creatinine mass ratio 10 NRG Serum or plasma creatinine measurement with calculation of estimated glomerular filtration rate > NRG Serum or plasma glucose measurement (mass/volume) 101 mg/dL 70-105 Serum or plasma calcium measurement (mass/volume) 8.7 mg/dL 8.5-10.1 Serum or plasma total bilirubin measurement (mass/volume) 0.3 mg/dL 0.1-1.0 Serum or plasma alkaline phosphatase measurement (enzymatic activity/volume) 77 U/L 40-136 Serum or plasma aspartate aminotransferase measurement (enzymatic activity/ volume) 14 U/L 5-34 Serum or plasma alanine aminotransferase measurement (enzymatic activity/volume ) 20 U/L 0-55 Serum or plasma protein measurement (mass/volume) 7.2 g/dL 6.4-8.2 Serum or plasma albumin measurement (mass/volume) 3.9 g/dL 3.2-4.5 Lipid 1996 panel - 06/19/16 09:50 Serum or plasma triglyceride measurement (mass/volume) 151 mg/dL <150 Serum or plasma cholesterol measurement (mass/volume) 254 mg/dL < 200 Serum or plasma cholesterol in HDL measurement (mass/volume) 55 mg/ dL 40-60 Cholesterol in LDL [mass/volume] in serum or plasma by direct assay 196 mg/dL 1-129 Serum or plasma cholesterol in VLDL measurement (mass/volume) 30 mg/ dL 5-40 Erythrocyte sedimentation rate by westergren method - 06/19/16 09:50 Erythrocyte sedimentation rate by westergren method 42 mm 0-20 Comprehensive metabolic panel - 07/28/16 07:47 Serum or plasma sodium measurement (moles/volume) 138 mmol/L 135-145 Serum or plasma potassium measurement (moles/volume) 3.9 mmol/L 3.6-5.0 Serum or plasma chloride measurement (moles/volume) 105 mmol/L 98-107 Carbon dioxide 23 mmol/L 21-32 Serum or plasma anion gap determination (moles/volume) 10 mmol/L 5-14 Serum or plasma urea nitrogen measurement (mass/volume) 8 mg/dL 7-18 Serum or plasma creatinine measurement (mass/volume) 0.67 mg/dL 0.60-1.30 Serum or plasma urea nitrogen/creatinine mass ratio 12 NRG Serum or plasma creatinine measurement with calculation of estimated glomerular filtration rate > NRG Serum or plasma glucose measurement (mass/volume) 95 mg/dL 70-105 Serum or plasma calcium measurement (mass/volume) 8.9 mg/dL 8.5-10.1 Serum or plasma total bilirubin measurement (mass/volume) 0.3 mg/dL 0.1-1.0 Serum or plasma alkaline phosphatase measurement (enzymatic activity/volume) 74 U/L 40-136 Serum or plasma aspartate aminotransferase measurement (enzymatic activity/ volume) 11 U/L 5-34 Serum or plasma alanine aminotransferase measurement (enzymatic activity/volume ) 18 U/L 0-55 Serum or plasma protein measurement (mass/volume) 7.8 g/dL 6.4-8.2 Serum or plasma albumin measurement (mass/volume) 4.2 g/dL 3.2-4.5 Serum or plasma uric acid measurement (mass/volume) - 07/28/16 07:47 Serum or plasma uric acid measurement (mass/volume) 4.0 mg/dL 2.6-7.2 Serum or plasma C reactive protein measurement (mass/volume) - 07/28/16 07:47 Serum or plasma C reactive protein measurement (mass/volume) 1.71 mg /dL 0.00-0.50 Complete blood count (CBC) with automated white blood cell (WBC) differential - 07/28/16 07:47 Blood leukocytes automated count (number/volume) 10.8 10*3/uL 4.3-11.0 Blood erythrocytes automated count (number/volume) 5.39 10*6/uL 4.35-5.85 Venous blood hemoglobin measurement (mass/volume) 13.5 g/dL 11.5-16.0 Blood hematocrit (volume fraction) 42 % 35-52 Automated erythrocyte mean corpuscular volume 77 [foz_us] 80-99 Automated erythrocyte mean corpuscular hemoglobin (mass per erythrocyte) 25 pg 25-34 Automated erythrocyte mean corpuscular hemoglobin concentration measurement ( mass/volume) 32 g/dL 32-36 Automated erythrocyte distribution width ratio 14.4 % 10.0-14.5 Automated blood platelet count (count/volume) 457 10*3/uL 130-400 Automated blood platelet mean volume measurement 9.4 [foz_us] 7.4-10.4 Automated blood neutrophils/100 leukocytes 57 % 42-75 Automated blood lymphocytes/100 leukocytes 34 % 12-44 Blood monocytes/100 leukocytes 6 % 0-12 Automated blood eosinophils/100 leukocytes 3 % 0-10 Automated blood basophils/100 leukocytes 1 % 0-10 Blood neutrophils automated count (number/volume) 6.2 10*3 1.8-7.8 Blood lymphocytes automated count (number/volume) 3.7 10*3 1.0-4.0 Blood monocytes automated count (number/volume) 0.7 10*3 0.0-1.0 Automated eosinophil count 0.3 10*3/uL 0.0-0.3 Automated blood basophil count (count/volume) 0.1 10*3/uL 0.0-0.1 Erythrocyte sedimentation rate by westergren method - 07/28/16 07:47 Erythrocyte sedimentation rate by westergren method 11 mm 0-20 Serum or plasma rheumatoid factor measurement (units/volume) - 07/28/16 07:47 Serum or plasma rheumatoid factor measurement (units/volume) NEGATIVE NEGATIVE ANTI-NUCLEAR AB (ASHLIE) ANALYZER - 07/28/16 07:47 Screening antinuclear antibody (ASHLIE) assay by enzyme immunoassay <1: 80 <1:80 Serum cyclic citrullinated peptide antibody assay (units/volume) - 07/28/16 07: 47 Serum cyclic citrullinated peptide antibody assay (units/volume) 3.5 % 0.0-19.0 QUANTIFERON-TB GOLD - 07/28/16 07:47 QuantiFERON-TB test Negative Negative Mitogen stimulated gamma interferon [units/volume] corrected for background in blood 0.05 [iU]/mL 0.00-7.99 Mitogen stimulated gamma interferon [units/volume] in blood 6.99 [iU ]/mL 0.50-10.00 Qualitative QuantiFERON-TB gold in tube test 0.03 0.00- 0.34 Complete blood count (CBC) with automated white blood cell (WBC) differential - 11/16/16 14:00 Blood leukocytes automated count (number/volume) 22.6 10*3/uL 4.3-11.0 Blood erythrocytes automated count (number/volume) 5.27 10*6/uL 4.35-5.85 Venous blood hemoglobin measurement (mass/volume) 13.4 g/dL 11.5-16.0 Blood hematocrit (volume fraction) 41 % 35-52 Automated erythrocyte mean corpuscular volume 78 [fo_us] 80-99 Automated erythrocyte mean corpuscular hemoglobin (mass per erythrocyte) 25 pg 25-34 Automated erythrocyte mean corpuscular hemoglobin concentration measurement ( mass/volume) 33 g/dL 32-36 Automated erythrocyte distribution width ratio 14.6 % 10.0-14.5 Automated blood platelet count (count/volume) 533 10*3/uL 130-400 Automated blood platelet mean volume measurement 9.9 [foz_us] 7.4-10.4 Automated blood neutrophils/100 leukocytes 55 % 42-75 Automated blood lymphocytes/100 leukocytes 37 % 12-44 Blood monocytes/100 leukocytes 6 % 0-12 Automated blood eosinophils/100 leukocytes 2 % 0-10 Automated blood basophils/100 leukocytes 0 % 0-10 Blood neutrophils automated count (number/volume) 12.5 10*3 1.8-7.8 Blood lymphocytes automated count (number/volume) 8.4 10*3 1.0-4.0 Blood monocytes automated count (number/volume) 1.3 10*3 0.0-1.0 Automated eosinophil count 0.3 10*3/uL 0.0-0.3 Automated blood basophil count (count/volume) 0.1 10*3/uL 0.0-0.1 Blood manual differential performed detection - 11/16/16 14:00 Blood monocytes/100 leukocytes 2 % NRG Manual blood segmented neutrophils/100 leukocytes 54 % NRG Blood band neutrophils/100 leukocytes 0 % NRG Manual blood lymphocytes/100 leukocytes 43 % NRG Manual eosinophils/100 leukocytes in nose 1 % NRG Manual blood basophils/100 leukocytes 0 % NRG Blood erythrocyte morphology finding identification [facility] [place] Comprehensive metabolic panel - 11/16/16 14:00 Serum or plasma sodium measurement (moles/volume) 137 mmol/L 135-145 Serum or plasma potassium measurement (moles/volume) 3.4 mmol/L 3.6-5.0 Serum or plasma chloride measurement (moles/volume) 101 mmol/L 98-107 Carbon dioxide 22 mmol/L 21-32 Serum or plasma anion gap determination (moles/volume) 14 mmol/L 5-14 Serum or plasma urea nitrogen measurement (mass/volume) 7 mg/dL 7-18 Serum or plasma creatinine measurement (mass/volume) 0.70 mg/dL 0.60-1.30 Serum or plasma urea nitrogen/creatinine mass ratio 10 NRG Serum or plasma creatinine measurement with calculation of estimated glomerular filtration rate > NRG Serum or plasma glucose measurement (mass/volume) 112 mg/dL 70-105 Serum or plasma calcium measurement (mass/volume) 8.7 mg/dL 8.5-10.1 Serum or plasma total bilirubin measurement (mass/volume) 0.2 mg/dL 0.1-1.0 Serum or plasma alkaline phosphatase measurement (enzymatic activity/volume) 98 U/L 40-136 Serum or plasma aspartate aminotransferase measurement (enzymatic activity/ volume) 16 U/L 5-34 Serum or plasma alanine aminotransferase measurement (enzymatic activity/volume ) 17 U/L 0-55 Serum or plasma protein measurement (mass/volume) 7.2 g/dL 6.4-8.2 Serum or plasma albumin measurement (mass/volume) 4.2 g/dL 3.2-4.5 Complete blood count (CBC) with automated white blood cell (WBC) differential - 11/17/16 05:07 Blood leukocytes automated count (number/volume) 24.3 10*3/uL 4.3-11.0 Blood erythrocytes automated count (number/volume) 5.31 10*6/uL 4.35-5.85 Venous blood hemoglobin measurement (mass/volume) 13.4 g/dL 11.5-16.0 Blood hematocrit (volume fraction) 41 % 35-52 Automated erythrocyte mean corpuscular volume 78 [foz_us] 80-99 Automated erythrocyte mean corpuscular hemoglobin (mass per erythrocyte) 25 pg 25-34 Automated erythrocyte mean corpuscular hemoglobin concentration measurement ( mass/volume) 33 g/dL 32-36 Automated erythrocyte distribution width ratio 14.6 % 10.0-14.5 Automated blood platelet count (count/volume) 458 10*3/uL 130-400 Automated blood platelet mean volume measurement 9.6 [foz_us] 7.4-10.4 Automated blood neutrophils/100 leukocytes 91 % 42-75 Automated blood lymphocytes/100 leukocytes 8 % 12-44 Blood monocytes/100 leukocytes 1 % 0-12 Automated blood eosinophils/100 leukocytes 0 % 0-10 Automated blood basophils/100 leukocytes 0 % 0-10 Blood neutrophils automated count (number/volume) 22.0 10*3 1.8-7.8 Blood lymphocytes automated count (number/volume) 2.0 10*3 1.0-4.0 Blood monocytes automated count (number/volume) 0.2 10*3 0.0-1.0 Automated eosinophil count 0.0 10*3/uL 0.0-0.3 Automated blood basophil count (count/volume) 0.0 10*3/uL 0.0-0.1 Whole blood basic metabolic panel - 11/17/16 05:07 Serum or plasma sodium measurement (moles/volume) 138 mmol/L 135-145 Serum or plasma potassium measurement (moles/volume) 3.8 mmol/L 3.6-5.0 Serum or plasma chloride measurement (moles/volume) 109 mmol/L 98-107 Carbon dioxide 17 mmol/L 21-32 Serum or plasma anion gap determination (moles/volume) 12 mmol/L 5-14 Serum or plasma urea nitrogen measurement (mass/volume) 7 mg/dL 7-18 Serum or plasma creatinine measurement (mass/volume) 0.62 mg/dL 0.60-1.30 Serum or plasma urea nitrogen/creatinine mass ratio 11 NRG Serum or plasma creatinine measurement with calculation of estimated glomerular filtration rate > NRG Serum or plasma glucose measurement (mass/volume) 149 mg/dL 70-105 Serum or plasma calcium measurement (mass/volume) 8.9 mg/dL 8.5-10.1 Serum or plasma phosphate measurement (mass/volume) - 11/17/16 05:07 Serum or plasma phosphate measurement (mass/volume) 2.0 mg/dL 2.3-4.7 Magnesium - 11/17/16 05:07 Magnesium 1.9 mg/dL 1.8-2.4 CBC With Differential/Platelet - 01/10/17 08:15 WBC 11.3 x10E3/uL 3.4-10.8 RBC 4.93 x10E6/uL 3.77-5.28 Hemoglobin 12.6 g/dL 11.1-15.9 Hematocrit 39.0 % 34.0-46.6 MCV 79 fL 79-97 MCH 25.6 pg 26.6-33.0 MCHC 32.3 g/dL 31.5-35.7 RDW 14.9 % 12.3-15.4 Platelets 423 x10E3/uL 150-379 Neutrophils 58 % Lymphs 33 % Monocytes 6 % Eos 3 % Basos 0 % Neutrophils (Absolute) 6.5 x10E3/uL 1.4-7.0 Lymphs (Absolute) 3.7 x10E3/uL 0.7-3.1 Monocytes(Absolute) 0.7 x10E3/uL 0.1-0.9 Eos (Absolute) 0.3 x10E3/uL 0.0-0.4 Baso (Absolute) 0.0 x10E3/uL 0.0-0.2 Immature Granulocytes 0 % Immature Grans (Abs) 0.0 x10E3/uL 0.0-0.1 Comp. Metabolic Panel (14) - 01/10/17 08:15 Glucose, Serum 90 mg/dL 65-99 BUN 9 mg/dL 6-24 Creatinine, Serum 0.61 mg/dL 0.57-1.00 eGFR If NonAfricn Am 112 mL/min/1.73 >59 eGFR If Africn Am 129 mL/min/1.73 >59 BUN/Creatinine Ratio 15 9-23 Sodium, Serum 139 mmol/L 134-144 Potassium, Serum 4.4 mmol/L 3.5-5.2 Chloride, Serum 103 mmol/L 96-106 Carbon Dioxide, Total 21 mmol/L 18-29 Calcium, Serum 8.9 mg/dL 8.7-10.2 Protein, Total, Serum 6.8 g/dL 6.0-8.5 Albumin, Serum 4.1 g/dL 3.5-5.5 Globulin, Total 2.7 g/dL 1.5-4.5 A/G Ratio 1.5 1.2-2.2 Bilirubin, Total <0.2 mg/dL 0.0-1.2 Alkaline Phosphatase, S 80 IU/L 39-117 AST (SGOT) 8 IU/L 0-40 ALT (SGPT) 12 IU/L 0-32 Lipid Panel - 01/10/17 08:15 Cholesterol, Total 226 mg/dL 100-199 Triglycerides 278 mg/dL 0-149 HDL Cholesterol 42 mg/dL >39 VLDL Cholesterol Patric 56 mg/dL 5-40 LDL Cholesterol Calc 128 mg/dL 0-99 Genital Culture, Routine - 01/14/17 11:33 Genital Culture, Routine Note Urine Culture, Routine - 01/25/17 14:21 Urine Culture, Routine Note CBC With Differential/Platelet - 07/08/17 08:27 WBC 11.1 x10E3/uL 3.4-10.8 RBC 5.34 x10E6/uL 3.77-5.28 Hemoglobin 13.1 g/dL 11.1-15.9 Hematocrit 40.9 % 34.0-46.6 MCV 77 fL 79-97 MCH 24.5 pg 26.6-33.0 MCHC 32.0 g/dL 31.5-35.7 RDW 15.0 % 12.3-15.4 Platelets 470 x10E3/uL 150-379 Neutrophils 59 % Not Estab. Lymphs 31 % Not Estab. Monocytes 7 % Not Estab. Eos 2 % Not Estab. Basos 1 % Not Estab. Neutrophils (Absolute) 6.6 x10E3/uL 1.4-7.0 Lymphs (Absolute) 3.4 x10E3/uL 0.7-3.1 Monocytes(Absolute) 0.7 x10E3/uL 0.1-0.9 Eos (Absolute) 0.3 x10E3/uL 0.0-0.4 Baso (Absolute) 0.1 x10E3/uL 0.0-0.2 Immature Granulocytes 0 % Not Estab. Immature Grans (Abs) 0.0 x10E3/uL 0.0-0.1 Comp. Metabolic Panel (14) - 07/08/17 08:27 Glucose, Serum 94 mg/dL 65-99 BUN 6 mg/dL 6-24 Creatinine, Serum 0.49 mg/dL 0.57-1.00 eGFR If NonAfricn Am 121 mL/min/1.73 >59 eGFR If Africn Am 139 mL/min/1.73 >59 BUN/Creatinine Ratio 12 9-23 Sodium, Serum 136 mmol/L 134-144 Potassium, Serum 4.3 mmol/L 3.5-5.2 Chloride, Serum 98 mmol/L 96-106 Carbon Dioxide, Total 22 mmol/L 18-29 Calcium, Serum 8.8 mg/dL 8.7-10.2 Protein, Total, Serum 7.5 g/dL 6.0-8.5 Albumin, Serum 4.2 g/dL 3.5-5.5 Globulin, Total 3.3 g/dL 1.5-4.5 A/G Ratio 1.3 1.2-2.2 Bilirubin, Total 0.3 mg/dL 0.0-1.2 Alkaline Phosphatase, S 93 IU/L 39-117 AST (SGOT) 13 IU/L 0-40 ALT (SGPT) 14 IU/L 0-32 Lipid Panel - 07/08/17 08:27 Cholesterol, Total 257 mg/dL 100-199 Triglycerides 174 mg/dL 0-149 HDL Cholesterol 57 mg/dL >39 VLDL Cholesterol Patric 35 mg/dL 5-40 LDL Cholesterol Calc 165 mg/dL 0-99 Sedimentation Rate-Westergren - 07/08/17 08:27 Sedimentation Rate-Westergren 65 mm/hr 0-32 Encounters ACCT No. Visit Date/Time Discharge Status Pt. Type Provider Facility Loc./Unit Complaint [id number] 01/09/2015 13:17:00 01/09/2015 23:59:59 CLS Outpatient NATALI NORTON APRN [id number] 01/07/2015 16:00:00 01/07/2015 23:59:59 CLS Outpatient STEPHEN PAL, VINOD Bear [id number] 12/30/2014 08:44:00 12/30/2014 23:59:59 CLS Outpatient FAVIAN CRUZ PHD [id number] 12/18/2014 13:26:00 12/18/2014 23:59:59 CLS Outpatient AFSHAN ERNST DO [id number] 12/09/2014 17:07:00 12/09/2014 23:59:59 CLS Outpatient AFSHAN ERNST DO [id number] 11/01/2014 10:14:00 11/01/2014 23:59:59 CLS Outpatient DANIELA LONG APRN [id number] 10/28/2014 17:11:00 10/28/2014 23:59:59 CLS Outpatient AFSHAN ERNST DO [id number] 09/30/2014 16:55:00 09/30/2014 23:59:59 CLS Outpatient AFSHAN ERNST DO [id number] 09/24/2014 08:19:00 09/24/2014 23:59:59 CLS Outpatient NEETA PECK PA-C [id number] 09/07/2014 12:55:00 09/07/2014 23:59:59 CLS Outpatient SARITHA PÉREZ APRN [id number] 08/02/2014 08:43:00 08/02/2014 23:59:59 CLS Outpatient ERNST DOAFSHAN [id number] 07/11/2014 16:58:00 07/11/2014 23:59:59 CLS Outpatient SARITHA PÉREZ APRN [id number] 07/01/2014 13:28:00 07/01/2014 23:59:59 CLS Outpatient NATALI NORTON APRN [id number] 06/21/2014 09:51:00 06/21/2014 23:59:59 CLS Outpatient ERNST DOAFSHAN [id number] 06/17/2014 16:56:00 06/17/2014 23:59:59 CLS Outpatient ERNST DOAFSHAN Radha [id number] 04/15/2014 16:48:00 04/15/2014 23:59:59 CLS Outpatient ERNST DOAFSHAN Radha [id number] 03/28/2014 16:25:00 03/28/2014 23:59:59 CLS Outpatient ERNST DOAFSHAN Radha [id number] 02/26/2014 09:28:00 02/26/2014 23:59:59 CLS Outpatient ERNST DOAFSHAN Radha [id number] 02/26/2014 08:29:00 02/26/2014 23:59:59 CLS Outpatient ERNST DOAFSHAN Radha [id number] 02/25/2014 17:32:00 02/25/2014 23:59:59 CLS Outpatient ERNST DOAFSHAN Radha [id number] 01/30/2014 16:30:00 01/30/2014 23:59:59 CLS Outpatient ERNST DOAFSHAN Radha [id number] 01/24/2014 09:15:00 01/24/2014 23:59:59 CLS Outpatient MAHSA RICCI AISHA Ha [id number] 01/08/2014 17:06:00 01/08/2014 23:59:59 CLS Outpatient NATALI NORTON APRN Trent [id number] 12/06/2013 16:32:00 12/06/2013 23:59:59 CLS Outpatient GISELE NORTON APRNMATTHIAS Newman [id number] 12/03/2013 08:56:00 12/03/2013 23:59:59 CLS Outpatient ERNST DOAFSHAN Radha [id number] 11/26/2013 08:48:00 11/26/2013 23:59:59 CLS Outpatient ERNST DO AFSHAN Garcia [id number] 11/23/2013 09:00:00 11/23/2013 23:59:59 CLS Outpatient ERNST DOAFSHAN [id number] 11/22/2013 12:43:00 11/22/2013 23:59:59 CLS Outpatient LIV SANDOVALNEETA [id number] 11/19/2013 17:00:00 11/19/2013 23:59:59 CLS Outpatient ERNST DOAFSHAN [id number] 11/12/2013 16:53:00 11/12/2013 23:59:59 CLS Outpatient ERNST DOAFSHAN [id number] 10/08/2013 17:02:00 10/08/2013 23:59:59 CLS Outpatient ERNST DOAFSHAN [id number] 10/03/2013 09:16:00 10/03/2013 23:59:59 CLS Outpatient ERNST DO, AFSHAN Garcia [id number] 09/20/2013 08:44:00 09/20/2013 23:59:59 CLS Outpatient ERNST DOAFSHAN [id number] 09/17/2013 16:52:00 09/17/2013 23:59:59 CLS Outpatient ERNST DOAFSHAN [id number] 08/30/2013 17:24:00 08/30/2013 23:59:59 CLS Outpatient CIERRA MEJIANATALI Bear [id number] 08/06/2013 16:59:00 08/06/2013 23:59:59 CLS Outpatient ERNST DOAFSHAN [id number] 06/29/2013 11:01:00 06/29/2013 23:59:59 CLS Outpatient ERNST DOAFSHAN [id number] 06/27/2013 08:01:00 06/27/2013 23:59:59 CLS Outpatient ERNST DOAFSHAN Radha [id number] 06/26/2013 15:44:00 06/26/2013 23:59:59 CLS Outpatient ERNST DOAFSHAN [id number] 12/13/2012 17:30:00 12/13/2012 23:59:59 CLS Outpatient [id number] 11/25/2012 10:36:00 11/25/2012 23:59:59 CLS Outpatient TARA SOW MD, SENAIT Newman [id number] 10/31/2012 08:13:00 10/31/2012 23:59:59 CLS Outpatient ERNST DOAFSHAN Radha [id number] 10/18/2012 11:35:00 10/18/2012 23:59:59 CLS Outpatient [id number] 09/07/2012 09:39:00 09/07/2012 23:59:59 [place] [id number] 07/25/2012 07:57:00 07/25/2012 23:59:59 CLS Outpatient AFSHAN ERNST DO [id number] 05/29/2013 11:29:00 Document Registration [id number] 05/05/2013 09:28:00 Document Registration [id number] 04/05/2013 13:05:00 Document Registration [id number] 04/02/2013 16:01:00 Document Registration [id number] 03/06/2013 17:10:00 Document Registration [id number] 02/22/2013 16:54:00 Document Registration [id number] 02/08/2013 13:26:00 Document Registration [id number] 01/15/2013 16:54:00 Document Registration [id number] 04/07/2018 10:15:00 04/07/2018 23:59:59 CLS Outpatient VINOD MITCHELL MD [id number] 06/03/2015 02:54:11 ACT Document Registration [id number] 07/09/2017 08:36:00 Document Registration [id number] 01/17/2017 09:06:00 Document Registration [id number] 01/27/2017 19:07:00 Document Registration [id number] 09/13/2017 10:34:00 09/13/2017 23:59:59 CLS Preadmit VINOD MITCHELL MD [facility] RAD R10.32 LEFT LOWER QUADRANT PAIN [id number] 09/07/2017 08:40:00 09/07/2017 23:59:59 CLS Outpatient VINOD MITCHLEL MD [facility] RAD R10.32 LT LOWER QUADRANT PAIN [id number] 01/31/2017 08:15:00 01/31/2017 23:59:59 CLS Preadmit DALILA RICKS DO [facility] RAD ABNORMAL MAMMO [id number] 01/19/2017 09:30:00 01/19/2017 23:59:59 CLS Preadmit RENITA MUÑOZ DO [facility] RAD SCREENING [id number] 01/17/2017 09:43:00 01/17/2017 23:59:59 CLS Outpatient RENITA MUÑOZ DO [facility] RAD ABDOMINAL PAIN [id number] 11/16/2016 15:10:00 11/17/2016 09:50:00 DIS Inpatient AIDA OWENS MD [facility] ICU ANAPHYLAXIS [id number] 07/28/2016 07:25:00 07/28/2016 23:59:59 CLS Outpatient ASYA DELANEY MD [facility] LAB INFLAMMATORY ARTHRITIS [id number] 07/25/2016 09:09:00 07/25/2016 23:59:59 CLS Outpatient ASYA DELANEY MD [facility] LAB 714.9, M19.90 [id number] 06/19/2016 09:40:00 06/19/2016 23:59:59 CLS Outpatient VINOD MITCHELL MD [facility] LAB PURE HYPERCHOLESTEROLEMIA /PSORIATIC ARTHRITIS [id number] 05/21/2016 06:35:00 05/21/2016 10:56:00 DIS Emergency AVIS SHORT MD [facility] ER FEVER,ABD PAIN,VOMITING [id number] 04/01/2016 17:52:00 04/01/2016 23:59:59 CLS Outpatient VINOD MITCHELL MD [facility] RAD RIGHT WRIST PAIN [id number] 02/19/2016 06:26:00 02/20/2016 11:48:00 DIS Outpatient RENITA MUÑOZ DO [facility] SDC PELVIC PROLAPES, FIBROIDS [id number] 02/09/2016 12:16:00 02/09/2016 12:42:00 DIS Outpatient RENITA MUÑOZ DO [facility] PREOP PELVIC PROLAPES, FIBROIDS [id number] 01/01/2016 00:09:00 01/01/2016 23:59:59 CLS Preadmit DENNIS SURESH MD [facility] ONC [id number] 10/02/2015 14:03:00 12/31/2015 00:01:00 DIS Outpatient DENNIS SURESH MD [facility] ONC [id number] 11/20/2015 10:30:00 11/20/2015 23:59:59 CLS Preadmit MARENORMA [employer] ADMINISTRATOR [facility] CARD SINUS BRADYCARDIA [id number] 08/21/2015 10:57:00 11/19/2015 00:01:00 DIS Outpatient GARVEYNORMA [facility] CARD SINUS BRADYCARDIA [id number] 08/20/2015 10:42:00 08/21/2015 10:40:00 DIS Inpatient VINOD MITCHELL MD [facility] ICU [id number] 06/18/2015 15:38:00 06/18/2015 23:59:59 CLS Preadmit VINOD MITCHELL MD [facility] REHAB [id number] 04/03/2015 13:26:00 06/18/2015 00:01:00 DIS Outpatient DENNIS SURESH MD [facility] ONC [id number] 06/03/2015 02:53:00 06/03/2015 04:21:00 DIS Emergency DALILA POWELL DO [facility] ER [id number] 05/22/2015 12:34:00 05/22/2015 23:59:59 CLS Outpatient VINOD MITCHELL MD [facility] RAD [id number] 05/01/2015 11:57:00 05/01/2015 23:59:59 CLS Outpatient RENITA MUÑOZ DO [facility] RAD [id number] 04/25/2015 07:29:00 04/25/2015 23:59:59 CLS Outpatient RENITA MUÑOZ DO [facility] RAD [id number] 02/20/2015 05:20:00 02/20/2015 07:45:00 DIS Emergency MIRELLA RILEY DO [facility] ER [id number] 01/23/2015 12:33:00 01/23/2015 23:59:59 CLS Outpatient RENITA MUÑOZ DO [facility] RAD [id number] 10/16/2014 08:04:00 01/08/2015 00:01:00 DIS Outpatient DENNIS SURESH MD [facility] ONC [id number] 12/26/2014 17:28:00 12/26/2014 23:59:59 CLS Outpatient NEETA JUARES [facility] LAB [id number] 10/15/2014 07:45:00 10/15/2014 23:59:59 CLS Preadmit RENITA MUÑOZ DO [facility] RAD BREAST LUMP [id number] 09/05/2014 06:00:00 09/05/2014 11:04:00 DIS Out[facility] [id number] 08/30/2014 12:52:00 08/30/2014 23:59:59 CLS Outpatient RENITA MUÑOZ DO [facility] PREOP [id number] 08/21/2014 06:33:00 08/21/2014 07:50:00 DIS Emergency NEETA KASPER MD [facility] ER [id number] 03/14/2014 14:12:00 06/12/2014 00:01:00 DIS Outpatient DENNIS SURESH MD [facility] ONC [id number] 06/07/2014 12:48:00 06/07/2014 23:59:59 CLS Outpatient RENITA MUÑOZ DO [facility] RAD [id number] 04/24/2014 07:35:00 04/24/2014 13:30:00 DIS Outpatient ESTEPHANIA GONSALVES MD [facility] [id number] 04/23/2014 07:33:00 04/23/2014 23:59:59 CLS Outpatient ESTEPHANIA GONSALVES MD [facility] PREOP [id number] 04/15/2014 07:45:00 04/15/2014 23:59:59 CLS Outpatient ALLISON JEAN BAPTISTE DO [facility] RAD [id number] 01/10/2014 09:44:00 02/13/2014 00:01:00 DIS Outpatient DENNIS SURESH MD [facility] ONC [id number] 11/15/2013 11:34:00 02/13/2014 00:01:00 DIS Outpatient NEETA JUARES [facility] CARD [id number] 12/21/2013 13:47:00 12/21/2013 23:59:59 CLS Outpatient LYNDSAY JEAN BAPTISTE DOTT Margot [facility] RAD [id number] 11/21/2013 06:53:00 11/21/2013 23:59:59 CLS Outpatient NEETA JUARES [facility] RAD [id number] 11/15/2013 15:39:00 11/17/2013 14:00:00 DIS Inpatient JOY PAL, URIEL Davila [facility] 4TH [id number] 10/11/2013 12:23:00 10/11/2013 23:59:59 CLS Outpatient MAYELAALMA MCKEON RENITA Sury [facility] RAD [id number] 09/28/2013 12:31:00 09/28/2013 23:59:59 CLS Outpatient NEETA JUARES [facility] RAD [id number] 08/03/2013 14:42:00 08/03/2013 23:59:59 CLS Outpatient TONI MCEKON RENITA S [facility] RAD [id number] 07/06/2013 06:08:00 07/06/2013 08:00:00 DIS Emergency HAN PAL, AVIS Garcia [facility] ER [id number] 05/05/2013 11:20:00 05/05/2013 23:59:59 CLS Outpatient MK MONTAGUE PA-C [facility] RAD [id number] 04/19/2013 06:06:00 04/19/2013 12:25:00 DIS Outpatient TONI MCKEON RENITA S [facility] SDC [id number] 04/17/2013 11:44:00 04/17/2013 23:59:59 CLS Outpatient MAYELAALMA DO RENITA S [facility] PREOP [id number] 04/04/2013 09:27:00 04/04/2013 23:59:59 CLS Outpatient ANGELES OLSEN MD [facility] [id number] 04/03/2013 08:45:00 04/03/2013 12:36:00 DIS Emergency RANJITH PAL, NEETA Arroyo [facility] ER [id number] 03/28/2013 08:10:00 03/28/2013 09:45:00 DIS Emergency MOE MCKEON CHRISTINE Apodaca [facility] ER [id number] 02/19/2013 15:32:00 02/19/2013 23:59:59 CLS Outpatient PRETTY PAL, ANGELES [facility] RAD [id number] 10/16/2015 12:19:00 Document Registration [id number] 11/27/2014 07:10:00 Document Registration [id number] 08/02/2014 09:58:00 Document Registration [id number] 02/14/2014 11:30:00 Document Registration [id number] 12/31/2012 22:15:00 Document Registration [id number] 12/22/2012 13:37:00 Document Registration [id number] 07/31/2012 08:51:00 Document Registration [id number] 07/15/2012 10:09:00 Document Registration [id number] 01/11/2017 08:38:00 Document Registration
--- NOTE | 2018-05-01 09:06 | Diagnostic Imaging Report ---
INDICATION: Chest pressure. Time of exam: 8:22 AM Correlation is made with prior study of 11/17/2016. The heart size is normal. The pulmonary vascularity is within normal limits. No infiltrate or failure is identified. No effusion or pneumothorax is detected. IMPRESSION: No acute cardiopulmonary process is detected. Dictated by: Dictated on workstation # [id number]
[2018-05-01] MEDS ORDERED: NS IV 1000 ML 1,000 ML IV ONE (09:26)
--- NOTE | 2018-05-01 09:34 | ED Chest Pain ---
General Chief Complaint: Chest Pain Stated Complaint: CP Nursing Triage Note: ARRIVED VIA AMB TO ROOM 06. CRYING. STATES SHE STARTED HAVING CHEST PRESSURE AROUND 0300. AFTER TALKING TO HER SHE HAS NOT FELT WELL AND CALLED INTO WORK. WORK TOLD HER SHE WOULD BE FIRED IF SHE DID NOT GET HELP. Nursing Sepsis Screen: No Definite Risk Source: patient Exam Limitations: no limitations History of Present Illness Date Seen by Provider: May 01, 2018 Time Seen by Provider: 08:05 Initial Comments Here with report of chest pain that started about 3 a.m. She reports this as pressure and moderate. She's had this multiple times. Does report anxiety. States she has anxiety related to her medical problems and to concerns about losing her job because of illness. Denies nausea, vomiting, and weakness or sweating. Does have some shortness of breath which seems to be chronic. Has history of psoriatic arthritis and has pain in her hands, feet and back related to that. Timing/Duration: 4-6 hours, changing over time Severity/Quality: moderate Location: central Radiation: no radiation Activities at Onset: none Prior CP/Workup: non-cardiac, pulmonary embolism ASA po VEHICLE DETAILER: No NTG SL VEHICLE DETAILER: No Associated Symptoms: No abdominal pain, No diaphoresis, No fever/chills, No nausea/vomiting; shortness of breath; No weakness Allergies and Home Medications Allergies Coded Allergies: nut - unspecified (Verified Allergy, Severe, Anaphylaxis, 11/16/16) acetaminophen (Verified Allergy, Unknown, NAUSEA, 02/09/16) celecoxib (Verified Allergy, Unknown, DIARRHEA. WEIGHT GAIN, 02/09/16) meloxicam (Verified Allergy, Unknown, DIARRHEA, 02/09/16) methotrexate (Verified Allergy, Unknown, MOUTH BLISTERING, ITCHING, ) morphine (Verified Allergy, Unknown, NAUSEA, 02/09/16) oxycodone (Verified Allergy, Unknown, NAUSEA, 02/09/16) cephalexin (Unverified Adverse Reaction, Mild, SEVERE DIARRHEA, 04/24/14) codeine (Unverified Adverse Reaction, Mild, NAUSEA, 04/24/14) hydrocodone bit (Verified Adverse Reaction, Unknown, RASH, 04/24/14) Home Medications Adalimumab 40 Mg/0.8 Ml Pen.ij.kit, 40 MG SC EVERY 14 DAYS, (Reported) HAS NOT STARTED YET Butalb/Acetaminophen/Caffeine 1 Each Tablet, 1-2 TAB PO Q6H PRN for MIGRAINE, ( Reported) Calcipotriene 60 Gm Oint...g., TOP DAILY PRN for PSORIASIS OF NAILS, (Reported) Clobetasol Propionate 118 Ml Shampoo, TOP Sa, (Reported) Clobetasol Propionate 15 Gm Cream..g., TOP DAILY PRN for PSORIASIS, (Reported) Diclofenac Sodium 75 Mg Tablet.dr, 75 MG PO BID PRN for JOINT PAIN, (Reported) Omeprazole 40 Mg Capsule.dr, 40 MG PO DAILY PRN for INDIGESTION, (Reported) Ondansetron 4 Mg Tab.rapdis, 4 MG SL Q8H PRN for NAUSEA/VOMITING, (Reported) Prednisone 20 Mg Tab, 20 MG PO DAILY Prescribed by: AIDA OWENS on 11/17/16 0926 Sertraline HCl 50 Mg Tablet, 50 MG PO DAILY, (Reported) Tramadol HCl 50 Mg Tablet, 50 MG PO Q6H PRN for PAIN, (Reported) Patient Home Medication List Home Medication List Reviewed: Yes Review of Systems Constitutional: see HPI; No chills, No fever EENTM: No Symptoms Reported Respiratory: Denies Cough; Shortness of Air Cardiovascular: See HPI, Chest Pain; Denies Edema; Palpitations Gastrointestinal: No Symptoms Reported Genitourinary: No Symptoms Reported Musculoskeletal: no symptoms reported Skin: no symptoms reported Psychiatric/Neurological: See HPI, Anxiety; Denies Weakness All Other Systems Reviewed Negative Unless Noted: Yes Past Peslfmt-Nzuexd-Xmoewq Hx Past Med/Social Hx: Reviewed Nursing Past Med/Soc Hx Patient Social History Alcohol Use: Denies Use Recreational Drug Use: No Smoking Status: Never a Smoker Recent Foreign Travel: No Contact w/Someone Who Travel: No Recent Infectious Disease Expo: No Recent Hopitalizations: No Immunizations Up To Date Tetanus Booster (TDap): More than 5yrs Date of Pneumonia Vaccine: Jun 16, 2016 Date of Influenza Vaccine: Jun 16, 2016 Seasonal Allergies Seasonal Allergies: No Past Medical History Surgeries: Yes (BREAST REDUCTION, D & C, BARTHOLIN'S GLAND MARSUPIALIZATION x2) Breast, Gallbladder, Hysterectomy Respiratory: Yes (P.E. 2007--ONLY TOOK MEDS X 3 MONTHS-DC'D DUE TO BRUISING/ BLEEDING) Pneumonia, Pulmonary Embolism Currently Using CPAP: No Currently Using BIPAP: No Cardiac: No Neurological: Yes Headaches /Migraines Reproductive Disorders: Yes (FIBROID) Female Reproductive Disorders: Menstrual Problems, Endometriosis, Ovarian Cyst Sexually Transmitted Disease: No Genitourinary: No Gastrointestinal: Yes Gastroesophageal Reflux, Chronic Constipation, Diverticulosis, Gall Bladder Disease Musculoskeletal: Yes (Psoriatic Arthritis, Chronic Joint Pain) Arthritis Endocrine: Yes (pre-diabetic) Diabetes, Non-Insulin dep HEENT: No Loss of Vision: Denies Cancer: No Psychosocial: Yes (Suicide attempt two years ago) Suicide Attempts, Depression Integumentary: Yes Psoriasis Blood Disorders: No Adverse Reaction/Blood Tranf: No Family Medical History Reviewed Nursing Family Hx Cancer GRANDMOTHER Cancer of colon GRANDMOTHER UNCLE Chest pain 03 MOTHER Family history: Arthritis GRANDMOTHER AUNT Family history: Breast disease 03 MOTHER Family history: Hypertension 03 FATHER Headache 03 MOTHER Hypercholesterolemia 03 FATHER 03 MOTHER 09 BROTHER 09 SISTER GRANDMOTHER Malignant neoplasm of lung GRANDMOTHER No Family History of: Abdominal aortic aneurysm Vincent's disease Alcoholism Aphasia Cataract Congenital heart disease Congestive heart failure Cystic fibrosis Dementia Dysphagia Family history: Allergy Family history: Alzheimer's disease Family history: Asthma Family history: Cardiovascular disease Family history: Coronary thrombosis Family history: Diabetes mellitus Family history: Gastrointestinal disease Family history: Glaucoma Family history: Osteoporosis Family history: Thyroid disorder Hearing loss Heart disease Hereditary disease History of - anemia History of - disorder History of - respiratory disease History of drug abuse Human immunodeficiency virus (HIV) seropositivity Infertile Kidney disease Myocardial infarction Parkinson's disease Prostate cancer Psychotic disorder Seizure disorder Stroke Tuberculosis Visual impairment Cancer Physical Exam Vital Signs Vital Signs - First Documented 05/01/18 08:00 Temp 98.0 Pulse 111 Resp 16 B/P (MAP) 178/137 (151) Pulse Ox 99 O2 Delivery Room Air Capillary Refill : Less Than 3 Seconds Height, Weight, BMI Height: 5'2.00" Weight: 190lbs. 12.0oz. 86.787909et; 38.4 BMI Method:Estimated General Appearance: No Apparent Distress, WD/WN HEENT: PERRL/EOMI, Pharynx Normal Neck: Non Tender, Supple Respiratory: Lungs Clear, Normal Breath Sounds Cardiovascular: No Murmur, Tachycardia Gastrointestinal: Non Tender, Soft Extremity: Normal Range of Motion, Non Tender Neurologic/Psychiatric: Alert, Oriented x3 Skin: Normal Color, Warm/Dry Progress/Results/Core Measures Results/Orders Lab Results Laboratory Tests Test 05/01/18 08:14 Range/Units White Blood Count 13.3 H 4.3-11.0 10^3/uL Red Blood Count 5.28 4.35-5.85 10^6/uL Hemoglobin 13.3 11.5-16.0 G/DL Hematocrit 41 35-52 % Mean Corpuscular Volume 78 L 80-99 FL Mean Corpuscular Hemoglobin 25 25-34 PG Mean Corpuscular Hemoglobin Concent 32 32-36 G/DL Red Cell Distribution Width 14.8 H 10.0-14.5 % Platelet Count 458 H 130-400 10^3/uL Mean Platelet Volume 9.4 7.4-10.4 FL Neutrophils (%) (Auto) 54 42-75 % Lymphocytes (%) (Auto) 38 12-44 % Monocytes (%) (Auto) 7 0-12 % Eosinophils (%) (Auto) 2 0-10 % Basophils (%) (Auto) 0 0-10 % Neutrophils # (Auto) 7.1 1.8-7.8 X 10^3 Lymphocytes # (Auto) 5.0 H 1.0-4.0 X 10^3 Monocytes # (Auto) 0.9 0.0-1.0 X 10^3 Eosinophils # (Auto) 0.2 0.0-0.3 10^3/uL Basophils # (Auto) 0.0 0.0-0.1 10^3/uL Prothrombin Time 12.8 12.2-14.7 SEC INR Comment 1.0 0.8-1.4 Activated Partial Thromboplast Time 31 24-35 SEC Sodium Level 137 135-145 MMOL/L Potassium Level 3.9 3.6-5.0 MMOL/L Chloride Level 105 98-107 MMOL/L Carbon Dioxide Level 21 21-32 MMOL/L Anion Gap 11 5-14 MMOL/L Blood Urea Nitrogen 5 L 7-18 MG/DL Creatinine 0.65 0.60-1.30 MG/DL Estimat Glomerular Filtration Rate > 60 BUN/Creatinine Ratio 8 Glucose Level 113 H 70-105 MG/DL Calcium Level 8.7 8.5-10.1 MG/DL Corrected Calcium 8.6 8.5-10.1 MG/DL Magnesium Level 2.1 1.8-2.4 MG/DL Total Bilirubin 0.3 0.1-1.0 MG/DL Aspartate Amino Transf (AST/SGOT) 13 5-34 U/L Alanine Aminotransferase (ALT/SGPT) 15 0-55 U/L Alkaline Phosphatase 84 40-136 U/L Myoglobin 17.9 10.0-92.0 NG/ML Troponin I < 0.30 <0.30 NG/ML Total Protein 7.5 6.4-8.2 GM/DL Albumin 4.1 3.2-4.5 GM/DL My Orders Orders - NATALYA GORE MD Cbc With Automated Diff (05/01/18 08:05) Magnesium (05/01/18 08:05) Chest 1 View, Ap/Pa Only (05/01/18 08:05) Ekg Tracing (05/01/18 08:05) Cardiac Profile 1 (05/01/18 08:05) Comprehensive Metabolic Panel (05/01/18 08:05) Myoglobin Serum (05/01/18 08:05) Protime With Inr (05/01/18 08:05) Partial Thromboplastin Time (05/01/18 08:05) O2 (05/01/18 08:05) Monitor-Rhythm Ecg Trace Only (05/01/18 08:05) Lipid Panel (05/02/18 06:00) Aspirin Chewable Tablet (Baby Aspirin Ch (05/01/18 08:15) Saline Lock/Iv-Start (05/01/18 08:05) Lorazepam Injection (Ativan Injection) (05/01/18 08:15) Ct Angio Chest W (05/01/18 09:26) Ns Iv 1000 Ml (Sodium Chloride 0.9%) (05/01/18 09:26) Iohexol Injection (Omnipaque 350 Mg/Ml 1 (05/01/18 09:45) Sodium Chloride Flush (Catheter Flush Sy (05/01/18 09:45) Ns (Ivpb) (Sodium Chloride 0.9%) (05/01/18 09:45) Pharmacy Communication (Pharmacy Communi (05/01/18 09:32) Diphenhydramine Injection (Benadryl Inje (05/01/18 09:45) Methylprednisolone Sod Succ (Solu-Medrol (05/01/18 09:41) Medications Given in ED Current Medications Medications Dose Ordered Sig/Martha Route Start Time Stop Time Status Last Admin Dose Admin Aspirin 324 mg ONCE ONCE PO 05/01/18 08:15 05/01/18 08:16 DC 05/01/18 08:20 324 MG Diphenhydramine HCl 50 mg ONCE ONCE IV 05/01/18 09:45 05/01/18 09:46 DC 05/01/18 09:48 50 MG Iohexol 150 ml ONCE ONCE IV 05/01/18 09:45 05/01/18 09:46 DC 05/01/18 09:59 125 ML Lorazepam 0.5 mg ONCE ONCE IVP 05/01/18 08:15 05/01/18 08:16 DC 05/01/18 08:21 0.5 MG Sodium Chloride 10 ml NEEDED PRN IV 05/01/18 09:45 05/01/18 10:00 10 ML Sodium Chloride 250 ml ONCE ONCE IV 05/01/18 09:45 05/01/18 09:46 DC 05/01/18 10:00 80 ML Sodium Chloride 1,000 ml @ 0 mls/hr Q0M ONCE IV 05/01/18 09:26 05/01/18 09:28 DC 05/01/18 09:32 1,000 MLS/HR Vital Signs/I&O 05/01/18 08:00 Temp 98.0 Pulse 111 Resp 16 B/P (MAP) 178/137 (151) Pulse Ox 99 O2 Delivery Room Air Blood Pressure Mean: 151 Progress Progress Note : Progress Note Seen and evaluated. IV, labs, EKG and chest x-ray ordered. ASA 324 mg by mouth. Ativan 0.5 mg by mouth given. Monitor patient. 0925: I did discuss the case with Dr. Mitchell. Patient does apparently have history of blood clots. I will go ahead and get CT angiogram of the chest. This was discussed with the patient and she agrees. Normal saline 1 L bolus. 0940. Patient reports that she's had some issues with contrast previously. We will give Benadryl 50 mg IV and Solu-Medrol [address] scan. 1100: CT complete shows no acute findings. Patient overall feeling much better. Discharged home with return precautions. Patient verbalize understanding instructions and agreement with plan. Initial ECG Impression Date: May 01, 2018 Initial ECG Impression Time: 08:05 Initial ECG Rate: 99 Initial ECG Rhythm: S.Tach Initial ECG Comparisson: Unchanged Comment Sinus rhythm with normal axis. No evidence of ST elevation [place]. Similar to previous in 2015. Interpreted by me. Diagnostic Imaging Diagonstic Imaging: Xray Plain Films/CT/US/NM/MRI: chest [facility] [place] [place] NAME: MARIOLA WALTER [facility] REC#: [id number] PT STATUS: REG ER : 1975 PHYSICIAN: NATALYA GORE MD ADMIT DATE: 05/01/18/ER Draft Date of Exam:05/01/18 CHEST 1 VIEW, AP/PA ONLY INDICATION: Chest pressure. Time of exam: 8:22 AM Correlation is made with prior study of 11/17/2016. The heart size is normal. The pulmonary vascularity is within normal limits. No infiltrate or failure is identified. No effusion or pneumothorax is detected. IMPRESSION: No acute cardiopulmonary process is detected. Dictated on workstation # [id number] Dict: 05/01/18 0850 Trans: 05/01/18 0905 ELIO [id number] Interpreted by: MILLER BRYANT MD Electronically signed by: Diagonstic Imaging: CT Plain Films/CT/US/NM/MRI: chest Comments VIA [facility] [place], [place] [facility] [id number] PT STATUS: REG ER : 1975 PHYSICIAN: NATALYA GORE MD ADMIT DATE: 05/01/18/ER Draft Date of Exam:05/01/18 CT ANGIO CHEST W PROCEDURE: CT angiography of the chest with contrast. TECHNIQUE: Multiple contiguous axial images were obtained through the chest after uneventful bolus administration of intravenous contrast. Reconstructed CTA MIP acquisitions were also performed. INDICATION: Chest pressure. FINDINGS: Evaluation of the pulmonary arterial system is without evidence of thromboembolism. No filling defects are identified within the central, lobar or segmental branches. The thoracic aorta is normal caliber. No dissection is identified. No pericardial or pleural fluid is identified. Parenchymal evaluation demonstrates small areas of subsegmental atelectasis. No infiltrate or mass is identified. The upper abdomen demonstrates generalized low density throughout the liver consistent with hepatic steatosis. The gallbladder is surgically absent. IMPRESSION: 1. No evidence of pulmonary embolism or thoracic aortic dissection. 2. Hepatic steatosis. Dictated on workstation # [id number] Dict: 05/01/18 1007 Trans: 05/01/18 1017 [facility] [id number] Interpreted by: MILLER BRYANT MD Electronically signed by: Departure Impression Primary Impression: Chest pain Qualified Codes: R07.9 - Chest pain, unspecified Additional Impression: Anxiety Disposition: HOME, SELF-CARE Condition: Improved Departure-Patient Inst. Decision time for Depature: 11:02 Referrals: VINOD MITCHELL MD (PCP/Family) Primary Care Physician Patient Instructions: Anxiety, Adult (DC), Chest Pain (DC) Add. Discharge Instructions: All discharge instructions reviewed with patient and/or family. Voiced understanding. Continue home medications as previously prescribed. You may also take Tylenol/ acetaminophen 1000 mg every 8 hours as needed for pain. Follow-up with your Dr. in a few days for recheck. Drink plenty of fluids. Return for worse pain, fever, vomiting, weakness, breathing problems or other concerns as needed. Scripts Hydroxyzine HCl (Hydroxyzine HCl) 25 Mg Tablet 25 MG PO Q8H PRN for ANXIETY, #30 TAB Prov: NATALYA GORE MD 05/01/18 Work/School Note: Work Release Form Date Seen in the Emergency Department: May 01, 2018 Return to Work: May 02, 2018 Restrictions: No Restrictions Copy Copies To 1: VINOD MITCHELL MD, TIMOTHY D MD May 01, 2018 09:34
[2018-05-01] MEDS ORDERED: methylPREDNISolone 125 MG (Solu-MEDROL) VIAL IV STA (09:41)
[2018-05-01] MEDS ORDERED: CATHETER FLUSH 10 ML SYR IV PRN (09:45)
[2018-05-01] MEDS ORDERED: NS 250 ML (IVPB) BAG IV ONE (09:45)
[2018-05-01] MEDS ORDERED: IOHEXOL 350 MG/ML 150 ML (OMNIPAQUE 350) VIAL IV ONE (09:45)
[2018-05-01] MEDS ORDERED: diphenhydrAMINE 50 MG/ML INJ (BENADRYL) IV ONE (09:45)
--- NOTE | 2018-05-01 10:17 | Diagnostic Imaging Report ---
PROCEDURE: CT angiography of the chest with contrast. TECHNIQUE: Multiple contiguous axial images were obtained through the chest after uneventful bolus administration of intravenous contrast. Reconstructed CTA MIP acquisitions were also performed. INDICATION: Chest pressure. FINDINGS: Evaluation of the pulmonary arterial system is without evidence of thromboembolism. No filling defects are identified within the central, lobar or segmental branches. The thoracic aorta is normal caliber. No dissection is identified. No pericardial or pleural fluid is identified. Parenchymal evaluation demonstrates small areas of subsegmental atelectasis. No infiltrate or mass is identified. The upper abdomen demonstrates generalized low density throughout the liver consistent with hepatic steatosis. The gallbladder is surgically absent. IMPRESSION: 1. No evidence of pulmonary embolism or thoracic aortic dissection. 2. Hepatic steatosis. Dictated by: Dictated on workstation # [id number]
[2018-05-01] MEDS ORDERED: HYDR-700 PO (11:03)
[2018-05-01 11:23] VITALS: BP 144/102
== END 2018-05-01 11:23 | disposition home or self-care (01) ==
LOC: EDUNIT# 08:00 → ER 08:01
DX: R07.89 Other chest pain (principal); F41.9 Anxiety disorder, unspecified; G43.909 Migraine, unspecified, not intractable, without status migrainosus; K21.9 Gastro-esophageal reflux disease without esophagitis; E11.9 Type 2 diabetes mellitus without complications; F32.9 Major depressive disorder, single episode, unspecified; Z82.49 Family history of ischemic heart disease and other diseases of the circulatory system; Z80.1 Family history of malignant neoplasm of trachea, bronchus and lung; Z80.0 Family history of malignant neoplasm of digestive organs; Z91.5 Personal history of self-harm; Z87.19 Personal history of other diseases of the digestive system; Z87.448 Personal history of other diseases of urinary system; Z88.6 Allergy status to analgesic agent; Z88.1 Allergy status to other antibiotic agents; Z88.5 Allergy status to narcotic agent; Z88.8 Allergy status to other drugs, medicaments and biological substances; Z79.52 Long term (current) use of systemic steroids; Z90.710 Acquired absence of both cervix and uterus; Z87.01 Personal history of pneumonia (recurrent); Z86.718 Personal history of other venous thrombosis and embolism
CPT/HCPCS: 36415; 71045; 71275; 80053; 83735; 83874; 84484; 85025; 85610; 85730; 93005; 93041

== ENCOUNTER → 2018-07-28 | Outpatient (CLI) | payer OTHER ==
[~2018-07-28] MED LIST changes: +BARIUM SUSPENSION 105% (LIQUID POLIBAR PLUS) 240 ML/DOSE PO ONE; +BARIUM SUSPENSION 60% (LIQUID EZ PAQUE) 240 ML DOSE PO ONE; +HYDR-700 PO; +METF-397 PO; -METF500T5 PO
--- NOTE | 2018-07-28 12:20 | Diagnostic Imaging Report ---
INDICATION: Dysphasia. The patient ingested effervescent crystals as well as thin and thick barium imaging of the esophagus was performed. A total of one minute 54 seconds of fluoroscopy was utilized. Preliminary radiograph of the chest is unremarkable. The esophagus has a smooth contour. No mass or stricture is identified. No significant hiatal hernia or gastroesophageal reflux is seen. Images of the stomach are unremarkable. IMPRESSION: Unremarkable esophagram. Dictated by: Dictated on workstation # [id number]
== END ==
LOC: RAD 10:38
PROVIDERS: ATTEND Family Medicine
DX: R13.14 Dysphagia, pharyngoesophageal phase (principal)
CPT/HCPCS: 74220

== ENCOUNTER 2018-08-25 19:30 | Outpatient (CLI) | payer OTHER ==
[~2018-08-25 19:30] MED LIST changes: -BARIUM SUSPENSION 105% (LIQUID POLIBAR PLUS) 240 ML/DOSE PO ONE; -BARIUM SUSPENSION 60% (LIQUID EZ PAQUE) 240 ML DOSE PO ONE
== END 2018-08-26 06:42 | disposition home or self-care (01) ==
LOC: SLEEP 19:30
PROVIDERS: ATTEND Family Medicine
DX: G47.33 Obstructive sleep apnea (adult) (pediatric) (principal)
CPT/HCPCS: 95811

== ENCOUNTER → 2019-06-05 | Outpatient (CLI) | payer OTHER ==
[~2019-06-05] MED LIST changes: -DICL100T3 PO; +DICL100T83 PO
== END ==
LOC: LAB 17:38
PROVIDERS: ATTEND Nurse Practitioner Family
DX: M25.50 Pain in unspecified joint (principal)
CPT/HCPCS: 36415; 85652; 86141

== ENCOUNTER → 2019-10-02 | Outpatient (CLI) | payer OTHER ==
[~2019-10-02] MED LIST changes: +METF500T19 PO; -METF500T8 PO; +OMEP40CA27 PO; -OMEP40CA36 PO; +TRM50T PO
--- NOTE | 2019-10-02 12:36 | Diagnostic Imaging Report ---
INDICATION: Routine screening. COMPARISON: Comparison is made with prior mammograms from 04/25/2015 and 10/11/2013. TECHNIQUE: 2-D and 3-D bilateral screening mammography was performed. The current study was also evaluated with a Computer Aided Detection (CAD) system. 3-D tomosynthesis was also performed and reviewed. FINDINGS: Scattered fibroglandular densities are identified bilaterally. The parenchymal pattern is stable. Retroareolar density on the left appears stable. No dominant mass or malignant-appearing microcalcifications are seen. Axillae are unremarkable. IMPRESSION: No mammographic features suspicious for malignancy are identified. ACR BI-RADS Category 2: Benign findings. Result letter will be mailed to the patient. Note: At least 10% of breast cancer is not imaged by mammography. Dictated by: Dictated on workstation # [id number]
== END ==
LOC: RAD 08:41
PROVIDERS: ATTEND Family Medicine
DX: Z12.31 Encounter for screening mammogram for malignant neoplasm of breast (principal)
CPT/HCPCS: 77067

== ENCOUNTER 2020-08-28 11:41 | Emergency (ER) | payer OTHER ==
[~2020-08-28] VITALS: Ht 152.4 cm; Wt 102.2 kg
[~2020-08-28 11:41] MED LIST changes: -MECL-106 PO; +MECL-149 PO; +METF-865 PO; -METF500T19 PO; -PANT40TA3 PO; +PANT40TA52 PO; +PS30T PO; -PSEU30TA35 PO
[2020-08-28 12:00] LABS: BASOPHILS # (AUTO) 0.1 10^3/uL (0.0-0.1); BASOPHILS % (AUTO) 1 % (0-10); EOSINOPHILS # (AUTO) 0.2 10^3/uL (0.0-0.3); EOSINOPHILS % (AUTO) 2 % (0-10); HEMATOCRIT 40 % (35-52); HEMOGLOBIN 12.5 g/dL (11.5-16.0); LYMPHOCYTES % (AUTO) 42 % (12-44); MEAN CORPUSCULAR HEMOGLOBIN 25 pg (25-34); MEAN CORPUSCULAR HGB CONC 31 g/dL (32-36); MEAN CORPUSCULAR VOLUME 81 fL (80-99); MEAN PLATELET VOLUME 9.2 fL (9.0-12.2); MONOCYTES # (AUTO) 0.8 10^3/uL (0.0-1.0); MONOCYTES % (AUTO) 6 % (0-12); NEUTROPHILS # (AUTO) 5.8 10^3/uL (1.8-7.8); NEUTROPHILS % (AUTO) 49 % (42-75); PLATELET COUNT 393 10^3/uL (130-400); WHITE BLOOD COUNT 11.9 10^3/uL (4.3-11.0)
--- NOTE | 2020-08-28 12:10 | ED Chest Pain ---
General Chief Complaint: Chest Pain Stated Complaint: CP Source: patient Exam Limitations: no limitations History of Present Illness Date Seen by Provider: Aug 28, 2020 Time Seen by Provider: 11:50 Initial Comments 45-year-old female who was brought to the emergency room by [facility] for complaints of chest pain, shortness of breath, left-sided facial tingling. She was seen and evaluated at [facility] where she is an employee and they sent her for further evaluation. She reports that her chest pain started last night and that she has been under a lot of stress with job changes. She states that her left-sided facial tingling started this morning with her left eye twitching that progressed to left-sided facial tingling. Cranial nerves are intact, no facial drooping, NIH scale 0. 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 WEIGHT GAIN, 02/09/16) meloxicam (Verified Allergy, Unknown, DIARRHEA, 02/09/16) methotrexate (Verified Allergy, Unknown, MOUTH BLISTERING, ITCHING, 6) morphine (Verified Allergy, Unknown, NAUSEA, 02/09/16) oxycodone (Verified Allergy, Unknown, NAUSEA, 02/09/16) cephalexin (Unverified Adverse Reaction, Mild, SEVERE DIARRHEA, 04/24/14) codeine (Unverified Adverse Reaction, Mild, NAUSEA, 04/24/14) hydrocodone bit (Verified Adverse Reaction, Unknown, RASH, 04/24/14) Home Medications Adalimumab 40 Mg/0.8 Ml Pen.ij.kit, 40 MG SC EVERY 14 DAYS, (Reported) HAS NOT STARTED YET Butalb/Acetaminophen/Caffeine 1 Each Tablet, 1-2 TAB PO Q6H PRN for MIGRAINE, (Reported) Calcipotriene 60 Gm Oint...g., TOP DAILY PRN for PSORIASIS OF NAILS, (Reported) Clobetasol Propionate 118 Ml Shampoo, TOP Sa, (Reported) Clobetasol Propionate 15 Gm Cream..g., TOP DAILY PRN for PSORIASIS, (Reported) Diclofenac Sodium 75 Mg Tablet.dr, 75 MG PO BID PRN for JOINT PAIN, (Reported) Hydroxyzine HCl 25 Mg Tablet, 25 MG PO Q8H PRN for ANXIETY Prescribed by: NATALYA GORE on 05/01/18 1103 Omeprazole 40 Mg Capsule.dr, 40 MG PO DAILY PRN for INDIGESTION, (Reported) Ondansetron 4 Mg Tab.rapdis, 4 MG SL Q8H PRN for NAUSEA/VOMITING, (Reported) Prednisone 20 Mg Tab, 20 MG PO DAILY Prescribed by: AIDA OWENS on 11/17/16 0926 Sertraline HCl 50 Mg Tablet, 50 MG PO DAILY, (Reported) Tramadol HCl 50 Mg Tablet, 50 MG PO Q6H PRN for PAIN, (Reported) Patient Home Medication List Home Medication List Reviewed: Yes Review of Systems Review of Systems Constitutional: see HPI; No chills, No fever Cardiovascular: See HPI, Chest Pain All Other Systems Reviewed Negative Unless Noted: Yes Past Hbqqsum-Neqlsi-Imrisf Hx Past Med/Social Hx: Reviewed Nursing Past Med/Soc Hx Patient Social History Recent Hopitalizations: No Immunizations Up To Date Tetanus Booster (TDap): More than 5yrs Date of Pneumonia Vaccine: Jun 16, 2016 Date of Influenza Vaccine: Jun 16, 2016 Seasonal Allergies Seasonal Allergies: No Past Medical History Surgeries: Yes (BREAST REDUCTION, D & C, BARTHOLIN'S GLAND MARSUPIALIZATION x2) Breast, Gallbladder, Hysterectomy Respiratory: Yes (P.E. 2007--ONLY TOOK MEDS X 3 MONTHS-DC'D DUE TO BRUISING/BLEEDING) Pneumonia, Pulmonary Embolism Currently Using CPAP: No Currently Using BIPAP: No Cardiac: No Neurological: Yes Headaches /Migraines Reproductive Disorders: Yes (FIBROID) Female Reproductive Disorders: Menstrual Problems, Endometriosis, Ovarian Cyst Sexually Transmitted Disease: No Genitourinary: No Gastrointestinal: Yes Gastroesophageal Reflux, Chronic Constipation, Diverticulosis, Gall Bladder Disease Musculoskeletal: Yes (Psoriatic Arthritis, Chronic Joint Pain) Arthritis Endocrine: Yes (pre-diabetic) Diabetes, Non-Insulin dep HEENT: No Loss of Vision: Denies Cancer: No Psychosocial: Yes (Suicide attempt two years ago) Suicide Attempts, Depression Integumentary: Yes Psoriasis Blood Disorders: No Adverse Reaction/Blood Tranf: No Family Medical History Reviewed Nursing Family Hx Cancer GRANDMOTHER Cancer of colon GRANDMOTHER UNCLE Chest pain 03 MOTHER Family history: Arthritis GRANDMOTHER AUNT Family history: Breast disease 03 MOTHER Family history: Hypertension 03 FATHER Headache 03 MOTHER Hypercholesterolemia 03 FATHER 03 MOTHER 09 BROTHER 09 SISTER GRANDMOTHER Malignant neoplasm of lung GRANDMOTHER No Family History of: Abdominal aortic aneurysm Otero's disease Alcoholism Aphasia Cataract Congenital heart disease Congestive heart failure Cystic fibrosis Dementia Dysphagia Family history: Allergy Family history: Alzheimer's disease Family history: Asthma Family history: Cardiovascular disease Family history: Coronary thrombosis Family history: Diabetes mellitus Family history: Gastrointestinal disease Family history: Glaucoma Family history: Osteoporosis Family history: Thyroid disorder Hearing loss Heart disease Hereditary disease History of - anemia History of - disorder History of - respiratory disease History of drug abuse Human immunodeficiency virus (HIV) seropositivity Infertile Kidney disease Myocardial infarction Parkinson's disease Prostate cancer Psychotic disorder Seizure disorder Stroke Tuberculosis Visual impairment Cancer Physical Exam Vital Signs Vital Signs - First Documented 08/28/20 11:41 Temp 36.9 Pulse 93 Resp 18 B/P (MAP) 137/110 (119) Pulse Ox 98 O2 Delivery Room Air Capillary Refill : Height, Weight, BMI Height: 5'2.00" Weight: 190lbs. 12.0oz. [id number]; 38.4 BMI Method:Estimated General Appearance: No Apparent Distress, WD/WN HEENT: PERRL/EOMI, TMs Normal, Normal ENT Inspection, Pharynx Normal Neck: Full Range of Motion, Normal Inspection, Non Tender, Supple Respiratory: Chest Non Tender, Lungs Clear, Normal Breath Sounds, No Accessory Muscle Use, No Respiratory Distress Cardiovascular: Regular Rate, Rhythm, No Edema, No Gallop, No JVD, No Murmur, Normal Peripheral Pulses Extremity: Normal Capillary Refill, Normal Inspection, Normal Range of Motion, Non Tender, No Calf Tenderness, No Pedal Edema Neurologic/Psychiatric: Alert, Oriented x3, Normal Mood/Affect Skin: Normal Color, Warm/Dry Progress/Results/Core Measures Results/Orders Lab Results Laboratory Tests Test 08/28/20 11:53 08/28/20 14:10 Range/Units White Blood Count 11.9 H 4.3-11.0 10^3/uL Red Blood Count 4.98 3.80-5.11 10^6/uL Hemoglobin 12.5 11.5-16.0 g/dL Hematocrit 40 35-52 % Mean Corpuscular Volume 81 80-99 fL Mean Corpuscular Hemoglobin 25 25-34 pg Mean Corpuscular Hemoglobin Concent 31 L 32-36 g/dL Red Cell Distribution Width 14.5 10.0-14.5 % Platelet Count 393 130-400 10^3/uL Mean Platelet Volume 9.2 9.0-12.2 fL Immature Granulocyte % (Auto) 1 % Neutrophils (%) (Auto) 49 42-75 % Lymphocytes (%) (Auto) 42 12-44 % Monocytes (%) (Auto) 6 0-12 % Eosinophils (%) (Auto) 2 0-10 % Basophils (%) (Auto) 1 0-10 % Neutrophils # (Auto) 5.8 1.8-7.8 10^3/uL Lymphocytes # (Auto) 5.0 H 1.0-4.0 10^3/uL Monocytes # (Auto) 0.8 0.0-1.0 10^3/uL Eosinophils # (Auto) 0.2 0.0-0.3 10^3/uL Basophils # (Auto) 0.1 0.0-0.1 10^3/uL Immature Granulocyte # (Auto) 0.1 0.0-0.1 10^3/uL Prothrombin Time 13.2 12.2-14.7 SEC INR Comment 1.0 0.8-1.4 Activated Partial Thromboplast Time 33 24-35 SEC D-Dimer < 0.27 0.00-0.49 UG/ML Sodium Level 137 135-145 MMOL/L Potassium Level 3.8 3.6-5.0 MMOL/L Chloride Level 107 98-107 MMOL/L Carbon Dioxide Level 21 21-32 MMOL/L Anion Gap 9 5-14 MMOL/L Blood Urea Nitrogen 10 7-18 MG/DL Creatinine 0.76 0.60-1.30 MG/DL Estimat Glomerular Filtration Rate > 60 BUN/Creatinine Ratio 13 Glucose Level 170 H 70-105 MG/DL Calcium Level 8.2 L 8.5-10.1 MG/DL Corrected Calcium 8.3 L 8.5-10.1 MG/DL Magnesium Level 2.0 1.6-2.4 MG/DL Total Bilirubin 0.2 0.1-1.0 MG/DL Aspartate Amino Transf (AST/SGOT) 14 5-34 U/L Alanine Aminotransferase (ALT/SGPT) 21 0-55 U/L Alkaline Phosphatase 80 40-136 U/L Creatine Kinase MB 0.7 <6.6 NG/ML Myoglobin 18.2 10.0-92.0 NG/ML Troponin I < 0.028 <0.028 NG/ML B-Type Natriuretic Peptide < 10.0 <100.0 PG/ML Total Protein 7.0 6.4-8.2 GM/DL Albumin 3.9 3.2-4.5 GM/DL Amylase Level 74 25-125 U/L Lipase 12 8-78 U/L My Orders Orders - OBDULIO PERAZA Cbc With Automated Diff (08/28/20 11:49) Magnesium (08/28/20 11:49) Chest 1 View, Ap/Pa Only (08/28/20 11:49) Ekg Tracing (08/28/20 11:49) Comprehensive Metabolic Panel (08/28/20 11:49) Myoglobin Serum (08/28/20 11:49) Protime With Inr (08/28/20 11:49) Partial Thromboplastin Time (08/28/20 11:49) O2 (08/28/20 11:49) Monitor-Rhythm Ecg Trace Only (08/28/20 11:49) Lipid Panel (08/29/20 06:00) Ed Iv/Invasive Line Start (08/28/20 11:49) Creatine Kinase Mb (08/28/20 11:49) Lipase (08/28/20 11:49) Amylase (08/28/20 11:49) BNP (08/28/20 11:49) Fibrin Degradation Products (08/28/20 11:49) Troponin I (08/28/20 11:49) Ct Head Wo (08/28/20 11:55) Troponin I (08/28/20 13:46) Vital Signs/I&O 08/28/20 11:41 Temp 36.9 Pulse 93 Resp 18 B/P (MAP) 137/110 (119) Pulse Ox 98 O2 Delivery Room Air Progress Progress Note : Time: 14:29 Progress Note I have seen and evaluated the patient. I informed her of her laboratory and imaging studies. She reports that she is feeling much better at this time and is no longer having chest pain or tingling to the left side of her face. Blood pressure has improved. Currently 115/67. Departure Impression Primary Impression: Chest pain Additional Impression: Hypertension Disposition: HOME, SELF-CARE Condition: Stable/Unchanged Departure-Patient Inst. Decision time for Depature: 14:43 Referrals: VINOD MITCHELL MD (PCP/Family) Primary Care Physician Patient Instructions: Chest Pain Add. Discharge Instructions: Continue your home medications as previously prescribed. Follow-up with your primary care provider within 1 week for recheck. Return back to the emergency room for worsening symptoms or concerns as needed. All discharge instructions reviewed with patient and/or family. Voiced un derstanding. OBDULIO PERAZA Aug 28, 2020 12:10
[2020-08-28 12:17] LABS: ALBUMIN 3.9 GM/DL (3.2-4.5); CHLORIDE 107 MMOL/L (98-107); POTASSIUM 3.8 MMOL/L (3.6-5.0); SODIUM 137 MMOL/L (135-145)
[2020-08-28 12:19] LABS: AMYLASE 74 U/L (25-125); CALCIUM 8.2 MG/DL (8.5-10.1); PROTHROMBIN TIME PATIENT 13.2 SEC (12.2-14.7)
[2020-08-28 12:20] LABS: GLUCOSE 170 MG/DL (70-105)
[2020-08-28 12:21] LABS: CARBON DIOXIDE 21 MMOL/L (21-32)
--- NOTE | 2020-08-28 12:21 | Diagnostic Imaging Report ---
PROCEDURE: CT head without contrast. TECHNIQUE: Multiple contiguous axial images were obtained through the brain without the use of intravenous contrast. Auto Exposure Controls were utilized during the CT exam to meet ALARA standards for radiation dose reduction. INDICATION: Left-sided facial numbness and chest pain. COMPARISON: Comparison is made with prior CT from 08/20/2015. FINDINGS: Ventricles and sulci are within normal limits. No sulcal effacement or midline shift is identified. No acute intra-axial or extra-axial hemorrhage is detected. Cisterns are patent. Visualized paranasal sinuses are clear. IMPRESSION: No acute intracranial process is detected. Dictated by: Dictated on workstation # [id number]
[2020-08-28 12:22] LABS: BILIRUBIN,TOTAL 0.2 MG/DL (0.1-1.0)
--- NOTE | 2020-08-28 12:22 | Diagnostic Imaging Report ---
INDICATION: Chest pain. TIME OF EXAM: 12:12 p.m. COMPARISON: Correlation is made with prior chest from 05/01/2018. The heart size is normal. The pulmonary vascularity is unremarkable. The lungs are clear. No infiltrate, effusion or pneumothorax is detected. IMPRESSION: No acute cardiopulmonary process is detected. Dictated by: Dictated on workstation # [id number]
[2020-08-28 12:23] LABS: ALKALINE PHOSPHATASE 80 U/L (40-136)
[2020-08-28 12:24] LABS: CREATININE SERUM 0.76 MG/DL (0.60-1.30); GFR ESTIMATED > 60
[2020-08-28 12:25] LABS: BUN/CREATININE RATIO 13
[2020-08-28 12:26] LABS: ALANINE AMINOTRANSFERASE 21 U/L (0-55)
[2020-08-28 12:28] LABS: LIPASE 12 U/L (8-78)
--- NOTE | 2020-08-28 12:30 | NUR ---
AMB TO BATHROOM
[2020-08-28 12:34] LABS: CREATINE KINASE MB 0.7 NG/ML (<6.6)
--- NOTE | 2020-08-28 12:35 | NUR ---
RETURN TO ROOM PATIENT PLACED IN CHAIR AT BEDSIDE BY OBDULIO RICCI AND NOT BACK ON MONITOR.
[2020-08-28 15:22] VITALS: BP 113/71
--- NOTE | 2020-08-28 15:26 | NUR ---
PATIENT CALLED TO REMOVED NITRO PATCH WHEN SHE GOT HOME AND WASH AREA WITH SOAP AND WATER INFORMED THAT SHE WOULD.
== END 2020-08-28 15:22 | disposition home or self-care (01) ==
LOC: EDUNIT# 11:41 → ER 11:43
DX: R07.9 Chest pain, unspecified (principal); I10 Essential (primary) hypertension; F32.9 Major depressive disorder, single episode, unspecified; K21.9 Gastro-esophageal reflux disease without esophagitis; Z82.49 Family history of ischemic heart disease and other diseases of the circulatory system; Z82.61 Family history of arthritis; Z80.0 Family history of malignant neoplasm of digestive organs; Z80.1 Family history of malignant neoplasm of trachea, bronchus and lung; Z88.5 Allergy status to narcotic agent; Z88.1 Allergy status to other antibiotic agents; Z88.6 Allergy status to analgesic agent; Z88.8 Allergy status to other drugs, medicaments and biological substances; Z79.52 Long term (current) use of systemic steroids
CPT/HCPCS: 36415; 70450; 71045; 80053; 82150; 82553; 83690; 83735; 83874; 83880; 84484; 85025; 85379; 85610; 85730; 93041

== ENCOUNTER 2020-10-31 06:13 | Emergency (ER) | payer OTHER ==
[~2020-10-31] VITALS: Ht 154 cm; Wt 104.0 kg
[~2020-10-31 06:13] MED LIST changes: +BUTA-235 PO; -BUTA1TAB9 PO; +SERT-413 PO; +SERT-414 PO; -SERT100T8 PO; -SERT50TA9 PO
--- NOTE | 2020-10-31 06:43 | ED Lower Extremity ---
General Chief Complaint: Lower Extremity Stated Complaint: LEFT LEG NUMBNESS Nursing Triage Note: intermittant left posterior leg pain/numbness x1 month. denies injury. Nursing Sepsis Screen: No Definite Risk Source: patient Exam Limitations: no limitations History of Present Illness Date Seen by Provider: Oct 31, 2020 Time Seen by Provider: 06:30 Initial Comments Patient presents to the ER by private conveyance from home with chief complaint she woke up this morning with burning, tingling, numbness from her left buttock down to her toes on the left side only. No recent trauma falls car wreck etc. No history of back injury or surgeries. She says she had a hysterectomy recently and has gained 60 pounds. She has been doing some stretching exercises because she had similar pain like this a couple weeks ago that was not near as pronounced. Her doctor has her on Celebrex for fibromyalgia. She has not seen her primary care doctor for this paresthesias that just started today. She has not had any falls, saddle anesthesia, dysuria, incontinence or inability to urinate or have a bowel movement. No previous imaging or surgery on her back. She is not diabetic. Patient relates she also has a history of psoriatic arthritis. She denies being on any antiimmunologic's. Allergies and Home Medications Allergies Coded Allergies: nut - unspecified (Verified Allergy, Severe, Anaphylaxis, 11/16/16) acetaminophen (Verified Allergy, Unknown, NAUSEA, 02/09/16) celecoxib (Verified Allergy, Unknown, DIARRHEA. WEIGHT GAIN, 02/09/16) meloxicam (Verified Allergy, Unknown, DIARRHEA, 02/09/16) methotrexate (Verified Allergy, Unknown, MOUTH BLISTERING, ITCHING, 02/09/16) morphine (Verified Allergy, Unknown, NAUSEA, 02/09/16) oxycodone (Verified Allergy, Unknown, NAUSEA, 02/09/16) cephalexin (Unverified Adverse Reaction, Mild, SEVERE DIARRHEA, 04/24/14) codeine (Unverified Adverse Reaction, Mild, NAUSEA, 04/24/14) hydrocodone bit (Verified Adverse Reaction, Unknown, RASH, 04/24/14) Home Medications Adalimumab 40 Mg/0.8 Ml Pen.ij.kit, 40 MG SC EVERY 14 DAYS, (Reported) HAS NOT STARTED YET Butalb/Acetaminophen/Caffeine 1 Each Tablet, 1-2 TAB PO Q6H PRN for MIGRAINE, (Reported) Calcipotriene 60 Gm Oint...g., TOP DAILY PRN for PSORIASIS OF NAILS, (Reported) Clobetasol Propionate 118 Ml Shampoo, TOP Sa, (Reported) Clobetasol Propionate 15 Gm Cream..g., TOP DAILY PRN for PSORIASIS, (Reported) Diclofenac Sodium 75 Mg Tablet.dr, 75 MG PO BID PRN for JOINT PAIN, (Reported) Hydroxyzine HCl 25 Mg Tablet, 25 MG PO Q8H PRN for ANXIETY Prescribed by: NATALYA GORE on 05/01/18 1103 Omeprazole 40 Mg Capsule.dr, 40 MG PO DAILY PRN for INDIGESTION, (Reported) Ondansetron 4 Mg Tab.rapdis, 4 MG SL Q8H PRN for NAUSEA/VOMITING, (Reported) Prednisone 20 Mg Tab, 20 MG PO DAILY Prescribed by: AIDA OWENS on 11/17/16 0926 Sertraline HCl 50 Mg Tablet, 50 MG PO DAILY, (Reported) Tramadol HCl 50 Mg Tablet, 50 MG PO Q6H PRN for PAIN, (Reported) Patient Home Medication List Home Medication List Reviewed: Yes Review of Systems Constitutional: No chills, No fever EENTM: No ear discharge, No ear pain Respiratory: No cough, No short of breath Cardiovascular: No Hx of Intervention, No palpitations Gastrointestinal: No abdominal pain, No constipation, No diarrhea, No nausea, No vomiting Genitourinary: No discharge, No dysuria, No hesitancy; incontinence (stress) : No Control/STD Prophylaxis: None (Hysterectomy) Musculoskeletal: see HPI; No back pain All Other Systems Reviewed Negative Unless Noted: Yes Past Hozwfvy-Rkepvq-Stuvgn Hx Patient Social History Alcohol Use: Denies Use Smoking Status: Never a Smoker Recent Infectious Disease Expo: No Recent Hopitalizations: No Immunizations Up To Date Tetanus Booster (TDap): More than 5yrs Date of Pneumonia Vaccine: Jun 16, 2016 Date of Influenza Vaccine: Jun 16, 2016 Seasonal Allergies Seasonal Allergies: No Past Medical History Surgeries: Yes (BREAST REDUCTION, D & C, BARTHOLIN'S GLAND MARSUPIALIZATION x2) Breast, Gallbladder, Hysterectomy Respiratory: Yes (P.E. 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 Sexually Transmitted Disease: No Genitourinary: No Gastrointestinal: Yes Gastroesophageal Reflux, Chronic Constipation, Diverticulosis, Gall Bladder Disease Musculoskeletal: Yes (Psoriatic Arthritis, Chronic Joint Pain) Arthritis Endocrine: Yes (pre-diabetic) Diabetes, Non-Insulin dep HEENT: No Loss of Vision: Denies Cancer: No Psychosocial: Yes (Suicide attempt two years ago) Suicide Attempts, Depression Integumentary: Yes Psoriasis Blood Disorders: No Adverse Reaction/Blood Tranf: No Family Medical History Cancer GRANDMOTHER Cancer of colon GRANDMOTHER UNCLE Chest pain 03 MOTHER Family history: Arthritis GRANDMOTHER AUNT Family history: Breast disease 03 MOTHER Family history: Hypertension 03 FATHER Headache 03 MOTHER Hypercholesterolemia 03 FATHER 03 MOTHER 09 BROTHER 09 SISTER GRANDMOTHER Malignant neoplasm of lung GRANDMOTHER No Family History of: Abdominal aortic aneurysm Vincent's disease Alcoholism Aphasia Cataract Congenital heart disease Congestive heart failure Cystic fibrosis Dementia Dysphagia Family history: Allergy Family history: Alzheimer's disease Family history: Asthma Family history: Cardiovascular disease Family history: Coronary thrombosis Family history: Diabetes mellitus Family history: Gastrointestinal disease Family history: Glaucoma Family history: Osteoporosis Family history: Thyroid disorder Hearing loss Heart disease Hereditary disease History of - anemia History of - disorder History of - respiratory disease History of drug abuse Human immunodeficiency virus (HIV) seropositivity Infertile Kidney disease Myocardial infarction Parkinson's disease Prostate cancer Psychotic disorder Seizure disorder Stroke Tuberculosis Visual impairment Cancer Physical Exam Vital Signs Vital Signs - First Documented 10/31/20 06:20 Temp 37.0 Pulse 91 Resp 18 B/P (MAP) 150/91 (110) Pulse Ox 96 O2 Delivery Room Air Capillary Refill : Less Than 3 Seconds Height, Weight, BMI Height: 5'2.00" Weight: 190lbs. 12.0oz. 86.161087an; 43.00 BMI Method:Estimated General Appearance: WD/WN, mild distress HEENT: PERRL/EOMI, pharynx normal Cardiovascular: normal peripheral pulses, regular rate, rhythm Respiratory: no respiratory distress, no accessory muscle use Back: normal inspection, no vertebral tenderness, other (Reproducible paresthesias and burning pain sensation when applied pressure over the L5-S1 facet joint on the left side that radiates down the left buttock all the way to the level of the left great toe. Antalgic gait) Hips: bilateral hip non-tender, bilateral hip normal inspection, bilateral hip normal range of motion Legs: bilateral leg non-tender, bilateral leg normal inspection, bilateral leg normal range of motion, bilateral leg no evidence of injury Knees: bilateral knee non-tender, bilateral knee normal inspection, bilateral knee normal range of motion, bilateral knee no evidence of injury Ankles: bilateral ankle non-tender, bilateral ankle normal inspection, bilateral ankle normal range of motion, bilateral ankle no evidence of injury Progress/Results/Core Measures Results/Orders My Orders Orders - LEONIDAS MARION Ct Lumbar Spine Wo (10/31/20 06:35) Vital Signs/I&O 10/31/20 06:20 Temp 37.0 Pulse 91 Resp 18 B/P (MAP) 150/91 (110) Pulse Ox 96 O2 Delivery Room Air Blood Pressure Mean: 110 Progress Progress Note : Time: 06:47 Progress Note Suspect she has sciatic pain involvement. Because of her recent weight gain we did investment counselor her on methods for weight loss and we will also encourage her to follow-up with physical therapy. Since she is already on an chronic NSAID and did take her dose this morning we have offered Tylenol. Because of her paresthesias that extend below the level of her knee this is a red flag and concerning especially with her history of psoriatic arthritis for lumbar stenosis or other worrisome findings. We will obtain lumbar CT without IV contrast. If there is nothing surgical to be done today then I would recommend a course of steroids although we have counseled her on the concerns with steroids and she accepts this risk because of the benefit. Diagnostic Imaging Diagonstic Imaging: CT Plain Films/CT/US/NM/MRI: other (Lumbar spine) Comments NAME: MARIOLA [facility] REC#: [id number] PT STATUS: REG ER : 1975 PHYSICIAN: LEONIDAS MARION MD ADMIT DATE: 10/31/20/ER Draft Date of Exam:10/31/20 CT LUMBAR SPINE WO PROCEDURE: CT lumbar spine without contrast. TECHNIQUE: Multiple contiguous axial images were obtained through the lumbar spine without the use of intravenous contrast. Sagittal and coronal reformations were then performed. Auto Exposure Controls were utilized during the CT exam to meet ALARA standards for radiation dose reduction. INDICATION: Left-sided paresthesia. Vertebral body height and alignment appear normal. Vertebral bodies have normal density. Intervertebral disc spaces are well-maintained. Posterior elements are intact. There appears to be bulging of annulus at L5-S1. IMPRESSION: Bulging disc L5-S1. No acute abnormality seen. Dictated on workstation # [id number] Dict: 10/31/20 0732 Trans: 10/31/20 0735 CV [id number] Interpreted by: NATALYA THOMAS MD Electronically signed by: Reviewed: Reviewed by Me Departure Impression Primary Impression: Lumbago with sciatica, left side Qualified Codes: M54.42 - Lumbago with sciatica, left side Additional Impression: Bulging lumbar disc Disposition: HOME, SELF-CARE Condition: Stable Departure-Patient Inst. Decision time for Depature: 07:43 Referrals: VINOD MITCHELL MD (PCP/Family) Primary Care Physician RENITA COHEN MD Patient Instructions: Sciatica Exercises, Sciatica (DC) Add. Discharge Instructions: The steroid should kick in over the next 12 to 24 hours and reduce inflammation in your lower back reducing the pain and numbness and burning sensation down your leg. Continue taking your medications as prescribed. Tylenol 1000 mg every 8 hours as necessary for breakthrough pain. Topical creams such as icy hot or Biofreeze applied over the low back can help relieve the inflammation which is causing your pain. Follow-up with your primary care doctor and/or with the orthopedic surgeon Dr. Cohen in the next 2 to 4 weeks for reevaluation. Call physical therapy and request a follow-up appointment for a no upfront cost evaluation at [phone]. Included are some handouts on sciatica pain and exercises to try to relieve the pain. Work on strengthening your core by doing weightbearing exercises, planks, crunches, sit ups etc. Work with your primary care doctor to design a reasonable weight loss plan. Increase the fiber and protein in your diet and avoid carbohydrates and simple sugars such as are found in potatoes, rice, flour and soda. You have a bulging disc at the level of L5 and S1 which typically will resolve on its own over the next few weeks. However if your symptoms are worsening and you are having saddle numbness, inability to urinate, falls resulting from weakness in your leg or just progressively worsening symptoms then you need to return to the ER for prompt reevaluation. Otherwise follow-up with your primary care doctor. All discharge instructions reviewed with patient and/or family. Voiced understanding. Scripts Prednisone (Prednisone) 20 Mg Tab 60 MG PO DAILY for 5 Days, #15 TAB 0 Refills Prov: LEONIDAS MARION 10/31/20 Work/School Note: Work Release Form Date Seen in the Emergency Department: Oct 31, 2020 Return to Work: Nov 03, 2020 Restrictions: Need Release from Doctor Other Restrictions Listed Below: Do not lift, push or pull greater than 20 pounds until 11/17/2020. Copy Copies To 1: AFSHAN ERNST DO; RENITA COHEN MD, TITUS J Oct 31, 2020 06:42
--- NOTE | 2020-10-31 07:35 | Diagnostic Imaging Report ---
PROCEDURE: CT lumbar spine without contrast. TECHNIQUE: Multiple contiguous axial images were obtained through the lumbar spine without the use of intravenous contrast. Sagittal and coronal reformations were then performed. Auto Exposure Controls were utilized during the CT exam to meet ALARA standards for radiation dose reduction. INDICATION: Left-sided paresthesia. Vertebral body height and alignment appear normal. Vertebral bodies have normal density. Intervertebral disc spaces are well-maintained. Posterior elements are intact. There appears to be bulging of annulus at L5-S1. IMPRESSION: Bulging disc L5-S1. No acute abnormality seen. Dictated by: Dictated on workstation # [id number]
[2020-10-31] MEDS ORDERED: PRD20T PO (08:02)
[2020-10-31 08:05] VITALS: BP 150/91
== END 2020-10-31 08:05 | disposition home or self-care (01) ==
LOC: EDUNIT# 06:13 → ER 06:17
DX: M54.42 Lumbago with sciatica, left side (principal); M51.27 Other intervertebral disc displacement, lumbosacral region; K21.9 Gastro-esophageal reflux disease without esophagitis; F32.9 Major depressive disorder, single episode, unspecified; Z88.6 Allergy status to analgesic agent; Z88.5 Allergy status to narcotic agent; Z88.1 Allergy status to other antibiotic agents; Z88.8 Allergy status to other drugs, medicaments and biological substances; Z82.49 Family history of ischemic heart disease and other diseases of the circulatory system; Z82.61 Family history of arthritis; Z80.1 Family history of malignant neoplasm of trachea, bronchus and lung; Z80.0 Family history of malignant neoplasm of digestive organs; Z79.52 Long term (current) use of systemic steroids
CPT/HCPCS: 72131

== ENCOUNTER 2021-01-09 07:42 | Emergency (ER) | payer OTHER ==
[~2021-01-09] VITALS: Ht 157 cm; Wt 83.0 kg
[~2021-01-09 07:42] MED LIST changes: -DICL100T83 PO; -FOLI0.4T2 PO; +FOLI0.4T6 PO; +NF-DICLOTA PO
--- NOTE | 2021-01-09 08:30 | ED Back Pain ---
General Chief Complaint: Back Problems Stated Complaint: BACK PAIN History of Present Illness Date Seen by Provider: Jan 09, 2021 Time Seen by Provider: 08:15 Initial Comments 45yo female to the ER with a complaint of left low back, hip and leg pain over the last 4 days. Patient had several episodes of incontinence yesterday where the urine "just ran out of me". She endorses tingling and a feeling of weakness in the left leg. No recent trauma. She states the sensation of pain radiates all the way down into her left great toe. She has not had any incontinence of bowel. She states she feels pressure in her area like she needs to urinate. She is not currently incontinent. No recent illnesses such as fever, chills, cough, abdominal pain. She has been taking Voltaren for the pain. She states she feels a little bit better when standing up and walking and worse with sitting. All other ROS reviewed and negative except as stated. Timing/Duration: 3-4 Days Severity: Severe Pain/Injury Location: Lower Extremity Radiation: Buttocks, Lower Legs Modifying Factors: Worse With Movement; Improves With Pain Medication Associated Symptoms: numbness in legs/feet, tingling in legs/feet, sensory/motor loss, loss of bladder control Allergies and Home Medications Allergies Coded Allergies: nut - unspecified (Verified Allergy, Severe, Anaphylaxis, 11/16/16) acetaminophen (Verified Allergy, Unknown, NAUSEA, 02/09/16) celecoxib (Verified Allergy, Unknown, DIARRHEA. WEIGHT GAIN, 02/09/16) meloxicam (Verified Allergy, Unknown, DIARRHEA, 02/09/16) methotrexate (Verified Allergy, Unknown, MOUTH BLISTERING, ITCHING, 02/09/16) morphine (Verified Allergy, Unknown, NAUSEA, 02/09/16) oxycodone (Verified Allergy, Unknown, NAUSEA, 02/09/16) cephalexin (Unverified Adverse Reaction, Mild, SEVERE DIARRHEA, 04/24/14) codeine (Unverified Adverse Reaction, Mild, NAUSEA, 04/24/14) hydrocodone bit (Verified Adverse Reaction, Unknown, RASH, 04/24/14) Home Medications Adalimumab 40 Mg/0.8 Ml Pen.ij.kit, 40 MG SC EVERY 14 DAYS, (Reported) HAS NOT STARTED YET Butalb/Acetaminophen/Caffeine 1 Each Tablet, 1-2 TAB PO Q6H PRN for MIGRAINE, (Reported) Calcipotriene 60 Gm Oint...g., TOP DAILY PRN for PSORIASIS OF NAILS, (Reported) Clobetasol Propionate 118 Ml Shampoo, TOP Sa, (Reported) Clobetasol Propionate 15 Gm Cream..g., TOP DAILY PRN for PSORIASIS, (Reported) Diclofenac Sodium 75 Mg Tablet.dr, 75 MG PO BID PRN for JOINT PAIN, (Reported) Hydroxyzine HCl 25 Mg Tablet, 25 MG PO Q8H PRN for ANXIETY Prescribed by: NATALYA GORE on 05/01/18 1103 Omeprazole 40 Mg Capsule.dr, 40 MG PO DAILY PRN for INDIGESTION, (Reported) Ondansetron 4 Mg Tab.rapdis, 4 MG SL Q8H PRN for NAUSEA/VOMITING, (Reported) Prednisone 20 Mg Tab, 20 MG PO DAILY Prescribed by: AIDA OWENS on 11/17/16 0926 Prednisone 20 Mg Tab, 60 MG PO DAILY Prescribed by: LEONIDAS MARION on 10/31/20 0802 Sertraline HCl 50 Mg Tablet, 50 MG PO DAILY, (Reported) Tramadol HCl 50 Mg Tablet, 50 MG PO Q6H PRN for PAIN, (Reported) Patient Home Medication List Home Medication List Reviewed: Yes Review of Systems Constitutional: see HPI EENTM: no symptoms reported Respiratory: no symptoms reported Cardiovascular: no symptoms reported Gastrointestinal: no symptoms reported Genitourinary: incontinence (urge) : No Musculoskeletal: back pain Skin: no symptoms reported Psychiatric/Neurological: Numbness, Weakness (left lower extremity) All Other Systems Reviewed Negative Unless Noted: Yes Past Qxbaouw-Pdvbdh-Oonhdm Hx Patient Social History Recent Hopitalizations: No Immunizations Up To Date Tetanus Booster (TDap): More than 5yrs Date of Pneumonia Vaccine: Jun 16, 2016 Date of Influenza Vaccine: Jun 16, 2016 Seasonal Allergies Seasonal Allergies: No Past Medical History Surgeries: Yes (BREAST REDUCTION, D & C, BARTHOLIN'S GLAND MARSUPIALIZATION x2) Breast, Gallbladder, Hysterectomy Respiratory: Yes (P.E. 2007--ONLY TOOK MEDS X 3 MONTHS-DC'D DUE TO BRUISING/ BLEEDING) Pneumonia, Pulmonary Embolism Currently Using CPAP: No Currently Using BIPAP: No Cardiac: Yes Hypertension Neurological: Yes Headaches /Migraines Reproductive Disorders: Yes (FIBROID) Female Reproductive Disorders: Menstrual Problems, Endometriosis, Ovarian Cyst [employer] History: Hysterectomy Sexually Transmitted Disease: No Genitourinary: No Gastrointestinal: Yes Gastroesophageal Reflux, Chronic Constipation, Diverticulosis, Gall Bladder Disease Musculoskeletal: Yes (Psoriatic Arthritis, Chronic Joint Pain) Arthritis Endocrine: Yes (pre-diabetic) Diabetes, Non-Insulin dep HEENT: No Loss of Vision: Denies Cancer: No Psychosocial: Yes (Suicide attempt two years ago) Suicide Attempts, Depression Integumentary: Yes Psoriasis Blood Disorders: No Adverse Reaction/Blood Tranf: No Family Medical History Cancer GRANDMOTHER Cancer of colon GRANDMOTHER UNCLE Chest pain 03 MOTHER Family history: Arthritis GRANDMOTHER AUNT Family history: Breast disease 03 MOTHER Family history: Hypertension 03 FATHER Headache 03 MOTHER Hypercholesterolemia 03 FATHER 03 MOTHER 09 BROTHER 09 SISTER GRANDMOTHER Malignant neoplasm of lung GRANDMOTHER No Family History of: Abdominal aortic aneurysm [place]'s disease Alcoholism Aphasia Cataract Congenital heart disease Congestive heart failure Cystic fibrosis Dementia Dysphagia Family history: Allergy Family history: Alzheimer's disease Family history: Asthma Family history: Cardiovascular disease Family history: Coronary thrombosis Family history: Diabetes mellitus Family history: Gastrointestinal disease Family history: Glaucoma Family history: Osteoporosis Family history: Thyroid disorder Hearing loss Heart disease Hereditary disease History of - anemia History of - disorder History of - respiratory disease History of drug abuse Human immunodeficiency virus (HIV) seropositivity Infertile Kidney disease Myocardial infarction Parkinson's disease Prostate cancer Psychotic disorder Seizure disorder Stroke Tuberculosis Visual impairment Cancer Physical Exam Vital Signs Vital Signs - First Documented 01/09/21 08:08 Temp 36.7 Pulse 82 Resp 18 B/P (MAP) 148/106 (120) Pulse Ox 98 O2 Delivery Room Air Capillary Refill : Height, Weight, BMI Height: 5'2.00" Weight: 190lbs. 12.0oz. 86.622971pi; 43.00 BMI Method:Estimated General Appearance: No Apparent Distress, Anxious HEENT: PERRL/EOMI Neck: Normal Inspection Cardiovascular: Regular Rate, Rhythm Respiratory: Lungs Clear, Normal Breath Sounds, No Accessory Muscle Use, No Respiratory Distress Gastrointestinal: Non Tender, Soft Extremity: Normal Capillary Refill, Normal Inspection Neurologic/Psychiatric: Alert, Oriented x3, Normal Mood/Affect, Other (patient with pain in the left low back with SLR; it does reproduce her pain to the foot; normal dorsiflexion of the great toes bilaterally. minimally decreased strength to the left LE. perineal sensation is intact; normal rectal tone) Skin: Normal Color, Warm/Dry Progress/Results/Core Measures Results/Orders Lab Results Laboratory Tests Test 01/09/21 07:58 Range/Units Urine Color YELLOW Urine Clarity CLEAR Urine pH 6.0 5-9 Urine Specific [place] 1.025 H 1.016-1.022 Urine Protein NEGATIVE NEGATIVE Urine Glucose (UA) NEGATIVE NEGATIVE Urine Ketones NEGATIVE NEGATIVE Urine Nitrite NEGATIVE NEGATIVE Urine Bilirubin NEGATIVE NEGATIVE Urine Urobilinogen 0.2 < = 1.0 MG/DL Urine Leukocyte Esterase NEGATIVE NEGATIVE Urine RBC (Auto) NEGATIVE NEGATIVE Urine RBC NONE /HPF Urine WBC 2-5 /HPF Urine Squamous Epithelial Cells 5-10 /HPF Urine Crystals PRESENT H /LPF Urine Calcium Oxalate Crystals LARGE H /LPF Urine Bacteria MODERATE H /HPF Urine Casts NONE /LPF Urine Mucus MODERATE H /LPF Urine Culture Indicated YES My Orders Orders - DOREEN GRAY MD Mri Lumbar Spine W/O Contrast (01/09/21 08:45) Ua Culture If Indicated (01/09/21 10:14) Urine Culture (01/09/21 07:58) Vital Signs/I&O 01/09/21 08:08 Temp 36.7 Pulse 82 Resp 18 B/P (MAP) 148/106 (120) Pulse Ox 98 O2 Delivery Room Air Progress Progress Note : Time: 09:29 Progress Note Patient in MRI at this time [address] Robertson at [facility] in [facility]. He was able to pull up and review the MRI. He states that there is no acute surgical emergency at this time. The patient has no clinical or objective findings at this time of concern for acute cauda equina syndrome. She has no persistent bowel or bladder incontinence. She has good rectal tone. She has normal strength and basically normal sensation in her lower extremities. Patient is encouraged to continue her Ultram every 6 hours as needed for pain. I am going to stop her Voltaren at this time and start her on a Medrol dose pack. Patient is already on Carafate daily for stomach acid protection. I am giving her the phone number for physical therapy, she can self refer into physical therapy. I have advised her to follow-up with the [facility]. She verbalizes understanding and is comfortable with this plan of care. I am also going to add a little Valium as a muscle relaxer to her medicine regimen. All questions are sought and answered. Patient is stable for discharge. Departure Impression Primary Impression: Acute low back pain Qualified Codes: M54.42 - Lumbago with sciatica, left side Disposition: 01 HOME, SELF-CARE Condition: Stable Departure-Patient Inst. Decision time for Depature: 11:16 Referrals: [facility] (PCP) Primary Care Physician AMRKO LOUIE APRN (Family) Primary Care Physician Patient Instructions: Radiculopathy (DC) Add. Discharge Instructions: Continue your Ultram every 6 hours as needed for pain. Take the Valium every 8 hours as needed for muscle relaxation. You can also use jest-egi-kppxrcv lidocaine patches to the sore area of your back for pain relief. I have written you a prescription for a Medrol dose pack. These are steroids. Continue your Carafate while taking the steroids. Come back to the emergency room for any persistent complaints of incontinence, worsening pain, loss of bowel function or any other emergent concerning symptoms. Please follow-up closely with [facility]. Scripts Methylprednisolone (Methylprednisolone Dose Pack) 4 Mg Tab.ds.pk 4 MG PO UD for 6 Days, #21 PKG PER DOSE PACK INSTRUCTIONS Prov: DOREEN GRAY MD 01/09/21 Diazepam (Valium) 2 Mg Tablet 2 MG PO Q8H PRN for muscle spasm, #20 TAB Prov: DOREEN GRAY MD 01/09/21 DOREEN GRAY MD Jan 09, 2021 08:30
--- NOTE | 2021-01-09 09:57 | Diagnostic Imaging Report ---
PROCEDURE: MRI lumbar spine. TECHNIQUE: Multiplanar, multisequence MRI of the lumbar spine was performed without contrast. INDICATION: Left leg pain and weakness. Incontinence. COMPARISON: CT lumbar spine without contrast 10/31/2020. FINDINGS: Normal alignment. Vertebral body heights preserved. Benign hemangioma in the T12 vertebral body. Bone marrow signal is otherwise normal. No abnormal signal in the conus which terminates at L1. Normal morphology of the cauda equina. The visualized pelvis and paravertebral soft tissues are unremarkable. L1-L2: Normal. L2-L3: Normal. L3-L4: Normal. L4-L5: Small central disc protrusion and mild facet arthropathy. This results in moderate to severe bilateral lateral recess narrowing. Mild bilateral neural foraminal narrowing. No spinal canal narrowing. L5-S1: Central disc protrusion and facet arthropathy contributes to mild bilateral lateral recess narrowing. No substantial spinal canal narrowing. Mild bilateral neural foraminal narrowing. IMPRESSION: 1. Spondylotic changes result in moderate to severe bilateral lateral recess narrowing at L4-L5 which could account for bilateral L5 radiculopathies. 2. No other substantial neural impingement. 3. Mild facet arthropathy at L4-L5 and L5-S1 may be a local pain generator. Dictated by: Dictated on workstation # [id number]
[2021-01-09 10:26] LABS: BILIRUBIN,URINE NEGATIVE (NEGATIVE); CLARITY,URINE CLEAR; COLOR,URINE YELLOW; GLUCOSE, URINE (UA) NEGATIVE (NEGATIVE); KETONES,URINE NEGATIVE (NEGATIVE); LEUKOCYTE ESTERASE ,URINE NEGATIVE (NEGATIVE); NITRITE,URINE NEGATIVE (NEGATIVE); PROTEIN,URINE NEGATIVE (NEGATIVE)
[2021-01-09 10:35] LABS: BACTERIA,URINE MODERATE /HPF; CALCIUM OXALATE CRYSTALS,UR LARGE /LPF
[2021-01-09] MEDS ORDERED: DIAZ2TAB PO (11:18)
[2021-01-09] MEDS ORDERED: METH4TAB10 PO (11:18)
[2021-01-09 11:35] VITALS: BP 158/99
== END 2021-01-09 11:35 | disposition home or self-care (01) ==
LOC: EDUNIT# 07:42 → ER 07:44
DX: M54.5 Low back pain (principal); I10 Essential (primary) hypertension; F32.9 Major depressive disorder, single episode, unspecified; K21.9 Gastro-esophageal reflux disease without esophagitis; E11.9 Type 2 diabetes mellitus without complications; Z88.5 Allergy status to narcotic agent; Z88.1 Allergy status to other antibiotic agents; Z88.6 Allergy status to analgesic agent; Z88.8 Allergy status to other drugs, medicaments and biological substances; Z79.52 Long term (current) use of systemic steroids
CPT/HCPCS: 72148; 81000; 87088

== ENCOUNTER 2021-03-13 08:13 | Outpatient (RCR) | payer OTHER ==
[~2021-03-13 08:13] MED LIST changes: +DIAZ2TAB PO; +METH4TAB10 PO; -OMEP40CA27 PO; +OMEP40CA6 PO
== END 2021-04-14 | disposition home or self-care (01) ==
DX: M54.5 Low back pain (principal)

== ENCOUNTER 2021-05-25 06:39 | Emergency (ER) | payer OTHER ==
[~2021-05-25] VITALS: Ht 152 cm; Wt 99.0 kg
--- NOTE | 2021-05-25 06:59 | ED Abdominal Pain ---
General Chief Complaint: Abdominal/GI Problems Stated Complaint: LOWER BACK PAIN/ABD PAIN/ N/V/D Source of Information: Patient Exam Limitations: No Limitations History of Present Illness Date Seen by Provider: May 25, 2021 Time Seen by Provider: 06:48 Initial Comments Patient is a 45-year-old female who presents to the emergency department with a chief complaint of left-sided abdominal pain. Patient states onset of symptoms on Tuesday, 3 days ago. Patient states she had a little blood on the toilet paper when she had her last bowel movement. She states she is alternating diarrhea and constipation. She relates she has a history of diverticulosis. She states last month she completed a course of antibiotics for diverticulitis. Patient states that she had fevers on Tuesday with her diarrhea and abdominal pain. She states initially it was in the left upper quadrant now it is in the left lower quadrant. She states her last bowel movement was yesterday. No d ysuria, urgency or frequency. She has had a history of cholecystectomy and hysterectomy. Currently rates her pain a "7". She is a little bit nauseated now. All other review of systems reviewed and negative except as stated Timing/Duration: 2-3 Days Severity/Quality: Aching, Cramping Location: LLQ Radiation: No Radiation Associated Symptoms: Nausea/Vomiting Allergies and Home Medications Allergies Coded Allergies: nut - unspecified (Verified Allergy, Severe, Anaphylaxis, 11/16/16) acetaminophen (Verified Allergy, Unknown, NAUSEA, 02/09/16) celecoxib (Verified Allergy, Unknown, DIARRHEA. WEIGHT GAIN, 02/09/16) meloxicam (Verified Allergy, Unknown, DIARRHEA, 02/09/16) methotrexate (Verified Allergy, Unknown, MOUTH BLISTERING, ITCHING, 02/09/16) morphine (Verified Allergy, Unknown, NAUSEA, 02/09/16) oxycodone (Verified Allergy, Unknown, NAUSEA, 02/09/16) cephalexin (Unverified Adverse Reaction, Mild, SEVERE DIARRHEA, 04/24/14) codeine (Unverified Adverse Reaction, Mild, NAUSEA, 04/24/14) hydrocodone bit (Verified Adverse Reaction, Unknown, RASH, 04/24/14) Patient Home Medication List Home Medication List Reviewed: Yes Adalimumab (Humira) 40 Mg/0.8 Ml Pen.ij.kit, 40 MG SC EVERY 14 DAYS, (Reported) Entered as Reported by: BEN ZARATE on 11/16/16 1552 Butalb/Acetaminophen/Caffeine (Qgtthh-Hjwsbkqg-Rmlz 50-325-40) 1 Each Tablet, 1- 2 TAB PO Q6H PRN for MIGRAINE, (Reported) Entered as Reported by: BEN ZARATE on 11/16/16 1552 Calcipotriene (Calcipotriene) 60 Gm Oint...g., TOP DAILY PRN for PSORIASIS OF NAILS, (Reported) Entered as Reported by: BEN ZARATE on 08/20/15 1254 Ciprofloxacin HCl (Ciprofloxacin HCl) 500 Mg Tablet, 500 MG PO BID Prescribed by: DOREEN GRAY on 05/25/21 0820 Clobetasol Propionate (Clobetasol Propionate) 118 Ml Shampoo, TOP Sa, (Reported) Entered as Reported by: BEN ZARATE on 08/20/15 1254 Clobetasol Propionate (Clobetasol Propionate) 15 Gm Cream..g., TOP DAILY PRN for PSORIASIS, (Reported) Entered as Reported by: BEN ZARATE on 08/20/15 1254 Diazepam (Valium) 2 Mg Tablet, 2 MG PO Q8H PRN for muscle spasm Prescribed by: DOREEN GRAY on 01/09/21 1118 Diclofenac Sodium (Diclofenac Sodium) 75 Mg Tablet.dr, 75 MG PO BID PRN for JOINT PAIN, (Reported) Entered as Reported by: BEN ZARATE on 08/20/15 1254 Hydroxyzine HCl (Hydroxyzine HCl) 25 Mg Tablet, 25 MG PO Q8H PRN for ANXIETY Prescribed by: NATALYA GORE on 05/01/18 1103 Methylprednisolone (Methylprednisolone Dose Pack) 4 Mg Tab.ds.pk, 4 MG PO UD Prescribed by: DOREEN GRAY on 01/09/21 1118 Metronidazole (Flagyl) 500 Mg Tablet, 500 MG PO TID Prescribed by: DOREEN GRAY on 05/25/21 0820 Omeprazole (Omeprazole) 40 Mg Capsule.dr, 40 MG PO DAILY PRN for INDIGESTION, (Reported) Entered as Reported by: KATHY AGUILLON on 11/16/16 1626 Ondansetron (Ondansetron Odt) 4 Mg Tab.rapdis, 4 MG SL Q8H PRN for NAUSEA/VOMITING, (Reported) Entered as Reported by: KATHY AGUILLON on 11/16/16 1626 Prednisone (Prednisone) 20 Mg Tab, 20 MG PO DAILY Prescribed by: AIDA OWENS on 11/17/16 0926 Prednisone (Prednisone) 20 Mg Tab, 60 MG PO DAILY Prescribed by: LEONIDAS MARION on 10/31/20 0802 Sertraline HCl (Sertraline HCl) 50 Mg Tablet, 50 MG PO DAILY, (Reported) Entered as Reported by: BRODY ALLISON on 02/09/16 1246 Tramadol HCl (Tramadol HCl) 50 Mg Tablet, 50 MG PO Q6H PRN for PAIN, (Reported) Entered as Reported by: KATHY AGUILLON on 11/16/16 1626 Tramadol HCl (Tramadol HCl) 50 Mg Tablet, 50 MG PO Q6H PRN for PAIN Prescribed by: DOREEN GRAY on 05/25/21 0820 Review of Systems Review of Systems Constitutional: see HPI EENTM: No Symptoms Reported Respiratory: No Symptoms Reported Cardiovascular: No Symptoms Reported Gastrointestinal: Abdominal Pain, Blood Streaked Stools, Nausea, Vomiting Genitourinary: No Symptoms Reported Musculoskeletal: no symptoms reported Skin: no symptoms reported Psychiatric/Neurological: No Symptoms Reported All Other Systems Reviewed Negative Unless Noted: Yes Past Vphcpkb-Kxkhrw-Xdztlh Hx Patient Social History Tobacco Use?: No Substance use?: No Alcohol Use?: No Pt feels they are or have been: No Immunizations Up To Date Tetanus Booster (TDap): More than 5yrs COVID19 Vaccine Stencil Cutter Machine: QUIQ Seasonal Allergies Seasonal Allergies: No Past Medical History Surgery/Hospitalization HX: HYSTERECTOMY, CHOLY Surgeries: Yes (BREAST REDUCTION, D & C, BARTHOLIN'S GLAND MARSUPIALIZATION x2) Breast, Gallbladder, Hysterectomy Respiratory: Yes (P.E. 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 History: Hysterectomy Sexually Transmitted Disease: No Genitourinary: No Gastrointestinal: Yes Gastroesophageal Reflux, Chronic Constipation, Diverticulosis, Gall Bladder Disease Musculoskeletal: Yes (Psoriatic Arthritis, Chronic Joint Pain) Arthritis Endocrine: Yes (pre-diabetic) Diabetes, Non-Insulin dep HEENT: No Loss of Vision: Denies Cancer: No Psychosocial: Yes (Suicide attempt two years ago) Suicide Attempts, Depression Integumentary: Yes Psoriasis Blood Disorders: No Adverse Reaction/Blood Tranf: No Family Medical History Cancer GRANDMOTHER Cancer of colon GRANDMOTHER UNCLE Chest pain 03 MOTHER Family history: Arthritis GRANDMOTHER AUNT Family history: Breast disease 03 MOTHER Family history: Hypertension 03 FATHER Headache 03 MOTHER Hypercholesterolemia 03 FATHER 03 MOTHER 09 BROTHER 09 SISTER GRANDMOTHER Malignant neoplasm of lung GRANDMOTHER No Family History of: Abdominal aortic aneurysm [place]'s disease Alcoholism Aphasia Cataract Congenital heart disease Congestive heart failure Cystic fibrosis Dementia Dysphagia Family history: Allergy Family history: Alzheimer's disease Family history: Asthma Family history: Cardiovascular disease Family history: Coronary thrombosis Family history: Diabetes mellitus Family history: Gastrointestinal disease Family history: Glaucoma Family history: Osteoporosis Family history: Thyroid disorder Hearing loss Heart disease Hereditary disease History of - anemia History of - disorder History of - respiratory disease History of drug abuse Human immunodeficiency virus (HIV) seropositivity Infertile Kidney disease Myocardial infarction Parkinson's disease Prostate cancer Psychotic disorder Seizure disorder Stroke Tuberculosis Visual impairment Cancer Physical Exam Vital Signs Vital Signs - First Documented 05/25/21 06:47 Temp 36.0 Pulse 94 Resp 20 B/P (MAP) 141/65 (90) Pulse Ox 99 O2 Delivery Room Air Capillary Refill : Height/Weight/BMI Height: 5'2.00" Weight: 190lbs. 12.0oz. 86.296118uk; 33.00 BMI Method:Estimated General Appearance: WD/WN, mild distress HEENT: PERRL/EOMI Respiratory: lungs clear, normal breath sounds, no respiratory distress, no accessory muscle use Cardiovascular: regular rate, rhythm Gastrointestinal: soft, tenderness (LLQ) Extremities: non-tender, normal inspection, no pedal edema, no calf tenderness Neurologic/Psychiatric: alert, normal mood/affect, oriented x 3 Skin: normal color, warm/dry Progress/Results/Core Measures Results/Orders Lab Results Laboratory Tests Test 05/25/21 06:48 05/25/21 06:52 Range/Units Urine Color YELLOW Urine Clarity CLEAR Urine pH 5.5 5-9 Urine Specific [place] >=1.030 1.016-1.022 Urine Protein NEGATIVE NEGATIVE Urine Glucose (UA) NEGATIVE NEGATIVE Urine Ketones NEGATIVE NEGATIVE Urine Nitrite NEGATIVE NEGATIVE Urine Bilirubin NEGATIVE NEGATIVE Urine Urobilinogen 0.2 < = 1.0 MG/DL Urine Leukocyte Esterase NEGATIVE NEGATIVE Urine RBC (Auto) NEGATIVE NEGATIVE Urine RBC RARE /HPF Urine WBC 2-5 /HPF Urine Squamous Epithelial Cells RARE /HPF Urine Crystals NONE /LPF Urine Bacteria FEW H /HPF Urine Casts NONE /LPF Urine Mucus SMALL H /LPF Urine Culture Indicated NO White Blood Count 11.9 H 4.3-11.0 10^3/uL Red Blood Count 5.29 H 3.80-5.11 10^6/uL Hemoglobin 13.2 11.5-16.0 g/dL Hematocrit 43 35-52 % Mean Corpuscular Volume 82 80-99 fL Mean Corpuscular Hemoglobin 25 25-34 pg Mean Corpuscular Hemoglobin Concent 31 L 32-36 g/dL Red Cell Distribution Width 14.1 10.0-14.5 % Platelet Count 437 H 130-400 10^3/uL Mean Platelet Volume 9.8 9.0-12.2 fL Immature Granulocyte % (Auto) 1 % Neutrophils (%) (Auto) 52 42-75 % Lymphocytes (%) (Auto) 39 12-44 % Monocytes (%) (Auto) 6 0-12 % Eosinophils (%) (Auto) 2 0-10 % Basophils (%) (Auto) 1 0-10 % Neutrophils # (Auto) 6.2 1.8-7.8 10^3/uL Lymphocytes # (Auto) 4.6 H 1.0-4.0 10^3/uL Monocytes # (Auto) 0.7 0.0-1.0 10^3/uL Eosinophils # (Auto) 0.2 0.0-0.3 10^3/uL Basophils # (Auto) 0.1 0.0-0.1 10^3/uL Immature Granulocyte # (Auto) 0.1 0.0-0.1 10^3/uL Sodium Level 137 135-145 MMOL/L Potassium Level 4.0 3.6-5.0 MMOL/L Chloride Level 103 98-107 MMOL/L Carbon Dioxide Level 26 21-32 MMOL/L Anion Gap 8 5-14 MMOL/L Blood Urea Nitrogen 9 7-18 MG/DL Creatinine 0.75 0.60-1.30 MG/DL Estimat Glomerular Filtration Rate 83 BUN/Creatinine Ratio 12 Glucose Level 112 H 70-105 MG/DL Calcium Level 9.3 8.5-10.1 MG/DL Corrected Calcium 9.3 8.5-10.1 MG/DL Total Bilirubin 0.3 0.1-1.0 MG/DL Aspartate Amino Transf (AST/SGOT) 14 5-34 U/L Alanine Aminotransferase (ALT/SGPT) 16 0-55 U/L Alkaline Phosphatase 78 40-136 U/L Total Protein 7.7 6.4-8.2 GM/DL Albumin 4.0 3.2-4.5 GM/DL My Orders Orders - DOREEN GRAY MD Ed Iv/Invasive Line Start (05/25/21 06:59) Cbc With Automated Diff (05/25/21 06:59) Comprehensive Metabolic Panel (05/25/21 06:59) Ua Culture If Indicated (05/25/21 06:59) Ct Abdomen/Pelvis Wo (05/25/21 06:59) Ns Iv 1000 Ml (Sodium Chloride 0.9%) (05/25/21 07:00) Ketorolac Injection (Toradol Injection) (05/25/21 07:00) Ondansetron Injection (Zofran Injectio (05/25/21 07:00) Medications Given in ED Current Medications Medications Dose Ordered Sig/Martha Route Start Time Stop Time Status Last Admin Dose Admin Ketorolac Tromethamine 15 mg ONCE ONCE IVP 05/25/21 07:00 05/25/21 07:02 DC 05/25/21 07:31 15 MG Ondansetron HCl 4 mg ONCE ONCE IVP 05/25/21 07:00 05/25/21 07:02 DC 05/25/21 07:31 4 MG Vital Signs/I&O 05/25/21 06:47 Temp 36.0 Pulse 94 Resp 20 B/P (MAP) 141/65 (90) Pulse Ox 99 O2 Delivery Room Air Progress Progress Note : Time: 08:23 Progress Note Patient is feeling better after toradol and IVF's. Scan shows acute uncomplicated diverticulitis. REturn precautions give. All questions sought and answered. Diagnostic Imaging Diagonstic Imaging: CT Plain Films/CT/US/NM/MRI: abdomen Comments [facility], [place], [place] NAME: MARIOLA WALTER [facility] REC#: [id number] PT STATUS: REG ER : 1975 PHYSICIAN: DOREEN GRAY MD ADMIT DATE: 05/25/21/ER Draft Date of Exam:05/25/21 CT ABDOMEN/PELVIS WO PROCEDURE: CT abdomen and pelvis without contrast. TECHNIQUE: Multiple contiguous axial images were obtained through the abdomen and pelvis without the use of intravenous contrast. Auto Exposure Controls were utilized during the CT exam to meet ALARA standards for radiation dose reduction. INDICATION: 45-year-old female, lower back pain, left-sided abdominal pain x2 days with bloody stool. CORRELATION STUDY: 01/17/2017 FINDINGS: LOWER THORAX: Clear. LIVER: Borderline enlarged with likely mild steatosis. GALLBLADDER: Cholecystectomy. No overt bile duct dilatation. SPLEEN: Unremarkable small splenule at the hilum. PANCREAS: Unremarkable. ADRENAL GLANDS: Unremarkable. KIDNEYS: Normal configuration. No calcification or obstruction. ABDOMINAL AORTA: Unremarkable, nonaneurysmal. GASTROINTESTINAL TRACT: Colonic diverticulosis is present. There is focal inflamed diverticulum at the junction of the descending and sigmoid colon compatible with acute uncomplicated diverticulitis. No abscess or significant perforation. Normal appendix. URINARY BLADDER: Decompressed. REPRODUCTIVE: Post hysterectomy. OSSEOUS STRUCTURES: No acute abnormality. OTHER: None. IMPRESSION: 1. Acute uncomplicated diverticulitis at the junction of the descending and sigmoid colon. Dictated on workstation # [id number] Dict: 05/25/21 0752 Trans: 05/25/21 0805 ELIO [id number] Interpreted by: KATH DEUTSCH DO Electronically signed by: Departure Impression Primary Impression: Diverticulitis of intestine Qualified Codes: K57.32 - Diverticulitis of large intestine without perforation or abscess without bleeding Disposition: HOME, SELF-CARE Condition: Stable Departure-Patient Inst. Decision time for Depature: 08:11 Referrals: SELF,PATIENT REFERRAL (PCP) Primary Care Physician [facility] O[facility] MD Patient Instructions: Diverticulitis (DC) Add. Discharge Instructions: Drink lots of fluids to stay well hydrated. Pain medications as needed, every 4-6 hours. Antibiotics as prescribed for the next 10 days. Please keep your followup appointment with Dr Carlson to get your Colonoscopy. Come back to the Emergency Department if you have worsening pain with fever, bloody stools or any other emergent, concerning symptoms. Scripts Tramadol HCl (Tramadol HCl) 50 Mg Tablet 50 MG PO Q6H PRN for PAIN, #15 TAB 0 Refills Prov: DOREEN GRAY MD 05/25/21 Tramadol HCl (Tramadol HCl) 50 Mg Tablet 50 MG PO Q6H PRN for PAIN, #15 TAB 0 Refills Prov: DOREEN GRAY MD 05/25/21 Metronidazole (Flagyl) 500 Mg Tablet 500 MG PO TID, #30 TAB Prov: DOREEN GRAY MD 05/25/21 Ciprofloxacin HCl (Ciprofloxacin HCl) 500 Mg Tablet 500 MG PO BID, #20 TAB Prov: DOREEN GRAY MD 05/25/21 Work/School Note: Work Release Form Date Seen in the Emergency Department: May 25, 2021 Return to Work: May 27, 2021 DOREEN GRAY MD May 25, 2021 06:59
[2021-05-25] MEDS ORDERED: ONDANSETRON 4 MG/2 ML (SDV) Z0FRAN IVP ONE (07:00)
[2021-05-25] MEDS ORDERED: KETOROLAC 30 MG/ML VIAL IVP ONE (07:00)
[2021-05-25] MEDS ORDERED: NS IV 1000 ML 1,000 ML IV SCH (07:00)
[2021-05-25 07:05] LABS: BASOPHILS # (AUTO) 0.1 10^3/uL (0.0-0.1); BASOPHILS % (AUTO) 1 % (0-10); EOSINOPHILS # (AUTO) 0.2 10^3/uL (0.0-0.3); EOSINOPHILS % (AUTO) 2 % (0-10); HEMATOCRIT 43 % (35-52); HEMOGLOBIN 13.2 g/dL (11.5-16.0); LYMPHOCYTES # (AUTO) 4.6 10^3/uL (1.0-4.0); LYMPHOCYTES % (AUTO) 39 % (12-44); MEAN CORPUSCULAR HEMOGLOBIN 25 pg (25-34); MEAN CORPUSCULAR HGB CONC 31 g/dL (32-36); MEAN CORPUSCULAR VOLUME 82 fL (80-99); MEAN PLATELET VOLUME 9.8 fL (9.0-12.2); MONOCYTES # (AUTO) 0.7 10^3/uL (0.0-1.0); MONOCYTES % (AUTO) 6 % (0-12); NEUTROPHILS # (AUTO) 6.2 10^3/uL (1.8-7.8); NEUTROPHILS % (AUTO) 52 % (42-75); PLATELET COUNT 437 10^3/uL (130-400); WHITE BLOOD COUNT 11.9 10^3/uL (4.3-11.0)
[2021-05-25 07:06] LABS: BILIRUBIN,URINE NEGATIVE (NEGATIVE); CLARITY,URINE CLEAR; COLOR,URINE YELLOW; GLUCOSE, URINE (UA) NEGATIVE (NEGATIVE); KETONES,URINE NEGATIVE (NEGATIVE); LEUKOCYTE ESTERASE ,URINE NEGATIVE (NEGATIVE); NITRITE,URINE NEGATIVE (NEGATIVE); PH,URINE 5.5 (5-9); PROTEIN,URINE NEGATIVE (NEGATIVE)
[2021-05-25 07:11] LABS: CALCIUM 9.3 MG/DL (8.5-10.1)
[2021-05-25 07:12] LABS: TOTAL PROTEIN 7.7 GM/DL (6.4-8.2)
[2021-05-25 07:14] LABS: BILIRUBIN,TOTAL 0.3 MG/DL (0.1-1.0)
[2021-05-25 07:16] LABS: CREATININE SERUM 0.75 MG/DL (0.60-1.30)
[2021-05-25 07:19] LABS: RBC,URINE RARE /HPF
[2021-05-25 07:20] LABS: BACTERIA,URINE FEW /HPF; SQUAMOUS EPITHELIAL CELL,UR RARE /HPF
--- NOTE | 2021-05-25 08:06 | Diagnostic Imaging Report ---
PROCEDURE: CT abdomen and pelvis without contrast. TECHNIQUE: Multiple contiguous axial images were obtained through the abdomen and pelvis without the use of intravenous contrast. Auto Exposure Controls were utilized during the CT exam to meet ALARA standards for radiation dose reduction. INDICATION: 45-year-old female, lower back pain, left-sided abdominal pain x2 days with bloody stool. CORRELATION STUDY: 01/17/2017 FINDINGS: LOWER THORAX: Clear. LIVER: Borderline enlarged with likely mild steatosis. GALLBLADDER: Cholecystectomy. No overt bile duct dilatation. SPLEEN: Unremarkable small splenule at the hilum. PANCREAS: Unremarkable. ADRENAL GLANDS: Unremarkable. KIDNEYS: Normal configuration. No calcification or obstruction. ABDOMINAL AORTA: Unremarkable, nonaneurysmal. GASTROINTESTINAL TRACT: Colonic diverticulosis is present. There is focal inflamed diverticulum at the junction of the descending and sigmoid colon compatible with acute uncomplicated diverticulitis. No abscess or significant perforation. Normal appendix. URINARY BLADDER: Decompressed. REPRODUCTIVE: Post hysterectomy. OSSEOUS STRUCTURES: No acute abnormality. OTHER: None. IMPRESSION: 1. Acute uncomplicated diverticulitis at the junction of the descending and sigmoid colon. Dictated by: Dictated on workstation # [id number]
[2021-05-25] MEDS ORDERED: TRM50T PO ×2 (08:20→08:25)
[2021-05-25] MEDS ORDERED: CIPR500T5 PO (08:20)
[2021-05-25] MEDS ORDERED: METR500T PO (08:20)
[2021-05-25 08:36] VITALS: BP 143/100
== END 2021-05-25 08:36 | disposition home or self-care (01) ==
LOC: EDUNIT# 06:39 → ER 06:41
DX: K57.32 Diverticulitis of large intestine without perforation or abscess without bleeding (principal); I10 Essential (primary) hypertension; F32.9 Major depressive disorder, single episode, unspecified; K21.9 Gastro-esophageal reflux disease without esophagitis; E11.9 Type 2 diabetes mellitus without complications; Z79.899 Other long term (current) drug therapy; Z79.52 Long term (current) use of systemic steroids
CPT/HCPCS: 36415; 74176; 80053; 81000; 85025

== ENCOUNTER 2021-05-29 12:25 | Emergency (ER) | payer OTHER ==
[~2021-05-29] VITALS: Ht 152.4 cm; Wt 98.4 kg
[~2021-05-29 12:25] MED LIST changes: +CIPR500T5 PO
--- NOTE | 2021-05-29 13:28 | ED GI ---
General Chief Complaint: Abdominal/GI Problems Stated Complaint: DIVERTICULITIS Nursing Triage Note: PT AMBULATE TO TRIAGE WITH C/O LEFT LOWER ABD PAIN. PT REPORTS BEING SEEN IN THIS ED ON TUESDAY AND DX WITH DIVERTICULITIS. PT STATES SHE FOLLOWED UP WITH [facility] YESTERDAY AND WAS CONTACTED TODAY AND INSTRUCTED TO COME TO ED BECAUSE OF A HIGH WBC COUNT. PT REPORTS SHE FEEL BETTER TODAY THAN SHE DID ON TUESDAY. Source of Information: Patient Exam Limitations: No Limitations History of Present Illness Date Seen by Provider: May 29, 2021 Time Seen by Provider: 13:00 Initial Comments to ER with reports of abnormal labs. She was seen here on Tuesday of this week for diverticulitis. Given Aliciaro and Flagyl had a CT showing uncomplicated diverticulitis. At that time her pain was 8 out of 10. She had repeat labs drawn on , yesterday, at [facility]. Results came back today showing a white count of 15.8 and she was referred to the emergency room though she overall feels better. Timing/Duration: 1 Week Severity/Quality: Moderate Location: [facility] Radiation: No Radiation Activities at Onset: None Associated Symptoms: Denies Symptoms Allergies and Home Medications Allergies Coded Allergies: nut - unspecified (Verified Allergy, Severe, Anaphylaxis, 11/16/16) acetaminophen (Verified Allergy, Unknown, NAUSEA, 02/09/16) celecoxib (Verified Allergy, Unknown, DIARRHEA. WEIGHT GAIN, 02/09/16) meloxicam (Verified Allergy, Unknown, DIARRHEA, 02/09/16) methotrexate (Verified Allergy, Unknown, MOUTH BLISTERING, ITCHING, 02/09/16) morphine (Verified Allergy, Unknown, NAUSEA, 02/09/16) oxycodone (Verified Allergy, Unknown, NAUSEA, 02/09/16) cephalexin (Unverified Adverse Reaction, Mild, SEVERE DIARRHEA, 04/24/14) codeine (Unverified Adverse Reaction, Mild, NAUSEA, 04/24/14) hydrocodone bit (Verified Adverse Reaction, Unknown, RASH, 04/24/14) Patient Home Medication List Home Medication List Reviewed: Yes Adalimumab (Humira) 40 Mg/0.8 Ml Pen.ij.kit, 40 MG SC EVERY 14 DAYS, (Reported) Entered as Reported by: BEN ZARATE on 11/16/16 3412 Butalb/Acetaminophen/Caffeine (Aorkrx-Wwwfflhc-Yhkh 50-325-40) 1 Each Tablet, 1- 2 TAB PO Q6H PRN for MIGRAINE, (Reported) Entered as Reported by: BEN ZARATE on 11/16/16 1552 Calcipotriene (Calcipotriene) 60 Gm Oint...g., TOP DAILY PRN for PSORIASIS OF NAILS, (Reported) Entered as Reported by: BEN ZARATE on 08/20/15 1254 Ciprofloxacin HCl (Ciprofloxacin HCl) 500 Mg Tablet, 500 MG PO BID Prescribed by: DOREEN GRAY on 05/25/21 0820 Clobetasol Propionate (Clobetasol Propionate) 118 Ml Shampoo, TOP Sa, (Reported) Entered as Reported by: BEN ZARATE on 08/20/15 1254 Clobetasol Propionate (Clobetasol Propionate) 15 Gm Cream..g., TOP DAILY PRN for PSORIASIS, (Reported) Entered as Reported by: BEN ZARATE on 08/20/15 1254 Diazepam (Valium) 2 Mg Tablet, 2 MG PO Q8H PRN for muscle spasm Prescribed by: DROEEN GRAY on 01/09/21 1118 Diclofenac Sodium (Diclofenac Sodium) 75 Mg Tablet.dr, 75 MG PO BID PRN for JOINT PAIN, (Reported) Entered as Reported by: BEN ZARATE on 08/20/15 1254 Hydroxyzine HCl (Hydroxyzine HCl) 25 Mg Tablet, 25 MG PO Q8H PRN for ANXIETY Prescribed by: NATALYA GORE on 05/01/18 1103 Methylprednisolone (Methylprednisolone Dose Pack) 4 Mg Tab.ds.pk, 4 MG PO UD Prescribed by: DOREEN GRAY on 01/09/21 1118 Metronidazole (Flagyl) 500 Mg Tablet, 500 MG PO TID Prescribed by: DOREEN GRAY on 05/25/21 0820 Omeprazole (Omeprazole) 40 Mg Capsule.dr, 40 MG PO DAILY PRN for INDIGESTION, (Reported) Entered as Reported by: KATHY AGUILLON on 11/16/16 1626 Ondansetron (Ondansetron Odt) 4 Mg Tab.rapdis, 4 MG SL Q8H PRN for NAUSEA/VOMITING, (Reported) Entered as Reported by: KATHY AGUILLON on 11/16/16 1626 Prednisone (Prednisone) 20 Mg Tab, 20 MG PO DAILY Prescribed by: AIDA OWENS on 11/17/16 0926 Prednisone (Prednisone) 20 Mg Tab, 60 MG PO DAILY Prescribed by: LEONIDAS MARION on 10/31/20 0802 Sertraline HCl (Sertraline HCl) 50 Mg Tablet, 50 MG PO DAILY, (Reported) Entered as Reported by: BRODY ALLISON on 02/09/16 1246 Tramadol HCl (Tramadol HCl) 50 Mg Tablet, 50 MG PO Q6H PRN for PAIN, (Reported) Entered as Reported by: KATHY AGUILLON on 11/16/16 1626 Tramadol HCl (Tramadol HCl) 50 Mg Tablet, 50 MG PO Q6H PRN for PAIN Prescribed by: DOREEN GRAY on 05/25/21 0820 Tramadol HCl (Tramadol HCl) 50 Mg Tablet, 50 MG PO Q6H PRN for PAIN Prescribed by: DOREEN GRAY on 05/25/21 0826 Review of Systems Review of Systems Constitutional: see HPI; No fever EENTM: No Symptoms Reported Respiratory: No Symptoms Reported Cardiovascular: No Symptoms Reported Gastrointestinal: See HPI, Abdominal Pain; Denies Nausea Genitourinary: No Symptoms Reported Musculoskeletal: no symptoms reported Skin: no symptoms reported Psychiatric/Neurological: No Symptoms Reported Endocrine: No Symptoms Reported Past Erpvmbi-Uxadnp-Fgywpe Hx Patient Social History Tobacco Use?: No Smoking Status: Never a Smoker Smokeless Tobacco Frequency: Never a User Substance use?: No Alcohol Use?: No Immunizations Up To Date Tetanus Booster (TDap): More than 5yrs First/Initial COVID19 Vaccinat: 10/2020 Second COVID19 Vaccination Beck: 11/2020 COVID19 Vaccine Petal Shaper Hand: MODERNA Seasonal Allergies Seasonal Allergies: No Past Medical History Surgery/Hospitalization HX: HYSTERECTOMY, CHOLY Surgeries: Yes (BREAST REDUCTION, D & C, BARTHOLIN'S GLAND MARSUPIALIZATION x2) Breast, Gallbladder, Hysterectomy Respiratory: Yes (P.E. 2007--ONLY TOOK MEDS X 3 MONTHS-DC'D DUE TO BRUISING/BLEEDING) Pneumonia, Pulmonary Embolism Currently Using CPAP: No Currently Using BIPAP: No Cardiac: Yes Hypertension Neurological: Yes Headaches /Migraines Reproductive Disorders: Yes (FIBROID) Female Reproductive Disorders: Menstrual Problems, Endometriosis, Ovarian Cyst [employer] History: Hysterectomy Sexually Transmitted Disease: No Genitourinary: No Gastrointestinal: Yes Gastroesophageal Reflux, Chronic Constipation, Diverticulosis, Gall Bladder Disease Musculoskeletal: Yes (Psoriatic Arthritis, Chronic Joint Pain) Arthritis Endocrine: Yes (pre-diabetic) Diabetes, Non-Insulin dep HEENT: No Loss of Vision: Denies Cancer: No Psychosocial: Yes (Suicide attempt two years ago) Suicide Attempts, Depression Integumentary: Yes Psoriasis Blood Disorders: No Adverse Reaction/Blood Tranf: No Family Medical History Cancer GRANDMOTHER Cancer of colon GRANDMOTHER UNCLE Chest pain 03 MOTHER Family history: Arthritis GRANDMOTHER AUNT Family history: Breast disease 03 MOTHER Family history: Hypertension 03 FATHER Headache 03 MOTHER Hypercholesterolemia 03 FATHER 03 MOTHER 09 BROTHER 09 SISTER GRANDMOTHER Malignant neoplasm of lung GRANDMOTHER No Family History of: Abdominal aortic aneurysm Robertson's disease Alcoholism Aphasia Cataract Congenital heart disease Congestive heart failure Cystic fibrosis Dementia Dysphagia Family history: Allergy Family history: Alzheimer's disease Family history: Asthma Family history: Cardiovascular disease Family history: Coronary thrombosis Family history: Diabetes mellitus Family history: Gastrointestinal disease Family history: Glaucoma Family history: Osteoporosis Family history: Thyroid disorder Hearing loss Heart disease Hereditary disease History of - anemia History of - disorder History of - respiratory disease History of drug abuse Human immunodeficiency virus (HIV) seropositivity Infertile Kidney disease Myocardial infarction Parkinson's disease Prostate cancer Psychotic disorder Seizure disorder Stroke Tuberculosis Visual impairment Cancer Physical Exam Vital Signs Vital Signs - First Documented 05/29/21 13:02 Temp 37.0 Pulse 88 Resp 17 B/P (MAP) 147/53 (84) O2 Delivery Room Air Capillary Refill : Less Than 3 Seconds Height/Weight/BMI Height: 5'2.00" Weight: 190lbs. 12.0oz. 86.441764vm; 42.00 BMI Method:Estimated General Appearance: WD/WN, no apparent distress HEENT: PERRL/EOMI, normal ENT inspection Respiratory: no accessory muscle use Cardiovascular: regular rate, rhythm, no murmur Gastrointestinal: normal bowel sounds, soft, tenderness (Left lower quadrant tenderness. Rates pain at 5 out of 10 and was 8 out of 10 a few days ago.) Extremities: normal range of motion, non-tender Neurologic/Psychiatric: alert, normal mood/affect, oriented x 3 Skin: normal color, warm/dry Progress/Results/Core Measures Results/Orders Lab Results Laboratory Tests Test 05/29/21 13:30 Range/Units White Blood Count 12.7 H 4.3-11.0 10^3/uL Red Blood Count 5.58 H 3.80-5.11 10^6/uL Hemoglobin 13.9 11.5-16.0 g/dL Hematocrit 45 35-52 % Mean Corpuscular Volume 81 80-99 fL Mean Corpuscular Hemoglobin 25 25-34 pg Mean Corpuscular Hemoglobin Concent 31 L 32-36 g/dL Red Cell Distribution Width 14.1 10.0-14.5 % Platelet Count 419 H 130-400 10^3/uL Mean Platelet Volume 9.4 9.0-12.2 fL Immature Granulocyte % (Auto) 1 % Neutrophils (%) (Auto) 63 42-75 % Lymphocytes (%) (Auto) 28 12-44 % Monocytes (%) (Auto) 7 0-12 % Eosinophils (%) (Auto) 1 0-10 % Basophils (%) (Auto) 1 0-10 % Neutrophils # (Auto) 7.9 H 1.8-7.8 10^3/uL Lymphocytes # (Auto) 3.6 1.0-4.0 10^3/uL Monocytes # (Auto) 0.9 0.0-1.0 10^3/uL Eosinophils # (Auto) 0.2 0.0-0.3 10^3/uL Basophils # (Auto) 0.1 0.0-0.1 10^3/uL Immature Granulocyte # (Auto) 0.1 0.0-0.1 10^3/uL Sodium Level 139 135-145 MMOL/L Potassium Level 3.9 3.6-5.0 MMOL/L Chloride Level 103 98-107 MMOL/L Carbon Dioxide Level 27 21-32 MMOL/L Anion Gap 9 5-14 MMOL/L Blood Urea Nitrogen 8 7-18 MG/DL Creatinine 0.80 0.60-1.30 MG/DL Estimat Glomerular Filtration Rate 77 BUN/Creatinine Ratio 10 Glucose Level 100 70-105 MG/DL Calcium Level 9.6 8.5-10.1 MG/DL Corrected Calcium 9.4 8.5-10.1 MG/DL Total Bilirubin 0.4 0.1-1.0 MG/DL Aspartate Amino Transf (AST/SGOT) 20 5-34 U/L Alanine Aminotransferase (ALT/SGPT) 28 0-55 U/L Alkaline Phosphatase 70 40-136 U/L Total Protein 8.0 6.4-8.2 GM/DL Albumin 4.2 3.2-4.5 GM/DL My Orders Orders - AUGUST PARRY APRN Cbc With Automated Diff (05/29/21 13:14) Comprehensive Metabolic Panel (05/29/21 13:14) Ed Iv/Invasive Line Start (05/29/21 13:14) Ct Abdomen/Pelvis W (05/29/21 13:14) Lactated Ringers (Lr 1000 Ml Iv Solution (05/29/21 13:30) Ceftriaxone (Rocephin) (05/29/21 13:30) Iohexol Injection (Omnipaque 350 Mg/Ml 1 (05/29/21 14:15) Received Contrast (Hold Metformin- Contr (05/29/21 14:15) Ns (Ivpb) (Sodium Chloride 0.9% Ivpb Bag (05/29/21 14:15) Sodium Chloride Flush (Catheter Flush Sy (05/29/21 14:15) Medications Given in ED Current Medications Medications Dose Ordered Sig/Martha Route Start Time Stop Time Status Last Admin Dose Admin Ceftriaxone Sodium 1000 mg/ Sterile Water 10 ml @ 200 mls/hr ONCE ONCE IV 05/29/21 13:30 05/29/21 13:32 DC 05/29/21 13:38 200 MLS/HR Vital Signs/I&O 05/29/21 13:02 Temp 37.0 Pulse 88 Resp 17 B/P (MAP) 147/53 (84) O2 Delivery Room Air Blood Pressure Mean: 84 Departure Impression Primary Impression: Diverticulitis of intestine Disposition: 01 HOME, SELF-CARE Condition: Stable Departure-Patient Inst. Decision time for Depature: 14:18 Referrals: NO,LOCAL PHYSICIAN (PCP/Family) Primary Care Physician Patient Instructions: Diverticulitis Add. Discharge Instructions: 1. Continue antibiotics. Return to ER for any concerns. All discharge instructions reviewed with patient and/or family. Voiced understanding. AUGUST PARRY APRN May 29, 2021 13:28
[2021-05-29] MEDS ORDERED: LACTATED RINGERS 1,000 ML IV SCH (13:30)
[2021-05-29] MEDS ORDERED: cefTRIAXone 1,000 MG in WATER (STERILE) FOR INJECTION 10 ML IV ONE (13:30)
[2021-05-29 13:42] LABS: BASOPHILS # (AUTO) 0.1 10^3/uL (0.0-0.1); BASOPHILS % (AUTO) 1 % (0-10); EOSINOPHILS # (AUTO) 0.2 10^3/uL (0.0-0.3); EOSINOPHILS % (AUTO) 1 % (0-10); HEMATOCRIT 45 % (35-52); HEMOGLOBIN 13.9 g/dL (11.5-16.0); LYMPHOCYTES # (AUTO) 3.6 10^3/uL (1.0-4.0); LYMPHOCYTES % (AUTO) 28 % (12-44); MEAN CORPUSCULAR HEMOGLOBIN 25 pg (25-34); MEAN CORPUSCULAR HGB CONC 31 g/dL (32-36); MEAN CORPUSCULAR VOLUME 81 fL (80-99); MEAN PLATELET VOLUME 9.4 fL (9.0-12.2); MONOCYTES # (AUTO) 0.9 10^3/uL (0.0-1.0); MONOCYTES % (AUTO) 7 % (0-12); NEUTROPHILS # (AUTO) 7.9 10^3/uL (1.8-7.8); NEUTROPHILS % (AUTO) 63 % (42-75); PLATELET COUNT 419 10^3/uL (130-400); WHITE BLOOD COUNT 12.7 10^3/uL (4.3-11.0)
[2021-05-29 13:49] LABS: ALBUMIN 4.2 GM/DL (3.2-4.5); POTASSIUM 3.9 MMOL/L (3.6-5.0)
[2021-05-29 13:50] LABS: CALCIUM 9.6 MG/DL (8.5-10.1)
[2021-05-29 13:53] LABS: BILIRUBIN,TOTAL 0.4 MG/DL (0.1-1.0)
[2021-05-29 13:55] LABS: CREATININE SERUM 0.8 MG/DL (0.60-1.30)
[2021-05-29] MEDS ORDERED: IOHEXOL 350 MG/ML 100 ML (OMNIPAQUE 350) VIAL IV ONE (14:15)
[2021-05-29] MEDS ORDERED: NS 100 ML (IVPB) BAG IV ONE (14:15)
[2021-05-29] MEDS ORDERED: HOLD METFORMIN - RECEIVED CONTRAST 20 ML VIAL IV SCH (14:15)
[2021-05-29] MEDS ORDERED: CATHETER FLUSH 10 ML SYR IV PRN (14:15)
[2021-05-29 14:29] VITALS: BP 137/79
== END 2021-05-29 14:29 | disposition home or self-care (01) ==
LOC: EDUNIT# 12:25 → ER 12:26
DX: K57.92 Diverticulitis of intestine, part unspecified, without perforation or abscess without bleeding (principal); I10 Essential (primary) hypertension; K21.9 Gastro-esophageal reflux disease without esophagitis; F32.9 Major depressive disorder, single episode, unspecified; E11.9 Type 2 diabetes mellitus without complications; Z79.899 Other long term (current) drug therapy; Z79.52 Long term (current) use of systemic steroids
CPT/HCPCS: 36415; 80053; 85025

== ENCOUNTER → 2021-06-03 | Outpatient (CLI) | payer OTHER | END | disposition home or self-care (01) | LOC: PREOP 05:39 | PROVIDERS: ATTEND Surgery | DX: Z01.818 Encounter for other preprocedural examination (principal) ==

== ENCOUNTER 2021-06-17 08:15 | Outpatient (RCR) | payer OTHER | END 2021-08-26 11:38 | disposition home or self-care (01) | DX: M54.17 Radiculopathy, lumbosacral region (principal); I10 Essential (primary) hypertension ==